=== PATIENT | female | born 1945 | race Caucasian/White ===

== ENCOUNTER → 2024-01-20 09:57 | Outpatient (REF) | payer MEDICARE, BC, SELFPAY | LOC: HWRCS 09:57 | PROVIDERS: ATTENDING PHYSICIAN Physician Assistant | DX: R06.09 Other forms of dyspnea (principal); I50.32 Chronic diastolic (congestive) heart failure | CPT/HCPCS: 71046; 93306 ==

== ENCOUNTER 2024-01-22 10:26 | Emergency (ER) | payer MEDICARE, BC, SELFPAY ==
[2024-01-22 10:30] VITALS: BP 166/80
--- NOTE | 2024-01-22 11:25 | ED.GENMED ---
History of Present Illness
General
Chief Complaint: Abnormal Lab Value
Source: patient
Exam Limitations: none
Time Seen by Provider: 01/22/24 11:04
Nursing documentation reviewed up to this point in time: agreed with
History of Present Illness
History of Present Illness:
Patient with history of ITP, presents to ED after an outpatient blood work yesterday revealed recurrent thrombocytopenia, with reported spontaneous bruising noted over the past 1 week. Patient has similar episode 2 years ago during which time
patient was admitted and treated with prednisone with improvement in symptoms. Patient reports chronic intermittent headache as well as shortness of breath, which appears to be worsening. Denies fever or chills. Denies chest pain. Denies nausea,
vomiting, or diarrhea. Denies recent travel or surgery. Denies recent change in medications or diet. Denies dizziness or weakness. Patient reports having received an outpatient chest x-ray yesterday.
Past History
Past History
ED Past Medical History: Cancer (Remote history of breast cancer), HTN and Other (Osteoarthritis, thrombocytopenia)
ED Past Surgical History: Cholecystectomy and Orthopedic
Social History
Tobacco: Former smoker
Alcohol: None
Drug: None
Personal:
Living: alone
Family History
Family History: Unable to obtain
Review of Systems
Review of Systems
Allergies reviewed?: Yes
All Other Systems: ROS reviewed and negative except as documented in HPI and ROS
Constitutional: Reports no symptoms
EENT: Reports no symptoms
Respiratory: Reports cough and trouble breathing
Cardiac: Reports no symptoms; Denies chest pain
ABD/GI: Reports no symptoms
: Reports no symptoms
Musculoskeletal: Reports no symptoms
Skin: Reports other (Bruising)
Neurological: Reports headache
Phy Exam
Physical Exam
Physical Exam:
Physical Exam
General: no apparent distress, not acutely ill. afebrile
Head: nc/at. eomi
Neck: supple. no meningeal signs.
Heart: s1/s2 regular rate and rhythm, no murmur. equal radial pulses.
Lungs: no acute respiratory distress. clear bilaterally
Abdomen: normal bowel sounds. not tender.
Neuro: alert and oriented. no focal neurological deficits
Skin: ecchymosis noted over abdomen/LLE/back
Psychiatric: well kept. interactive and cooperative
Extremities: no edema. no calf tenderness.
Course
Orders/Labs/Results
Orders:
Orders
01/22/24 11:02
Cardiac Monitoring- Treatment ONCE
IV Insert/Care/Rem.- Treatment PRN
01/22/24 11:19
Type+Screen Urgent
Complete Blood Count/With Diff Urgent
Comprehensive Metabolic Panel Urgent
D-Dimer Urgent
Comment: ADD ON
NT-proBNP Urgent
Comment: PROBNP ADDED ON BY FLOOR 2:45PM 01-22-24
PTT Urgent
Prothrombin Time Urgent
01/22/24 11:20
Add On- LAB Urgent
Tests Added?: d-dimer
CT Head W/o Iv Contrast Urgent
Comment:
Reason For Exam: headache with thrombocytopenia
01/22/24 12:09
CT Chest Pe Study Urgent
Comment:
Reason For Exam: sob with elevated d-dimer
01/22/24 14:44
Add On- LAB Urgent
Tests Added?: ProBNP
Abnormal Lab Results
01/22/24
11:19
RBC 3.86 L 10^6/uL
(4.20-5.40)
Hct 35.6 L %
(37.0-47.0)
MCH 32.6 H pg
(27.0-31.0)
Plt Count 13 L* 10^3/uL
(130-400)
Absolute Monos (auto) 0.8 H 10^3/uL
(0.1-0.6)
Monocytes % 14.1 H %
(1.7-9.3)
PT 15.6 H Sec
(11.4-14.6)
D-Dimer 1.05 H ug/mlFEU
(0.00-0.50)
Potassium 3.4 L mmol/L
(3.5-5.1)
Carbon Dioxide 32 H mmol/L
(22-30)
AST 70 H U/L
(14-36)
ALT 42 H U/L
(0-35)
01/22/24 11:19
01/22/24 11:19
Vital Signs
Initial and Last Documented VS:
Initial Vital Signs
Temp Pulse Resp BP Pulse Ox
98.9 F 92 18 166/80 94
01/22/24 10:30 01/22/24 10:30 01/22/24 10:30 01/22/24 10:30 01/22/24 10:30
Last Documented Vital Signs
Temp Pulse Resp BP Pulse Ox
98.9 F 93 15 166/81 95
01/22/24 10:30 01/22/24 15:30 01/22/24 15:30 01/22/24 14:01 01/22/24 15:15
MDM/Problems Addressed
MDM/Problems Addressed:
History and exam, along with blood work consistent with recurrent thrombocytopenia. In light of intermittent headache, decision made to obtain CT head, which did not reveal any acute bleeding. In addition, as patient has had worsening shortness of
breath recently, with unremarkable chest x-ray yesterday, decision made to obtain CT chest, as this had already been discussed with her primary care physician.
CT chest: No PE, but suggestion of sepsis versus mild interstitial edema. Patient advised to take extra tablet of Bumex as an outpatient over the next few days, along with follow-up with her primary pastoral worker, Dr. Gill.
Discussed with on-call hematology, Dr. Levin. Does not recommend platelet transfusion at this time, but recommends treating patient as an outpatient with dexamethasone 40 mg daily x 4 days, along with weekly CBC, as well as outpatient follow-up
with her primary credit associate, Dr. Arvizu
Patient expresses understanding at time of discharge, to the care of her daughter. Patient advised to return to ED with worsening symptoms, i.e. worsening shortness of breath.
*Critical Care Note
Total Time (30-74mins, 75-104mins- exclusive of procedures): Not Applicable
ED Attending Note
-
Portions of this chart may have been created with voice recognition software.� Occasional wrong word or��sound alike� substitutions may have occurred due to the inherent limitations of voice recognition software.
Discharge Plan
Departure
Patient Disposition: Home (Routine Discharge)
Date of Disposition: 01/22/24
Time of Disposition: 15:33
Patient with high blood pressure during this ER visit?: Yes
Condition: Fair
Discharge Problem:
Thrombocytopenia
Instructions: Immune thrombocytopenia (ITP)
Prescriptions:
No Action
esomeprazole magnesium [Nexium] 40 MG capsule,delayed release(DR/EC)
40 mg PO DAILY
gabapentin [Neurontin] 600 MG tablet
600 mg PO DAILY@1200
bupropion HCl 150 MG tablet extended release 24 hr
150 mg PO DAILY
fluticasone propionate 1 SPRAY spray,suspension
1 spray intranasal DAILY
escitalopram oxalate 10 MG tablet
10 mg PO DAILY
chlorthalidone 25 MG tablet
25 mg PO DAILY Qty: 30 0RF
bumetanide 1 mg Tablet
1 mg PO DAILY
PreserVision AREDS 4,296 mcg-226 mg-90 mg Capsule
2 cap PO DAILY
gabapentin 600 mg Tablet
1,200 mg PO HS
polyethylene glycol 3350 [Miralax] 17 gram Powder In Packet
17 g PO DAILYPRN PRN (Reason: CONSTIPATION)
ibuprofen [Motrin] 400 mg Tablet
400 mg PO BIDPRN PRN (Reason: MILD PAIN)
ondansetron [Zofran ODT] 4 mg Tablet,Disintegrating
4 mg PO Q6HPRN PRN (Reason: nauseA)
celecoxib [Celebrex] 50 mg Capsule
50 mg PO DAILYPRN PRN (Reason: MILD PAIN)
ZzzQuil 50 mg/30 mL Liquid
50 mg PO HS
potassium chloride 20 mEq Tablet Extended Release
20 meq PO DAILY
Referrals:
UNKNOWN - PT DOES,NOT KNOW [Family Provider] -
Activity Restrictions/Additional Instructions:
As discussed, please follow-up with your credit associate for reevaluation, as well as repeat blood work weekly x 3 weeks. In addition, prescription for medication dexamethasone, has been called into your pharmacy at [facility].
Interventions
Interventions:
*Risk Screen - Suicide Last Done: 01/22/24 11:24
*General Assessment Last Done: 01/22/24 11:24
*Neglect/Abuse Screening Last Done: 01/22/24 11:24
ED- Fall Risk Assessment Last Done: 01/22/24 11:24
*ED COVID-19 Vaccine History Last Done: 01/22/24 11:24
*Nursing Disposition Last Done: 01/22/24 16:05
Discharge Date and Time
Discharge Date/Time: 01/22/24 16:06
Print Language: RWANDAN
[2024-01-22 11:42] LABS: INR 1.23; PT 15.6 Sec (11.4-14.6)
[2024-01-22 11:43] LABS: APTT 32.4 Sec (23.4-35.0)
[2024-01-22 11:45] LABS: D-Dimer 1.05 ug/mlFEU (0.00-0.50)
[2024-01-22 11:46] LABS: ALT (SGPT) 42 U/L (0-35); AST (SGOT) 70 U/L (14-36); Albumin 3.8 g/dl (3.5-5.0); Alkaline Phosphatase 102 U/L (38-126); Blood Urea Nitrogen 10 mg/dl (7-17); Calcium 8.9 mg/dl (8.4-10.2); Carbon Dioxide 32 mmol/L (22-30); Chloride 101 mmol/L (98-107); Glucose 85 mg/dl (70-99); Potassium 3.4 mmol/L (3.5-5.1); Sodium 139 mmol/L (135-145); Total Bilirubin 0.6 mg/dl (0.2-1.3); Total Protein 7.9 g/dl (6.3-8.2); eGFR > 60.00
[2024-01-22 12:02] LABS: % Basophils 1.5 % (0-2); % Eosinophils 2.9 % (0-6); % Immature Granulocytes 0.4 % (0-0.5); % Lymphocytes 21.6 % (20.5-51.1); % Monocytes 14.1 % (1.7-9.3); % Neutrophils 59.5 % (42.2-75.2); Absolute Basophils 0.1 10^3/uL (0-0.2); Absolute Eosinophils 0.2 10^3/uL (0-0.7); Absolute Lymphocytes 1.2 10^3/uL (1.2-3.4); Absolute Monocytes 0.8 10^3/uL (0.1-0.6); Absolute Neutrophils 3.3 10^3/uL (1.4-6.5); Hematocrit 35.6 % (37.0-47.0); Hemoglobin 12.6 g/dL (12.0-16.0); Mean Corp Hgb Conc. 35.4 g/dL (33.0-37.0); Mean Corpuscular Hgb 32.6 pg (27.0-31.0); Mean Corpuscular Volume 92.2 fL (81.0-99.0); Nucleated Red Blood Cells % 0 %; Red Blood Cell Count 3.86 10^6/uL (4.20-5.40); Red Cell Dist. Width 13.2 % (11.5-14.5); White Blood Cell Count 5.5 10^3/uL (4.8-10.8)
[2024-01-22 12:29] VITALS: BP 117/97
[2024-01-22 12:51] LABS: Platelet Count 13 10^3/uL (130-400)
[2024-01-22 13:00] VITALS: BP 119/95
[2024-01-22 13:52] VITALS: BP 166/80; BMI 35.8
[2024-01-22 14:01] VITALS: BP 166/81
[2024-01-22 15:47] LABS: NT-proBNP 650 pg/ml
== END 2024-01-22 16:06 | disposition home or self-care (01) ==
LOC: EMR 10:26
PROVIDERS: EMERGENCY PHYSICIAN Emergency Medicine
DX: D69.6 Thrombocytopenia, unspecified (principal); I10 Essential (primary) hypertension; M19.90 Unspecified osteoarthritis, unspecified site; Z85.3 Personal history of malignant neoplasm of breast; Z87.891 Personal history of nicotine dependence; Z90.49 Acquired absence of other specified parts of digestive tract
CPT/HCPCS: 99284; 70450; 71275; 80053; 83880; 85025; 85379; 85610; 85730; 86850; 86900; 86901; Q9967

== ENCOUNTER → 2024-01-30 10:33 | Outpatient (REF) | payer MEDICARE, BC, SELFPAY ==
[2024-01-30 12:27] LABS: % Basophils 0.1 % (0-2); % Eosinophils 3.1 % (0-6); % Immature Granulocytes 1.7 % (0-0.5); % Lymphocytes 15.1 % (20.5-51.1); Absolute Eosinophils 0.2 10^3/uL (0-0.7); Absolute Immature Granulocytes 0.1 10^3/uL (0-0.05); Absolute Lymphocytes 1.2 10^3/uL (1.2-3.4); Absolute Neutrophils 5.2 10^3/uL (1.4-6.5); Hematocrit 38.4 % (37.0-47.0); Hemoglobin 13.5 g/dL (12.0-16.0); Mean Corp Hgb Conc. 35.2 g/dL (33.0-37.0); Mean Corpuscular Hgb 32.6 pg (27.0-31.0); Mean Corpuscular Volume 92.8 fL (81.0-99.0); Mean Platelet Volume 11.1 fL (7.4-10.4); Nucleated Red Blood Cells % 0 %; Platelet Count 104 10^3/uL (130-400); Red Blood Cell Count 4.14 10^6/uL (4.20-5.40); White Blood Cell Count 7.8 10^3/uL (4.8-10.8)
== END ==
LOC: HWLAB 10:33
PROVIDERS: ATTENDING PHYSICIAN Emergency Medicine; FAMILY PHYSICIAN Nurse Practitioner Family; REFERRING PHYSICIAN Internal Medicine Hematology & Oncology
DX: R68.89 Other general symptoms and signs (principal); D69.6 Thrombocytopenia, unspecified
CPT/HCPCS: 36415; 85025

== ENCOUNTER → 2024-02-05 07:51 | Outpatient (REF) | payer MEDICARE, BC, SELFPAY ==
[2024-02-05 10:24] LABS: % Basophils 1.1 % (0-2); % Eosinophils 3.2 % (0-6); % Immature Granulocytes 0.4 % (0-0.5); % Monocytes 13.5 % (1.7-9.3); % Neutrophils 57.8 % (42.2-75.2); Absolute Basophils 0.1 10^3/uL (0-0.2); Absolute Eosinophils 0.2 10^3/uL (0-0.7); Absolute Lymphocytes 1.7 10^3/uL (1.2-3.4); Absolute Neutrophils 4.2 10^3/uL (1.4-6.5); Hematocrit 36.4 % (37.0-47.0); Hemoglobin 12.7 g/dL (12.0-16.0); Mean Corp Hgb Conc. 34.9 g/dL (33.0-37.0); Mean Corpuscular Hgb 31.7 pg (27.0-31.0); Mean Corpuscular Volume 90.8 fL (81.0-99.0); Nucleated Red Blood Cells % 0 %; Red Blood Cell Count 4.01 10^6/uL (4.20-5.40); Red Cell Dist. Width 12.9 % (11.5-14.5); White Blood Cell Count 7.2 10^3/uL (4.8-10.8)
[2024-02-05 11:16] LABS: Mean Platelet Volume 12.4 fL (7.4-10.4); Platelet Count 58 10^3/uL (130-400)
== END ==
LOC: HWLAB 07:51
PROVIDERS: ATTENDING PHYSICIAN Emergency Medicine; FAMILY PHYSICIAN Nurse Practitioner Family; REFERRING PHYSICIAN Internal Medicine Hematology & Oncology
DX: D69.6 Thrombocytopenia, unspecified (principal)
CPT/HCPCS: 36415; 85025

== ENCOUNTER 2024-02-19 14:53 | Emergency (ER) | payer MEDICARE, BC, SELFPAY ==
[2024-02-19] VITALS (8 sets, daily range): BP systolic 111–177; BP diastolic 75–107; BMI 34.2
[2024-02-19 15:36] LABS: ALT (SGPT) 23 U/L (0-35); AST (SGOT) 39 U/L (14-36); Albumin 4.1 g/dl (3.5-5.0); Alkaline Phosphatase 94 U/L (38-126); Blood Urea Nitrogen 12 mg/dl (7-17); Calcium 9.2 mg/dl (8.4-10.2); Carbon Dioxide 28 mmol/L (22-30); Chloride 94 mmol/L (98-107); Glucose 95 mg/dl (70-99); Potassium 3.4 mmol/L (3.5-5.1); Sodium 133 mmol/L (135-145); Total Bilirubin 0.7 mg/dl (0.2-1.3); Total Protein 7.5 g/dl (6.3-8.2); eGFR > 60.00
[2024-02-19 15:52] LABS: % Eosinophils 2.9 % (0-6); % Immature Granulocytes 0.6 % (0-0.5); % Lymphocytes 22.5 % (20.5-51.1); % Monocytes 16.1 % (1.7-9.3); % Neutrophils 56.9 % (42.2-75.2); Absolute Basophils 0.1 10^3/uL (0-0.2); Absolute Eosinophils 0.2 10^3/uL (0-0.7); Absolute Immature Granulocytes 0.1 10^3/uL (0-0.05); Absolute Lymphocytes 1.8 10^3/uL (1.2-3.4); Absolute Monocytes 1.3 10^3/uL (0.1-0.6); Absolute Neutrophils 4.6 10^3/uL (1.4-6.5); Hematocrit 35.8 % (37.0-47.0); Hemoglobin 12.9 g/dL (12.0-16.0); Mean Corpuscular Hgb 31.9 pg (27.0-31.0); Mean Corpuscular Volume 88.4 fL (81.0-99.0); Nucleated Red Blood Cells % 0 %; Platelet Count 5 10^3/uL (130-400); Red Blood Cell Count 4.05 10^6/uL (4.20-5.40); Red Cell Dist. Width 13.2 % (11.5-14.5)
--- NOTE | 2024-02-19 16:49 | ED.GENMED ---
History of Present Illness
General
Chief Complaint: Abnormal Lab Value
Source: patient
Exam Limitations: none
Time Seen by Provider: 02/19/24 16:28
Nursing documentation reviewed up to this point in time: agreed with
History of Present Illness
History of Present Illness:
78-year-old female with a history of ITP presents from outpatient cancer center for platelet count of 1000 taken today on blood work. Patient says she woke up this morning and did have some bleeding in her mouth that resolved. She has spontaneous
bruising which is chronic. She was here 1 month ago and a platelet count at 13,000 and she was treated with 4 days of dexamethasone 40 mg. She is continue to have low platelets. She was sent in from the nurse practitioner with concerns that she
would need a platelet transfusion. Patient has not had a headache or head trauma. She does have chronic right groin pain with walking and is suspected to have arthritis or bursitis or a hip injury that is chronic and has an outpatient MRI
scheduled tomorrow and would prefer to be discharged if possible.
no bleeding from urine, stool, nose, no headache
Past History
Past History
ED Past Medical History: Cancer (Remote history of breast cancer), HTN and Other (Osteoarthritis, thrombocytopenia)
ED Past Surgical History: Cholecystectomy and Orthopedic
Social History
Tobacco: Former smoker
Alcohol: None
Drug: None
Personal:
Living: alone
Family History
Family History: Unable to obtain
Review of Systems
Review of Systems
Allergies reviewed?: Yes
All Other Systems: Not applicable
Phy Exam
Physical Exam
Physical Exam:
GENERAL: Alert , in no apparent distress
EYE: pupils equal and reactive
head: ncat
NECK: Supple
ENT: o/p clr, mmm.
no bleeding
small purple sarah in buccal mucosa lower lip
CARDIAC: Regular rate and rhythm .
LUNGS: Clear breath sounds bilaterally, no acute respiratory distress, no wheezes/rales/rhonchi
ABDOMEN: Soft, without focal tenderness, no r/g, no cvat, normal bowel sounds
NEUROLOGICAL: Alert and oriented, no focal neuro deficits
SKIN: Warm and dry, skin intact. some purplish bruising on arms and legs
no petechia
MUSCULOSKELETAL: No edema, well perfused. neg chris's sign
right inguinal region nontender
some pain with int and ext rotation of right hip
PSYCH: Normal and appropriate interaction.
Course
Orders/Labs/Results
Orders:
Orders
02/19/24 15:15
Type+Screen Urgent
CMP [Comprehensive Metabolic Panel] Urgent
Complete Blood Count/With Diff Urgent
02/19/24 17:40
Dexamethasone [Decadron] 40 mg PO NOW STA
Abnormal Lab Results
02/19/24
15:15
RBC 4.05 L 10^6/uL
(4.20-5.40)
Hct 35.8 L %
(37.0-47.0)
MCH 31.9 H pg
(27.0-31.0)
Plt Count 5 L* D 10^3/uL
(130-400)
Abs Immat Gran (auto) 0.1 H 10^3/uL
(0-0.05)
Absolute Monos (auto) 1.3 H 10^3/uL
(0.1-0.6)
Immature Gran % 0.6 H %
(0-0.5)
Monocytes % 16.1 H %
(1.7-9.3)
Sodium 133 L mmol/L
(135-145)
Potassium 3.4 L mmol/L
(3.5-5.1)
Chloride 94 L mmol/L
(98-107)
AST 39 H U/L
(14-36)
02/19/24 15:15
02/19/24 15:15
Vital Signs
Initial and Last Documented VS:
Initial Vital Signs
Temp Pulse Resp BP Pulse Ox
98.2 F 99 16 122/90 93
02/19/24 14:55 02/19/24 14:55 02/19/24 14:55 02/19/24 14:55 02/19/24 14:55
Last Documented Vital Signs
Temp Pulse Resp BP Pulse Ox
98.5 F 103 18 149/75 90
02/19/24 16:50 02/19/24 19:45 02/19/24 19:45 02/19/24 19:00 02/19/24 19:45
MDM/Problems Addressed
Differential Diagnosis Includes:
thrombocytopienia, ITP
MDM/Problems Addressed:
78 y/o F
ITP
low platelets last montha nd had positive response on steroids but on screening today she had plt of 1000
she was sent by [facility] from [facility] for eval
pt has no pain, bleeding
she had no headache/head trauma
her repeat plt here is 5000
hg is stable
the right inguinal rgion pain seems MSK and is being w/u by ortho
d/w dr. winter who said he actually probably woun't have referred her to Er if he had heard about her from the [facility] from oncology office but that we could do anotehr 4 days of dex 40 mg and they would reach ou to her tomorrow and stat her promecta
pt is comfortable with this plan
transfusion of plt not indicated because of h/o ITP
*Critical Care Note
Total Time (30-74mins, 75-104mins- exclusive of procedures): Not Applicable
ED Attending Note
-
Portions of this chart may have been created with voice recognition software.� Occasional wrong word or��sound alike� substitutions may have occurred due to the inherent limitations of voice recognition software.
Discharge Plan
Departure
Patient Disposition: Home (Routine Discharge)
Date of Disposition: 02/19/24
Time of Disposition: 17:47
Patient with high blood pressure during this ER visit?: No
Condition: Fair
Covid-19: Not Applicable
Discharge Problem:
Idiopathic thrombocytopenia
Instructions: Immune thrombocytopenia (ITP)
Prescriptions:
New
dexamethasone 20 mg tablet
40 mg PO DAILY 3 Days Qty: 6 0RF
No Action
esomeprazole magnesium [Nexium] 40 MG capsule,delayed release(DR/EC)
40 mg PO DAILY
gabapentin [Neurontin] 600 MG tablet
600 mg PO DAILY@1200
bupropion HCl 150 MG tablet extended release 24 hr
150 mg PO DAILY
fluticasone propionate 1 SPRAY spray,suspension
1 spray intranasal DAILY
escitalopram oxalate 10 MG tablet
10 mg PO DAILY
chlorthalidone 25 MG tablet
25 mg PO DAILY Qty: 30 0RF
bumetanide 1 mg Tablet
1 mg PO DAILY
PreserVision AREDS 4,296 mcg-226 mg-90 mg Capsule
2 cap PO DAILY
gabapentin 600 mg Tablet
1,200 mg PO HS
polyethylene glycol 3350 [Miralax] 17 gram Powder In Packet
17 g PO DAILYPRN PRN (Reason: CONSTIPATION)
ibuprofen [Motrin] 400 mg Tablet
400 mg PO BIDPRN PRN (Reason: MILD PAIN)
ondansetron [Zofran ODT] 4 mg Tablet,Disintegrating
4 mg PO Q6HPRN PRN (Reason: nauseA)
celecoxib [Celebrex] 50 mg Capsule
50 mg PO DAILYPRN PRN (Reason: MILD PAIN)
ZzzQuil 50 mg/30 mL Liquid
50 mg PO HS
potassium chloride 20 mEq Tablet Extended Release
20 meq PO DAILY
Activity Restrictions/Additional Instructions:
Your platelet count is 5000 today and you no signs of bleeding currently. You are able to go home with dexamethasone 40 mg once a day for 4 days. We gave you your first dose today. Dr. Young is can have his office call you about starting a
different medication that will hopefully help treat this to prevent you from having such low platelet count. Please return in the meantime for any spontaneous bleeding, head injuries, severe headache. You need to be very careful over the next
couple of days to make sure that you do not fall or hit your head.
You may have your MRI tomorrow. Return to the ER for any concerns
Interventions
Interventions:
*Risk Screen - Suicide Last Done: 02/19/24 16:50
*General Assessment Last Done: 02/19/24 16:50
*Neglect/Abuse Screening Last Done: 02/19/24 16:50
ED- Fall Risk Assessment Last Done: 02/19/24 16:50
*ED COVID-19 Vaccine History Last Done: 02/19/24 16:50
*Nursing Disposition Last Done: 02/19/24 20:07
Discharge Date and Time
Discharge Date/Time: 02/19/24 20:07
Print Language: GREENLANDIC
[2024-02-19] MEDS: DECADRON 40 MG PO (17:55)
== END 2024-02-19 20:07 | disposition home or self-care (01) ==
LOC: EMR 14:53
PROVIDERS: EMERGENCY PHYSICIAN Student in an Organized Health Care Education/Training Program; FAMILY PHYSICIAN Family Medicine
DX: D69.3 Immune thrombocytopenic purpura (principal); R10.31 Right lower quadrant pain; R23.3 Spontaneous ecchymoses; I10 Essential (primary) hypertension; M19.90 Unspecified osteoarthritis, unspecified site; G47.30 Sleep apnea, unspecified; K21.9 Gastro-esophageal reflux disease without esophagitis; K44.9 Diaphragmatic hernia without obstruction or gangrene; F41.9 Anxiety disorder, unspecified; F32.A Depression, unspecified; Z85.819 Personal history of malignant neoplasm of unspecified site of lip, oral cavity, and pharynx; Z85.3 Personal history of malignant neoplasm of breast; Z87.891 Personal history of nicotine dependence; Z90.49 Acquired absence of other specified parts of digestive tract; Z88.6 Allergy status to analgesic agent; Z88.5 Allergy status to narcotic agent; Z88.2 Allergy status to sulfonamides; Z91.018 Allergy to other foods
CPT/HCPCS: 99283; 36415; 80053; 85025; 86850; 86900; 86901

== ENCOUNTER 2024-02-21 11:06 | Outpatient (RCR) | payer MEDICARE, BC, SELFPAY ==
[2024-02-21 12:23] LABS: % Basophils 0.2 % (0-2); % Monocytes 9.8 % (1.7-9.3); Absolute Immature Granulocytes 0.2 10^3/uL (0-0.05); Absolute Lymphocytes 0.9 10^3/uL (1.2-3.4); Absolute Monocytes 1.7 10^3/uL (0.1-0.6); Absolute Neutrophils 14.7 10^3/uL (1.4-6.5); Hematocrit 35.8 % (37.0-47.0); Hemoglobin 13.1 g/dL (12.0-16.0); Mean Corp Hgb Conc. 36.6 g/dL (33.0-37.0); Mean Corpuscular Hgb 32.2 pg (27.0-31.0); Nucleated Red Blood Cells % 0 %; Platelet Count 14 10^3/uL (130-400); Red Blood Cell Count 4.07 10^6/uL (4.20-5.40); Red Cell Dist. Width 13.3 % (11.5-14.5); White Blood Cell Count 17.5 10^3/uL (4.8-10.8)
== END 2024-02-24 23:59 | disposition home or self-care (01) ==
LOC: OID 11:06
PROVIDERS: ATTENDING PHYSICIAN Internal Medicine Hematology & Oncology
DX: C50.419 Malignant neoplasm of upper-outer quadrant of unspecified female breast (principal); D69.3 Immune thrombocytopenic purpura; D51.9 Vitamin B12 deficiency anemia, unspecified
CPT/HCPCS: 85025

== ENCOUNTER → 2024-03-10 14:27 | Outpatient (REF) | payer MEDICARE, BC, SELFPAY ==
[2024-03-10 14:46] LABS: % Basophils 0.2 % (0-2); % Eosinophils 0.1 % (0-6); % Immature Granulocytes 0.9 % (0-0.5); % Monocytes 1.1 % (1.7-9.3); % Neutrophils 92.7 % (42.2-75.2); Absolute Immature Granulocytes 0.1 10^3/uL (0-0.05); Absolute Lymphocytes 0.6 10^3/uL (1.2-3.4); Absolute Monocytes 0.1 10^3/uL (0.1-0.6); Absolute Neutrophils 11.6 10^3/uL (1.4-6.5); Hematocrit 38.2 % (37.0-47.0); Hemoglobin 13.4 g/dL (12.0-16.0); Mean Corp Hgb Conc. 35.1 g/dL (33.0-37.0); Mean Corpuscular Hgb 32.5 pg (27.0-31.0); Mean Corpuscular Volume 92.7 fL (81.0-99.0); Mean Platelet Volume 9.4 fL (7.4-10.4); Platelet Count 335 10^3/uL (130-400); Red Blood Cell Count 4.12 10^6/uL (4.20-5.40); White Blood Cell Count 12.5 10^3/uL (4.8-10.8)
== END ==
LOC: OIDL 14:27
PROVIDERS: ATTENDING PHYSICIAN Internal Medicine Hematology & Oncology
DX: C50.419 Malignant neoplasm of upper-outer quadrant of unspecified female breast (principal); D69.3 Immune thrombocytopenic purpura; D51.9 Vitamin B12 deficiency anemia, unspecified
CPT/HCPCS: 36415; 85025

== ENCOUNTER → 2024-03-17 14:23 | Outpatient (REF) | payer MEDICARE, BC, SELFPAY ==
[2024-03-17 14:51] LABS: % Basophils 0.2 % (0-2); % Immature Granulocytes 0.8 % (0-0.5); % Lymphocytes 7.3 % (20.5-51.1); % Monocytes 2.7 % (1.7-9.3); Absolute Immature Granulocytes 0.1 10^3/uL (0-0.05); Absolute Lymphocytes 0.8 10^3/uL (1.2-3.4); Absolute Monocytes 0.3 10^3/uL (0.1-0.6); Absolute Neutrophils 9.6 10^3/uL (1.4-6.5); Hematocrit 36.8 % (37.0-47.0); Hemoglobin 12.7 g/dL (12.0-16.0); Mean Corp Hgb Conc. 34.5 g/dL (33.0-37.0); Mean Corpuscular Hgb 32.4 pg (27.0-31.0); Mean Corpuscular Volume 93.9 fL (81.0-99.0); Mean Platelet Volume 8.9 fL (7.4-10.4); Platelet Count 323 10^3/uL (130-400); Red Blood Cell Count 3.92 10^6/uL (4.20-5.40); Red Cell Dist. Width 13.2 % (11.5-14.5); White Blood Cell Count 10.7 10^3/uL (4.8-10.8)
== END ==
LOC: OIDL 14:23
PROVIDERS: ATTENDING PHYSICIAN Internal Medicine Hematology & Oncology; FAMILY PHYSICIAN Nurse Practitioner Family
DX: C50.419 Malignant neoplasm of upper-outer quadrant of unspecified female breast (principal)
CPT/HCPCS: 36415; 85025

== ENCOUNTER → 2024-04-13 13:05 | Outpatient (REF) | payer MEDICARE, BC, SELFPAY ==
[2024-04-13 11:20] LABS: % Basophils 0.7 % (0-2); % Eosinophils 1.3 % (0-6); % Immature Granulocytes 0.4 % (0-0.5); % Monocytes 9.1 % (1.7-9.3); % Neutrophils 61.5 % (42.2-75.2); Absolute Basophils 0.1 10^3/uL (0-0.2); Absolute Eosinophils 0.1 10^3/uL (0-0.7); Absolute Lymphocytes 2.4 10^3/uL (1.2-3.4); Absolute Monocytes 0.8 10^3/uL (0.1-0.6); Absolute Neutrophils 5.5 10^3/uL (1.4-6.5); Hematocrit 42.8 % (37.0-47.0); Hemoglobin 14.2 g/dL (12.0-16.0); Mean Corp Hgb Conc. 33.2 g/dL (33.0-37.0); Mean Corpuscular Hgb 32.5 pg (27.0-31.0); Mean Corpuscular Volume 97.9 fL (81.0-99.0); Mean Platelet Volume 12.5 fL (7.4-10.4); Nucleated Red Blood Cells % 0 %; Platelet Count 62 10^3/uL (130-400); Red Blood Cell Count 4.37 10^6/uL (4.20-5.40); Red Cell Dist. Width 13.9 % (11.5-14.5)
== END ==
LOC: OIDL 13:05
PROVIDERS: ATTENDING PHYSICIAN Nurse Practitioner Acute Care
DX: C50.419 Malignant neoplasm of upper-outer quadrant of unspecified female breast (principal); D69.3 Immune thrombocytopenic purpura; D51.9 Vitamin B12 deficiency anemia, unspecified
CPT/HCPCS: 85025

== ENCOUNTER → 2024-04-21 10:10 | Outpatient (REF) | payer MEDICARE, BC, SELFPAY ==
[2024-04-21 10:53] LABS: % Basophils 0.6 % (0-2); % Immature Granulocytes 0.4 % (0-0.5); % Lymphocytes 15.5 % (20.5-51.1); % Neutrophils 73.5 % (42.2-75.2); Absolute Basophils 0.1 10^3/uL (0-0.2); Absolute Eosinophils 0.1 10^3/uL (0-0.7); Absolute Lymphocytes 1.7 10^3/uL (1.2-3.4); Absolute Neutrophils 7.9 10^3/uL (1.4-6.5); Hematocrit 37.4 % (37.0-47.0); Hemoglobin 12.7 g/dL (12.0-16.0); Mean Corpuscular Hgb 32.5 pg (27.0-31.0); Mean Corpuscular Volume 95.7 fL (81.0-99.0); Mean Platelet Volume 10.9 fL (7.4-10.4); Platelet Count 99 10^3/uL (130-400); Red Blood Cell Count 3.91 10^6/uL (4.20-5.40); Red Cell Dist. Width 13.7 % (11.5-14.5); White Blood Cell Count 10.7 10^3/uL (4.8-10.8)
== END ==
LOC: OIDL 10:10
PROVIDERS: ATTENDING PHYSICIAN Internal Medicine Hematology & Oncology; FAMILY PHYSICIAN Nurse Practitioner Family
DX: D50.0 Iron deficiency anemia secondary to blood loss (chronic) (principal); C50.419 Malignant neoplasm of upper-outer quadrant of unspecified female breast
CPT/HCPCS: 36415; 85025

== ENCOUNTER → 2024-04-28 10:28 | Outpatient (REF) | payer MEDICARE, BC, SELFPAY ==
[2024-04-28 10:50] LABS: % Basophils 0.5 % (0-2); % Eosinophils 1.7 % (0-6); % Immature Granulocytes 0.3 % (0-0.5); % Lymphocytes 24.5 % (20.5-51.1); % Monocytes 11.2 % (1.7-9.3); % Neutrophils 61.8 % (42.2-75.2); Absolute Basophils 0.1 10^3/uL (0-0.2); Absolute Eosinophils 0.2 10^3/uL (0-0.7); Absolute Lymphocytes 2.4 10^3/uL (1.2-3.4); Absolute Monocytes 1.1 10^3/uL (0.1-0.6); Hematocrit 38.5 % (37.0-47.0); Mean Corp Hgb Conc. 33.8 g/dL (33.0-37.0); Mean Corpuscular Hgb 32.5 pg (27.0-31.0); Mean Corpuscular Volume 96.3 fL (81.0-99.0); Mean Platelet Volume 10.7 fL (7.4-10.4); Platelet Count 174 10^3/uL (130-400); Red Cell Dist. Width 13.7 % (11.5-14.5); White Blood Cell Count 9.7 10^3/uL (4.8-10.8)
== END ==
LOC: OIDL 10:28
PROVIDERS: ATTENDING PHYSICIAN Internal Medicine Hematology & Oncology; FAMILY PHYSICIAN Family Medicine
DX: D69.3 Immune thrombocytopenic purpura (principal)
CPT/HCPCS: 36415; 85025

== ENCOUNTER → 2024-05-05 13:46 | Outpatient (REF) | payer MEDICARE, BC, SELFPAY ==
[2024-05-05 14:26] LABS: % Basophils 0.4 % (0-2); % Eosinophils 0.2 % (0-6); % Immature Granulocytes 0.3 % (0-0.5); % Lymphocytes 5.7 % (20.5-51.1); % Monocytes 2.7 % (1.7-9.3); % Neutrophils 90.7 % (42.2-75.2); Absolute Basophils 0.1 10^3/uL (0-0.2); Absolute Lymphocytes 0.7 10^3/uL (1.2-3.4); Absolute Monocytes 0.3 10^3/uL (0.1-0.6); Absolute Neutrophils 10.6 10^3/uL (1.4-6.5); Hematocrit 34.9 % (37.0-47.0); Hemoglobin 11.9 g/dL (12.0-16.0); Mean Corp Hgb Conc. 34.1 g/dL (33.0-37.0); Mean Corpuscular Hgb 32.8 pg (27.0-31.0); Mean Corpuscular Volume 96.1 fL (81.0-99.0); Platelet Count 241 10^3/uL (130-400); Red Blood Cell Count 3.63 10^6/uL (4.20-5.40); Red Cell Dist. Width 13.5 % (11.5-14.5); White Blood Cell Count 11.7 10^3/uL (4.8-10.8)
== END ==
LOC: OIDL 13:46
PROVIDERS: ATTENDING PHYSICIAN Nurse Practitioner Acute Care
DX: C50.419 Malignant neoplasm of upper-outer quadrant of unspecified female breast (principal)
CPT/HCPCS: 36415; 85025

== ENCOUNTER → 2024-05-12 12:57 | Outpatient (REF) | payer MEDICARE, BC, SELFPAY ==
[2024-05-12 13:21] LABS: % Basophils 0.5 % (0-2); % Eosinophils 0.9 % (0-6); % Immature Granulocytes 0.3 % (0-0.5); % Lymphocytes 8.8 % (20.5-51.1); % Neutrophils 82.5 % (42.2-75.2); Absolute Basophils 0.1 10^3/uL (0-0.2); Absolute Eosinophils 0.1 10^3/uL (0-0.7); Absolute Lymphocytes 1.2 10^3/uL (1.2-3.4); Absolute Neutrophils 11.5 10^3/uL (1.4-6.5); Hematocrit 39.2 % (37.0-47.0); Hemoglobin 13.3 g/dL (12.0-16.0); Mean Corp Hgb Conc. 33.9 g/dL (33.0-37.0); Mean Corpuscular Hgb 32.4 pg (27.0-31.0); Mean Corpuscular Volume 95.6 fL (81.0-99.0); Mean Platelet Volume 10.3 fL (7.4-10.4); Platelet Count 270 10^3/uL (130-400); White Blood Cell Count 13.9 10^3/uL (4.8-10.8)
== END ==
LOC: OIDL 12:57
PROVIDERS: ATTENDING PHYSICIAN Internal Medicine Hematology & Oncology
DX: C50.419 Malignant neoplasm of upper-outer quadrant of unspecified female breast (principal)
CPT/HCPCS: 36415; 85025

== ENCOUNTER → 2024-05-19 09:44 | Outpatient (REF) | payer MEDICARE, BC, SELFPAY ==
[2024-05-19 10:21] LABS: % Basophils 0.7 % (0-2); % Eosinophils 2.9 % (0-6); % Immature Granulocytes 0.3 % (0-0.5); % Lymphocytes 24.5 % (20.5-51.1); % Monocytes 12.5 % (1.7-9.3); % Neutrophils 59.1 % (42.2-75.2); Absolute Basophils 0.1 10^3/uL (0-0.2); Absolute Eosinophils 0.3 10^3/uL (0-0.7); Absolute Lymphocytes 2.1 10^3/uL (1.2-3.4); Absolute Monocytes 1.1 10^3/uL (0.1-0.6); Absolute Neutrophils 5.2 10^3/uL (1.4-6.5); Hematocrit 38.3 % (37.0-47.0); Hemoglobin 13.2 g/dL (12.0-16.0); Mean Corp Hgb Conc. 34.5 g/dL (33.0-37.0); Mean Corpuscular Hgb 32.7 pg (27.0-31.0); Mean Corpuscular Volume 94.8 fL (81.0-99.0); Mean Platelet Volume 10.5 fL (7.4-10.4); Platelet Count 211 10^3/uL (130-400); Red Blood Cell Count 4.04 10^6/uL (4.20-5.40); Red Cell Dist. Width 12.9 % (11.5-14.5); White Blood Cell Count 8.7 10^3/uL (4.8-10.8)
== END ==
LOC: OIDL 09:44
PROVIDERS: ATTENDING PHYSICIAN Internal Medicine Hematology & Oncology
DX: C50.419 Malignant neoplasm of upper-outer quadrant of unspecified female breast (principal)
CPT/HCPCS: 36415; 85025

== ENCOUNTER → 2024-05-26 10:03 | Outpatient (REF) | payer MEDICARE, BC, SELFPAY ==
[2024-05-26 10:31] LABS: % Basophils 0.9 % (0-2); % Eosinophils 3.5 % (0-6); % Immature Granulocytes 0.1 % (0-0.5); % Lymphocytes 14.1 % (20.5-51.1); % Monocytes 10.7 % (1.7-9.3); % Neutrophils 70.7 % (42.2-75.2); Absolute Basophils 0.1 10^3/uL (0-0.2); Absolute Eosinophils 0.3 10^3/uL (0-0.7); Absolute Lymphocytes 1.1 10^3/uL (1.2-3.4); Absolute Monocytes 0.9 10^3/uL (0.1-0.6); Absolute Neutrophils 5.6 10^3/uL (1.4-6.5); Hematocrit 35.9 % (37.0-47.0); Hemoglobin 12.3 g/dL (12.0-16.0); Mean Corp Hgb Conc. 34.3 g/dL (33.0-37.0); Mean Corpuscular Hgb 32.1 pg (27.0-31.0); Mean Corpuscular Volume 93.7 fL (81.0-99.0); Mean Platelet Volume 10.8 fL (7.4-10.4); Platelet Count 120 10^3/uL (130-400); Red Blood Cell Count 3.83 10^6/uL (4.20-5.40); Red Cell Dist. Width 12.7 % (11.5-14.5); White Blood Cell Count 7.9 10^3/uL (4.8-10.8)
== END ==
LOC: OIDL 10:03
PROVIDERS: ATTENDING PHYSICIAN Internal Medicine Hematology & Oncology; FAMILY PHYSICIAN Nurse Practitioner Family
DX: N18.30 Chronic kidney disease, stage 3 unspecified (principal); D63.1 Anemia in chronic kidney disease; Z98.84 Bariatric surgery status; E83.110 Hereditary hemochromatosis; C50.419 Malignant neoplasm of upper-outer quadrant of unspecified female breast
CPT/HCPCS: 36415; 85025

== ENCOUNTER → 2024-06-02 09:32 | Outpatient (REF) | payer MEDICARE, BC, SELFPAY ==
[2024-06-02 09:49] LABS: % Basophils 1.1 % (0-2); % Eosinophils 2.7 % (0-6); % Immature Granulocytes 0.1 % (0-0.5); % Lymphocytes 15.3 % (20.5-51.1); % Monocytes 11.1 % (1.7-9.3); % Neutrophils 69.7 % (42.2-75.2); Absolute Basophils 0.1 10^3/uL (0-0.2); Absolute Eosinophils 0.2 10^3/uL (0-0.7); Absolute Lymphocytes 1.1 10^3/uL (1.2-3.4); Absolute Monocytes 0.8 10^3/uL (0.1-0.6); Absolute Neutrophils 5.2 10^3/uL (1.4-6.5); Hematocrit 37.1 % (37.0-47.0); Hemoglobin 12.6 g/dL (12.0-16.0); Mean Corpuscular Hgb 31.8 pg (27.0-31.0); Mean Corpuscular Volume 93.7 fL (81.0-99.0); Mean Platelet Volume 10.2 fL (7.4-10.4); Platelet Count 228 10^3/uL (130-400); Red Blood Cell Count 3.96 10^6/uL (4.20-5.40); Red Cell Dist. Width 12.8 % (11.5-14.5); White Blood Cell Count 7.4 10^3/uL (4.8-10.8)
== END ==
LOC: OIDL 09:32
PROVIDERS: ATTENDING PHYSICIAN Internal Medicine Hematology & Oncology; FAMILY PHYSICIAN Nurse Practitioner Family
DX: N18.30 Chronic kidney disease, stage 3 unspecified (principal); D63.1 Anemia in chronic kidney disease; Z98.84 Bariatric surgery status; E83.110 Hereditary hemochromatosis; C50.419 Malignant neoplasm of upper-outer quadrant of unspecified female breast
CPT/HCPCS: 36415; 85025

== ENCOUNTER → 2024-06-11 10:09 | Outpatient (REF) | payer MEDICARE, BC, SELFPAY ==
[2024-06-11 10:28] LABS: % Basophils 0.3 % (0-2); % Eosinophils 2.1 % (0-6); % Immature Granulocytes 0.4 % (0-0.5); % Lymphocytes 13.8 % (20.5-51.1); % Monocytes 13.8 % (1.7-9.3); % Neutrophils 69.6 % (42.2-75.2); Absolute Eosinophils 0.2 10^3/uL (0-0.7); Absolute Lymphocytes 1.4 10^3/uL (1.2-3.4); Absolute Monocytes 1.4 10^3/uL (0.1-0.6); Hematocrit 37.8 % (37.0-47.0); Hemoglobin 12.5 g/dL (12.0-16.0); Mean Corp Hgb Conc. 33.1 g/dL (33.0-37.0); Mean Corpuscular Hgb 31.3 pg (27.0-31.0); Mean Corpuscular Volume 94.7 fL (81.0-99.0); Mean Platelet Volume 9.7 fL (7.4-10.4); Platelet Count 427 10^3/uL (130-400); Red Blood Cell Count 3.99 10^6/uL (4.20-5.40); Red Cell Dist. Width 12.8 % (11.5-14.5); White Blood Cell Count 10.1 10^3/uL (4.8-10.8)
== END ==
LOC: OIDL 10:09
PROVIDERS: ATTENDING PHYSICIAN Internal Medicine Hematology & Oncology
DX: C50.419 Malignant neoplasm of upper-outer quadrant of unspecified female breast (principal)
CPT/HCPCS: 36415; 85025

== ENCOUNTER → 2024-06-16 10:04 | Outpatient (REF) | payer MEDICARE, BC, SELFPAY ==
[2024-06-16 10:24] LABS: % Basophils 0.8 % (0-2); % Eosinophils 2.4 % (0-6); % Immature Granulocytes 0.1 % (0-0.5); % Lymphocytes 18.5 % (20.5-51.1); % Neutrophils 67.2 % (42.2-75.2); Absolute Basophils 0.1 10^3/uL (0-0.2); Absolute Eosinophils 0.2 10^3/uL (0-0.7); Absolute Lymphocytes 1.4 10^3/uL (1.2-3.4); Absolute Monocytes 0.8 10^3/uL (0.1-0.6); Absolute Neutrophils 5.1 10^3/uL (1.4-6.5); Hematocrit 38.2 % (37.0-47.0); Hemoglobin 12.8 g/dL (12.0-16.0); Mean Corp Hgb Conc. 33.5 g/dL (33.0-37.0); Mean Corpuscular Hgb 31.5 pg (27.0-31.0); Mean Corpuscular Volume 94.1 fL (81.0-99.0); Mean Platelet Volume 9.8 fL (7.4-10.4); Platelet Count 301 10^3/uL (130-400); Red Blood Cell Count 4.06 10^6/uL (4.20-5.40); Red Cell Dist. Width 12.5 % (11.5-14.5); White Blood Cell Count 7.6 10^3/uL (4.8-10.8)
== END ==
LOC: OIDL 10:04
PROVIDERS: ATTENDING PHYSICIAN Internal Medicine Hematology & Oncology
DX: C50.419 Malignant neoplasm of upper-outer quadrant of unspecified female breast (principal)
CPT/HCPCS: 36415; 85025

== ENCOUNTER → 2024-06-19 13:02 | Outpatient (REF) | payer MEDICARE, BC, SELFPAY ==
[2024-06-19 13:22] LABS: % Basophils 0.5 % (0-2); % Eosinophils 1.9 % (0-6); % Immature Granulocytes 0.1 % (0-0.5); % Lymphocytes 20.2 % (20.5-51.1); % Monocytes 11.2 % (1.7-9.3); % Neutrophils 66.1 % (42.2-75.2); Absolute Eosinophils 0.2 10^3/uL (0-0.7); Absolute Lymphocytes 1.7 10^3/uL (1.2-3.4); Absolute Neutrophils 5.6 10^3/uL (1.4-6.5); Hematocrit 35.3 % (37.0-47.0); Hemoglobin 11.9 g/dL (12.0-16.0); Mean Corp Hgb Conc. 33.7 g/dL (33.0-37.0); Mean Corpuscular Hgb 31.5 pg (27.0-31.0); Mean Corpuscular Volume 93.4 fL (81.0-99.0); Mean Platelet Volume 10.3 fL (7.4-10.4); Platelet Count 199 10^3/uL (130-400); Red Blood Cell Count 3.78 10^6/uL (4.20-5.40); Red Cell Dist. Width 12.8 % (11.5-14.5); White Blood Cell Count 8.5 10^3/uL (4.8-10.8)
== END ==
LOC: OIDL 13:02
PROVIDERS: ATTENDING PHYSICIAN Internal Medicine Hematology & Oncology
DX: C50.419 Malignant neoplasm of upper-outer quadrant of unspecified female breast (principal)
CPT/HCPCS: 36415; 85025

== ENCOUNTER 2024-06-22 10:43 | Inpatient (IN) | payer MEDICARE, BC, SELFPAY ==
[2024-03-20 10:48] VITALS: BMI 36.4
[2024-03-20 11:09] LABS: Hematocrit 37.4 % (37.0-47.0); Hemoglobin 12.8 g/dL (12.0-16.0); Mean Corp Hgb Conc. 34.2 g/dL (33.0-37.0); Mean Corpuscular Hgb 31.6 pg (27.0-31.0); Mean Corpuscular Volume 92.3 fL (81.0-99.0); Mean Platelet Volume 9.6 fL (7.4-10.4); Platelet Count 282 10^3/uL (130-400); Red Blood Cell Count 4.05 10^6/uL (4.20-5.40); Red Cell Dist. Width 13.6 % (11.5-14.5); White Blood Cell Count 11.8 10^3/uL (4.8-10.8)
[2024-03-20 11:54] LABS: ALT (SGPT) 23 U/L (0-35); AST (SGOT) 29 U/L (14-36); Albumin 4.1 g/dl (3.5-5.0); Alkaline Phosphatase 79 U/L (38-126); Blood Urea Nitrogen 17 mg/dl (7-17); Calcium 9.7 mg/dl (8.4-10.2); Carbon Dioxide 38 mmol/L (22-30); Chloride 91 mmol/L (98-107); Estimated Creatinine Clearance 54 ml/min; Glucose 87 mg/dl (70-99); Potassium 3.6 mmol/L (3.5-5.1); Sodium 136 mmol/L (135-145); Total Bilirubin 0.6 mg/dl (0.2-1.3); Total Protein 6.8 g/dl (6.3-8.2); eGFR > 60.00
[2024-06-08 11:28] LABS: Hematocrit 36.4 % (37.0-47.0); Hemoglobin 12.2 g/dL (12.0-16.0); Mean Corp Hgb Conc. 33.5 g/dL (33.0-37.0); Mean Corpuscular Hgb 31.8 pg (27.0-31.0); Mean Corpuscular Volume 94.8 fL (81.0-99.0); Mean Platelet Volume 11.4 fL (7.4-10.4); Platelet Count 333 10^3/uL (130-400); Red Blood Cell Count 3.84 10^6/uL (4.20-5.40); Red Cell Dist. Width 12.9 % (11.5-14.5)
[2024-06-08 12:03] LABS: Glycohemoglobin (HgbA1c) 5.7 % (4.0-5.6)
[2024-06-08 12:09] LABS: ALT (SGPT) 20 U/L (0-35); AST (SGOT) 44 U/L (14-36); Albumin 3.9 g/dl (3.5-5.0); Alkaline Phosphatase 102 U/L (38-126); Blood Urea Nitrogen 12 mg/dl (7-17); Calcium 9.1 mg/dl (8.4-10.2); Carbon Dioxide 31 mmol/L (22-30); Chloride 97 mmol/L (98-107); Estimated Creatinine Clearance 62 ml/min; Glucose 124 mg/dl (70-99); Potassium 3.4 mmol/L (3.5-5.1); Sodium 139 mmol/L (135-145); Total Bilirubin 0.7 mg/dl (0.2-1.3); Total Protein 7.3 g/dl (6.3-8.2); eGFR > 60.00
[2024-06-08 13:46] VITALS: BMI 34.8
[2024-06-16 12:47] VITALS: BMI 34.8
[2024-06-22] VITALS (17 sets, daily range): BP systolic 105–168; BP diastolic 47–96; BMI 34.8; BMI 33.8; BMI 34.1
[2024-06-22] MEDS: TYLENOL 650 MG PO ×2 (12:42→20:25)
[2024-06-22] MEDS: NORMOSOL-R/PLASMALYTE-A 1000 IV ×2 (12:48→18:39)
--- NOTE | 2024-06-22 14:46 | W.PN.UPDATE ---
Update Note
Progress Note Update
R MIKE 06/22/24
DVT ppx-ASA 325mg
ITP-platelets stable mbc-pq-zqlmtsa steroid post-op to enhance platelet production
B12 deficiency per heme note with pre-existing anemia-check B12 level and include B12 IM if indicated
AIMEE-cpap
COPD
Interstial lung ds.
pulmonary nodules
-monitor sats
PZT-pwy-sjdcxabmpcb
HFpEF
HTN
HLD
-tele
-decrease IVF rate and monitor volume status
CVA-on brain MRI 2012-small lacunar
Hx breast CA
hx oral CA
Spinal stenosis
Depression/anxiety
Fatty liver
--- NOTE | 2024-06-22 15:08 | W.DS.TRANS ---
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
-
Discharge Instructions:
Discharge Diagnosis/Procedures R MIKE 06/22/24
Diet As tolerated
Activity With Walker
Additional Activity hip precautions
Driving Restrictions No driving
Bathing Restrictions OK to Shower
Other Services PT
Instructions:
Stand-Alone Forms: Total Hip/Knee Replacement D/C
Changes to Home Medications: No
Discharge Medications:
DC Medications w/original date entered in [employer]
esomeprazole magnesium 40 mg capsule,delayed release (Nexium) 40 mg PO DAILY Gastrointestinal issue 03/29/14
gabapentin 600 mg tablet (Neurontin) 600 - 1,200 mg PO BID PRN NERVE PAIN 08/30/15
bupropion HCl 150 mg 24 hr tablet, extended release 150 mg PO DAILY Depression 10/31/19
escitalopram oxalate 10 mg tablet 20 mg PO DAILY 03/02/20
fluticasone propionate 50 mcg/actuation nasal spray,suspension 1 spray intranasal DAILY 03/02/20
bumetanide 1 mg tablet 1 mg PO DAILY PRN 'FLUID BUILD UP' 04/15/23
vitamins A,C,I-pfvo-ksmnjz 4,296 mcg-226 mg-90 mg capsule (PreserVision AREDS) 1 cap PO Q48H 04/15/23
diphenhydramine HCl 50 mg/30 mL oral liquid (ZzzQuil) 50 mg PO HS 01/22/24
ondansetron 4 mg disintegrating tablet 4 mg PO Q6HPRN PRN nausea 01/22/24
polyethylene glycol 3350 17 gram oral powder packet (Miralax) 17 g PO DAILYPRN PRN CONSTIPATION 01/22/24
potassium chloride 20 mEq tablet,extended release 20 meq PO DAILY 01/22/24
chlorthalidone 25 mg tablet 25 mg PO DAILY PRN 'FLUID BUILD UP' 06/16/24
mupirocin 2 % topical ointment 1 applic topical BID 06/16/24
acetaminophen 650 mg tablet,extended release 1,300 mg (2 x 650 mg) PO QID #0 tabs 06/22/24
aspirin 325 mg tablet 325 mg PO DAILY blood clot prevention #1 tab 06/22/24
dexamethasone 4 mg tablet 4 mg PO BID inflammation #6 tabs 06/22/24
docusate sodium 100 mg capsule (Colace) 100 mg PO BID stool softner #1 cap 06/22/24
ondansetron 4 mg disintegrating tablet 4 mg PO Q6H PRN n/v #20 tabs 06/22/24
oxycodone 5 mg tablet 5 mg PO Q6H PRN 1 tab moderate pain, 2 tabs severe pain #30 tabs 06/22/24
sennosides 8.6 mg tablet (Senokot) 17.2 mg (2 x 8.6 mg) PO BID laxative #2 tabs 06/22/24
Home Medication Changes
ondansetron 4 mg disintegrating tablet 4 mg PO Q6HPRN PRN nausea 01/22/24
polyethylene glycol 3350 17 gram oral powder packet (Miralax) 17 g PO DAILYPRN PRN CONSTIPATION 01/22/24
potassium chloride 20 mEq tablet,extended release 20 meq PO DAILY 01/22/24
chlorthalidone 25 mg tablet 25 mg PO DAILY PRN 'FLUID BUILD UP' 06/16/24
mupirocin 2 % topical ointment 1 applic topical BID 06/16/24
acetaminophen 650 mg tablet,extended release 1,300 mg (2 x 650 mg) PO QID #0 tabs 06/22/24
aspirin 325 mg tablet 325 mg PO DAILY blood clot prevention #1 tab 06/22/24
dexamethasone 4 mg tablet 4 mg PO BID inflammation #6 tabs 06/22/24
docusate sodium 100 mg capsule (Colace) 100 mg PO BID stool softner #1 cap 06/22/24
ondansetron 4 mg disintegrating tablet 4 mg PO Q6H PRN n/v #20 tabs 06/22/24
oxycodone 5 mg tablet 5 mg PO Q6H PRN 1 tab moderate pain, 2 tabs severe pain #30 tabs 06/22/24
sennosides 8.6 mg tablet (Senokot) 17.2 mg (2 x 8.6 mg) PO BID laxative #2 tabs 06/22/24
Pending Results: No
[2024-06-22] MEDS: TYLENOL PO (16:00)
[2024-06-22] MEDS: BENADRYL 12.5 MG IV ×2 (17:20→22:45)
[2024-06-22] MEDS: ROXICODONE 5 MG PO (18:41)
[2024-06-22] MEDS: ASPIRIN 325 MG PO (18:44)
[2024-06-22] MEDS: WELLBUTRIN XL (24 hour extended release) PO (20:22)
[2024-06-22] MEDS: DECADRON 6 MG IV (20:24)
[2024-06-22] MEDS: ULTRAM 50 MG PO (20:25)
[2024-06-22] MEDS: ANCEF 5 IV (20:25)
[2024-06-22] MEDS: SENOKOT 17.2 MG PO (20:25)
[2024-06-22] MEDS: LYRICA 100 MG PO (20:29)
[2024-06-22] MEDS: COLACE 100 MG PO (20:29)
[2024-06-22 21:52] LABS: Vitamin B12 492 pg/ml (239-931)
[2024-06-22] MEDS: PROTONIX 40 MG PO (22:45)
[2024-06-23] MEDS: TYLENOL 650 MG PO ×4 (00:06→11:56)
[2024-06-23] MEDS: DILAUDID 0.5 MG IV (00:46)
--- NOTE | 2024-06-23 02:20 | PTCARENOTE ---
19:40 pt rec;vd from PACU , right hip primaseal intact with scant drainage, pt aaox3, denies pain, pt was able to ambulate with walker and assist of 1 to restroom ruinated without difficulty. Pt oriented to unit, daughter at the bed side approx
21:00.
[2024-06-23 03:36] VITALS: BP 164/87
--- NOTE | 2024-06-23 04:29 | PTCARENOTE ---
20:00 pt refused her mupirocin ointment, pt expressed it makes her itch ''even when I used it at home.''
[2024-06-23] MEDS: ANCEF 5 IV (04:56)
[2024-06-23 06:00] VITALS: BMI 34.1
[2024-06-23 07:55] VITALS: BP 158/103
[2024-06-23] MEDS: LYRICA 100 MG PO (08:51)
[2024-06-23] MEDS: Hygroton 25 MG PO (08:52)
[2024-06-23] MEDS: COLACE 100 MG PO (08:52)
[2024-06-23] MEDS: ASPIRIN 325 MG PO (08:52)
[2024-06-23] MEDS: LEXAPRO 20 MG PO (08:52)
[2024-06-23] MEDS: WELLBUTRIN XL (24 hour extended release) 150 MG PO (08:52)
[2024-06-23] MEDS: SENOKOT 17.2 MG PO (08:52)
[2024-06-23] MEDS: ULTRAM 50 MG PO (08:52)
[2024-06-23] MEDS: DECADRON 6 MG IV (08:53)
[2024-06-23] MEDS: ROXICODONE 10 MG PO (09:08)
[2024-06-23 09:25] VITALS: BP 127/61; PULSE 94; O2SAT 90
--- NOTE | 2024-06-23 09:59 | W.PN.ORTHO ---
Today's Communication / Plan
-
d/c
Assessment
.
Distal Motor Intact: Yes
Dressing:
Clean, dry and intact.
Assessment:
ITP-platelets stable nxx-zj-tlfkito steroid post-op to enhance platelet production-check platelet count prior to d/c
B12 deficiency per heme note with pre-existing anemia-B12 stores adequate
AIMEE-cpap
COPD
Interstial lung ds.
pulmonary nodules
-O2 sats stable
WFA-ano-ocbuflepmns
HFpEF
HTN
HLD
-stable on tele
-IVF rate decreased
CVA-on brain MRI 2012-small lacunar-patient has underlying cognitive deficits exacerbated by anxiety
Hx breast CA
hx oral CA
Spinal stenosis
Depression/anxiety
Fatty liver
Plan
.
Surgery / Date: R MIKE 06/22/24
DVT Prophylaxis: Aspirin
Activity:
Out of bed.
PT/OT
Discharge Plan: Home w/ VN
Subjective
.
.:
Patient resting comfortably.
Vital Signs and Labs
.
Vital Signs and Labs:
Lab Results
06/08/24 10:46
06/08/24 10:45
Temp Pulse Resp BP Pulse Ox
98.1 F 96 20 158/103 96
06/23/24 07:55 06/23/24 08:52 06/23/24 07:55 06/23/24 08:52 06/23/24 07:55
Non-invasive Hgb result: 15.7
Physical Exam
-
HEENT: No pallor, cyanosis, or jaundice. Throat clear.
NECK: Supple. No JVD.
RESPIRATORY: Lungs clear to auscultation.
CVS: S1, S2 normal. RRR.� No murmur, rub or gallop.
ABDOMEN: Soft, non-tender. No distension. BS+/normal.
EXTREMITIES: strength equal, no calf pain with palpation
SUPERVISOR FABRICATION DEPARTMENT: AOx3. No focal deficits. weight shifter grossly intact
--anxious and has difficulty focusing
--- NOTE | 2024-06-23 10:30 | CM ---
Addendum entered by Reva Barron 06/23/24 10:43:
IMM explained & signed. In chart
Original Note:
Patient seen at bedside.
IA completed
CM consult completed VN -spoke with Jennifer Morales
Options given - prefer [facility] - liaison notified
Lives alone 1st floor set up, supportive daughter
PLOF: Independent
DME: Walker, commode, raised toilet set
Denies insecurities
PCP: Makenna Diaz
Pharmacy: [facility], [facility] on [address]
PLAN: home with [facility]
daughter to transport
--- NOTE | 2024-06-23 10:35 | VNURNOTE ---
Home Health Liaison met with patient at bedside to discuss [facility] nurse/therapy, visits, schedule and homebound status. Patient is agreeable and understands that visits at home will be 2-3 x per week to assess and teach medical management. [facility]
brochure provided with contact information. Patient is aware that [facility] will contact them for start of care in 1-2 days after discharge from .
[facility] referral completed in [facility].
[2024-06-23 10:51] LABS: Platelet Count 223 10^3/uL (130-400)
[2024-06-23 11:50] VITALS: BP 102/66
== END 2024-06-23 13:16 | disposition home health service (06) | DRG 470 ==
LOC: 2 SOUTH 10:43
PROVIDERS: Physician Assistant Medical; ADMITTING PHYSICIAN Specialist; FAMILY PHYSICIAN Nurse Practitioner Family; REFERRING PHYSICIAN Internal Medicine Cardiovascular Disease
PROC: 0SR903A Replacement of Right Hip Joint with Ceramic Synthetic Substitute, Uncemented, Open Approach (ICD-10-PCS; 2024-06-22)
DX: M16.11 Unilateral primary osteoarthritis, right hip (principal); D69.3 Immune thrombocytopenic purpura; J84.9 Interstitial pulmonary disease, unspecified; I50.30 Unspecified diastolic (congestive) heart failure; M17.11 Unilateral primary osteoarthritis, right knee; E53.8 Deficiency of other specified B group vitamins; G47.33 Obstructive sleep apnea (adult) (pediatric); J44.9 Chronic obstructive pulmonary disease, unspecified; I25.10 Atherosclerotic heart disease of native coronary artery without angina pectoris; I11.0 Hypertensive heart disease with heart failure; E78.5 Hyperlipidemia, unspecified; Z86.73 Personal history of transient ischemic attack (TIA), and cerebral infarction without residual deficits; F32.A Depression, unspecified; F41.9 Anxiety disorder, unspecified; Z86.2 Personal history of diseases of the blood and blood-forming organs and certain disorders involving the immune mechanism; Z68.32 Body mass index [BMI] 32.0-32.9, adult; E66.9 Obesity, unspecified; Z85.3 Personal history of malignant neoplasm of breast; Z85.828 Personal history of other malignant neoplasm of skin; I27.20 Pulmonary hypertension, unspecified; I07.1 Rheumatic tricuspid insufficiency; J30.9 Allergic rhinitis, unspecified; K21.9 Gastro-esophageal reflux disease without esophagitis; K76.0 Fatty (change of) liver, not elsewhere classified; M48.00 Spinal stenosis, site unspecified
CPT/HCPCS: 88304; 88311; 36415; 73502; 80053; 82607; 83036; 85025; 85027; 85049; 87070; 97110; 97162; 97166; 97535

== ENCOUNTER → 2024-07-20 09:50 | Outpatient (REF) | payer MEDICARE, BC, SELFPAY ==
[2024-07-20 11:08] LABS: Erythrocyte Sed Rate 68 mm/hour (0-20)
[2024-07-20 11:11] LABS: % Basophils 1.1 % (0-2); % Eosinophils 3.8 % (0-6); % Immature Granulocytes 1.2 % (0-0.5); % Lymphocytes 15.3 % (20.5-51.1); % Monocytes 12.7 % (1.7-9.3); % Neutrophils 65.9 % (42.2-75.2); Absolute Basophils 0.1 10^3/uL (0-0.2); Absolute Eosinophils 0.3 10^3/uL (0-0.7); Absolute Immature Granulocytes 0.1 10^3/uL (0-0.05); Absolute Lymphocytes 1.3 10^3/uL (1.2-3.4); Absolute Monocytes 1.1 10^3/uL (0.1-0.6); Absolute Neutrophils 5.4 10^3/uL (1.4-6.5); Hematocrit 34.2 % (37.0-47.0); Mean Corp Hgb Conc. 32.2 g/dL (33.0-37.0); Mean Corpuscular Hgb 30.6 pg (27.0-31.0); Mean Platelet Volume 10.4 fL (7.4-10.4); Nucleated Red Blood Cells % 0 %; Platelet Count 366 10^3/uL (130-400); Red Cell Dist. Width 13.3 % (11.5-14.5); White Blood Cell Count 8.3 10^3/uL (4.8-10.8)
== END ==
LOC: REG 09:50
PROVIDERS: ATTENDING PHYSICIAN Physician Assistant Surgical; FAMILY PHYSICIAN Nurse Practitioner Family
DX: Z96.641 Presence of right artificial hip joint (principal); Z51.89 Encounter for other specified aftercare
CPT/HCPCS: 36415; 85025; 85652; 86140

== ENCOUNTER 2024-07-27 11:42 | Inpatient (IN) | payer MEDICARE, BC, SELFPAY ==
[2024-07-24 12:35] VITALS: BMI 32.6
[2024-07-24 13:13] LABS: Hematocrit 32.5 % (37.0-47.0); Hemoglobin 10.7 g/dL (12.0-16.0); Mean Corp Hgb Conc. 32.9 g/dL (33.0-37.0); Mean Corpuscular Hgb 30.5 pg (27.0-31.0); Mean Corpuscular Volume 92.6 fL (81.0-99.0); Mean Platelet Volume 9.7 fL (7.4-10.4); Platelet Count 463 10^3/uL (130-400); Red Blood Cell Count 3.51 10^6/uL (4.20-5.40); Red Cell Dist. Width 13.5 % (11.5-14.5); White Blood Cell Count 8.6 10^3/uL (4.8-10.8)
[2024-07-24 13:25] LABS: ALT (SGPT) 15 U/L (0-35); AST (SGOT) 31 U/L (14-36); Albumin 3.6 g/dl (3.5-5.0); Alkaline Phosphatase 118 U/L (38-126); Blood Urea Nitrogen 6 mg/dl (7-17); Calcium 9.4 mg/dl (8.4-10.2); Carbon Dioxide 32 mmol/L (22-30); Chloride 98 mmol/L (98-107); Estimated Creatinine Clearance 61 ml/min; Glucose 66 mg/dl (70-99); Potassium 3.3 mmol/L (3.5-5.1); Sodium 137 mmol/L (135-145); Total Bilirubin 0.3 mg/dl (0.2-1.3); Total Protein 7.1 g/dl (6.3-8.2); eGFR > 60.00
--- NOTE | 2024-07-24 13:54 | PTCARENOTE ---
Abn K+ 3.3, Maria Teresa at Dr. Christianson office made aware.
--- NOTE | 2024-07-24 13:55 | PTCARENOTE ---
Abn K+ 3.3, Dr. Bey notified, no additional actions requested.
[2024-07-24 14:19] LABS: Glycohemoglobin (HgbA1c) 5.7 % (4.0-5.6)
[2024-07-27] VITALS (12 sets, daily range): BP systolic 142–179; BP diastolic 48–84; BMI 32.6
[2024-07-27] MEDS: NORMOSOL-R/PLASMALYTE-A 1000 IV ×2 (13:20→19:43)
[2024-07-27] MEDS: TYLENOL 650 MG PO ×2 (13:27→19:43)
[2024-07-27] MEDS: BACTROBAN NASAL 1 GRAM NASAL (13:27)
[2024-07-27 13:31] LABS: Hematocrit 33.1 % (37.0-47.0); Hemoglobin 10.7 g/dL (12.0-16.0); Mean Corp Hgb Conc. 32.3 g/dL (33.0-37.0); Mean Corpuscular Hgb 29.7 pg (27.0-31.0); Mean Corpuscular Volume 91.9 fL (81.0-99.0); Mean Platelet Volume 9.4 fL (7.4-10.4); Platelet Count 360 10^3/uL (130-400); Red Cell Dist. Width 13.2 % (11.5-14.5); White Blood Cell Count 8.9 10^3/uL (4.8-10.8)
--- NOTE | 2024-07-27 15:48 | W.PN.UPDATE ---
Update Note
Progress Note Update
R MIKE 06/22/2431-adgd-wqcsyiijoj infection-proposed I&D w/ polyethylene liner exchange
-check CRP/ESR OP to insure trending down-include antibiotic -ID consult
Hypokalemia pre-op--CMP in am
CVA-on brain MRI 2012-small lacunar-baseline cognitive deficits pertaining to recall and comprehension exacerbated with anxiety-include gabapentin
DVT ppx-per heme-ortho notes hematoma with platelet disorder possible contributory factor
ITP-platelets stable zza-kq-zvwbi platelets in am--only include brief steroid taper outpatient to enhance platelet production, if low
B12 deficiency per heme note with pre-existing anemia-B12 stores in range
AIMEE-cpap
COPD
Interstial lung ds.
pulmonary nodules
-monitor sats-incentive spirometry
PWY-ssi-wmqsjrjhgof
HFpEF
HTN
HLD
-decrease IVF rate and monitor volume status
Hx breast CA
hx oral CA
Spinal stenosis
Depression/anxiety
Fatty liver
[2024-07-27] MEDS: ZOFRAN 4 MG IV (18:00)
[2024-07-27] MEDS: COMPAZINE 5 MG IV (18:17)
[2024-07-27] MEDS: NEURONTIN 600 MG PO ×2 (19:43→22:38)
[2024-07-27] MEDS: LEXAPRO 20 MG PO (19:43)
[2024-07-27] MEDS: COLACE 100 MG PO (19:43)
[2024-07-27] MEDS: SENOKOT 17.2 MG PO (19:43)
[2024-07-27] MEDS: TORADOL 15 MG IV (19:44)
[2024-07-27] MEDS: DECADRON 4 MG IV (19:44)
[2024-07-27] MEDS: BENADRYL 50 MG PO (22:38)
[2024-07-27] MEDS: KCL 20 MEQ PO (22:38)
[2024-07-27] MEDS: PROTONIX 40 MG PO (22:38)
[2024-07-27] MEDS: WELLBUTRIN XL (24 hour extended release) 150 MG PO (22:38)
[2024-07-27] MEDS: BACTROBAN 2% OINTMENT 1 APPLIC NASAL (22:38)
--- NOTE | 2024-07-27 23:46 | PTCARENOTE ---
19:10 pt rec;vd from PACU, aaox3, [address], refusing to use CPAP. R hip drsg with scant mount of drainage, taylor area red,warm to touch and ecchymosis observed. pt and daughter oriented to unit.
[2024-07-28] VITALS (8 sets, daily range): BP systolic 112–150; BP diastolic 58–80; PULSE 98–110; O2SAT 92–94; BMI 32.7
[2024-07-28] MEDS: ANCEF 5 IV ×2 (00:19→08:00)
[2024-07-28] MEDS: TYLENOL 650 MG PO ×6 (00:19→20:37)
[2024-07-28] MEDS: WELLBUTRIN XL (24 hour extended release) 150 MG PO (08:00)
[2024-07-28] MEDS: LEXAPRO 20 MG PO (08:00)
[2024-07-28] MEDS: BACTROBAN 2% OINTMENT 1 APPLIC NASAL ×2 (08:00→20:43)
[2024-07-28] MEDS: NEURONTIN 600 MG PO ×3 (08:00→20:38)
[2024-07-28] MEDS: SENOKOT 17.2 MG PO ×2 (08:01→20:38)
[2024-07-28 08:02] LABS: Platelet Count 383 10^3/uL (130-400)
[2024-07-28] MEDS: COLACE 100 MG PO ×2 (08:02→20:38)
[2024-07-28] MEDS: DECADRON 4 MG IV ×2 (08:02→20:40)
[2024-07-28] MEDS: KCL 20 MEQ PO (08:02)
[2024-07-28] MEDS: TORADOL 15 MG IV ×2 (08:02→20:40)
--- NOTE | 2024-07-28 08:16 | VNURNOTE ---
Chart reviewed. Patient is current with [facility] nursing, PT, OT. Will continue to follow hospital course and DC plans.
[2024-07-28 08:53] LABS: ALT (SGPT) 14 U/L (0-35); AST (SGOT) 36 U/L (14-36); Albumin 3.3 g/dl (3.5-5.0); Alkaline Phosphatase 106 U/L (38-126); Blood Urea Nitrogen 11 mg/dl (7-17); Calcium 8.8 mg/dl (8.4-10.2); Carbon Dioxide 27 mmol/L (22-30); Chloride 96 mmol/L (98-107); Estimated Creatinine Clearance 61 ml/min; Glucose 144 mg/dl (70-99); Potassium 3.6 mmol/L (3.5-5.1); Sodium 134 mmol/L (135-145); Total Bilirubin 0.7 mg/dl (0.2-1.3); Total Protein 6.5 g/dl (6.3-8.2); eGFR > 60.00
--- NOTE | 2024-07-28 10:19 | CON.ID ---
Consultation
-
Date/Time Consultation Requested: 07/27/24 17:51
Date/Time Consultation Performed: 07/28/24 10:19
Requesting Provider: Elinor ERWIN
Performing Provider: Dr Adair
Reason for Consultation: Antiobiotic recommendations
Chief Complaint / Past History
Chief Complaint
suspected PJI
History of Present Illness
Ms Solomon is an 79 year old female with history of ITP who underwent right MIKE 06/22/24. Starting approximately 07/18 she was noted to have increased erythema around mid incision, a small opening and large amount of serous drainage. No fevers
or chills. She saw her orthopedist the next business day thursday 07/20 and 07/21 who also noted these findings. Mild hip pain noted and PT continued. She was started on cefadroxil, then with vaginal itching and had fluconazole from PCP for suspected
yeast infection. Outpatient ESR 68 and CRP 46. She was reassessed in his office 07/24 (saturday) and given that there wasnt significant improvement she was set up for I&D and poly exchange yesterday, thursday 07/27. I reviewed a photo from 07/24 in the
orthopedist note showing small area of dehiscence with surrounding erythema that appears to have expanded slightly somewhat from a previous marking.
Since arrival here patient has been afebrile, bp stable, wbc initially 8.9, hgb 10.7, plt 360, no differential done, cr 0.5, a1c 07/24/24 5.7, on 07/27 patient underwent right hip I&D and poly exchange per anthesia report - (post operative note not yet
available) and had perioperative cefazolin, 07/27 xray: right hip arthoplasty placed, culturs from the OR x4 are in progress- gram stains not yet available, patient not currently on antibiotic therapy, ID is consulted for assistance with management.
Past History
Additional Past Medical History:
H/o CVA 2012
ITP
AIMEE
COPD
ILD
Pulmonary nodules
CAD
HFpEF
HTN
HLD
Hx breast CA
hx oral CA
Spinal stenosis
Depression/anxiety
Fatty liver
Additional Past Surgical History:
relevant surgical history see HPI
Allergy History:
codeine Allergy (Verified 07/27/24 12:43)
stomach pains
NSAIDS (Non-Steroidal Anti-Inflamma Allergy (Verified 07/27/24 12:43)
GI BLEED
peach Allergy (Verified 07/27/24 12:43)
FACIAL SWELLING WITH ANY PITTED FRUIT
Sulfa (Sulfonamide Antibiotics) Allergy (Verified 07/27/24 12:43)
Itching
sulfite Allergy (Verified 07/27/24 12:43)
Itching
Medications Reviewed: Yes
Social History
Tobacco: Former Smoker
Living: Alone
Employment: Not Employed
Family History
Family History: Not Pertinent
Review of Systems
Review of Systems
General: Negative Fever or Chills
All systems: All other systems were reviewed and were negative
Vital Signs
Temp Pulse Resp BP Pulse Ox
98.0 F 103 18 131/80 93
07/28/24 07:10 07/28/24 07:10 07/28/24 07:10 07/28/24 07:10 07/28/24 07:10
Physical Exam
Physical Exam
Constitutional: No Acute Distress
Cardiovascular: Regular Rate and S1/S2; Negative Murmur or Rub
Pulmonary: Clear and Symmetric; Negative Wheezes, Rales or Rhonchi
Gastrointestinal: Soft, Non Tender, Non Distended and Normal Bowel Sounds
Skin: Warm and Dry; Negative Rash or Jaundice
Wound: Other (dressing clean, dry, intact)
Lab / Diagnostic Study Results
07/28/24 06:59
07/28/24 06:59
Microbiology Results
Micro:
07/27/24 17:15 Anaerobic Culture - Pending
Hip - Right
07/27/24 17:15 Wound Culture - Pending
Hip - Right Gram Stain - Pending
07/27/24 17:12 Anaerobic Culture - Pending
Hip - Right
07/27/24 17:12 Wound Culture - Pending
Hip - Right Gram Stain - Pending
07/24/24 12:45 MRSA Screen - Final
Nose No Methicillin Resistant Staphylococcus aureus isolated.
Assessment / Plan
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
Note h/o ITP and recent steroids
- s/p I&D and ? liner exchange evening of 07/27
- gram stains pending cultures x4 in progress (2 aerobic and 2 anaerobic)
- note recent cefadroxil and Diflucan outpatient, cefazolin inpatient
- ESR and CRP AM
- start vancomycin - pharmacy to dose
- start ceftriaxone
- can place PICC line - plan 6 weeks of IV antibiotics
- would follow cultures to 3/6 AM () to allow cultures to be over 48 hours old, at that point feel we will have sufficient data to set up home IV antibiotics. If surgical team feels it is necessary, a transfer to medicine service could be
considered.
--- NOTE | 2024-07-28 10:22 | CON.ONC ---
Impression
Impression
hx ITP steroid/Nplate responsive
Plan
Plan
Surveillance CBC -- maintain >50k-- change to Dex to 4 mg po --
Patient History
History of Present Illness
Chula is a 79-year-old woman known to the office from years ago for history of ITP. She had presented in 2013 with oral blood blisters. She has been treated for relapse of her ITP in 2019 and 2021 with a course of steroids. 01/22/2024 Plts 13 started
dexamethasone 40mg x 4 doses, plts responded but then dropped to 1K. Retreated with Dex 40 MG x4.---02/21/24 Prednisone 60 MG daily started. Nplate started 02/24 and maintaning since. She is seen postop for I&D right THR infection and replacement of
liner. She is well postop with platelets >>300k w/o bleeding
Past-Medical/Surgical History
invasive right breast cancer, stage I (T1c N0 (I+) M0), grade 1, currently JAYLENE treated with chemo, XRT, and lumpectomy with LN dissection
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
depression
GERD
HTN
uterine Fibroids
HFpEF
spinal stenosis
Patient Medication
�Medication �Instructions �Recorded �Confirmed �Last Taken �Type
esomeprazole magnesium 40 mg 40 mg PO DAILY Gastrointestinal 03/29/14 07/27/24 07/27/24 08:00 History
capsule,delayed release (Nexium) issue
bupropion HCl 150 mg 24 hr tablet, 150 mg PO DAILY Depression 10/31/19 07/27/24 07/25/24 History
extended release
escitalopram oxalate 10 mg tablet 20 mg PO DAILY Mental 03/02/20 07/27/24 07/25/24 History
Health/Anxiety
fluticasone propionate 50 1 spray intranasal DAILY Congestion 03/02/20 07/27/24 1 Week Ago History
mcg/actuation nasal ~07/20/24
spray,suspension
bumetanide 1 mg tablet 1 mg PO DAILY PRN 'FLUID BUILD UP' 04/15/23 07/27/24 06/15/24 History
diphenhydramine HCl 50 mg/30 mL 50 mg PO HS Sleep 01/22/24 07/27/24 07/26/24 21:30 History
oral liquid (ZzzQuil)
polyethylene glycol 3350 17 gram 17 g PO DAILYPRN PRN CONSTIPATION 01/22/24 07/27/24 07/24/24 History
oral powder packet (Miralax)
potassium chloride 20 mEq 20 meq PO DAILY Supplement 01/22/24 07/27/24 07/24/24 History
tablet,extended release
chlorthalidone 25 mg tablet 25 mg PO DAILY PRN 'FLUID BUILD UP' 06/16/24 07/27/24 07/25/24 History
50 mg
Saccharomyces boulardii 250 mg 250 mg PO BID #1 cap 07/27/24 Unknown Rx
capsule (Florastor)
acetaminophen 650 mg 1,300 mg (2 x 650 mg) PO TID #0 07/27/24 07/27/24 07/26/24 22:30 Rx
tablet,extended release tabs
cefadroxil 500 mg capsule 500 mg PO BID infection #20 caps 07/27/24 Unknown Rx
docusate sodium 100 mg capsule 100 mg PO BID stool softner #1 cap 07/27/24 Unknown Rx
(Colace)
gabapentin 600 mg tablet 600 mg PO HS #0 tabs 07/27/24 07/27/24 07/26/24 21:30 Rx
(Neurontin)
magnesium hydroxide 400 mg/5 mL 30 ml PO HS PRN Constipation #1 mL 07/27/24 Unknown Rx
oral suspension (Milk of Magnesia)
ondansetron 4 mg disintegrating 4 mg PO Q6H PRN n/v #20 tabs 07/27/24 Unknown Rx
tablet
oxycodone 5 mg tablet 5 mg PO Q6H PRN 1 tab moderate 07/27/24 Unknown Rx
pain, 2 tabs severe pain #30 tabs
sennosides 8.6 mg tablet (Senokot) 17.2 mg (2 x 8.6 mg) PO BID 07/27/24 Unknown Rx
laxative #2 tabs
Active Medications
Generic Name Dose Route Start Last Admin
Trade Name Freq PRN Reason Stop Dose Admin
Acetaminophen 650 mg 07/27/24 20:00 07/28/24 08:01
Acetaminophen 325 Mg Tablet PO 08/24/24 19:59 650 mg
Q4HWA BALJINDER Administration
Al Hydrox/Mg Hydrox/Simethicone 30 ml 07/27/24 15:57
Mag/Al/Simethicone Suspension 30 Ml Cup PO 08/24/24 15:56
Q4HPRN PRN
INDIGESTION
Bumetanide 1 mg 07/27/24 15:54
Bumetanide 1 Mg Tablet PO 08/24/24 15:53
DAILYPRN PRN
'FLUID BUILD UP'
Bupropion HCl 150 mg 07/27/24 18:00 07/28/24 08:00
Bupropion (24hr) Extended Release 150 Mg Tablet PO 08/24/24 17:59 150 mg
DAILY BALJINDER Administration
Dexamethasone Sodium Phosphate 4 mg 07/27/24 20:00 07/28/24 08:02
Dexamethasone 4 Mg/Ml 1 Ml Vial IV 07/28/24 20:01 4 mg
BID BALJINDER Administration
Diphenhydramine HCl 50 mg 07/27/24 22:00 07/27/24 22:38
Diphenhydramine 50 Mg Capsule PO 08/24/24 21:59 50 mg
HS BALJINDER Administration
Docusate Sodium 100 mg 07/27/24 20:00 07/28/24 08:02
Docusate Sodium 100 Mg Capsule PO 08/24/24 19:59 100 mg
BID BALJINDER Administration
Escitalopram Oxalate 20 mg 07/27/24 18:00 07/28/24 08:00
Escitalopram 20 Mg Tablet PO 08/24/24 17:59 20 mg
DAILY BALJINDER Administration
Gabapentin 600 mg 07/27/24 17:00 07/28/24 08:00
Gabapentin 300 Mg Capsule PO 08/24/24 16:59 600 mg
TID BALJINDER Administration
Hydromorphone HCl 0.5 mg 07/27/24 15:57
Hydromorphone 0.5 Mg/0.5 Ml Syringe IV 08/10/24 15:56
Q3HPRN PRN
breakthrough pain
Ketorolac Tromethamine 15 mg 07/27/24 20:00 07/28/24 08:02
Ketorolac 15 Mg/Ml Injection IV 07/28/24 20:01 15 mg
BID BALJINDER Administration
Magnesium Hydroxide 30 ml 07/27/24 15:57
Milk Of Magnesia 30 Ml Cup PO 08/24/24 15:56
DAILYPRN PRN
constipation
Mupirocin 0 applic 07/27/24 20:00 07/28/24 08:00
Mupirocin 2% (Ointment) 22 Gram Tube NASAL 07/28/24 20:01 1 applic
BID BALJINDER Administration
Ondansetron HCl 4 mg 07/27/24 15:57
Ondansetron 4 Mg/2 Ml Vial IV 08/24/24 15:56
Q6HPRN PRN
NAUSEA
Oxycodone HCl 10 mg 07/27/24 15:57
Oxycodone 10 Mg Regular Release Tablet PO 08/10/24 15:56
Q4HPRN PRN
severe pain
Oxycodone HCl 5 mg 07/27/24 15:57
Oxycodone 5 Mg Regular Release Tablet PO 08/10/24 15:56
Q4HPRN PRN
moderate pain
Oxycodone HCl 2.5 mg 07/27/24 15:57
Oxycodone 5 Mg Regular Release Tablet PO 08/10/24 15:56
Q4HPRN PRN
mild pain
Pantoprazole Sodium 40 mg 07/27/24 22:00 07/27/24 22:38
Pantoprazole 40 Mg Delayed Release Tablet PO 08/24/24 21:59 40 mg
HS BALJINDER Administration
Potassium Chloride 20 meq 07/27/24 18:00 07/28/24 08:02
Potassium Chloride 20 Meq Extended Release Tablet PO 08/24/24 17:59 20 meq
DAILY BALJINDER Administration
Prochlorperazine Maleate 5 mg 07/27/24 15:57
Prochlorperazine 5 Mg Tablet PO 08/24/24 15:56
Q6HPRN PRN
nausea/vomiting
Sennosides 17.2 mg 07/27/24 20:00 07/28/24 08:01
Sennosides (Senokot) 8.6 Mg Tablet PO 08/24/24 19:59 17.2 mg
BID BALJINDER Administration
Sodium Chloride 0 flush 07/27/24 17:00
Sodium Chloride 0.9% (Flush) Syringe IV 08/24/24 16:59
PER PROTOCOL BALJINDER
Tamsulosin HCl 0.4 mg 07/27/24 15:57
Tamsulosin 0.4 Mg Capsule PO 08/24/24 15:56
DAILYPRN PRN
bladder scan volume > 400 mL
Review of Systems
-
History Source: Patient
All Other Systems: Reviewed and Negative
Physical Exam
-
General: Well Developed
HEENT: Moist Mucous Membranes
Cardiology: Normal Sinus Rhythm
Pulmonary: Clear
GI: Soft and Normal Bowel Sounds
Musculoskeletal: No Clubbing, No Cyanosis and No Edema
Neurology: Non Focal
Hematologic / Lymphatic: No Petechiae
Labs
Lab Results
WBC 8.9 10^3/uL (4.8-10.8) 07/27/24 13:03
RBC 3.60 10^6/uL (4.20-5.40) L 07/27/24 13:03
Hgb 10.7 g/dL (12.0-16.0) L 07/27/24 13:03
Hct 33.1 % (37.0-47.0) L 07/27/24 13:03
MCV 91.9 fL (81.0-99.0) 07/27/24 13:03
MCH 29.7 pg (27.0-31.0) 07/27/24 13:03
MCHC 32.3 g/dL (33.0-37.0) L 07/27/24 13:03
RDW 13.2 % (11.5-14.5) 07/27/24 13:03
Plt Count 383 10^3/uL (130-400) 07/28/24 06:59
MPV 9.4 fL (7.4-10.4) 07/27/24 13:03
Creatinine 0.5 mg/dL (0.6-1.0) L 07/28/24 06:59
Vital Signs
Vital Signs
Temp Pulse Resp BP Pulse Ox
98.0 F 103 18 131/80 93
07/28/24 07:10 07/28/24 07:10 07/28/24 07:10 07/28/24 07:10 07/28/24 07:10
--- NOTE | 2024-07-28 10:52 | PHA.VAN.IN ---
Assessment
- Assessment
Renal Function: Appears similar to baseline
Concomitant Antimicrobials: ceftriaxone
AUC Dosing Plan
- Dosing Variables
Dosing Weight (kg): 71
Dosing CrCl (ml/min): 61
Vd coefficient (L/kg): 0.7
- Empiric Dosing
Initial / Loading Dose: 2000mg - administration pending
Maintenance Regimen: Vanc 1250mg Q24H starting 07/29 599
Estimated AUC (mcg*h/mL): 476
Estimated Peak (mcg*h/mL): 34.3
Estimated Trough (mcg/ml): 10
Estimated Half Life (H): 12.6
- Monitoring
No levels ordered at this time: consider levels in next few days
Pharmacokinetics Vancomycin I
- -
Patient Age: 79
Patient Sex: Female
Vancomycin Day #: 1
Indication: Bone And Joint
Requesting Provider: Dr. Adair
Pertinent Antimicrobial Allergies:
sulfonamide antibiotics - itching
Height / Weight:
Height 4 ft 10 in
Actual Weight 70.7 kg
Pertinent Past Medical History: BMI ~33, R. MIKE (May 2024)
- Vital Signs / Lab Results
Temp Pulse Resp BP Pulse Ox
98.0 F 103 18 131/80 93
07/28/24 07:10 07/28/24 07:10 07/28/24 07:10 07/28/24 07:10 07/28/24 07:10
Lab Results - Hematology
07/27/24
13:03
WBC 8.9
Lab Results - Chemistry
07/28/24
06:59
BUN 11
Creatinine 0.5 L
Estimated Creat Clear 61
Albumin 3.3 L
[2024-07-28] MEDS: ROXICODONE 5 MG PO (11:26)
[2024-07-28] MEDS: ROCEPHIN 2000 MG IV (11:26)
[2024-07-28] MEDS: STERILE WATER FOR INJECTION 20 ML IV (11:27)
[2024-07-28] MEDS: VANCOCIN 540 MG IV (11:27)
--- NOTE | 2024-07-28 11:57 | W.PN.ORTHO ---
Today's Communication / Plan
-
d/c when intra-operative cultures resulted and stable
Assessment
.
Distal Motor Intact: Yes
Dressing:
Clean, dry and intact.
Assessment:
R MIKE 06/22/2448-[id number] infection-s/p I&D, Revision MIKE
-follow serial CRP/ESR
-ID consult appreciated-IV Vanco, Ceftriaxone -re-eval following intraoperative cultures
DVT ppx---ortho notes hematoma with platelet disorder possible contributory factor-per heme-ASA 325mg+ scd
ITP-platelets stable pre-op and post-op -avoid steroid for now given infection-daily platelet count per heme
B12 deficiency per heme note with pre-existing anemia-B12 stores in range
HFpEF
-IVF rate was decreased-crackles lung bases on exam-resume diuretics with parameter and monitor volume status-asx
Hypokalemia pre-op--CMP stable-K+ improved-continue oral K+
AIMEE-cpap
COPD
Interstial lung ds.
pulmonary nodules
-monitor sats-incentive spirometry
[id number]
HTN
HLD
CVA-on brain MRI 2012-small lacunar-baseline cognitive deficits pertaining to recall and comprehension exacerbated with anxiety-include gabapentin
Hx breast CA
hx oral CA
Spinal stenosis
Depression/anxiety
Fatty liver
Plan
.
DVT Prophylaxis: Aspirin (scd)
Activity:
Out of bed.
PT/OT
Discharge Plan: Home w/ VN
Subjective
.
.:
Patient resting comfortably.
Vital Signs and Labs
.
Vital Signs and Labs:
Lab Results
07/28/24 06:59
07/28/24 06:59
Temp Pulse Resp BP Pulse Ox
98.0 F 103 18 131/80 93
07/28/24 07:10 07/28/24 07:10 07/28/24 07:10 07/28/24 07:10 07/28/24 07:10
Non-invasive Hgb result: 11.6
Physical Exam
-
HEENT: No pallor, cyanosis, or jaundice. Throat clear.
NECK: Supple. No JVD.
RESPIRATORY: Lungs clear to auscultation.
CVS: S1, S2 normal. RRR.� No murmur, rub or gallop.
ABDOMEN: Soft, non-tender. No distension. BS+/normal.
EXTREMITIES: strength equal, no calf pain with palpation
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 No focal deficits. 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
[2024-07-28] MEDS: BUMEX 1 MG PO (13:07)
[2024-07-28] MEDS: ASPIRIN ENTERIC COATED 325 MG PO (13:08)
[2024-07-28] MEDS: Hygroton 25 MG PO (13:08)
--- NOTE | 2024-07-28 15:14 | CM ---
CM met with pt bedside
Pt resides alone in a 2SG with 1st floor set up
Had R MIKE on 06/22/24 and current with VN
Sleeping in hospital bed on 1st floor
Pt has a WWx2, commode 2x and grabber
Has a shower chair but unable to negotiate tub shower at this time, sponge bathing since surgery
Pt has 4 daughters who are supportive, 2 are nurses
POD#1 hip I&D and revision
Discussion with ivone/Peter Morales- will need 6 weeks of IV abx
PICC placed today
Per [facility], unable to perform line care for home infusion
Provider choices discussed with pt, [facility] and [facility]
Referrals made
[facility] will run mock script to check for infusion benefits
Per ID note, final abx to be determine Thrs
Plan to follow up with [facility] with final abx and out of pocket costs on Thrs
Family will provide support for first few days and will reinforce teaching with pt
Discharge Disposition - home with [facility] and [facility]
[2024-07-28] MEDS: PROTONIX 40 MG PO (20:38)
[2024-07-28] MEDS: BENADRYL 50 MG PO (21:44)
[2024-07-29] MEDS: TYLENOL 650 MG PO ×5 (00:22→19:58)
[2024-07-29] MEDS: ROXICODONE 5 MG PO ×2 (01:29→11:59)
[2024-07-29] MEDS: ROXICODONE 10 MG PO (04:18)
[2024-07-29] MEDS: VANCOCIN 275 MG IV (05:47)
[2024-07-29 06:00] VITALS: BMI 33.5
[2024-07-29 06:14] LABS: Platelet Count 333 10^3/uL (130-400)
[2024-07-29 07:15] VITALS: BP 148/78
--- NOTE | 2024-07-29 07:24 | W.PN.UPDATE ---
Update Note
Progress Note Update
Ms. Solomon is POD2 right total hip arthroplasty I&D and revision MIKE under the direction of Dr. Christianson. She was seen and evaluated by myself and Dr. Christianson this morning. She is resting comfortably in bed, and denies any pain in the hip at
present. She does endorse mild aching in the hip when she is up and walking.
Directed exam of the right hip reveals surgical dressing saturated with blood. This was removed to reveal surgical incision well approximated with billy. Bloody drainage on the dressing. No active drainage or bleeding at present. Expected
post-operative edema and ecchymosis about the hip. Thigh soft and compressible. Calf soft and nontender. Patient able to wiggle toes, plantar and dorsiflex ankle. NVID. Incision cleaned with betadine and a new dressing placed.
Preliminary gram stain from sample taken from hip with no WBC, moderate gram positive cocci. Cultures pending.
CRP 15.7 today from 46 on 07/20
79 yo F POD2 right total hip arthroplasty I&D and revision MIKE under the direction of Dr. Christianson
--Continue to follow cultures. Currently on Vanco and Ceftriaxone per ID.
--Continue to trend CRP/ESR/WBC. Repeat CRP/ESR/WBC q2 weeks, please have results sent to Dr. Christianson.
--WBAT with assistance. THPs. We appreciate the assistance of PT/OT.
--ASA + scds for DVT ppx.
--Pain control prn.
--Maintain surgical dressing until 7-10 days post-op. Reinforce or change as needed. Staple removal at 2 weeks post-op.
[2024-07-29] MEDS: KCL 20 MEQ PO ×2 (07:38→15:20)
[2024-07-29] MEDS: COLACE 100 MG PO ×2 (07:38→19:58)
[2024-07-29] MEDS: SENOKOT 17.2 MG PO ×2 (07:38→19:58)
[2024-07-29] MEDS: WELLBUTRIN XL (24 hour extended release) 150 MG PO (07:38)
[2024-07-29] MEDS: NEURONTIN 600 MG PO ×3 (07:39→22:17)
[2024-07-29] MEDS: LEXAPRO 20 MG PO (07:41)
[2024-07-29] MEDS: ASPIRIN ENTERIC COATED 325 MG PO (07:41)
--- NOTE | 2024-07-29 07:53 | PN.CDI ---
CDI
- -
CDI:
Physician Documentation Request
Admit Date: 07/27/24 11:42
Dear Doctor Sammy,
Please review the following and provide your response in the progress notes.
Clinical Indicators:
- 07/27 Operative Report 'Extensive scar tissue was debrided from about the rim of the acetabular component'
Could you provide, in the progress notes further clarification regarding the debridement.
Please specify the type of debridement performed:
1. Excisional Debridement - defined as removal by excision of devitalized tissue, necrosis or slough
2. Non-excisional debridement - defined as removal of devitalized tissue, necrosis or slough by such methods as irrigation, brushing, scrubbing or washing.
If the debridement was excisional, please also include:
1. Type of instrument used (#11 blade, #15 blade etc.)
2. What was excised (necrotic tissue, gangrenous tissue, slough etc.)
For excisional or non-excisional, please also include:
1. Depth of debridement (skin, subcutaneous tissue, fascia, muscle, bone etc)
2. Size and appearance of the wound (L, W, D, color of wound, drainage)
Use of terms such as suspected, likely, concern for, or probable (associated with a specific diagnosis that is being evaluated, monitored, or treated as if it exists) are acceptable and can be coded in the inpatient setting, when documented at the
time of discharge.
Thank you,
Leila Plasencia RN
CDI Specialist
Please use your independent medical judgment in providing your response.
[2024-07-29 09:27] VITALS: BP 153/54; PULSE 108; O2SAT 91
--- NOTE | 2024-07-29 09:35 | W.PN.ORTHO ---
Today's Communication / Plan
-
Await further ID recs.
Continue to trend platelet count.
Continue to monitor volume status.
D/c when clinically stable.
Assessment
.
Distal Motor Intact: Yes
Dressing:
Clean, dry and intact after dressing change this AM.
Assessment:
R MIKE 06/22/24- taylor-prosthetic infection - s/p R MIKE I&D and revision w/ Dr Christianson 07/27/24
- Gram stain with gram + cocci; awaiting intra-op cultures
- Follow serial CRP/ESR while inpatient
- Will need CBC/ESR/CRP every 2 weeks upon d/c
- ID consult appreciated - IV Vanco/Ceftriaxone currently - re-eval following intraoperative cultures
- Work w/ PT and OT as able. Can WBAT w/ walker
DVT prophylaxis - ortho notes hematoma with platelet disorder possible contributory factor - Appreciate heme who has recommended ASA 325mg + SCDs
ITP - platelets stable pre-op and post-op - avoid steroid for now given infection - daily platelet count per heme
B12 deficiency per heme note with pre-existing anemia - B12 stores in range
HFpEF - s/p decreased IVF to prevent post-surgical hypotension
- Fine crackles b/l bases and weight up; however, asymptomatic and hemodynamically stable - will IV diurese today
- Low sodium diet, fluid restrict
- PO diuretics to hopefully be resumed tomorrow
- Monitor volume status
Hypokalemia pre-op - CMP stable-K+ improved- continue oral K+
AIMEE-cpap
COPD
Interstial lung ds.
pulmonary nodules
- Continue to monitor O2
[id number]
HTN
HLD
CVA-on brain MRI 2012-small lacunar-baseline cognitive deficits pertaining to recall and comprehension exacerbated with anxiety-include gabapentin
Hx breast CA
hx oral CA
Spinal stenosis
Depression/anxiety
Fatty liver
Plan
.
Surgery / Date: R MIKE I&D and revision w/ Dr Christianson 07/27/24
DVT Prophylaxis: Aspirin
Activity:
Out of bed.
PT/OT
Discharge Plan: Home w/ VN
Subjective
.
.:
Patient resting comfortably in bed.
R hip pain well tolerated w/ current pain meds.
Denies any new significant complaints.
Vital Signs and Labs
.
Vital Signs and Labs:
Lab Results
07/29/24 05:40
07/28/24 06:59
Temp Pulse Resp BP Pulse Ox
98.3 F 107 16 148/78 95
07/29/24 07:15 07/29/24 07:15 07/29/24 07:15 07/29/24 07:15 07/29/24 07:15
Non-invasive Hgb result: 13.3
Physical Exam
-
HEENT: No pallor, cyanosis, or jaundice. Throat clear.
NECK: Supple. No JVD.
RESPIRATORY: Fine crackles b/l lung bases.
CVS: S1, S2 normal. RRR.�
ABDOMEN: Soft, non-tender. No distension. Obese.
EXTREMITIES: Expected post-surgical edema of R hip. Strength equal, no calf pain with palpation/dorsiflexion. Calves soft.
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 No focal deficits. 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
--- NOTE | 2024-07-29 09:37 | PHA.VAN.FU ---
Vancomycin Assessment / Plan
- Assessment
Renal Function: Stable
In the past 24 hrs, patient has been: Afebrile
Concomitant Antimicrobials: ceftriaxone
- Dosing Plan
Continue: Vanc 1250mg Q24H
- Monitoring Plan
Peak Level: 07/30 0930
Trough Level: 07/31 05:30
Monitoring Comments: levels to be drawn after 3rd total dose
Patient may not fully be at steady state but goal to assess regimen prior to discharge
- Follow Up
Pharmacy will continue to follow.
Vancomycin Follow UP
- -
Patient Age: 79
Patient Sex: Female
Vancomycin Day #: 2
Indication: Bone And Joint
Requesting Provider: Dr. Adair
Pertinent Antimicrobial Allergies:
sulfonamide antibiotics - itching
Height / Weight:
Height 4 ft 10 in
Actual Weight 72.62 kg
Pertinent Past Medical History: BMI ~33, R. MIKE (May 2024)
- Vital Signs / Lab Results
Temp Pulse Resp BP Pulse Ox
98.3 F 107 16 148/78 95
07/29/24 07:15 07/29/24 07:15 07/29/24 07:15 07/29/24 07:15 07/29/24 07:15
Lab Results - Hematology
07/27/24
13:03
WBC 8.9
Lab Results - Chemistry
07/28/24
06:59
BUN 11
Creatinine 0.5 L
Estimated Creat Clear 61
Albumin 3.3 L
Microbiology Results
07/27/24 17:12 Gram Stain - Preliminary
Hip - Right
07/27/24 17:15 Gram Stain - Preliminary
Hip - Right
[2024-07-29] MEDS: BUMEX 1 MG IV (10:19)
[2024-07-29] MEDS: ROCEPHIN 2000 MG IV (11:59)
[2024-07-29] MEDS: STERILE WATER FOR INJECTION 20 ML IV (12:00)
[2024-07-29] MEDS: CYKLOKAPRON 1300 MG PO (12:22)
--- NOTE | 2024-07-29 12:40 | PTCARENOTE ---
R hip surgical dressing saturated and changed by ortho this morning. At this time dressing saturated again. Ortho made aware. Dressing changed and TXA given.
--- NOTE | 2024-07-29 13:52 | CM ---
Chart reviewed
Awaiting final cx to determine IV antibiotics for home
PICC line info sent to [facility] and [facility]
Updates given to Elodia at [facility] and Huma at [facility]
Plan - anticipate home with [facility] when medication determination made and med approved with insurance
[2024-07-29 14:48] LABS: ALT (SGPT) 13 U/L (0-35); AST (SGOT) 33 U/L (14-36); Albumin 3.1 g/dl (3.5-5.0); Alkaline Phosphatase 91 U/L (38-126); Blood Urea Nitrogen 24 mg/dl (7-17); Calcium 8.8 mg/dl (8.4-10.2); Carbon Dioxide 31 mmol/L (22-30); Chloride 97 mmol/L (98-107); Estimated Creatinine Clearance 53 ml/min; Glucose 130 mg/dl (70-99); Potassium 3.3 mmol/L (3.5-5.1); Sodium 134 mmol/L (135-145); Total Bilirubin 0.2 mg/dl (0.2-1.3); Total Protein 6.3 g/dl (6.3-8.2); eGFR > 60.00
--- NOTE | 2024-07-29 15:15 | W.PN.ID1 ---
Date of Service
Date of Service: July 29, 2024
Today's Communication
- plan a 6 week course of vancomycin followed by suppression
- earliest accurate vancomycin level can be obtained to finalize dosing is saturday, anticipate patient will be stable for dc late saturday
Assessment / Plan
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
Note h/o ITP and recent steroids
- s/p I&D and hip revision 07/27
- OR culture x2 with enterococcus species
- ESR pending and CRP 16
- c/w vancomycin
- stopped ceftriaxone
- can place PICC line - plan 6 weeks of IV vancomycin
- earliest accurate vancomycin level can be obtained to finalize dosing is saturday AM, anticipate patient will be stable for dc late saturday
Chief Complaint
-: Other (early PJI)
Subjective / Review of Systems
afebrile
bp stable
tolerating current therapies
Vital Signs / Physical Exam
Vital Signs
Vital Signs
Temp Pulse Resp BP Pulse Ox
98.3 F 107 16 148/78 95
07/29/24 07:15 07/29/24 07:15 07/29/24 07:15 07/29/24 07:15 07/29/24 07:15
Physical Exam
Constitutional: No Acute Distress
Cardiovascular: Regular Rate and S1/S2; Negative Murmur or Rub
Pulmonary: Clear and Symmetric; Negative Wheezes or Rales
Gastrointestinal: Soft, Non Tender, Non Distended and Normal Bowel Sounds
Skin: Warm and Dry; Negative Rash or Jaundice
Objective Data
Lab Data
Lab Results
07/29/24 05:40
07/29/24 14:27
Estimated Creat Clear 53 ml/min 07/29/24 14:27
Total Bilirubin 0.2 mg/dl (0.2-1.3) 07/29/24 14:27
AST 33 U/L (14-36) 07/29/24 14:27
ALT 13 U/L (0-35) 07/29/24 14:27
Alkaline Phosphatase 91 U/L (38-126) 07/29/24 14:27
C-Reactive Protein 15.70 mg/L (0.0-10.00) H 07/29/24 05:40
Most recent labs reviewed.
Micro Results:
07/27/24 17:15 Wound Culture - Preliminary
Hip - Right Enterococcus species
Gram Stain - Preliminary
07/27/24 17:15 Anaerobic Culture - Preliminary
Hip - Right Culture pending. Anaerobic cultures are examined after 3
days incubation. Additional information to follow.
07/27/24 17:12 Wound Culture - Preliminary
Hip - Right Enterococcus species
Gram Stain - Preliminary
07/27/24 17:12 Anaerobic Culture - Preliminary
Hip - Right Culture pending. Anaerobic cultures are examined after 3
days incubation. Additional information to follow.
07/24/24 12:45 MRSA Screen - Final
Nose No Methicillin Resistant Staphylococcus aureus isolated.
Care Review
Plan reviewed with: Other Provider (clinical pharmacist )
[2024-07-29] MEDS: TYLENOL PO (15:22)
[2024-07-29 15:39] VITALS: BP 158/61
[2024-07-29] MEDS: PROTONIX 40 MG PO (22:16)
[2024-07-29] MEDS: MELATONIN 5 MG PO (22:16)
[2024-07-29] MEDS: BENADRYL 50 MG PO (22:17)
[2024-07-29 23:15] VITALS: BP 162/84
[2024-07-30] MEDS: TYLENOL PO ×2 (00:25→12:40)
[2024-07-30] MEDS: TYLENOL 650 MG PO ×4 (04:04→20:45)
[2024-07-30] MEDS: MAALOX 30 ML PO (04:36)
[2024-07-30 05:32] LABS: Hematocrit 25.9 % (37.0-47.0); Hemoglobin 8.3 g/dL (12.0-16.0); Mean Corpuscular Hgb 29.7 pg (27.0-31.0); Mean Corpuscular Volume 92.8 fL (81.0-99.0); Mean Platelet Volume 9.6 fL (7.4-10.4); Platelet Count 338 10^3/uL (130-400); Red Blood Cell Count 2.79 10^6/uL (4.20-5.40); Red Cell Dist. Width 13.5 % (11.5-14.5); White Blood Cell Count 12.1 10^3/uL (4.8-10.8)
[2024-07-30 05:46] LABS: ALT (SGPT) 14 U/L (0-35); AST (SGOT) 35 U/L (14-36); Albumin 3.4 g/dl (3.5-5.0); Alkaline Phosphatase 91 U/L (38-126); Blood Urea Nitrogen 18 mg/dl (7-17); Calcium 9.1 mg/dl (8.4-10.2); Carbon Dioxide 32 mmol/L (22-30); Chloride 97 mmol/L (98-107); Estimated Creatinine Clearance 62 ml/min; Glucose 101 mg/dl (70-99); Potassium 3.2 mmol/L (3.5-5.1); Sodium 136 mmol/L (135-145); Total Bilirubin 0.5 mg/dl (0.2-1.3); Total Protein 6.4 g/dl (6.3-8.2); eGFR > 60.00
[2024-07-30] MEDS: VANCOCIN 275 MG IV (05:47)
[2024-07-30 06:00] VITALS: BMI 33.2
[2024-07-30] MEDS: KCL 20 MEQ PO ×2 (06:03→08:35)
[2024-07-30 06:05] VITALS: BP 134/68
[2024-07-30 07:20] VITALS: BP 200/70
[2024-07-30 08:15] LABS: Erythrocyte Sed Rate 69 mm/hour (0-20)
[2024-07-30] MEDS: WELLBUTRIN XL (24 hour extended release) 150 MG PO (08:32)
[2024-07-30] MEDS: ASPIRIN ENTERIC COATED 325 MG PO (08:32)
[2024-07-30] MEDS: NEURONTIN 600 MG PO ×3 (08:33→22:46)
[2024-07-30] MEDS: SENOKOT 17.2 MG PO (08:33)
[2024-07-30] MEDS: LEXAPRO 20 MG PO (08:33)
[2024-07-30] MEDS: COLACE 100 MG PO (08:36)
[2024-07-30] MEDS: ZOFRAN 4 MG IV (08:38)
--- NOTE | 2024-07-30 10:01 | W.PN.ID1 ---
Date of Service
Date of Service: July 30, 2024
Today's Communication
- c/w vancomycin - appreciate pharmacy assistance with dosing
- has PICC line - plan 6 weeks of IV vancomycin, 07/28-09/07
- earliest accurate vancomycin level can be obtained to finalize dosing is saturday AM, anticipate patient will be stable for dc late Saturday
Assessment / Plan
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
Note h/o ITP and recent steroids
- s/p I&D and hip revision 07/27
- OR culture x2 with enterococcus species
- ESR 69 and CRP 16
- c/w vancomycin - appreciate pharmacy assistance with dosing
- has PICC line - plan 6 weeks of IV vancomycin, 07/28-09/07
- earliest accurate vancomycin level can be obtained to finalize dosing is saturday AM, anticipate patient will be stable for dc late Saturday
Chief Complaint
-: Other (early PJI)
Subjective / Review of Systems
afebrile
bp stable
tolerating current therapies
marked bloody drainage from the surgical site overnight
Vital Signs / Physical Exam
Vital Signs
Vital Signs
Temp Pulse Resp BP Pulse Ox
98.3 F 101 18 200/70 96
07/30/24 07:20 07/30/24 07:20 07/30/24 07:20 07/30/24 07:20 07/30/24 07:20
Physical Exam
Constitutional: No Acute Distress
Cardiovascular: Regular Rate and S1/S2; Negative Murmur or Rub
Pulmonary: Clear and Symmetric; Negative Wheezes or Rales
Gastrointestinal: Soft, Non Tender, Non Distended and Normal Bowel Sounds
Skin: Warm and Dry; Negative Rash or Jaundice
Objective Data
Lab Data
Lab Results
07/30/24 04:58
07/30/24 04:58
ESR 69 mm/hour (0-20) H 07/30/24 04:58
Estimated Creat Clear 62 ml/min 07/30/24 04:58
Total Bilirubin 0.5 mg/dl (0.2-1.3) 07/30/24 04:58
AST 35 U/L (14-36) 07/30/24 04:58
ALT 14 U/L (0-35) 07/30/24 04:58
Alkaline Phosphatase 91 U/L (38-126) 07/30/24 04:58
C-Reactive Protein 15.70 mg/L (0.0-10.00) H 07/29/24 05:40
Most recent labs reviewed.
Micro Results:
07/27/24 17:15 Wound Culture - Preliminary
Hip - Right Enterococcus species
Gram Stain - Preliminary
07/27/24 17:15 Anaerobic Culture - Preliminary
Hip - Right Culture pending. Anaerobic cultures are examined after 3
days incubation. Additional information to follow.
07/27/24 17:12 Wound Culture - Preliminary
Hip - Right Enterococcus species
Gram Stain - Preliminary
07/27/24 17:12 Anaerobic Culture - Preliminary
Hip - Right Culture pending. Anaerobic cultures are examined after 3
days incubation. Additional information to follow.
07/24/24 12:45 MRSA Screen - Final
Nose No Methicillin Resistant Staphylococcus aureus isolated.
Care Review
Plan reviewed with: Nurse
[2024-07-30] MEDS: TUMS CHEWABLE TABLET 200 MG PO ×2 (10:49→22:45)
[2024-07-30] MEDS: PROTONIX IV 40 MG IV (10:49)
[2024-07-30] MEDS: FLORASTOR 250 MG PO ×2 (10:49→20:46)
[2024-07-30] MEDS: BUMEX 1 MG IV (10:49)
[2024-07-30] MEDS: NSS (PRESERVATIVE FREE) 10 ML IV (10:50)
[2024-07-30 11:09] LABS: Troponin I < 0.012 ng/ml
--- NOTE | 2024-07-30 11:27 | PHA.VAN.FU ---
Vancomycin Assessment / Plan
- Assessment
Renal Function: Stable
WBC's are: Trending Up
In the past 24 hrs, patient has been: Afebrile
- Assessment - Therapeutic Drug Monitoring
Peak level was drawn: Appropriately (Peak=24. Drawn ~2.5 hrs after dose completed.)
- Dosing Plan
Continue: 1250mg Daily
- Monitoring Plan
Trough Level: 07/31 @05:30
- Follow Up
Pharmacy will continue to follow.
Vancomycin Follow UP
- -
Patient Age: 79
Patient Sex: Female
Vancomycin Day #: 3
Indication: Bone And Joint
Requesting Provider: Dr. Adair
Pertinent Antimicrobial Allergies:
sulfonamide antibiotics - itching
Height / Weight:
Height 4 ft 10 in
Actual Weight 71.985 kg
Pertinent Past Medical History: BMI ~33, R. MIKE (May 2024)
- Vital Signs / Lab Results
Temp Pulse Resp BP Pulse Ox
98.3 F 101 18 200/70 96
07/30/24 07:20 07/30/24 07:20 07/30/24 07:20 07/30/24 07:20 07/30/24 07:20
Lab Results - Hematology
07/27/24 07/30/24
13:03 04:58
WBC 8.9 12.1 H
Lab Results - Chemistry
07/28/24 07/29/24 07/30/24
06:59 14:27 04:58
BUN 11 24 H 18 H
Creatinine 0.5 L 0.7 0.6
Estimated Creat Clear 61 53 62
Albumin 3.3 L 3.1 L 3.4 L
Microbiology Results
07/27/24 17:15 Wound Culture - Preliminary
Hip - Right Enterococcus species
Gram Stain - Preliminary
07/27/24 17:15 Anaerobic Culture - Preliminary
Hip - Right Culture pending. Anaerobic cultures are examined after 3
days incubation. Additional information to follow.
07/27/24 17:12 Wound Culture - Preliminary
Hip - Right Enterococcus species
Gram Stain - Preliminary
07/27/24 17:12 Anaerobic Culture - Preliminary
Hip - Right Culture pending. Anaerobic cultures are examined after 3
days incubation. Additional information to follow.
Therapeutic Drug Monitoring
Vancomycin Peak 24.0 ug/ml (18-26) 07/30/24 10:04
--- NOTE | 2024-07-30 11:46 | W.PN.ONC2 ---
Today's Communication / Plan
-
.
Impression
Impression
hx ITP steroid/Nplate responsive -platelets remain normal 338,000
R MIKE 06/22/24- taylor-prosthetic infection - s/p R MIKE I&D and revision w/ Dr Christianson 07/27/24
right hip culture with enterococcus on abx per ID
acute anemia possible ABLA with right hip hematoma s/p tranexamic acid 07/29
Plan
Plan
consider steroids +/- Nplate if platelet count <50,00
daily CBC
transfuse Hgb <7 or as needed for sxs anemia
Family member at bedside during visit
Subjective/Objective
Subjective
no new complaints
afebrile, no hypoxia, hypertensive
Hgb drop from 07/27->today 10.7->8.3
right hip dressing changed several times last night due to bleeding
epigastric discomfort
Vital Signs:
Vital Signs
Temp Pulse Resp BP Pulse Ox
98.3 F 101 18 200/70 96
07/30/24 07:20 07/30/24 07:20 07/30/24 07:20 07/30/24 07:20 07/30/24 07:20
Lab Results:
Laboratory Data
WBC 12.1 10^3/uL (4.8-10.8) H 07/30/24 04:58
Hgb 8.3 g/dL (12.0-16.0) L D 07/30/24 04:58
Plt Count 338 10^3/uL (130-400) 07/30/24 04:58
eGFR > 60.00 07/30/24 04:58
Physical Exam
HEENT: Moist Mucous Membranes; No Jaundice
Cardiology: Normal Sinus Rhythm
Pulmonary: Clear
GI: Soft
Extremities: Other (LUE PICC. )
Neuro: Non Focal
[2024-07-30] MEDS: CYKLOKAPRON 1300 MG PO ×2 (12:40→20:46)
--- NOTE | 2024-07-30 12:59 | W.PN.ORTHO ---
Today's Communication / Plan
-
Await culture results.
Monitor epigastric pain.
Monitor H&H and incisional bleeding.
D/c when clinically stable.
Assessment
.
Distal Motor Intact: Yes
Dressing:
Moderate incisional bleeding - continue TXA, dressing reassessments.
Assessment:
R MIKE 06/22/24- taylor-prosthetic infection - s/p R MIKE I&D and revision w/ Dr Christianson 07/27/24
- Gram stain with gram + cocci; prelim cultures w/ Enterococcus
- Follow serial CRP/ESR while inpatient
- Will need CBC/ESR/CRP every 2 weeks upon d/c
- ID consult appreciated - IV Vanco/Ceftriaxone currently - re-eval following intraoperative cultures
- Work w/ PT and OT as able. Can WBAT w/ walker
DVT prophylaxis - ortho notes hematoma with platelet disorder possible contributory factor - Appreciate heme who has recommended ASA + SCDs
- Will decrease ASA to 81 mg PO BID in light of ongoing incisional bleeding from ITP
- Pt, daughter to invest in plasma flow devices
Epigastric discomfort - starting evening of 07/29 - constant, tender to palpation of epigastric area - r/o cardiac/pulm/GI causes
- Cardio: EKG NSR. Troponin neg. Trend troponin
- Pulm: Chest PE Study w/ no active chest disease, no PE. Large hiatal hernia
- GI: Minimal relief w/ Maalox overnight. Improved relief w/ IV Protonix/TUMS. Will continue
Incisional bleeding 2* ITP - continue TXA, dressing changes as needed
ITP - platelets stable pre-op and post-op - avoid steroid for now given infection - daily platelet count per heme
B12 deficiency per heme note with pre-existing anemia - B12 stores in range
- Hgb 8.3 07/30 -> not unexpected given revision surgery, incisional bleeding -> trend H&H
HFpEF - s/p decreased IVF to prevent post-surgical hypotension
- Fine crackles b/l bases but weight improving -> continue IV diuresis
- Low sodium diet, fluid restrict
- PO diuretics to be resumed when stable
- Monitor volume status
Chronic mild hypokalemia - increase K+ supplement
- Advised K+ rich foods
- Repeat in AM
AIMEE-cpap
COPD
Interstial lung ds.
pulmonary nodules
- Continue to monitor O2
[id number]
HTN
HLD
CVA-on brain MRI 2012-small lacunar-baseline cognitive deficits pertaining to recall and comprehension exacerbated with anxiety-include gabapentin
Hx breast CA
hx oral CA
Spinal stenosis
Depression/anxiety
Fatty liver
Plan
.
Surgery / Date: R MIKE I&D and revision w/ Dr Christianson 07/27/24
DVT Prophylaxis: Aspirin (81 mg PO BID )
Activity:
Out of bed.
PT/OT
Discharge Plan: Home w/ VN
Subjective
.
.:
Patient examined resting in her chair.
Reporting epigastric discomfort this AM w/ pre-existing large hiatal hernia.
Incisional bleeding continues in the setting of ITP.
Vital Signs and Labs
.
Vital Signs and Labs:
Lab Results
07/30/24 04:58
07/30/24 04:58
Temp Pulse Resp BP Pulse Ox
98.3 F 101 18 200/70 96
07/30/24 07:20 07/30/24 07:20 07/30/24 07:20 07/30/24 07:20 07/30/24 07:20
Non-invasive Hgb result: 13.5
Physical Exam
-
HEENT: No pallor, cyanosis, or jaundice. Throat clear.
NECK: Supple. No JVD.
RESPIRATORY: Lungs clear to auscultation.
CVS: S1, S2 normal. RRR.�
ABDOMEN: Soft, non-tender. No distension. Obese.
EXTREMITIES: Expected R hip post-surgical edema. Strength equal, no calf pain with palpation/dorsiflexion. Calves soft.
ECONOMICS LECTURER: AOx3. No focal deficits. outpatient admitting clerk grossly intact
--- NOTE | 2024-07-30 13:09 | PN.CDI ---
CDI
- -
CDI:
Physician Documentation Request
Admit Date: 07/27/24 11:42
Dear Ortho,
Please review the following and provide your response in the progress notes.
Clinical Indicators:
- Patient with pmh HFpEF
- 07/29 Ortho note 'Fine crackles b/l bases and weight up...IV diurese'
- 07/30 Ortho note 'PO diuretics to be resumed when stable'
- 07/29-07/30 1mg IV Bumex given
Selected Entries
07/24/24
12:35 07/29/24
06:00 07/30/24
06:00
Actual Weight 155 lb 13.869
oz 160 lb 1.6 oz 158 lb 11.2 oz
Please provide further specificity regarding the most likely acuity of CHF you are evaluating, treating or monitoring.
Acute on chronic HFpEF
Chronic HFpEF
Other (please specify)
Use of terms such as suspected, likely, concern for, or probable (associated with a specific diagnosis that is being evaluated, monitored, or treated as if it exists) are acceptable and can be coded in the inpatient setting, when documented at the
time of discharge.
Thank you,
Leila Plasencia RN
CDI Specialist
Please use your independent medical judgment in providing your response.
--- NOTE | 2024-07-30 15:05 | CM ---
Addendum entered by Nancy Maher 07/30/24 16:13:
Spoke with Huma from [facility] - can provide RN for teaching on Thursday 08/03
Elodia from [facility] to meet with daughter/pt to do teaching on 07/31
Infusion sheet pending - will proved to [facility] and [facility] when obtained
Original Note:
Chart reviewed and met with pt
Plan is for 6 weeks IV antibiotics - medication - vancomycin; infusion sheet pending
Updated Elodia at [facility] of medication for pt cost
Per Elodia - Out of pocket cost for patient - $36.68/week for medication; 80% coverage for supplies until $5000 deductible met
Updated pt at bedside
Kristina will follow for RN/PT/OT
Plan - anticipate home with [facility] and [facility] when medically
[2024-07-30] MEDS: SENOKOT PO (21:06)
[2024-07-30] MEDS: COLACE PO (21:06)
[2024-07-30] MEDS: COMPAZINE 5 MG PO (21:06)
[2024-07-30 22:44] LABS: Troponin I < 0.012 ng/ml
[2024-07-30] MEDS: ROXICODONE 5 MG PO (22:44)
[2024-07-30] MEDS: MELATONIN 5 MG PO (22:46)
[2024-07-30] MEDS: BENADRYL 50 MG PO (22:46)
[2024-07-30 23:39] VITALS: BP 130/59
[2024-07-31] MEDS: TYLENOL PO ×2 (01:18→03:57)
[2024-07-31 05:36] LABS: Hematocrit 26.8 % (37.0-47.0); Hemoglobin 8.5 g/dL (12.0-16.0); Mean Corp Hgb Conc. 31.7 g/dL (33.0-37.0); Mean Corpuscular Hgb 29.4 pg (27.0-31.0); Mean Corpuscular Volume 92.7 fL (81.0-99.0); Mean Platelet Volume 9.4 fL (7.4-10.4); Platelet Count 321 10^3/uL (130-400); Red Blood Cell Count 2.89 10^6/uL (4.20-5.40); Red Cell Dist. Width 13.6 % (11.5-14.5); White Blood Cell Count 9.8 10^3/uL (4.8-10.8)
[2024-07-31] MEDS: VANCOCIN 275 MG IV (05:42)
[2024-07-31 06:00] VITALS: BMI 32.0
[2024-07-31 06:13] LABS: Vancomycin Trough 10.8 ug/ml (5-20)
[2024-07-31 06:26] LABS: Blood Urea Nitrogen 11 mg/dl (7-17); Calcium 9.5 mg/dl (8.4-10.2); Carbon Dioxide 32 mmol/L (22-30); Chloride 99 mmol/L (98-107); Estimated Creatinine Clearance 61 ml/min; Glucose 117 mg/dl (70-99); Potassium 3.7 mmol/L (3.5-5.1); Sodium 137 mmol/L (135-145); eGFR > 60.00
[2024-07-31] MEDS: TUMS CHEWABLE TABLET 200 MG PO ×2 (06:26→16:14)
--- NOTE | 2024-07-31 07:54 | PHA.VAN.FU ---
Vancomycin Assessment / Plan
- Assessment
Renal Function: Stable
WBC's are: WNL
In the past 24 hrs, patient has been: Afebrile
- Assessment - Therapeutic Drug Monitoring
Extrapolated Cmax (mcg/mL): 26.9
Peak level was drawn: Appropriately (drawn ~2.8H after end of prior infusion)
Extrapolated Cmin (mcg/mL): 10.7
Trough Drawn: Appropriately
Levels were drawn: At steady state (levels drawn after 3rd total dose, including loading dose)
Calculated AUC (mcg*h/mL): 423
Calculated ke: 0.0412
Calculated half life (H): 16.8
Calculated Vd (L): 71.8 (~1.03 L/kg)
Calculated Vanc CL (ml/min): 49
Levels likely close to steady state, if not fully at steady state yet
If patient does have additional accumulation, expect to remain in therapeutic range
- Dosing Plan
Continue: Vanc 1250mg Q24H
- Monitoring Plan
Level(s) appropriate: Recheck trough at minimum of weekly intervals, Repeat sooner for changes in renal function or clinical status
Next Level Due (Date): ~08/07
may consider sooner to ensure any further accumulation is appropriate
- Follow Up
Pharmacy will continue to follow.
Vancomycin Follow UP
- -
Patient Age: 79
Patient Sex: Female
Vancomycin Day #: 4
Indication: Bone And Joint
Requesting Provider: Dr. Adair
Pertinent Antimicrobial Allergies:
sulfonamide antibiotics - itching
Height / Weight:
Height 4 ft 10 in
Actual Weight 69.4 kg
Pertinent Past Medical History: BMI ~33, R. MIKE (May 2024)
- Vital Signs / Lab Results
Temp Pulse Resp BP Pulse Ox
98 F 101 18 130/59 93
07/30/24 23:39 07/30/24 23:39 07/30/24 23:39 07/30/24 23:39 07/30/24 23:39
Lab Results - Hematology
07/30/24 07/31/24
04:58 05:28
WBC 12.1 H 9.8
Lab Results - Chemistry
07/28/24 07/29/24 07/30/24
06:59 14:27 04:58
BUN 11 24 H 18 H
Creatinine 0.5 L 0.7 0.6
Estimated Creat Clear 61 53 62
Albumin 3.3 L 3.1 L 3.4 L
07/31/24
05:28
BUN 11
Creatinine 0.6
Estimated Creat Clear 61
Albumin
Microbiology Results
07/27/24 17:15 Wound Culture - Preliminary
Hip - Right Enterococcus faecalis
Gram Stain - Preliminary
07/27/24 17:12 Wound Culture - Preliminary
Hip - Right Enterococcus faecalis
Gram Stain - Preliminary
07/27/24 17:15 Anaerobic Culture - Preliminary
Hip - Right Culture pending. Anaerobic cultures are examined after 3
days incubation. Additional information to follow.
07/27/24 17:12 Anaerobic Culture - Preliminary
Hip - Right Culture pending. Anaerobic cultures are examined after 3
days incubation. Additional information to follow.
Therapeutic Drug Monitoring
Vancomycin Peak 24.0 ug/ml (18-26) 07/30/24 10:04
Vancomycin Trough 10.8 ug/ml (5-20) 07/31/24 05:28
[2024-07-31 08:41] VITALS: BP 133/82
[2024-07-31] MEDS: KCL 20 MEQ PO (09:00)
[2024-07-31] MEDS: FLORASTOR 250 MG PO ×2 (09:00→21:02)
[2024-07-31] MEDS: TYLENOL 650 MG PO ×4 (09:00→21:02)
[2024-07-31] MEDS: WELLBUTRIN XL (24 hour extended release) 150 MG PO (09:01)
[2024-07-31] MEDS: LEXAPRO 20 MG PO (09:01)
[2024-07-31] MEDS: NEURONTIN 600 MG PO ×3 (09:01→22:36)
[2024-07-31] MEDS: CYKLOKAPRON 1300 MG PO ×3 (09:01→22:35)
[2024-07-31] MEDS: NSS (PRESERVATIVE FREE) 10 ML IV (09:01)
[2024-07-31] MEDS: PROTONIX IV 40 MG IV (09:01)
[2024-07-31] MEDS: ASPIR LOW (ENTERIC COATED) 81 MG PO ×2 (09:01→21:02)
--- NOTE | 2024-07-31 13:57 | W.PN.ID1 ---
Date of Service
Date of Service: July 31, 2024
Today's Communication
- c/w vancomycin 1.25 gm iv q24 hours - script written and given to renal case manager 3
- has PICC line - plan 6 weeks of IV vancomycin, 07/28-09/07
- stable for dc from ID perspective, some ongoing bleeding from the surgery site - management per orthopedics
Assessment / Plan
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
Note h/o ITP and recent steroids
- s/p I&D and hip revision 07/27
- OR culture x2 with enterococcus species
- ESR 69 and CRP 16
- c/w vancomycin 1.25 gm iv q24 hours - script written and given to renal case manager 7
- has PICC line - plan 6 weeks of IV vancomycin, 07/28-09/07
- stable for dc from ID perspective, some ongoing bleeding from the surgery site - management per orthopedics
Chief Complaint
-: Other (early PJI)
Subjective / Review of Systems
night shift supervisor RN felt that vancomycin may have cause abdominal pain - that would be very unusual - reviewed with patient
afebrile
bp stable
Vital Signs / Physical Exam
Vital Signs
Vital Signs
Temp Pulse Resp BP Pulse Ox
98 F 96 16 133/82 94
07/30/24 23:39 07/31/24 08:41 07/31/24 08:41 07/31/24 08:41 07/31/24 08:41
Physical Exam
Constitutional: No Acute Distress
Cardiovascular: Regular Rate and S1/S2; Negative Murmur or Rub
Pulmonary: Clear and Symmetric; Negative Wheezes or Rales
Gastrointestinal: Soft, Non Tender, Non Distended and Normal Bowel Sounds
Skin: Warm and Dry; Negative Rash or Jaundice
Lines: PICC
Objective Data
Lab Data
Lab Results
07/31/24 05:28
07/31/24 05:28
ESR 69 mm/hour (0-20) H 07/30/24 04:58
Estimated Creat Clear 61 ml/min 07/31/24 05:28
Total Bilirubin 0.5 mg/dl (0.2-1.3) 07/30/24 04:58
AST 35 U/L (14-36) 07/30/24 04:58
ALT 14 U/L (0-35) 07/30/24 04:58
Alkaline Phosphatase 91 U/L (38-126) 07/30/24 04:58
C-Reactive Protein 15.70 mg/L (0.0-10.00) H 07/29/24 05:40
Most recent labs reviewed.
07/30/24 07/31/24
10:04 05:28
Vancomycin Peak 24.0
Vancomycin Trough 10.8
Micro Results:
07/27/24 17:15 Wound Culture - Preliminary
Hip - Right Enterococcus faecalis
Gram Stain - Preliminary
07/27/24 17:12 Wound Culture - Preliminary
Hip - Right Enterococcus faecalis
Gram Stain - Preliminary
07/27/24 17:15 Anaerobic Culture - Preliminary
Hip - Right Culture pending. Anaerobic cultures are examined after 3
days incubation. Additional information to follow.
07/27/24 17:12 Anaerobic Culture - Preliminary
Hip - Right Culture pending. Anaerobic cultures are examined after 3
days incubation. Additional information to follow.
07/24/24 12:45 MRSA Screen - Final
Nose No Methicillin Resistant Staphylococcus aureus isolated.
--- NOTE | 2024-07-31 14:48 | W.PN.ORTHO ---
Today's Communication / Plan
-
Continue to monitor incisional bleeding in the setting of ITP. Will increase TXA.
D/c hopeful for tomorrow if bleeding improved.
Assessment
.
Distal Motor Intact: Yes
Dressing:
Moderate serosanguineous discharge on dressing - will be changed.
Assessment:
R MIKE 06/22/24- taylor-prosthetic infection - s/p R MIKE I&D and revision w/ Dr Christianson 07/27/24
- Gram stain with gram + cocci; prelim cultures w/ Enterococcus
- Follow serial CRP/ESR while inpatient
- Will need CBC w/ diff/CMP/ESR/CRP
- ID consult appreciated - will continue IV Vanco for atleast 6 weeks given prelim culture results
- Work w/ PT and OT as able. Can WBAT w/ walker
DVT prophylaxis - ortho notes hematoma with platelet disorder possible contributory factor - Appreciate heme who has recommended ASA + SCDs
- Will decrease ASA to 81 mg PO BID in light of ongoing incisional bleeding from ITP. Will need to continue for at least 2 weeks post-op
- Pt, daughter to invest in plasma flow devices
Loose stools 07/30 in setting of Colace and Senna - d/c meds - no further loose stools since d/c of meds
Epigastric discomfort - starting evening of 07/29 - constant, tender to palpation of epigastric area - r/o cardiac/pulm/GI causes
- Cardio: EKG NSR. Troponin trends neg.
- Pulm: Chest PE Study w/ no active chest disease, no PE. Large hiatal hernia
- GI: Minimal relief w/ Maalox overnight. Improved relief w/ IV Protonix/TUMS. Will continue
Incisional bleeding 2* ITP - continue TXA at increased dose, dressing changes as needed
ITP - platelets stable pre-op and post-op - avoid steroid for now given infection - daily platelet count per heme
B12 deficiency per heme note with pre-existing anemia - B12 stores in range
- Hgb stable at 8.5 POD 4
Acute on chronic HF, pEF - weight, lung sounds improved w/ IV Bumex daily x2
- Continue PO diuretics w/ BP parameters to avoid post-surgical hypotension
- Low sodium diet, fluid restrict
- Monitor volume status
Chronic mild hypokalemia - improved w/ dietary intake, increase in K+ supplement
AIMEE-cpap
COPD
Interstial lung ds.
pulmonary nodules
- Continue to monitor O2
[id number]
HTN
HLD
CVA-on brain MRI 2012-small lacunar-baseline cognitive deficits pertaining to recall and comprehension exacerbated with anxiety-include gabapentin
Hx breast CA
hx oral CA
Spinal stenosis
Depression/anxiety
Fatty liver
Plan
.
Surgery / Date: R MIKE I&D and revision w/ Dr Christianson 07/27/24
DVT Prophylaxis: Aspirin (81 mg PO BID )
Activity:
Out of bed.
PT/OT
Discharge Plan: Home w/ VN
Subjective
.
.:
Patient resting comfortably this AM.
Incisional bleeding continues - TXA dosing adjusted.
Reports GI discomfort with abx; however, says she 'can tolerate'.
Vital Signs and Labs
.
Vital Signs and Labs:
Lab Results
07/31/24 05:28
07/31/24 05:28
Temp Pulse Resp BP Pulse Ox
98 F 96 16 133/82 94
07/30/24 23:39 07/31/24 08:41 07/31/24 08:41 07/31/24 08:41 07/31/24 08:41
Non-invasive Hgb result: 13.5
Physical Exam
-
HEENT: No pallor, cyanosis, or jaundice. Throat clear.
NECK: Supple. No JVD.
RESPIRATORY: Lungs clear to auscultation.
CVS: S1, S2 normal. RRR.�
ABDOMEN: Soft, non-tender. No distension. Obese. Bowel sounds throughout.
EXTREMITIES: Expected post-surgical R hip edema. Strength equal, no calf pain with palpation/dorsiflexion. Calves soft.
OPTOMETRIST: AOx3. No focal deficits. deflash and wash operator grossly intact
--- NOTE | 2024-07-31 15:17 | CM ---
Chart reviewed. Met with pt
Received infusion sheet from ID - updated Elodia from [facility]
Elodia completed med teaching with pt and daughter at bedside. If pt d/c'ed on 08/01, update [facility] [phone]. [facility] to deliver med in evening. Daughter to administer med Saturday. If d/c delayed, [facility] unable to deliver med Saturday -
would deliver on Saturday per Elodia
Kristina RN - to follow with pt on Thursday 08/03. Huma updated by Elodia
Infusion sheet and labs given to Elodia. Faxed to Kristina
Updated Bharti Addison by TT - aware of plan
Plan - home with [facility] and [facility] when medically stable
Kristina Fax - [phone]
[2024-07-31 17:02] VITALS: BP 187/80
--- NOTE | 2024-07-31 17:30 | PTCARENOTE ---
Patients blood pressure was 187/80 left calf lying down. Bharti Addison PAC made aware. Bumex 1 mg po ordered x 1 now. Ordering pending.
[2024-07-31] MEDS: BUMEX 1 MG PO (17:47)
--- NOTE | 2024-07-31 18:23 | CON.HOSP ---
Consultation
-
Date/Time Consultation Requested: July 31, 2024 at 6:20PM
Date/Time Consultation Performed: July 31, 2024 at 6:30PM
Requesting Provider: Bharti Addison PA-C
Performing Provider: Rocio Dhaliwal PA-C / Dr. Shine Bobo
Reason for Consultation: Abdominal Pain
Family Physician
-
Family Physician: ALMA Wright
Chief Complaint
-
Abdominal Pain
History of Present Illness
Patient is an 79 y/o female past medical history of CAD, CHF, ITP, and COPD/ILD who was initially admitted on July 27 for incision/drainage and revision of recent right total hip arthroplasty. Patient reports worsening generalized abdominal
discomfort. She reports abdominal distention with poor appetite. She reports loose stools yesterday at which time her stool softeners were stopped. She reports small stool today. She denies nausea or vomiting.
Medical History
Past Medical History
Past Medical History: Reports Other
Additional Past Medical History:
Non-Obstructive Coronary Artery Disease
Chronic HFpEF
Essential Hypertension
Hyperlipidemia
CVA
ITP
Interstitial Lung Disease
Spinal Stenosis
Anxiety / Depression
GERD
Breast Cancer s/p Right Lumpectomy, Chemo and Radiation
Oral Cancer
Additional Past Surgical History:
Right Total Hip Replacement
Left Knee Medical Meniscectomy
Right L4 Hemilaminectomy / Right L4-L5 Discectomy
Cholecystectomy
Right Lumpectomy
Social History
Tobacco: Non-smoker
Alcohol: Occasional
Family History
Family History: Reviewed & Not Pertinent
Allergies / Home Medications
Allergies reflects when Allergies were last updated in [facility].
Home Medications with original date entered in [facility]
Allergy/Medication List:
Allergies
Allergy/AdvReac Type Severity Reaction Status Date / Time
codeine Allergy stomach Verified 07/27/24 12:43
pains
NSAIDS (Non-Steroidal Allergy GI BLEED Verified 07/27/24 12:43
Anti-Inflamma
peach Allergy FACIAL Verified 07/27/24 12:43
SWELLING
WITH ANY
PITTED
FRUIT
Sulfa (Sulfonamide Allergy Itching Verified 07/27/24 12:43
Antibiotics)
sulfite Allergy Itching Verified 07/27/24 12:43
Home Medications
esomeprazole magnesium 40 mg capsule,delayed release (Nexium) 40 mg PO DAILY Gastrointestinal issue 03/29/14
bupropion HCl 150 mg 24 hr tablet, extended release 150 mg PO DAILY Depression 10/31/19
escitalopram oxalate 10 mg tablet 20 mg PO DAILY Mental Health/Anxiety 03/02/20
fluticasone propionate 50 mcg/actuation nasal spray,suspension 1 spray intranasal DAILY Congestion 03/02/20
diphenhydramine HCl 50 mg/30 mL oral liquid (ZzzQuil) 50 mg PO HS Sleep 01/22/24
polyethylene glycol 3350 17 gram oral powder packet (Miralax) 17 g PO DAILYPRN PRN CONSTIPATION 01/22/24
docusate sodium 100 mg capsule (Colace) 100 mg PO BID stool softner #1 cap 07/27/24
gabapentin 600 mg tablet (Neurontin) 600 mg PO HS #0 tabs 07/27/24
Saccharomyces boulardii 250 mg capsule 250 mg PO BID #30 caps 07/31/24
Vancomycin [Vancocin] 1,250 mg 183.33 mls/hr IV DAILY@0600 07/31/24
acetaminophen 650 mg tablet,extended release 1,300 mg (2 x 650 mg) PO Q8H #60 tabs 07/31/24
aspirin 81 mg tablet,delayed release 81 mg PO BID #30 tabs 07/31/24
bumetanide 1 mg tablet 1 mg PO DAILY PRN 'FLUID BUILD UP' #0 tabs 07/31/24
calcium carbonate (Calcium Antacid) 200 mg PO Q6HPRN PRN indigestion #30 tabs 07/31/24
chlorthalidone 25 mg tablet 25 mg PO DAILY PRN 'FLUID BUILD UP' #0 tabs 07/31/24
oxycodone 5 mg tablet 5 - 10 mg (1 - 2 x 5 mg) PO Q6H PRN moderate-severe pain #30 tabs 07/31/24
potassium chloride 20 mEq tablet,extended release(part/cryst) 20 meq PO DAILY #30 tabs 07/31/24
prochlorperazine maleate 5 mg tablet 5 mg PO Q8H PRN nausea and vomiting #30 tabs 07/31/24
Review of Systems
-
A 12 point Review of Systems was completed except as noted: Yes
Constitutional: Denies Fever
Abdomen/GI: Reports See HPI
Physical Exam
Vital Signs
Vital Signs
Temp Pulse Resp BP Pulse Ox
98.6 F 93 17 187/80 94
07/31/24 15:54 07/31/24 17:02 07/31/24 15:54 07/31/24 17:02 07/31/24 15:54
Physical Exam
General: Well Developed, Well Nourished and Other (Conversant; Rubbing upper abdomen frequently during my evaluation)
HEENT: Anicteric and Moist Mucous Membranes
Respiratory: Rales (Faint bilateral bases) and Non Labored Respirations
Cardiac: S1/S2 and Regular Rhythm
GI: Soft and Other (Hyperactive, slightly high picture bowel sounds; Mild tenderness upper abdomen without rebound or guarding)
Rectal: Deferred by Provider
Musculoskeletal: No Clubbing and No Cyanosis
Skin: Warm and Dry
Neuro: Awake, Alert, Oriented and No Motor Deficits
Psych: Calm
Laboratory Results
-
Laboratory Results
07/31/24 05:28
07/31/24 05:28
Total Bilirubin 0.5 mg/dl (0.2-1.3) 07/30/24 04:58
AST 35 U/L (14-36) 07/30/24 04:58
ALT 14 U/L (0-35) 07/30/24 04:58
Alkaline Phosphatase 91 U/L (38-126) 07/30/24 04:58
Troponin I < 0.012 ng/ml 07/30/24 22:16
Data Reviewed
-
Lab Data: Labs Reviewed
Old Records: Reviewed
Impression / Plan
-
Abdominal Pain, possibly GERD/Dyspepsia vs Constipation
-Monitor bowel movements
-Continue Protonix
-Check Obstruction Series
-Consider Abd/Pelvis CT scan
Infected Right Total Hip Arthroplasty s/p I&D and Revision on July 27
-OR cultures with Enterococcus
-Continue Vancomycin as per ID
ITP
-Continue Tranexamic Acid as per Oncology
Chronic HFpEF
-Patient given additional Bumex dose 07/31
-Continue Bumex 1mg Daily
-Monitor Daily Weights
Anxiety/Depression
-Continue Lexapro and Wellbutrin
DVT proph: ASA and SCDs
--- NOTE | 2024-07-31 20:15 | W.PN.UPDATE ---
Update Note
Progress Note Update
This is an addendum to the H&P written by Rocio Mccallum on 07/31/2024.� Patient seen and examined independently with PA.
79-year-old female past medical history of right total hip arthroplasty on 06/22 with periprosthetic infection status post I&D, and revision MIKE on 07/27, CAD, HFpEF, hiatal hernia, hypertension, hyperlipidemia, obstructive sleep apnea, COPD,
interstitial lung disease, pulmonary nodules, ITP, B12 deficiency, CVA, breast cancer, spinal stenosis, anxiety/depression, fatty liver, osteoarthritis, mild carcinoma, basal cell carcinoma being consulted for epigastric abdominal pain.
She recently underwent right total hip arthroplasty on 06/22 periprosthetic infection status post I&D and revision MIKE on 07/27 with OR culture growing Enterococcus currently on vancomycin being managed by ID.
Hospitalist consult for abdominal pain starting yesterday in the epigastric region associated with bloating and distention and poor appetite.� Yesterday she was having loose stools so Colace and senna were stopped.� CT chest was performed yesterday
which showed no acute disease of the chest.
Abdominal pain seems to be secondary to dyspepsia versus constipation versus IBS.� Check obstruction series. Consider CT abdomen.�
--- NOTE | 2024-07-31 22:34 | VATNOTE ---
called to 'reposition' left picc per radiologist report after pt. having done an obstruction series/CXR this alea. Retracted 2cm and having another CXR done now.
[2024-07-31] MEDS: BENADRYL 50 MG PO (22:36)
[2024-07-31] MEDS: MELATONIN 5 MG PO (22:36)
[2024-07-31] MEDS: ROXICODONE 5 MG PO (22:48)
--- NOTE | 2024-07-31 23:16 | VATNOTE ---
called PCN, that PICC was now able to be used again. Results from CXR, PICC tip placement noted by VAT per radiologist.
[2024-07-31 23:44] VITALS: BP 193/76
[2024-08-01] MEDS: TYLENOL PO ×2 (00:08→05:04)
[2024-08-01 06:00] VITALS: BMI 33.2
[2024-08-01 07:05] LABS: Hematocrit 25.9 % (37.0-47.0); Hemoglobin 8.6 g/dL (12.0-16.0); Mean Corp Hgb Conc. 33.2 g/dL (33.0-37.0); Mean Corpuscular Hgb 30.3 pg (27.0-31.0); Mean Corpuscular Volume 91.2 fL (81.0-99.0); Mean Platelet Volume 9.7 fL (7.4-10.4); Platelet Count 301 10^3/uL (130-400); Red Blood Cell Count 2.84 10^6/uL (4.20-5.40); Red Cell Dist. Width 13.5 % (11.5-14.5); White Blood Cell Count 8.7 10^3/uL (4.8-10.8)
[2024-08-01] MEDS: TUMS CHEWABLE TABLET 200 MG PO ×3 (07:12→18:24)
[2024-08-01 08:08] VITALS: BMI 31.7
[2024-08-01 08:10] VITALS: BP 171/72
[2024-08-01] MEDS: CYKLOKAPRON 1300 MG PO ×3 (08:45→21:41)
[2024-08-01] MEDS: LEXAPRO 20 MG PO (08:45)
[2024-08-01] MEDS: NEURONTIN 600 MG PO ×3 (08:45→21:41)
[2024-08-01] MEDS: FLORASTOR 250 MG PO ×2 (08:45→20:16)
[2024-08-01] MEDS: KCL 20 MEQ PO (08:46)
[2024-08-01] MEDS: ASPIR LOW (ENTERIC COATED) 81 MG PO ×2 (08:46→20:15)
[2024-08-01] MEDS: TYLENOL 650 MG PO ×4 (08:46→20:15)
[2024-08-01] MEDS: WELLBUTRIN XL (24 hour extended release) 150 MG PO (08:46)
[2024-08-01] MEDS: PROTONIX IV 40 MG IV (08:47)
[2024-08-01] MEDS: NSS (PRESERVATIVE FREE) 10 ML IV (08:47)
--- NOTE | 2024-08-01 08:48 | W.PN.ORTHO ---
Today's Communication / Plan
-
s/p right hip ID with revision MIKE on 07/27/[address] Christianson
--WBAT RLE. Ambulate with walker
--Posterior hip precautions
--PT/OT
--Dressing changed by me this morning. Continue to monitor drainage. Change as needed
--Continue with TXA
--Continue with pain management as needed
--Case management for discharge planning
--Not stable for discharge today due to drainage from incision.
--Will reassess tomorrow
Assessment
.
Distal Motor Intact: Yes
Dressing:
Clean, dry and intact.
Plan
.
Surgery / Date: R MIKE I&D and revision w/ Dr Christianson 07/27/24
DVT Prophylaxis: Aspirin
Activity:
Out of bed.
PT/OT
Subjective
.
.:
Patient resting comfortably in bed this morning. She reports that her pain is well controlled. She states that she did have two dressing changes overnight
Vital Signs and Labs
.
Vital Signs and Labs:
Lab Results
08/01/24 06:42
07/31/24 05:28
Temp Pulse Resp BP Pulse Ox
98.3 F 94 20 171/72 93
08/01/24 08:10 08/01/24 08:10 08/01/24 08:10 08/01/24 08:10 08/01/24 08:10
Non-invasive Hgb result: 13.5
Physical Exam
-
Directed exam of right hip reveals Primaseal dressing in place. This is saturated with drainage. Expected edema about the hip. Thigh is soft and compressible. Able to plantarflex/dorisflex the ankle. NVI distally
[2024-08-01] MEDS: Hygroton 25 MG PO (08:50)
[2024-08-01] MEDS: BUMEX 1 MG PO (08:50)
[2024-08-01] MEDS: FLUSH (NSS) 2 FLUSH IV ×2 (08:51→10:06)
[2024-08-01] MEDS: COMPAZINE 5 MG PO ×2 (09:05→18:24)
[2024-08-01] MEDS: ROXICODONE 5 MG PO ×2 (09:06→21:42)
--- NOTE | 2024-08-01 09:28 | PHA.VAN.FU ---
Vancomycin Assessment / Plan
- Assessment
Renal Function: Stable (0.6)
WBC's are: WNL (8.7)
In the past 24 hrs, patient has been: Afebrile
- Dosing Plan
Continue: Vanco 1250mg Q24H
Dosing Comments: ID Consult changed infusion time from 0600 to 1000
- Monitoring Plan
Level(s) appropriate: Recheck trough at minimum of weekly intervals, Repeat sooner for changes in renal function or clinical status
Next Level Due (Date): ~08/07
Monitoring Comments: May consider sooner to ensure any further accumulation is appropriate
- Follow Up
Pharmacy will continue to follow.
Vancomycin Follow UP
- -
Patient Age: 79
Patient Sex: Female
Vancomycin Day #: 5
Indication: Bone And Joint
Requesting Provider: Dr. Adair
Height / Weight:
Height 4 ft 10 in
Actual Weight 68.855 kg
Pertinent Past Medical History: BMI ~33, R. MIKE (May 2024)
- Vital Signs / Lab Results
Temp Pulse Resp BP Pulse Ox
98.3 F 94 20 171/72 93
08/01/24 08:10 08/01/24 08:10 08/01/24 08:10 08/01/24 08:50 08/01/24 08:10
Lab Results - Hematology
07/30/24 07/31/24 08/01/24
04:58 05:28 06:42
WBC 12.1 H 9.8 8.7
Lab Results - Chemistry
07/29/24 07/30/24 07/31/24
14:27 04:58 05:28
BUN 24 H 18 H 11
Creatinine 0.7 0.6 0.6
Estimated Creat Clear 53 62 61
Albumin 3.1 L 3.4 L
Microbiology Results
07/27/24 17:15 Anaerobic Culture - Preliminary
Hip - Right Culture pending. Anaerobic cultures are examined after 3
days incubation. Additional information to follow.
07/27/24 17:12 Anaerobic Culture - Preliminary
Hip - Right Culture pending. Anaerobic cultures are examined after 3
days incubation. Additional information to follow.
07/27/24 17:15 Wound Culture - Preliminary
Hip - Right Enterococcus faecalis
Gram Stain - Preliminary
07/27/24 17:12 Wound Culture - Preliminary
Hip - Right Enterococcus faecalis
Gram Stain - Preliminary
Therapeutic Drug Monitoring
Vancomycin Peak 24.0 ug/ml (18-26) 07/30/24 10:04
Vancomycin Trough 10.8 ug/ml (5-20) 07/31/24 05:28
[2024-08-01] MEDS: VANCOCIN 275 MG IV (10:05)
[2024-08-01] MEDS: VANCOCIN IV (14:32)
[2024-08-01 15:37] VITALS: BP 153/53
--- NOTE | 2024-08-01 16:04 | W.PN.UPDATE ---
Update Note
Progress Note Update
79-year-old woman with a past medical history of:
right total hip arthroplasty on 06/22 with periprosthetic infection status post I&D
revision MIKE on 07/27,
CAD,
HFpEF,
hiatal hernia,
hypertension,
hyperlipidemia,
obstructive sleep apnea,
COPD,
interstitial lung disease,
pulmonary nodules,
ITP,
B12 deficiency,
CVA,
breast cancer,
spinal stenosis,
anxiety/depression,
fatty liver,
osteoarthritis,
mild carcinoma,
basal cell carcinoma
being consulted for epigastric abdominal pain.
1. Abd pain. - resolved.
Hospitalist consult for abdominal pain starting 2 days ago in the epigastric region associated with bloating and distention and poor appetite.�
2 days ago she was having loose stools so Colace and senna were stopped.�
CT chest was performed which showed no acute disease of the chest.
Abdominal pain seems to be secondary to dyspepsia versus constipation versus IBS.�
Checked obstruction series. - no obstruction
Pain resolved today after she took tums.
Continue tums at time of discharge.
Will continue to follow daily until she is discharged.
2. Anemia, post surgical, H/H 8.6/25.9, baseline
Appears to have stabilized.
Plan per surgery
Exam: Abd soft, nt, nd
�
[2024-08-01] MEDS: BENADRYL 50 MG PO (21:41)
[2024-08-01] MEDS: MELATONIN 5 MG PO (21:42)
[2024-08-01 23:13] VITALS: BP 183/62
[2024-08-02] MEDS: TYLENOL PO ×2 (00:14→05:01)
[2024-08-02] MEDS: TUMS CHEWABLE TABLET 200 MG PO (00:27)
[2024-08-02 06:00] VITALS: BMI 31.6
[2024-08-02] MEDS: MAALOX 30 ML PO ×2 (07:45→17:28)
[2024-08-02 08:26] LABS: Hematocrit 25.7 % (37.0-47.0); Hemoglobin 8.5 g/dL (12.0-16.0); Mean Corp Hgb Conc. 33.1 g/dL (33.0-37.0); Mean Corpuscular Hgb 30.1 pg (27.0-31.0); Mean Corpuscular Volume 91.1 fL (81.0-99.0); Mean Platelet Volume 9.9 fL (7.4-10.4); Platelet Count 293 10^3/uL (130-400); Red Blood Cell Count 2.82 10^6/uL (4.20-5.40); Red Cell Dist. Width 13.6 % (11.5-14.5); White Blood Cell Count 10.8 10^3/uL (4.8-10.8)
[2024-08-02 08:30] VITALS: BP 158/73
--- NOTE | 2024-08-02 08:41 | W.PN.ORTHO ---
Today's Communication / Plan
-
s/p right hip ID with revision MIKE on 07/27/[address] Christianson
--WBAT RLE. Ambulate with walker
--Posterior hip precautions
--PT/OT
--Dressing with serosanguinous drainage this morning, improved from yesterday. Dressing changed by me this morning. Continue to monitor. Change dressing as needed
--Continue with TXA
--Continue with pain management as needed
--Case management for discharge planning. Per case management note, patient's home antibiotics cannot be delivered today, can be delivered Saturday. Patient will need to stay today for antibiotics. Plan for likely discharge tomorrow.
Assessment
.
Dressing:
Clean, dry and intact.
Plan
.
Surgery / Date: R MIKE I&D and revision w/ Dr Christianson 07/27/24
DVT Prophylaxis: Aspirin
Activity:
Out of bed.
PT/OT
Subjective
.
.:
Patient resting comfortably in bed this morning. Her pain is well controlled. She reports one dressing change after I changed the dressing yesterday morning, however per nursing notes, looks like 2 dressing changes.
Vital Signs and Labs
.
Vital Signs and Labs:
Lab Results
08/02/24 08:15
07/31/24 05:28
Temp Pulse Resp BP Pulse Ox
98.3 F 92 16 158/73 95
08/02/24 08:30 08/02/24 08:30 08/02/24 08:30 08/02/24 08:30 08/02/24 08:30
Non-invasive Hgb result: 13.5
Physical Exam
-
Directed exam of right hip reveals Primaseal dressing in place. There is serosanguinous drainage reaching one border of the dressing. This was removed to reveal a well approximated incision with billy in place. I am able to express a tiny amount
of serous drainage from the central portion of the incision. Expected edema about the hip. Thigh is soft and compressible. Able to plantarflex/dorsiflex the ankle. NVI distally
[2024-08-02] MEDS: BUMEX 1 MG PO (08:49)
[2024-08-02] MEDS: ASPIR LOW (ENTERIC COATED) 81 MG PO ×2 (08:49→19:46)
[2024-08-02] MEDS: FLORASTOR 250 MG PO ×2 (08:49→19:46)
[2024-08-02] MEDS: NEURONTIN 600 MG PO ×3 (08:49→22:01)
[2024-08-02] MEDS: CYKLOKAPRON 1300 MG PO ×3 (08:49→22:03)
[2024-08-02] MEDS: NSS (PRESERVATIVE FREE) 10 ML IV (08:50)
[2024-08-02] MEDS: LEXAPRO 20 MG PO (08:50)
[2024-08-02] MEDS: KCL 20 MEQ PO (08:50)
[2024-08-02] MEDS: Hygroton 25 MG PO (08:50)
[2024-08-02] MEDS: PROTONIX IV 40 MG IV (08:51)
[2024-08-02] MEDS: WELLBUTRIN XL (24 hour extended release) 150 MG PO (09:06)
[2024-08-02] MEDS: TYLENOL 650 MG PO ×4 (09:06→19:46)
--- NOTE | 2024-08-02 09:18 | PHA.VAN.FU ---
Vancomycin Assessment / Plan
- Assessment
Renal Function: Stable (SCr 0.6)
WBC's are: WNL (10.8)
In the past 24 hrs, patient has been: Afebrile
- Dosing Plan
Continue: Vanco 1250mg Q24H
- Monitoring Plan
Level(s) appropriate: Recheck trough at minimum of weekly intervals, Repeat sooner for changes in renal function or clinical status
Next Level Due (Date): ~08/07
Monitoring Comments: May consider sooner to ensure any further accumulation is appropriate
- Follow Up
Pharmacy will continue to follow.
Vancomycin Follow UP
- -
Patient Age: 79
Patient Sex: Female
Vancomycin Day #: 6
Indication: Bone And Joint
Requesting Provider: Dr. Adair
Height / Weight:
Height 4 ft 10 in
Actual Weight 68.492 kg
Pertinent Past Medical History: BMI ~33, R. MIKE (May 2024)
- Vital Signs / Lab Results
Temp Pulse Resp BP Pulse Ox
98.3 F 92 16 158/73 95
08/02/24 08:30 08/02/24 08:50 08/02/24 08:30 08/02/24 08:50 08/02/24 08:30
Lab Results - Hematology
07/31/24 08/01/24 08/02/24
05:28 06:42 08:15
WBC 9.8 8.7 10.8
Lab Results - Chemistry
07/31/24
05:28
BUN 11
Creatinine 0.6
Estimated Creat Clear 61
Microbiology Results
07/27/24 17:12 Anaerobic Culture - Preliminary
Hip - Right Culture pending. Anaerobic cultures are examined after 3
days incubation. Additional information to follow.
07/27/24 17:15 Anaerobic Culture - Preliminary
Hip - Right Culture pending. Anaerobic cultures are examined after 3
days incubation. Additional information to follow.
Therapeutic Drug Monitoring
Vancomycin Peak 24.0 ug/ml (18-26) 07/30/24 10:04
Vancomycin Trough 10.8 ug/ml (5-20) 07/31/24 05:28
[2024-08-02] MEDS: ROXICODONE 5 MG PO (10:16)
[2024-08-02] MEDS: VANCOCIN 275 MG IV (10:19)
[2024-08-02 16:03] VITALS: BP 105/66
[2024-08-02] MEDS: MELATONIN 5 MG PO (22:01)
[2024-08-02] MEDS: BENADRYL 50 MG PO (22:01)
[2024-08-02 23:22] VITALS: BP 179/99
[2024-08-02 23:30] VITALS: BP 136/91
[2024-08-03] MEDS: TYLENOL PO (00:07)
[2024-08-03] MEDS: TYLENOL 650 MG PO ×4 (03:48→15:34)
[2024-08-03 06:00] VITALS: BMI 31.4
[2024-08-03 06:26] LABS: Hematocrit 27.4 % (37.0-47.0); Hemoglobin 8.9 g/dL (12.0-16.0); Mean Corp Hgb Conc. 32.5 g/dL (33.0-37.0); Mean Corpuscular Hgb 29.6 pg (27.0-31.0); Mean Platelet Volume 9.9 fL (7.4-10.4); Platelet Count 298 10^3/uL (130-400); Red Blood Cell Count 3.01 10^6/uL (4.20-5.40); Red Cell Dist. Width 13.7 % (11.5-14.5); White Blood Cell Count 13.4 10^3/uL (4.8-10.8)
[2024-08-03 07:40] VITALS: BP 168/90
[2024-08-03] MEDS: WELLBUTRIN XL (24 hour extended release) 150 MG PO (07:58)
[2024-08-03] MEDS: ASPIR LOW (ENTERIC COATED) 81 MG PO (07:58)
[2024-08-03] MEDS: LEXAPRO 20 MG PO (07:58)
[2024-08-03] MEDS: CYKLOKAPRON 1300 MG PO ×2 (07:58→15:34)
[2024-08-03] MEDS: BUMEX 1 MG PO (07:58)
[2024-08-03] MEDS: NEURONTIN 600 MG PO ×2 (07:58→15:34)
[2024-08-03] MEDS: KCL 20 MEQ PO (07:59)
[2024-08-03] MEDS: Hygroton 25 MG PO (07:59)
[2024-08-03] MEDS: NSS (PRESERVATIVE FREE) 10 ML IV (07:59)
[2024-08-03] MEDS: PROTONIX IV 40 MG IV (07:59)
[2024-08-03] MEDS: FLORASTOR PO (08:12)
[2024-08-03] MEDS: MAALOX 30 ML PO (08:24)
--- NOTE | 2024-08-03 08:24 | W.PN.ORTHO ---
Today's Communication / Plan
-
D/c probable for later today if remaining clinically stable.
Assessment
.
Distal Motor Intact: Yes
Dressing:
Moderate area of serosanguineous drainage, overall improved from last assessment.
Dressing to be changed prior to d/c.
Assessment:
R MIKE 06/22/24- taylor-prosthetic infection - s/p R MIKE I&D and revision w/ Dr Christianson 07/27/24
- Gram stain with gram + cocci; final cultures w/ Enterococcus faecalis
- Will need CBC w/ diff/CMP/ESR/CRP weekly upon d/c
- ID consult appreciated - will continue IV Vanco daily for at least 6 weeks given culture results. Will confirm abx delivery today before d/c
- Work w/ PT and OT as able. Can WBAT w/ walker
DVT prophylaxis - ortho notes hematoma with platelet disorder possible contributory factor - appreciate heme who has recommended ASA + SCDs
- Continue ASA to 81 mg PO BID in light of ongoing incisional bleeding from ITP. Will need to continue for at least 2 weeks post-op
- Pt, daughter to invest in plasma flow devices
Loose stools 07/30 in setting of Colace and Senna - d/c meds - no further loose stools since d/c of meds
Abdominal discomfort - starting evening of 07/29 - initially epigastric then more generalized - r/o cardiac/pulm/GI causes
- Cardio: EKG NSR. Troponin trends neg.
- Pulm: Chest PE Study w/ no active chest disease, no PE. Large hiatal hernia
- GI: chest/abd x-ray w/o obstruction. Improved relief w/ IV Protonix/TUMS/Maalox
- Will continue PPI therapy, probiotic, TUMS, Maalox as needed upon d/c
- Did encourage taking meds w/ food, spacing meds out to minimize GI upset
- Appreciate hospitalist service w/ medical mgmt
Incisional bleeding 2* ITP - continue TXA at increased dose, dressing changes as needed
- Notably improved w/ continued assessments
ITP - platelets stable pre-op and post-op - avoid steroid for now given infection - daily platelet count remaining stable
B12 deficiency per heme note with pre-existing anemia - B12 stores in range
- Hgb stable at 8.9 POD 7
Acute on chronic HF, pEF - weight, lung sounds improved w/ IV Bumex
- Continue PO diuretics w/ BP parameters to avoid post-surgical hypotension
- Low sodium diet, fluid restrict
- Volume status stable today
Chronic mild hypokalemia - improved w/ dietary intake, increase in K+ supplement
AIMEE-cpap
COPD
Interstial lung ds.
pulmonary nodules
- O2 stable on RA
SNS-pbr-xdphakhypyn
HTN
HLD
CVA-on brain MRI 2012-small lacunar-baseline cognitive deficits pertaining to recall and comprehension exacerbated with anxiety - include gabapentin
Hx breast CA
hx oral CA
Spinal stenosis
Depression/anxiety
Fatty liver
Plan
.
Surgery / Date: R MIKE I&D and revision w/ Dr Christianson 07/27/24
DVT Prophylaxis: Aspirin (81 mg PO BID )
Activity:
Out of bed.
PT/OT
Discharge Plan: Home w/ VN
Subjective
.
.:
Patient resting comfortably in bed.
Incisional bleeding improving w/ increased TXA dose.
Abdominal discomfort improving w/ current medications.
Eager for potential d/c today.
Vital Signs and Labs
.
Vital Signs and Labs:
Lab Results
08/03/24 06:02
07/31/24 05:28
Temp Pulse Resp BP Pulse Ox
98.4 F 88 18 136/91 94
08/02/24 23:22 08/02/24 23:30 08/02/24 23:22 08/02/24 23:30 08/02/24 23:22
Non-invasive Hgb result: 11.9
Physical Exam
-
HEENT: No pallor, cyanosis, or jaundice. Throat clear.
NECK: Supple. No JVD.
RESPIRATORY: Lungs clear to auscultation.
CVS: S1, S2 normal. RRR.�
ABDOMEN: Soft, non-tender. No distension. Obese.
EXTREMITIES: Expected post-surgical R hip edema. Strength equal, no calf pain with palpation/dorsiflexion. Calves soft.
[employer]DS[employer]: AOx3. No focal deficits. body cleaner grossly intact
--- NOTE | 2024-08-03 09:17 | W.DS.TRANS ---
DC Summary - [facility]
-
Discharge Instructions:
Discharge Diagnosis/Procedures Cecille-prosthetic infection secondary to
Enterococcus faecalis s/p I&D and R MIKE Revision
w/ Dr Christianson 07/27/24
Diet 2 Gram Sodium
Activity With Walker,As tolerated
Driving Restrictions Not until seen by your Dr
Bathing Restrictions OK to Shower
Blood Work WBC with diff, CMP, ESR, and CRP weekly on
Mondays with results to Dr. Christianson and
Wankewicz
Other Services VN,PT,OT
Specialty Instructions Weigh Daily
Instructions:
Stand-Alone Forms: Total Hip/Knee Replacement D/C
Changes to Home Medications: Yes
Discharge Medications:
DC Medications w/original date entered in [facility] - ASO
esomeprazole magnesium 40 mg capsule,delayed release (Nexium) 40 mg PO DAILY Gastrointestinal issue 03/29/14
bupropion HCl 150 mg 24 hr tablet, extended release 150 mg PO DAILY Depression 10/31/19
escitalopram oxalate 10 mg tablet 20 mg PO DAILY Mental Health/Anxiety 03/02/20
fluticasone propionate 50 mcg/actuation nasal spray,suspension 1 spray intranasal DAILY Congestion 03/02/20
diphenhydramine HCl 50 mg/30 mL oral liquid (ZzzQuil) 50 mg PO HS Sleep 01/22/24
polyethylene glycol 3350 17 gram oral powder packet (Miralax) 17 g PO DAILYPRN PRN CONSTIPATION 01/22/24
docusate sodium 100 mg capsule (Colace) 100 mg PO BID stool softner #1 cap 07/27/24
gabapentin 600 mg tablet (Neurontin) 600 mg PO HS #0 tabs 07/27/24
Saccharomyces boulardii 250 mg capsule 250 mg PO BID #30 caps 07/31/24
acetaminophen 650 mg tablet,extended release 1,300 mg (2 x 650 mg) PO Q8H #60 tabs 07/31/24
aspirin 81 mg tablet,delayed release 81 mg PO BID #30 tabs 07/31/24
bumetanide 1 mg tablet 1 mg PO DAILY PRN 'FLUID BUILD UP' #0 tabs 07/31/24
calcium carbonate (Calcium Antacid) 200 mg PO Q6HPRN PRN indigestion #30 tabs 07/31/24
chlorthalidone 25 mg tablet 25 mg PO DAILY PRN 'FLUID BUILD UP' #0 tabs 07/31/24
oxycodone 5 mg tablet 5 - 10 mg (1 - 2 x 5 mg) PO Q6H PRN moderate-severe pain #30 tabs 07/31/24
potassium chloride 20 mEq tablet,extended release(part/cryst) 20 meq PO DAILY #30 tabs 07/31/24
prochlorperazine maleate 5 mg tablet 5 mg PO Q8H PRN nausea and vomiting #30 tabs 07/31/24
Vancomycin [Vancocin] 1,250 mg 183.33 mls/hr IV DAILY@1000 08/03/24
aluminum-mag hydroxide-simethicone 200 mg-200 mg-20 mg/5 mL oral susp (Mag-Al Plus) 30 ml PO Q6HPRN PRN INDIGESTION #3,000 mL 08/03/24
Home Medication Changes
docusate sodium 100 mg capsule (Colace) 100 mg PO BID stool softner #1 cap 07/27/24
Saccharomyces boulardii 250 mg capsule 250 mg PO BID #30 caps 07/31/24
acetaminophen 650 mg tablet,extended release 1,300 mg (2 x 650 mg) PO Q8H #60 tabs 07/31/24
aspirin 81 mg tablet,delayed release 81 mg PO BID #30 tabs 07/31/24
calcium carbonate (Calcium Antacid) 200 mg PO Q6HPRN PRN indigestion #30 tabs 07/31/24
oxycodone 5 mg tablet 5 - 10 mg (1 - 2 x 5 mg) PO Q6H PRN moderate-severe pain #30 tabs 07/31/24
prochlorperazine maleate 5 mg tablet 5 mg PO Q8H PRN nausea and vomiting #30 tabs 07/31/24
Vancomycin [Vancocin] 1,250 mg 183.33 mls/hr IV DAILY@1000 08/03/24
aluminum-mag hydroxide-simethicone 200 mg-200 mg-20 mg/5 mL oral susp (Mag-Al Plus) 30 ml PO Q6HPRN PRN INDIGESTION #3,000 mL 08/03/24
Pending Results: No
--- NOTE | 2024-08-03 09:55 | W.PN.ONC2 ---
Addendum entered and electronically signed by Cristina Green MD 08/03/24 13:58:
Okay to continue aspirin.
Would not continue tranexamic with normal platelet count. ITP not a cause of oozing/bleeding with platelet count normal.
Suggest holding aspirin if concerns about bleeding, rather than giving tranexamic acid.
Continue current outpt N-plate.
Original Note:
Documented by User: ALMA Crook 08/03/24 09:56
Today's Communication / Plan
-
.
Impression
Impression
hx ITP steroid/Nplate responsive -platelets remain normal 338,000
R MIKE 06/22/24- taylor-prosthetic infection - s/p R MIKE I&D and revision w/ Dr Christianson 07/27/24
right hip culture with enterococcus on abx per ID
acute anemia possible ABLA with right hip hematoma s/p tranexamic acid 07/29
Plan
Plan
consider steroids +/- Nplate if platelet count <50,00
daily CBC
transfuse Hgb <7 or as needed for sxs anemia
Subjective/Objective
Subjective
no new complaints
Vital Signs:
Vital Signs
Temp Pulse Resp BP Pulse Ox
98.3 F 100 18 168/90 95
08/03/24 07:40 08/03/24 07:40 08/03/24 07:40 08/03/24 07:40 08/03/24 07:40
Lab Results:
Laboratory Data
WBC 13.4 10^3/uL (4.8-10.8) H 08/03/24 06:02
Hgb 8.9 g/dL (12.0-16.0) L 08/03/24 06:02
Plt Count 298 10^3/uL (130-400) 08/03/24 06:02
eGFR > 60.00 07/31/24 05:28
Orders
Orders
Orders From Last 24 Hours
08/03/24 06:02
CBC/No Diff [Complete Blood Count/No Diff] IN AM
08/04/24 06:00
CBC/No Diff [Complete Blood Count/No Diff] IN AM

Documented by User: Cristina Green MD 08/03/24 13:56
Today's Communication / Plan
-
Oozing not attributable to ITP with platelet count currently well within normal limits.
Tranexamic acid and aspirin are likely working against each other.
Suggest to HOLD ASA due to oozing.
D/C tranexamic acid with normal platelet count. Could use sparingly if still oozing but does increase risk of thromboembolic disease.
Outpt management:
Continue N-plate weekly
CBC weekly for now, more frequently if continued bleeding.
[2024-08-03] MEDS: VANCOCIN 275 MG IV (10:17)
[2024-08-03] MEDS: ROXICODONE 10 MG PO (10:23)
--- NOTE | 2024-08-03 10:32 | CM ---
Addendum entered by Nancy Maher 08/03/24 10:38:
Confirmed d/c with Elodia from [facility]. Elodia from [facility] aware - med to be delivered this PM - per Elodia confirmed with pts daughter
Original Note:
Pt for d/c today
[facility] for RN/PT/OT and [facility] for infusion meds
Daughter to transport home
Given IMM
Plan - home with [facility] and [facility] Fax - [phone]
[2024-08-03] MEDS: COMPAZINE 5 MG IV (10:42)
--- NOTE | 2024-08-03 11:22 | W.PN.ID1 ---
Date of Service
Date of Service: August 03, 2024
Today's Communication
- c/w vancomycin 1.25 gm iv q24 hours - script written and given to case resource manager 3/7
- has PICC line - plan 6 weeks of IV vancomycin, 07/28-09/07
- follow up in ID clinic in about 6 weeks
- stable for dc from ID perspective
Assessment / Plan
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
Note h/o ITP and recent steroids
- s/p I&D and hip revision 07/27
- OR culture x2 with enterococcus species
- ESR 69 and CRP 16
- c/w vancomycin 1.25 gm iv q24 hours - script written and given to case resource manager 3/7
- has PICC line - plan 6 weeks of IV vancomycin, 07/28-09/07
- follow up in ID clinic in about 6 weeks
- stable for dc from ID perspective
Chief Complaint
-: Other (early PJI)
Subjective / Review of Systems
afebrile
bp stable
abdominal pain has resolved
less bleeding from the surgical site
Vital Signs / Physical Exam
Vital Signs
Vital Signs
Temp Pulse Resp BP Pulse Ox
98.3 F 100 18 168/90 95
08/03/24 07:40 08/03/24 07:40 08/03/24 07:40 08/03/24 07:40 08/03/24 07:40
Physical Exam
Constitutional: No Acute Distress and Chronically Ill
Cardiovascular: Regular Rate and S1/S2; Negative Murmur or Rub
Pulmonary: Clear and Symmetric; Negative Wheezes or Rales
Gastrointestinal: Soft, Non Tender, Non Distended and Normal Bowel Sounds
Skin: Warm and Dry; Negative Rash or Jaundice
Lines: PICC
Objective Data
Lab Data
Lab Results
08/03/24 06:02
07/31/24 05:28
ESR 69 mm/hour (0-20) H 07/30/24 04:58
Estimated Creat Clear 61 ml/min 07/31/24 05:28
Total Bilirubin 0.5 mg/dl (0.2-1.3) 07/30/24 04:58
AST 35 U/L (14-36) 07/30/24 04:58
ALT 14 U/L (0-35) 07/30/24 04:58
Alkaline Phosphatase 91 U/L (38-126) 07/30/24 04:58
C-Reactive Protein 15.70 mg/L (0.0-10.00) H 07/29/24 05:40
Most recent labs reviewed.
Micro Results:
07/27/24 17:12 Wound Culture - Final
Hip - Right Enterococcus faecalis
Gram Stain - Final
07/27/24 17:15 Wound Culture - Final
Hip - Right Enterococcus faecalis
Gram Stain - Final
07/27/24 17:15 Anaerobic Culture - Final
Hip - Right NO ANAEROBES ISOLATED
07/27/24 17:12 Anaerobic Culture - Final
Hip - Right NO ANAEROBES ISOLATED
07/24/24 12:45 MRSA Screen - Final
Nose No Methicillin Resistant Staphylococcus aureus isolated.
--- NOTE | 2024-08-03 14:46 | PHA.VAN.FU ---
Vancomycin Assessment / Plan
- Assessment
Renal Function: Stable
WBC's are: WNL
In the past 24 hrs, patient has been: Afebrile
- Dosing Plan
Continue: Vanc 1250mg Q24H
- Monitoring Plan
Level(s) appropriate: Recheck trough at minimum of weekly intervals, Repeat sooner for changes in renal function or clinical status
Next Level Due (Date): ~08/07
Discharge plans noted, if remains admitted, may consider obtaining trough before 1000 dose tomorrow to assess accumulation
- Follow Up
Pharmacy will continue to follow.
Vancomycin Follow UP
- -
Patient Age: 79
Patient Sex: Female
Vancomycin Day #: 7
Indication: [facility]
Requesting Provider: Dr. Adair
Pertinent Antimicrobial Allergies:
sulfonamide antibiotics - itching
Height / Weight:
Height 4 ft 10 in
Actual Weight 68.22 kg
Pertinent Past Medical History: BMI ~33, R. MIKE (May 2024)
- Vital Signs / Lab Results
Temp Pulse Resp BP Pulse Ox
98.3 F 100 18 168/90 95
08/03/24 07:40 08/03/24 07:40 08/03/24 07:40 08/03/24 07:40 08/03/24 07:40
Lab Results - Hematology
08/01/24 08/02/24 08/03/24
06:42 08:15 06:02
WBC 8.7 10.8 13.4 H
Microbiology Results
07/27/24 17:12 Wound Culture - Final
Hip - Right Enterococcus faecalis
Gram Stain - Final
07/27/24 17:15 Wound Culture - Final
Hip - Right Enterococcus faecalis
Gram Stain - Final
07/27/24 17:15 Anaerobic Culture - Final
Hip - Right NO ANAEROBES ISOLATED
07/27/24 17:12 Anaerobic Culture - Final
Hip - Right NO ANAEROBES ISOLATED
Therapeutic Drug Monitoring
Vancomycin Peak 24.0 ug/ml (18-26) 07/30/24 10:04
Vancomycin Trough 10.8 ug/ml (5-20) 07/31/24 05:28
[2024-08-03 15:14] VITALS: BP 133/56
== END 2024-08-03 16:15 | disposition home health service (06) | DRG 466 ==
LOC: 2 SOUTH 11:42
PROVIDERS: Nurse Practitioner Acute Care; Physician Assistant; Physician Assistant Medical; Radiology Vascular & Interventional Radiology; ADMITTING PHYSICIAN Specialist; CONSULT PHYSICIAN Internal Medicine Hematology & Oncology; FAMILY PHYSICIAN Nurse Practitioner Family; OTHER PHYSICIAN Hospitalist; OTHER PHYSICIAN Student in an Organized Health Care Education/Training Program
PROC: 0S990ZZ Drainage of Right Hip Joint, Open Approach (ICD-10-PCS; 2024-07-27)
PROC: 3E1U38Z Irrigation of Joints using Irrigating Substance, Percutaneous Approach (ICD-10-PCS; 2024-07-27)
PROC: 0SR902Z Replacement of Right Hip Joint with Metal on Polyethylene Synthetic Substitute, Open Approach (ICD-10-PCS; 2024-07-27)
PROC: 0SP90JZ Removal of Synthetic Substitute from Right Hip Joint, Open Approach (ICD-10-PCS; 2024-07-27)
PROC: 02HV33Z Insertion of Infusion Device into Superior Vena Cava, Percutaneous Approach (ICD-10-PCS; 2024-07-28)
DX: T84.51XA Infection and inflammatory reaction due to internal right hip prosthesis, initial encounter (principal); I50.33 Acute on chronic diastolic (congestive) heart failure; D62 Acute posthemorrhagic anemia; D69.3 Immune thrombocytopenic purpura; J84.9 Interstitial pulmonary disease, unspecified; B95.2 Enterococcus as the cause of diseases classified elsewhere; Y83.1 Surgical operation with implant of artificial internal device as the cause of abnormal reaction of the patient, or of later complication, without mention of misadventure at the time of the procedure; Y92.9 Unspecified place or not applicable; Y79.2 Prosthetic and other implants, materials and accessory orthopedic devices associated with adverse incidents; E87.6 Hypokalemia; G47.33 Obstructive sleep apnea (adult) (pediatric); I11.0 Hypertensive heart disease with heart failure; I25.10 Atherosclerotic heart disease of native coronary artery without angina pectoris; J44.9 Chronic obstructive pulmonary disease, unspecified; F32.A Depression, unspecified; F41.9 Anxiety disorder, unspecified; K21.9 Gastro-esophageal reflux disease without esophagitis; E66.9 Obesity, unspecified; D69.6 Thrombocytopenia, unspecified; E53.8 Deficiency of other specified B group vitamins; D25.9 Leiomyoma of uterus, unspecified; B37.31 Acute candidiasis of vulva and vagina; K44.9 Diaphragmatic hernia without obstruction or gangrene; I27.20 Pulmonary hypertension, unspecified; E78.5 Hyperlipidemia, unspecified; K76.0 Fatty (change of) liver, not elsewhere classified; I07.1 Rheumatic tricuspid insufficiency; R19.7 Diarrhea, unspecified; R14.0 Abdominal distension (gaseous); Z60.2 Problems related to living alone; Z85.3 Personal history of malignant neoplasm of breast; Z68.32 Body mass index [BMI] 32.0-32.9, adult; Z85.819 Personal history of malignant neoplasm of unspecified site of lip, oral cavity, and pharynx; Z85.828 Personal history of other malignant neoplasm of skin; Z92.21 Personal history of antineoplastic chemotherapy; Z92.3 Personal history of irradiation; Z86.73 Personal history of transient ischemic attack (TIA), and cerebral infarction without residual deficits; Z87.891 Personal history of nicotine dependence; Z88.6 Allergy status to analgesic agent; Z88.5 Allergy status to narcotic agent; Z88.2 Allergy status to sulfonamides; Z91.018 Allergy to other foods; Z79.82 Long term (current) use of aspirin; Z79.51 Long term (current) use of inhaled steroids
CPT/HCPCS: 36415; 71045; 71275; 73502; 74022; 80048; 80053; 80202; 83036; 84484; 85027; 85049; 85652; 86140; 86850; 86900; 86901; 87070; 87075; 87077; 87186; 87205; 93005; 97110; 97116; 97163; 97166; 97530; 97535; C1776; Q9967

== ENCOUNTER 2024-08-29 14:20 | Inpatient (IN) | payer MEDICARE, BC, SELFPAY ==
[2024-08-29] VITALS (11 sets, daily range): BP systolic 110–155; BP diastolic 42–99
--- NOTE | 2024-08-29 10:33 | ED.GENMED ---
History of Present Illness
<Rula Fleming PA-C - Last Filed: 08/29/24 13:19>
General
Chief Complaint: Abnormal Lab Value
Source: patient
Exam Limitations: none
Time Seen by Provider: 08/29/24 10:34
History of Present Illness
History of Present Illness:
Patient is an 79-year-old female with past medical history of ITP for which she sees hematology weekly, iron deficiency anemia, remote history of breast cancer currently in remission, recent right MIKE complicated by infection for which she is
currently receiving antibiotics through a PICC line in her left upper extremity, who presents to the emergency department at the recommendation of her cardiac surgeon for a low hemoglobin. Patient reports that she was told that her hemoglobin was 7.0
and that she needed a blood transfusion therefore she was referred to the emergency department. Patient reports that she has been feeling more fatigued lately. She also notes that sometimes she feels short of breath with exertion. Otherwise,
patient denies symptoms such as dizziness, lightheadedness, syncope, chest pain, palpitations, abdominal pain. Patient reports that she has been dealing with nausea but this is a longstanding issue. Patient denies any easy bruising, denies any
recent bleeding from anywhere, denies any gum bleeding, epistaxis, dark or tarry stools. Patient is unsure whether she has ever required a blood transfusion in the past.
Past History
<Rula Fleming PA-C - Last Filed: 08/29/24 13:19>
Past History
ED Past Medical History: Cancer (Remote history of breast cancer), HTN and Other (Osteoarthritis, thrombocytopenia)
ED Past Surgical History: Cholecystectomy and Orthopedic
Social History
Tobacco: Former smoker
Alcohol: None
Drug: None
Personal:
Living: alone
Family History
Family History: Unable to obtain
Review of Systems
<Rula Fleming PA-C - Last Filed: 08/29/24 13:19>
Review of Systems
All Other Systems: Not applicable
Constitutional: Reports fatigue; Denies fever or chills
EENT: Reports no symptoms
Respiratory: Reports trouble breathing (occasional dyspnea on exertion); Denies hemoptysis
Cardiac: Reports no symptoms
ABD/GI: Reports no symptoms; Denies black stools
: Reports no symptoms
Musculoskeletal: Reports no symptoms
Skin: Reports no symptoms
Neurological: Reports no symptoms
Endocrine: Reports no symptoms
Hematologic/Lymphatic: Reports no symptoms
Psychiatric: Reports no symptoms
Phy Exam
<Rula Fleming PA-C - Last Filed: 08/29/24 13:19>
General Physical Exam
General Presentation: well appearing and no apparent distress
General Skin: warm and dry
General Habitus: normal
General Mental: alert
General Hydration: appears well hydrated
ENT Exam
ENT Exam: EOMI, pharynx normal, neck supple and normocephalic
Eye Exam
Eye Exam: PERRL, cornea clear and conjunctiva normal
Cardiovascular Exam
Cardiovascular Exam: regular rate/rhythm, no edema, no murmur and normal peripheral pulses
Pulmonary Exam
Pulmonary Exam: lungs clear, no respiratory distress, no rales, no crackles, no rhonchi, no stridor, no wheezing and no cough
Gastrointestinal Exam
Gastrointestinal Exam: normal bowel sounds, non tender, soft, no organomegaly, no pulsatile mass and non distended
Neurological Exam
Neurological Exam: alert, oriented x3, no motor deficits and speech normal
Musculoskeletal Exam
Musculoskeletal Exam: full ROM and no edema
Skin Exam
Skin Exam: normal color, warm/dry, no rash, no petechia and other (PICC line in place to LUE)
Psychiatric Exam
Psychiatric Exam: normal mood/affect
Course
<Rula Fleming PA-C - Last Filed: 08/29/24 13:19>
Orders/Labs/Results
Orders:
Orders
08/29/24 10:27
Chest Single View Frontal CR [CR Chest Single View] Urgent
Comment:
Reason For Exam: PICC placement
08/29/24 11:19
Type And Crossmatch [Type+Screen] Urgent
Complete Blood Count/With Diff Urgent
Comprehensive Metabolic Panel Urgent
Manual Differential Urgent
08/29/24 12:04
Potassium Chloride [KCl] 40 meq PO NOW STA
08/29/24 12:27
* Blood Bank Products Urgent
Blood Bank Products: *Packed RBC Leuko(PRBC's)
Quantity: 1
Transfuse Today: Yes
Reason: Anemia
08/29/24 13:40
Admit/Transfer Patient As Directed
Co-Sign Provider:
Level of Care: Inpatient admission
Assign to:: Medical/Surgical
Physician / Group: abdiel
Diagnosis: symptomatic anemia
Reason for Hospitalization: symptomatic anemia
Expected length of stay greater than two midnights?: Yes
ELOS- Estimated Length of Stay in days: 3
I certify the patient meets the requirements for IP care: Yes
08/29/24 13:41
Code Status As Directed
Resuscitation Status: Do not resuscitate
Reached after discussion with pt or family/Healthcare POA: Yes
DNR Bracelet Application ONCE
PRN Pain Medication Management As Directed
May give lesser potent ordered pain med per pt: Yes
preference::
Protocol:: Medication orders for pain may be administered in a
manner that supports deferring to patient preference
when the pt is:
- Requesting an ordered lesser potent pain medication.
Least to most potent pain medications are defined
as: acetaminophen < NSAID < tramadol < opioids
(morphine, oxycodone, hydromorphone).
- Requesting a lesser dose of the same medication IF
ORDERED.
- Requesting a less intrusive route of administration
if both routes are prescribed by the provider (PO <
IV).
08/29/24 13:43
gabapentin [Neurontin] 600 mg PO Q6HPRN PRN
08/29/24 13:48
Add On- LAB Urgent
Tests Added?: magnesium
08/29/24 13:52
Add On- LAB Stat
Tests Added?: iron, b12, ferritin, folate, TIBC
08/29/24 20:00
potassium chloride 10 meq PO BID
08/29/24 22:00
diphenhydramine HCl [ZzzQuil] 50 mg PO HS
08/30/24 08:00
Bupropion(24Hr)Extended Releas [WELLBUTRIN XL (24 hour extended release)] 150 mg PO DAILY
Chlorthalidone [Hygroton] 25 mg PO DAILY
Escitalopram Oxalate [Lexapro] 20 mg PO DAILY
fluticasone propionate 1 spray NASAL DAILY
vancomycin 1 grams IV DAILY
Abnormal Lab Results
08/29/24
11:19
RBC 2.89 L 10^6/uL
(4.20-5.40)
Hgb 7.8 L g/dL
(12.0-16.0)
Hct 24.6 L %
(37.0-47.0)
MCHC 31.7 L g/dL
(33.0-37.0)
Lymphocytes (Manual) 17 L %
(20-51)
Potassium 3.1 L mmol/L
(3.5-5.1)
Chloride 96 L mmol/L
(98-107)
Carbon Dioxide 31 H mmol/L
(22-30)
BUN 19 H mg/dl
(7-17)
Crossmatch IS Only See Detail
08/29/24 11:19
08/29/24 11:19
Vital Signs
Initial and Last Documented VS:
Initial Vital Signs
Temp Pulse Resp BP Pulse Ox
36.7 C 89 16 112/78 97
08/29/24 09:32 08/29/24 09:32 08/29/24 09:32 08/29/24 09:32 08/29/24 09:32
Last Documented Vital Signs
Temp Pulse Resp BP Pulse Ox
36.8 C 90 18 138/42 93
08/29/24 13:24 08/29/24 13:30 08/29/24 13:30 08/29/24 13:24 08/29/24 13:30
<Trung Rowan MD - Last Filed: 08/29/24 14:00>
Orders/Labs/Results
Orders:
Orders
08/29/24 10:27
Chest Single View Frontal CR [CR Chest Single View] Urgent
Comment:
Reason For Exam: PICC placement
08/29/24 11:19
Type And Crossmatch [Type+Screen] Urgent
Complete Blood Count/With Diff Urgent
Comprehensive Metabolic Panel Urgent
Manual Differential Urgent
08/29/24 12:04
Potassium Chloride [KCl] 40 meq PO NOW STA
08/29/24 12:27
* Blood Bank Products Urgent
Blood Bank Products: *Packed RBC Leuko(PRBC's)
Quantity: 1
Transfuse Today: Yes
Reason: Anemia
08/29/24 13:40
Admit/Transfer Patient As Directed
Co-Sign Provider:
Level of Care: Inpatient admission
Assign to:: Medical/Surgical
Physician / Group: abdiel
Diagnosis: symptomatic anemia
Reason for Hospitalization: symptomatic anemia
Expected length of stay greater than two midnights?: Yes
ELOS- Estimated Length of Stay in days: 3
I certify the patient meets the requirements for IP care: Yes
08/29/24 13:41
Code Status As Directed
Resuscitation Status: Do not resuscitate
Reached after discussion with pt or family/Healthcare POA: Yes
DNR Bracelet Application ONCE
PRN Pain Medication Management As Directed
May give lesser potent ordered pain med per pt: Yes
preference::
Protocol:: Medication orders for pain may be administered in a
manner that supports deferring to patient preference
when the pt is:
- Requesting an ordered lesser potent pain medication.
Least to most potent pain medications are defined
as: acetaminophen < NSAID < tramadol < opioids
(morphine, oxycodone, hydromorphone).
- Requesting a lesser dose of the same medication IF
ORDERED.
- Requesting a less intrusive route of administration
if both routes are prescribed by the provider (PO <
IV).
08/29/24 13:43
gabapentin [Neurontin] 600 mg PO Q6HPRN PRN
08/29/24 13:48
Add On- LAB Urgent
Tests Added?: magnesium
08/29/24 13:52
Add On- LAB Stat
Tests Added?: iron, b12, ferritin, folate, TIBC
08/29/24 20:00
potassium chloride 10 meq PO BID
08/29/24 22:00
diphenhydramine HCl [ZzzQuil] 50 mg PO HS
08/30/24 08:00
Bupropion(24Hr)Extended Releas [WELLBUTRIN XL (24 hour extended release)] 150 mg PO DAILY
Chlorthalidone [Hygroton] 25 mg PO DAILY
Escitalopram Oxalate [Lexapro] 20 mg PO DAILY
fluticasone propionate 1 spray NASAL DAILY
vancomycin 1 grams IV DAILY
Abnormal Lab Results
08/29/24
11:19
RBC 2.89 L 10^6/uL
(4.20-5.40)
Hgb 7.8 L g/dL
(12.0-16.0)
Hct 24.6 L %
(37.0-47.0)
MCHC 31.7 L g/dL
(33.0-37.0)
Lymphocytes (Manual) 17 L %
(20-51)
Potassium 3.1 L mmol/L
(3.5-5.1)
Chloride 96 L mmol/L
(98-107)
Carbon Dioxide 31 H mmol/L
(22-30)
BUN 19 H mg/dl
(7-17)
Crossmatch IS Only See Detail
08/29/24 11:19
08/29/24 11:19
Vital Signs
Initial and Last Documented VS:
Initial Vital Signs
Temp Pulse Resp BP Pulse Ox
36.7 C 89 16 112/78 97
08/29/24 09:32 08/29/24 09:32 08/29/24 09:32 08/29/24 09:32 08/29/24 09:32
Last Documented Vital Signs
Temp Pulse Resp BP Pulse Ox
36.8 C 90 18 138/42 93
08/29/24 13:24 08/29/24 13:30 08/29/24 13:30 08/29/24 13:24 08/29/24 13:30
<Rula Fleming PA-C - Last Filed: 08/29/24 13:19>
*Critical Care Note
Total Time (30-74mins, 75-104mins- exclusive of procedures): Not Applicable
<Rula Fleming PA-C - Last Filed: 08/29/24 13:19>
Update Note
Update Note:
79-year-old female with past medical history of ITP sent to the emergency department by her cardiac surgeon for a hemoglobin of 7.0 on outpatient labs. [employer] told her that she needed a blood transfusion. Patient states that she has been
feeling well but does report some increased fatigue lately. She notes some occasional shortness of breath with exertion. On arrival, patient's vital signs are stable, she is afebrile. On exam, patient is very well-appearing, she is in no acute
distress. Labs were obtained and are notable for a hemoglobin of 7.8, patient's baseline appears to be 10-12. Patient permitted ED attending to perform a rectal exam which is heme negative. At this point, it is unclear why the patient's
hemoglobin continues to drop. Pt is symptomatic and she is amenable to a transfusion. Will transfuse 1u of pRBCs and admit for further trending of her H&H and further work-up of her anemia. Plan was discussed with the patient who signed blood
consent, and who understands the plan and agrees. Patient signed out to hospitalist without complication.
ED Attending Note
<Rula Fleming PA-C - Last Filed: 08/29/24 13:19>
-
Portions of this chart may have been created with voice recognition software.� Occasional wrong word or��sound alike� substitutions may have occurred due to the inherent limitations of voice recognition software.
<Trung Rowan MD - Last Filed: 08/29/24 14:00>
ED Attending Note
Patient seen and examined by attending physician: Yes
ED Attending Note:
I have seen and evaluated the patient with a [id number] encounter. I have spoken to the advance practicer provider and involved in the medical history, the physical exam, medical decision making.
Evaluation and management service: agree unless noted differently below.
Results interpretation: agree unless noted differently below.
Focused HPI: 79-year-old female with history as documented presents to the ER sent in for worsening anemia. She has been following with Dr. Arvizu for ITP�platelet count has normalized since. She had recent hip replacement complicated by
subsequent infection requiring IV antibiotics with PICC. She has been getting regular hemoglobin checks for anemia and was found to have worsening anemia and was referred to the ER. Apparently outpatient hemoglobin was 7. She has noted dark
stools but no bloody stools and she attributes dark stools to her diet. She denies any other bleeding. She does feel very weak and tired and thinks this could be from anemia.
Physical exam: Awake alert not in distress. Vital signs normal. Abdomen soft and nontender. Well-healed incision left hip. PICC in place left upper extremity. Rectal exam performed by ct dark brown stool heme-negative.
Medical Decision Making:. 79-year-old female presents with worsening anemia. She is symptomatic. Outpatient hemoglobin was apparently 7� follow-up test today shows hemoglobin of 7.8. This is a 1 point drop from prior value which itself is a
steady trend downward from her normal hemoglobin in late May. At least in part likely related to her multiple recent procedures. She is quite symptomatic. Will transfuse a unit PRBCs. Admit for trending of hemoglobin.
Discharge Plan
Departure
Patient Disposition: Admit
Date of Disposition: 08/29/24
Time of Disposition: 12:31
Presentation/result/management discussed w/ accepting MD/DO: Hospitalist
Patient with high blood pressure during this ER visit?: No
Condition: Good
Covid-19: Not Applicable
Discharge Problem:
Anemia, Hypokalemia
Prescriptions:
No Action
esomeprazole magnesium [Nexium] 40 MG capsule,delayed release(DR/EC)
40 mg PO DAILY
bupropion HCl 150 MG tablet extended release 24 hr
150 mg PO DAILY
fluticasone propionate 1 SPRAY spray,suspension
1 spray intranasal DAILY
escitalopram oxalate 10 MG tablet
20 mg PO DAILY
ZzzQuil 50 mg/30 mL Liquid
50 mg PO HS
vancomycin 1.25 gram Recon Soln
1 g IV DAILY
Rx Instructions:
at noon
potassium chloride 10 mEq Packet
10 meq PO BID
gabapentin [Neurontin] 600 MG tablet
600 mg PO Q6HPRN PRN (Reason: pain)
chlorthalidone 25 MG tablet
25 mg PO DAILY
acetaminophen 650 mg tablet extended release
1,300 mg PO Q8HPRN PRN (Reason: mild pain)
docusate sodium [Colace] 100 mg capsule
100 mg PO DAILYPRN PRN (Reason: constipation)
ondansetron 4 mg Tablet,Disintegrating
4 mg PO Q6H PRN (Reason: nausea)
celecoxib 50 mg Capsule
50 mg PO DAILY
Referrals:
Follow up, with your cardiac surgeon [Other] - Follow up in 2-3 days (Call for follow-up appointment)
Makenna Diaz CRNP [Family Provider] -
Interventions
Interventions:
*Risk Screen - Suicide Last Done: 08/29/24 09:34
*General Assessment Last Done: 08/29/24 10:49
*Neglect/Abuse Screening Last Done: 08/29/24 09:34
*ED- Fall Risk Assessment Last Done: 08/29/24 10:49
*ED COVID-19 Vaccine History Last Done: 08/29/24 10:49
Discharge Date and Time
Print Language: AFGHAN
[2024-08-29 11:43] LABS: Hematocrit 24.6 % (37.0-47.0); Hemoglobin 7.8 g/dL (12.0-16.0); Mean Corp Hgb Conc. 31.7 g/dL (33.0-37.0); Mean Corpuscular Volume 85.1 fL (81.0-99.0); Mean Platelet Volume 9.6 fL (7.4-10.4); Platelet Count 249 10^3/uL (130-400); Red Blood Cell Count 2.89 10^6/uL (4.20-5.40); Red Cell Dist. Width 14.1 % (11.5-14.5); White Blood Cell Count 5.1 10^3/uL (4.8-10.8)
[2024-08-29 11:56] LABS: ALT (SGPT) 15 U/L (0-35); AST (SGOT) 30 U/L (14-36); Carbon Dioxide 31 mmol/L (22-30); Chloride 96 mmol/L (98-107); Glucose 86 mg/dl (70-99); Potassium 3.1 mmol/L (3.5-5.1); Sodium 136 mmol/L (135-145); Total Bilirubin 0.4 mg/dl (0.2-1.3); Total Protein 6.6 g/dl (6.3-8.2); eGFR > 60.00
[2024-08-29 12:05] LABS: Albumin 3.9 g/dl (3.5-5.0); Alkaline Phosphatase 101 U/L (38-126); Blood Urea Nitrogen 19 mg/dl (7-17)
[2024-08-29] MEDS: KCL 40 MEQ PO (12:43)
[2024-08-29 12:46] LABS: Absolute Neutrophils -Man Diff 3.5 10^3/uL (1.4-6.5); Band Neutrophils 0 % (0-3); Eosinophils 3 % (0-6); Lymphocytes 17 % (20-51); Monocytes 9 % (2-9); Normal RBC Morphology No; Platelets Checked Yes; Segmented Neutrophils 69 % (42-75)
[2024-08-29 12:47] LABS: Hypochromasia 1+; Total Cells Counted 100
--- NOTE | 2024-08-29 13:12 | HPS.HSE ---
Addendum entered and electronically signed by Jeannette Guevara DO 08/29/24 14:27:
The patient is seen and examined. I discussed the patient with Lor, and agree with her history and physical and assessment and plan of care as per below. The patient is a pleasant 79-year-old woman with past medical history significant for ITP
for which she sees hematology weekly, iron deficiency anemia, recent right total hip arthroplasty with prosthetic infection for which he has a left arm PICC line receiving IV vancomycin. Lives alone and is independent with her ADLs, who presents
due to worsening shortness of breath and weakness over the past week. She notes that she has had dark stools for quite some time. She also notes poor appetite, 20 pound weight loss over the past 2 months. Her hemoglobin is 7.8 in the emergency
department and due to symptoms she received 1 unit of packed red blood cells. She is being admitted secondary to anemia that is symptomatic with concern for upper GI bleed as etiology.
Vital signs are stable and the patient is afebrile
Cardiovascular regular rate and rhythm no murmurs or gallops
Lungs are clear to auscultation bilaterally no wheezes rales rhonchi
Abdomen soft nontender normoactive bowel sounds
Extremities no clubbing cyanosis no edema
Left PICC line is in place and she is actively getting 1 unit of packed red blood cells
Assessment and plan
#Symptomatic anemia likely iron deficiency anemia with concern for upper GI bleed as etiology,
- GI consultation is appreciated
-IV PPI therapy
-Serial H&H, repeat H&H status post blood transfusion
- Check iron studies
# Black stool/nausea, weight loss
#hxt of ITP, platelets are normal today, monitor
#hypokalemia likely from poor oral intake
k 3.1, repleted in the emergency department, monitor BMP in the morning, check magnesium
#prosthetic Joint infection
-on vancomycin until 09/07
- Continue vancomycin per PICC line per outpatient regimen, no need for ID consultation at this time, if patient develops fever or becomes symptomatic we will consult ID.
#Anxiety/depression
-Continue bupropion,escitalopram
Hypertension
-Continue chlorthalidone
DNR
DVT prophylaxis-SCDs
Regular diet
Original Note:
Family Physician
-
Family Physician: ALMA Wright
Chief Complaint
-
fatigue
sob
History of Present Illness
79-year-old female with past medical history of ITP for which she sees hematology weekly, iron deficiency anemia, remote history of breast cancer currently in remission, recent right MIKE complicated by infection for which she is currently receiving
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 Patient reports that she was told that her hemoglobin was 7.0 and that she needed
a blood transfusion therefore she was referred to the emergency department. Patient reports that she has been feeling more fatigued lately. She also notes that sometimes she feels short of breath with exertion. denies symptoms such as dizziness,
lightheadedness, syncope, chest pain, palpitations, abdominal pain. patient stated black stool for past few months. Patient reports that she has been dealing with nausea, poor appetite. she gets nauseous right after eating food. so she is eating
only small meals. she lost about 20 lbs in two months. denied dysuria or hematuria.
her hgb is 7.8. one unit ordered in ER. admitting for further managment.
Medical History
Past Medical History
Past Medical History: Reports Other
Additional Past Medical History:
Diastolic heart failure
Hypertension
GERD okay
Obstructive sleep apnea
asthma
SVT, neoplasm of cheek mucosae
Breast cancer
Arthritis
ITP
Aortic diastolic murmur
Depression
Anxiety
Thrombocytopenia
Past Surgical History: Reports Other
Additional Past Surgical History:
Revision of total hip replacement of right hip
Neck surgery
Lymph node resection
Screening graft
Rotator cuff surgery
Right wrist surgery
Cholecystectomy
Tonsillectomy
Social History
Tobacco: Non-smoker
Alcohol: Occasional
Drug: None
Family History
Family History: Not pertinent
Allergies / Home Medications
Allergies reflects when Allergies were last updated in [facility].
Home Medications with original date entered in [facility]
Allergy/Medication List:
Allergies
Allergy/AdvReac Type Severity Reaction Status Date / Time
codeine Allergy stomach Verified 07/27/24 12:43
pains
NSAIDS (Non-Steroidal Allergy GI BLEED Verified 07/27/24 12:43
Anti-Inflamma
peach Allergy FACIAL Verified 07/27/24 12:43
SWELLING
WITH ANY
PITTED
FRUIT
Sulfa (Sulfonamide Allergy Itching Verified 07/27/24 12:43
Antibiotics)
sulfite Allergy Itching Verified 07/27/24 12:43
Home Medications
esomeprazole magnesium 40 mg capsule,delayed release (Nexium) 40 mg PO DAILY Gastrointestinal issue 03/29/14
bupropion HCl 150 mg 24 hr tablet, extended release 150 mg PO DAILY Depression 10/31/19
escitalopram oxalate 10 mg tablet 20 mg PO DAILY Mental Health/Anxiety 03/02/20
fluticasone propionate 50 mcg/actuation nasal spray,suspension 1 spray intranasal DAILY Congestion 03/02/20
diphenhydramine HCl 50 mg/30 mL oral liquid (ZzzQuil) 50 mg PO HS Sleep 01/22/24
polyethylene glycol 3350 17 gram oral powder packet (Miralax) 17 g PO DAILYPRN PRN CONSTIPATION 01/22/24
docusate sodium 100 mg capsule (Colace) 100 mg PO BID stool softner #1 cap 07/27/24
gabapentin 600 mg tablet (Neurontin) 600 mg PO HS #0 tabs 07/27/24
Saccharomyces boulardii 250 mg capsule 250 mg PO BID #30 caps 07/31/24
acetaminophen 650 mg tablet,extended release 1,300 mg (2 x 650 mg) PO Q8H #60 tabs 07/31/24
aspirin 81 mg tablet,delayed release 81 mg PO BID #30 tabs 07/31/24
bumetanide 1 mg tablet 1 mg PO DAILY PRN 'FLUID BUILD UP' #0 tabs 07/31/24
calcium carbonate (Calcium Antacid) 200 mg PO Q6HPRN PRN indigestion #30 tabs 07/31/24
chlorthalidone 25 mg tablet 25 mg PO DAILY PRN 'FLUID BUILD UP' #0 tabs 07/31/24
oxycodone 5 mg tablet 5 - 10 mg (1 - 2 x 5 mg) PO Q6H PRN moderate-severe pain #30 tabs 07/31/24
potassium chloride 20 mEq tablet,extended release(part/cryst) 20 meq PO DAILY #30 tabs 07/31/24
prochlorperazine maleate 5 mg tablet 5 mg PO Q8H PRN nausea and vomiting #30 tabs 07/31/24
Vancomycin [Vancocin] 1,250 mg 183.33 mls/hr IV DAILY@1000 08/03/24
aluminum-mag hydroxide-simethicone 200 mg-200 mg-20 mg/5 mL oral susp (Mag-Al Plus) 30 ml PO Q6HPRN PRN INDIGESTION #3,000 mL 08/03/24
Review of Systems
-
Constitutional: Reports Fatigue
EENT: Reports No Symptoms
Respiratory: Reports Trouble Breathing
Cardiac: Reports No Symptoms
Abdomen/GI: Reports No Symptoms, Nausea and Black Stools
: Reports No Symptoms
Musculoskeletal: Reports No Symptoms
Skin: Reports No Symptoms
Neurological: Reports No Symptoms
Endocrine: Reports No Symptoms
Hematologic/Lymphatic: Reports No Symptoms
Psych: Reports No Symptoms
Physical Exam
Vital Signs
Vital Signs
Temp Pulse Resp BP Pulse Ox
98.0 F 89 16 137/71 93
08/29/24 13:04 08/29/24 13:04 08/29/24 13:04 08/29/24 13:04 08/29/24 13:04
Physical Exam
General: Well Developed, Well Nourished and No Apparent Distress
HEENT: NormoCephalic, Moist mucous membranes and Atraumatic
Respiratory: Clear
Cardiac: S1/S2 and Regular Rhythm; No Murmur or Rub
GI: Soft, Non Tender, Non Distended and Normal Bowel Sounds; No Organomegaly
Rectal: Deferred by Provider
Musculoskeletal: No Clubbing, No Cyanosis and No Edema
Skin: No Rash
Neuro: AO x 3 and Nonfocal/grossly intact
Psych: Calm
Laboratory Results
-
08/29/24 11:19
08/29/24 11:19
Laboratory Results
Total Bilirubin 0.4 mg/dl (0.2-1.3) 08/29/24 11:19
AST 30 U/L (14-36) 08/29/24 11:19
ALT 15 U/L (0-35) 08/29/24 11:19
Alkaline Phosphatase 101 U/L (38-126) 08/29/24 11:19
Data Reviewed
-
Lab Data: Labs Reviewed by me
Impression/Plan
-
#symptomatic anemia
# Black stool/nausea, weight loss
#hxt of ITP
-hgb 7.8
-stool heme negative
-transfusing with one unit of blood
- IV PPI
- GI consulted
#hypokalemia likely from poor oral intake
k 3.1
-potassium in ER
-BMP in am
-potassium from home continued
#prosthetic Joint infection
-on vancomycin until 09/07
#Anxiety/depression
-Continue bupropion,escitalopram
Hypertension
-Continue chlorthalidone
DNR
DVT prophylaxis-SCDs
Regular diet
[2024-08-29 14:50] LABS: Iron 40 ug/dl (37-170); Magnesium 1.8 mg/dl (1.6-2.3)
[2024-08-29 14:58] LABS: Percent Saturation 9 % (20-50); Total Iron Binding Capacity 430 ug/dl (265-497)
--- NOTE | 2024-08-29 15:14 | PTCARENOTE ---
received pt blood transfusing by gravity. room assigned
--- NOTE | 2024-08-29 15:14 | CON.GI ---
Consultation
-
Date/Time Consultation Requested: 08/29/24
Date/Time Consultation Performed: 08/29/24
Requesting Provider: Lor Stoll
Performing Provider: Delores Tse
Reason for Consultation: Melena, Anemia
Medical History
Chief Complaint / HPI
Chief Complaint: symptomatic anemia, melena
History of Present Illness:
Chula Solomon is an 79 y.o. female with pmhx ITP, hx of IRAM, autoimmune hepatitis, diastolic heart failure, AIMEE, GERD, B12 deficiencyrecent R. hip arthroplasty c/b prosthetic infection s/p I&D and revision on 07/27/24 daily IV Vancomycin via PICC
line admitted with symptomatic anemia found to have melena on exam. She reports black tarry stools for the last few months but never told anyone. She only started iron supplementation a few days ago. She denies history of GI bleeding. She denies
blood thinners or regular use of NSAIDs. She does admit to a 20 lb weight loss in the last 2 months as well as some constipation, which is more recent, made worse with her iron supplementation.
Of note, she is recently worked up as an outpatient with Dr. Jimenez for elevated LFTs found to have autoimmune hepatitis. She had a letter for biopsy which showed interface hepatitis along with a significantly elevated anti-smooth muscle antibody
and antimitochondrial antibody. Given the predominance of necroinflammatory pattern on biopsy, overlap syndrome was felt to be less likely. After discussing the risk and benefits of beginning steroids at her age, there was no significant fibrosis
found and steroids and azathioprine were deferred.
Hemoglobin in the 12s prior to her orthopedic surgery in May, then around 10-11 up until 07/30, at which point hemoglobin was 8.3 Repeat today was 7.8, she is currently getting transfused with 1 unit of PRBC.
Plt 249
BUN 11 --> 19
%iron sat 9, iron 40, TIBC 430, ferritin pending
Past Medical History
Past Medical History: Other (ITP, IRAM, Hx prosthetic infections, HTN, anxiety/depression, Breast Ca, diastolic heart failure, AIMEE)
Past Surgical History: Cholecystectomy and Orthopedic
Social History
Tobacco: Non-Smoker
Alcohol: Occasional
Drug: None
Family History
Family History: Reviewed & Not Pertinent
Allergies / Home Medications
Allergy/AdvReac Type Severity Reaction Status Date / Time
codeine Allergy stomach Verified 07/27/24 12:43
pains
NSAIDS (Non-Steroidal Allergy GI BLEED Verified 07/27/24 12:43
Anti-Inflamma
peach Allergy FACIAL Verified 07/27/24 12:43
SWELLING
WITH ANY
PITTED
FRUIT
Sulfa (Sulfonamide Allergy Itching Verified 07/27/24 12:43
Antibiotics)
sulfite Allergy Itching Verified 07/27/24 12:43
�Medication �Instructions �Recorded
esomeprazole magnesium 40 mg 40 mg PO DAILY Gastrointestinal 03/29/14
capsule,delayed release (Nexium) issue
bupropion HCl 150 mg 24 hr tablet, 150 mg PO DAILY Depression 10/31/19
extended release
escitalopram oxalate 10 mg tablet 20 mg PO DAILY Mental 03/02/20
Health/Anxiety
fluticasone propionate 50 1 spray intranasal DAILY Congestion 03/02/20
mcg/actuation nasal
spray,suspension
diphenhydramine HCl 50 mg/30 mL 50 mg PO HS Sleep 01/22/24
oral liquid (ZzzQuil)
acetaminophen 650 mg 1,300 mg PO Q8HPRN PRN mild pain 08/29/24
tablet,extended release
celecoxib 50 mg capsule 50 mg PO DAILY 08/29/24
chlorthalidone 25 mg tablet 25 mg PO DAILY 08/29/24
docusate sodium 100 mg capsule 100 mg PO DAILYPRN PRN constipation 08/29/24
(Colace)
gabapentin 600 mg tablet 600 mg PO Q6HPRN PRN pain 08/29/24
(Neurontin)
ondansetron 4 mg disintegrating 4 mg PO Q6H PRN nausea 08/29/24
tablet
potassium chloride 10 mEq oral 10 meq PO BID 08/29/24
packet
vancomycin 1.25 gram intravenous 1 g IV DAILY 08/29/24
solution
Review of Systems
-
History Source: Patient
All other systems: A 12 pt ROS was Negative except as stated above in HPI
Vital Signs
Temp Pulse Resp BP Pulse Ox
98.2 F 92 17 155/75 93
08/29/24 13:24 08/29/24 14:15 08/29/24 14:00 08/29/24 14:00 08/29/24 14:15
Physical Exam
Exam
General: Well Developed, Well Nourished and No Apparent Distress
GI: Soft, Non Tender, Non Distended and Normal Bowel Sounds
Rectal: Black
Results
WBC 5.1 10^3/uL (4.8-10.8) 08/29/24 11:19
Hgb 7.8 g/dL (12.0-16.0) L 08/29/24 11:19
Hct 24.6 % (37.0-47.0) L 08/29/24 11:19
MCV 85.1 fL (81.0-99.0) 08/29/24 11:19
Plt Count 249 10^3/uL (130-400) 08/29/24 11:19
Sodium 136 mmol/L (135-145) 08/29/24 11:19
Potassium 3.1 mmol/L (3.5-5.1) L 08/29/24 11:19
Chloride 96 mmol/L (98-107) L 08/29/24 11:19
Carbon Dioxide 31 mmol/L (22-30) H 08/29/24 11:19
BUN 19 mg/dl (7-17) H 08/29/24 11:19
Creatinine 0.9 mg/dL (0.6-1.0) 08/29/24 11:19
Calcium 9.0 mg/dl (8.4-10.2) 08/29/24 11:19
Total Bilirubin 0.4 mg/dl (0.2-1.3) 08/29/24 11:19
AST 30 U/L (14-36) 08/29/24 11:19
ALT 15 U/L (0-35) 08/29/24 11:19
Alkaline Phosphatase 101 U/L (38-126) 08/29/24 11:19
Diagnostic Image Results:
Prior GI Procedures:
EGD:
--EGD 09/07/2013: Large hiatal hernia. Irregular Z-line, bx showed mild chronic esophagitis. A few small papules were found the gastric body, bx showed fundic gland polyp. Moderate inflammation in the stomach bx showed mild chronic gastritis with
foci of IM (chronic atrophic gastritis). Normal duodenum; bx showed normal small bowel mucosa
--EGD 02/18/2013: LA grade C esophagitis, biopsies showed mild chronic esophagitis. Hiatal hernia. Normal stomach, biopsies showed mild chronic gastritis. Normal duodenum.
Colonoscopy:
--Colonoscopy 02/18/2013: Internal and external hemorrhoids. Sigmoid diverticulosis. Random bx neg for microscopic colitis Recall 10 years.
Assessment / Plan
-
79 y.o. female with history of ITP, diastolic heart failure, AIMEE, GERD, AIH (not on medication) and recent R. total hip arthroplasty c/b prosthetic infection on daily Vancomycin admitted with melena found to be anemic.
Hgb in the 12's prior to her orthopedic surgery in May, down to 8 in July and 7.8 today on arrival. Getting 1 unit of PRBC. No obvious risk factors as she denies any high-dose ASA following surgery, regular use of NSAIDs (though, celecoxib
listed on her home meds, so suspect this is culprit), steroids or anticoagulation. Her last colonoscopy was in 2012, which was normal, further screening deferred due to age. Discussed that given melena, UGI source is more likely, but it could be
distal small bowel or right colon as well. We could either start with EGD and if negative, then proceed with colonoscopy, or proceed with both EGD/Colonsocopy. She would like to proceed with both EGD and Colonoscopy on Saturday.
#Symptomatic Anemia, Melena, c/f GI bleeding
-2 large bore peripheral gauge IVs
-IV PPI BID
-transfuse for Hgb <8 given cardiac disease
-okay for clears
-EGD and Colonoscopy on Saturday
-will start with gentle laxatives today given reports of constipation, bowel prep tomorrow
#Intestinal metaplasia
-foci if intestinal metaplasia on gastric bx in 2013 and reportedly has b12 deficiency, possibly pernicious anemia?
-defer mapping biopsies at time of EGD in setting of active GI bleed, however, if concerning lesion found will take biopsies
#Autoimmune hepatitis
-recently diagnosis with serologies and liver biopsy
-+ASMA and AMA, felt less likely to be overlap due to findings on biopsy
-LFTs WNL
-no treatment started, outpatient follow-up with Dr. Jimenez
Data Reviewed
-
Old Records: Reviewed
-
-
Thank you for consultation and allowing me to participate in the patient's care. Please call the commercial drone pilot GI physician during the after hours with any questions or concerns.
[2024-08-29 15:41] LABS: Ferritin 24.8 ng/ml (11.1-264.0)
--- NOTE | 2024-08-29 15:55 | PTCARENOTE ---
report sent to
[2024-08-29 16:13] LABS: Folate 7.7 ng/ml (2.76-20); Vitamin B12 252 pg/ml (239-931)
[2024-08-29] MEDS: MIRALAX 17 GRAMS PO (17:14)
[2024-08-29 19:51] LABS: Hematocrit 28.2 % (37.0-47.0); Hemoglobin 9.3 g/dL (12.0-16.0)
[2024-08-29] MEDS: NEURONTIN 300 MG PO (22:47)
[2024-08-29] MEDS: BENADRYL ELIXIR 50 MG PO (22:47)
[2024-08-29] MEDS: NSS (PRESERVATIVE FREE) 10 ML IV (22:48)
[2024-08-29] MEDS: PROTONIX IV 40 MG IV (22:48)
[2024-08-29] MEDS: SENOKOT 17.2 MG PO (22:51)
[2024-08-29] MEDS: TUMS CHEWABLE TABLET 400 MG PO (22:51)
[2024-08-30] MEDS: MELATONIN 10 MG PO ×2 (01:22→21:02)
[2024-08-30 04:04] LABS: Hematocrit 27.9 % (37.0-47.0); Hemoglobin 9.3 g/dL (12.0-16.0); Mean Corp Hgb Conc. 33.3 g/dL (33.0-37.0); Mean Corpuscular Hgb 28.1 pg (27.0-31.0); Mean Corpuscular Volume 84.3 fL (81.0-99.0); Mean Platelet Volume 9.9 fL (7.4-10.4); Platelet Count 267 10^3/uL (130-400); Red Blood Cell Count 3.31 10^6/uL (4.20-5.40); Red Cell Dist. Width 14.1 % (11.5-14.5)
[2024-08-30 04:19] LABS: Blood Urea Nitrogen 13 mg/dl (7-17); Calcium 9.4 mg/dl (8.4-10.2); Carbon Dioxide 34 mmol/L (22-30); Chloride 98 mmol/L (98-107); Estimated Creatinine Clearance 51 ml/min; Glucose 81 mg/dl (70-99); Potassium 3.3 mmol/L (3.5-5.1); Sodium 137 mmol/L (135-145); eGFR > 60.00
[2024-08-30 07:00] VITALS: BP 140/70
[2024-08-30 07:56] LABS: LDH 280 U/L (120-246)
[2024-08-30 08:33] LABS: Reticulocyte Count 2.5 % (0.4-2.8)
[2024-08-30] MEDS: KCL 270 MEQ IV (08:48)
[2024-08-30] MEDS: PROTONIX IV 40 MG IV ×2 (08:49→21:02)
[2024-08-30] MEDS: KLOR-CON 20 MEQ PO (08:49)
[2024-08-30] MEDS: NSS (PRESERVATIVE FREE) 10 ML IV ×2 (08:49→21:01)
[2024-08-30] MEDS: WELLBUTRIN XL (24 hour extended release) 150 MG PO (08:50)
[2024-08-30] MEDS: LEXAPRO 20 MG PO (08:50)
--- NOTE | 2024-08-30 09:33 | W.PN.HOSP.TC ---
Today's Communication/Plan
-
See PN
Assessment / Plan
Assessment / Plan
79yo F with PMHX of ITP, AIHA, GERD, HTN, OA, R MIKE with prosthetic joint infection on Vanco till 09/07/24 found Hgb 7 on outpatient weekly labs. Has black stools for months now. Developed weakness over past week. Admitted with GIB
A/P:
#Acute blood loss anemia 2/2 GIB on IRAM, possible preniscious anemia
#Hx of ITP and AIHA
PPI
Serial H&H
GI for colonoscopy and EGD on 08/31/24
LDH 280 - ,mildly elevated, no concern for massive hemolysis, pending haptoglobin
Avoid NSAIDs, antiplatelets and anticoag
recently started on Iron - replete IV
Cyanocobalamin IM since B12 borderline low
#R hip PJI
ciont Vanco till 09/07/24
#Hypokalemia
#Essential HTN
2/2 chlorthalidone - hold now, consider alternative meds, however Hx of LE edema
#Cardiomegally
#ASCVD
Cardiology as outpatient
#Large paraesophageal hernia
currently asymptomatic
monitor
DVT ppx SCDs
DNR/DNI
I have spent at least 58min reviewing chart, test results, communication with consultantants and providing direct patient care
Anticipated Discharge: 24 - 48 hours
Subjective/Interval History
-
Date of Service: August 30, 2024
Objective Data
-
Labs:
Laboratory Results
08/30/24 08/30/24 08/30/24
03:15 03:32 09:30
WBC 6.0
Hgb Cancelled 9.3 L Pending
Hct Cancelled 27.9 L Pending
Plt Count 267
Sodium 137
Potassium 3.3 L
Chloride 98
Carbon Dioxide 34 H
BUN 13
Creatinine 0.7
Glucose 81
Calcium 9.4
08/30/24 08/30/24
11:15 17:30
WBC
Hgb Pending Pending
Hct Pending Pending
Plt Count
Sodium
Potassium
Chloride
Carbon Dioxide
BUN
Creatinine
Glucose
Calcium
Vital Signs:
Vital Signs
Temp Pulse Resp BP Pulse Ox
98.0 F 88 20 140/70 92
08/30/24 07:00 08/30/24 07:00 08/30/24 07:00 08/30/24 07:00 08/30/24 07:00
I&O
08/29/24 08/30/24 08/31/24
06:59 06:59 06:59
Intake Total 1450 / 1450
Balance 1450 / 1450
Review of Systems
-
History Source: Patient
All other systems: Reviewed and negative
Physical Exam
-
General: No Apparent Distress
HEENT: Normocephalic
Respiratory: Clear to Auscultation
GI: Soft, Nontender and Nondistended
Genito-urinary: No Costovertebral Tender
Musculoskeletal: No Clubbing, No Cyanosis and No Edema
Neuro: Awake, Alert, Oriented and AO x 3
Psych: Calm
--- NOTE | 2024-08-30 09:49 | W.PN.UPDATE ---
Update Note
Progress Note Update
Status post right total hip arthroplasty June 22, [address] Christianson. She subsequently underwent right hip I&D with polyethylene/femoral head exchange July 27, 2024. Cultures revealed Enterococcus faecalis. Infectious disease has placed PICC
line and has her on vancomycin. Patient was recently seen in office and acute phase reactants are trending down. Plan was hopefully that she would transition to oral antibiotics in the near future. Unfortunately she was readmitted for GI bleed
and is slated to undergo upper and lower endoscopy on Saturday. She is afebrile and right hip incision is healing nicely. No warmth or erythema noted. Range of motion revealed flexion 90 degrees, internal rotation 10 degrees, external rotation 30
degrees and abduction 40 degrees all without pain. Calf is soft and nontender. Distal neurovascular was intact. Appreciate medical team's efforts with patient. Hopefully continue her antibiotic treatment and start physical therapy once medically
stable.
--- NOTE | 2024-08-30 09:51 | W.PN.GI.CBS2 ---
Today's Communication / Plan
-
EGD/Colonoscopy tomorrow
Assessment / Plan
-
79 y.o. female with history of ITP, diastolic heart failure, AIMEE, GERD, AIH (not on medication) and recent R. total hip arthroplasty c/b prosthetic infection on daily Vancomycin admitted with melena found to be anemic.
Hgb in the 12's prior to her orthopedic surgery in May, down to 8 in July and 7.8 on admission. She received 1 unit of PRBC with improvement to 9.3 No obvious risk factors as she denies any high-dose ASA following surgery, regular use of
NSAIDs (though, celecoxib listed on her home meds, so suspect this is culprit but unclear if she was actually taking this), steroids or anticoagulation. Her last colonoscopy was in 2012, which was normal, further screening deferred due to age.
Discussed that given melena, UGI source is more likely, but it could be distal small bowel or right colon as well. We could either start with EGD and if negative, then proceed with colonoscopy, or proceed with both EGD/Colonsocopy. She would like to
proceed with both EGD and Colonoscopy tomorrow.
#Symptomatic Anemia, Melena, c/f GI bleeding
-2 large bore peripheral gauge IVs
-IV PPI BID
-transfuse for Hgb <8 given cardiac disease
-clear liquid diet
-EGD and Colonoscopy tomorrow, clear liquid diet and bowel prep today
-NPO PMN
#Intestinal metaplasia
-foci if intestinal metaplasia on gastric bx in 2013 and reportedly has b12 deficiency, possibly pernicious anemia?
-defer mapping biopsies at time of EGD in setting of active GI bleed, however, if concerning lesion found will take biopsies
#Autoimmune hepatitis
-recently diagnosis with serologies and liver biopsy
-+ASMA and AMA, felt less likely to be overlap due to findings on biopsy
-LFTs WNL
-no treatment started, outpatient follow-up with Dr. Jimenez
Subjective
Subjective
Date of Service: August 30, 2024
Patient seen in follow-up, no overnight events. Hgb 9.3 early this AM. Plan for EGD/Colonoscopy tomorrow.
Objective
Data Reviewed
Laboratory Data:
Laboratory Results
08/30/24 03:32
Laboratory Results
Magnesium 1.8 mg/dl (1.6-2.3) 08/29/24 11:19
Total Bilirubin 0.4 mg/dl (0.2-1.3) 08/29/24 11:19
AST 30 U/L (14-36) 08/29/24 11:19
ALT 15 U/L (0-35) 08/29/24 11:19
Alkaline Phosphatase 101 U/L (38-126) 08/29/24 11:19
Vital Signs and I&O:
Vital Signs
Temp Pulse Resp BP Pulse Ox
98.0 F 88 20 140/70 92
08/30/24 07:00 08/30/24 07:00 08/30/24 07:00 08/30/24 07:00 08/30/24 07:00
I&O
08/29/24 08/30/24 08/31/24
06:59 06:59 06:59
Intake Total 1450 / 1450
Balance 1450 / 1450
Physical Exam
Physical Exam
General: Well Developed, Well Nourished and No Apparent Distress
GI: Soft, Non Tender, Non Distended and Normal Bowel Sounds
[2024-08-30 10:16] LABS: Hematocrit 29.5 % (37.0-47.0); Hemoglobin 9.7 g/dL (12.0-16.0)
[2024-08-30] MEDS: CITROMA 300 ML PO (10:26)
[2024-08-30] MEDS: CYANOCOBALAMIN 1000 MCG IM (10:26)
--- NOTE | 2024-08-30 11:28 | CM ---
CM following re: d/c planning.
CM met with pt at bedside to complete IA.
Pt resides alone in 2 story home.
She is staying on the first level in a hospital bed.
Pt states she is independent with mobility and using a walker.
She is able to manage her ADLs.
Her neighbor provides transport.
Pt is current with [facility] for IV abx.
PCP is Dr. Diaz and pharmacy [facility] in [place].
Goal: return home with [facility].
[2024-08-30] MEDS: VANCOCIN 200 IV (11:58)
[2024-08-30] MEDS: FERRLECIT 110 MG IV (14:31)
[2024-08-30 15:00] VITALS: BP 154/79
[2024-08-30] MEDS: CARAFATE SUSPENSION 1 GM PO (15:08)
[2024-08-30] MEDS: MIRALAX 51 GRAMS PO ×3 (16:24→21:02)
[2024-08-30] MEDS: BENADRYL ELIXIR 50 MG PO (21:01)
[2024-08-30] MEDS: NEURONTIN 300 MG PO (21:14)
[2024-08-30 23:19] LABS: Hemoglobin 10.3 g/dL (12.0-16.0)
[2024-08-30 23:25] VITALS: BP 132/57
[2024-08-31] VITALS (7 sets, daily range): BP systolic 132–174; BP diastolic 54–94; BMI 30.3
[2024-08-31 04:44] LABS: % Basophils 1.9 % (0-2); % Eosinophils 6.1 % (0-6); % Immature Granulocytes 0.2 % (0-0.5); % Lymphocytes 14.5 % (20.5-51.1); % Monocytes 18.7 % (1.7-9.3); % Neutrophils 58.6 % (42.2-75.2); Absolute Basophils 0.1 10^3/uL (0-0.2); Absolute Eosinophils 0.4 10^3/uL (0-0.7); Absolute Lymphocytes 0.9 10^3/uL (1.2-3.4); Absolute Monocytes 1.2 10^3/uL (0.1-0.6); Absolute Neutrophils 3.6 10^3/uL (1.4-6.5); Hematocrit 30.6 % (37.0-47.0); Hemoglobin 9.9 g/dL (12.0-16.0); Mean Corp Hgb Conc. 32.4 g/dL (33.0-37.0); Mean Corpuscular Hgb 27.5 pg (27.0-31.0); Mean Platelet Volume 9.9 fL (7.4-10.4); Nucleated Red Blood Cells % 0 %; Platelet Count 282 10^3/uL (130-400); White Blood Cell Count 6.2 10^3/uL (4.8-10.8)
[2024-08-31 04:54] LABS: Blood Urea Nitrogen 6 mg/dl (7-17); Calcium 9.8 mg/dl (8.4-10.2); Carbon Dioxide 30 mmol/L (22-30); Chloride 99 mmol/L (98-107); Estimated Creatinine Clearance 51 ml/min; Glucose 102 mg/dl (70-99); Potassium 3.2 mmol/L (3.5-5.1); Sodium 137 mmol/L (135-145); eGFR > 60.00
[2024-08-31] MEDS: KLOR-CON PO (08:04)
[2024-08-31] MEDS: NSS (PRESERVATIVE FREE) 10 ML IV ×2 (08:05→19:57)
[2024-08-31] MEDS: PROTONIX IV 40 MG IV ×2 (08:06→19:57)
[2024-08-31] MEDS: CYANOCOBALAMIN 1000 MCG IM (08:06)
[2024-08-31] MEDS: WELLBUTRIN XL (24 hour extended release) 150 MG PO (08:07)
[2024-08-31] MEDS: LEXAPRO 20 MG PO (08:07)
[2024-08-31] MEDS: KCL 270 MEQ IV (09:09)
[2024-08-31] MEDS: ZOFRAN 4 MG IV (12:50)
--- NOTE | 2024-08-31 13:37 | W.PN.HOSP.TC ---
Today's Communication/Plan
-
Overweight bidirectional scope
Assessment / Plan
Assessment / Plan
NAD
Scleral Anicteric
MMM
No JVD
CTABL
RRR, S1/S2
Soft, NT, ND, BS+
Warm, Dry
AAOx3
Calm
GI bleed, acute blood loss anemia
S/p 1 unit PRBC
Continue twice daily IV PPI
For EGD and C-scope with gastroenterology today
Continue IV fluids
Monitor hemodynamics
If unstable obtain CT GI bleed study
IRAM
Continue iron supplementation
Right hip PJI
Continue vancomycin till 09/07
Hypokalemia
Replete
Anticipated Discharge: Within 24 hours
Subjective/Interval History
-
Date of Service: August 31, 2024
Seen and examined. No new complaints. No acute overnight events.
Objective Data
-
Labs:
Laboratory Results
08/31/24
04:09
WBC 6.2
Hgb 9.9 L
Hct 30.6 L
Plt Count 282
Sodium 137
Potassium 3.2 L
Chloride 99
Carbon Dioxide 30
BUN 6 L
Creatinine 0.7
Glucose 102 H
Calcium 9.8
Vital Signs:
Vital Signs
Temp Pulse Resp BP Pulse Ox
98.6 F 83 20 165/77 99
08/31/24 12:18 08/31/24 13:00 08/31/24 13:00 08/31/24 13:00 08/31/24 13:00
I&O
08/30/24 08/31/24 09/01/24
06:59 06:59 06:59
Intake Total 1450 / 1450 360 / 360
Balance 1450 / 1450 360 / 360
[2024-08-31] MEDS: VANCOCIN 200 IV (14:06)
[2024-08-31 14:37] LABS: Vancomycin Trough 7.9 ug/ml (5-20)
[2024-08-31] MEDS: BENADRYL 25 MG PO (15:13)
[2024-08-31] MEDS: FERRLECIT 110 MG IV (15:13)
--- NOTE | 2024-08-31 16:02 | CM ---
Pt continues with testing .
As per MD she will be discharged with resumption of IV antibiotics till 09/07/24.
Spoke with Kristina Finn referral placed in care port.
LM with [facility] Finn.
PLAN Home with Reed coyle and Kristina BAZAN for home iv antibiotic infusion
--- NOTE | 2024-08-31 16:37 | PHA.KIN.UPD ---
Pharmacokinetics Update Note
- -
Laboratory Tests
08/31/24
14:04
Vancomycin Trough 7.9
Coordinated with ID and hospitalist
Patient due for weekly level for outpatient regimen today
Level drawn about 2.5H after target draw time as patient was off the floor - discussed with nursing to draw and administer dose when patient returns then continue normal schedule
Level subtherapeutic and still extrapolates to subtherapeutic level of ~8.5 to 9 if drawn at correct time
Discussed with ID and appears outpatient regimen was incorrectly reported and continued from med rec as Vanc 1000mg Q24H
Outpatient regimen was Vanc 1250mg Q24H - prior level was appropriate and no noted adjustments on the outpatient side
Will resume Vanc 1250mg Q24H dosing
Planned to complete 09/07
--- NOTE | 2024-08-31 17:14 | W.PN.UPDATE ---
Update Note
Progress Note Update
Patient seen post-procedurally. Abdominal pain improved. CT scan without evidence of perforation, suspect gas/air trapping in diverticulum. She is eager to go home to take care of her dog, would like to leave tomorrow morning.
Unfortunately, did not complete her colonoscopy but no marisa blood seen anywhere. At this point, we discussed just monitoring her hemoglobin following-up outpatient with Dr. Jimenez to discuss further workup, if needed/desired.
GI will sign off, okay to d/c from a GI perspective when deemed medically stable. Our office will reach out to patient to schedule follow-up.
[2024-08-31 18:23] LABS: Haptoglobin 129 mg/dL (30-200)
[2024-08-31] MEDS: NEURONTIN 300 MG PO (19:56)
[2024-08-31] MEDS: MELATONIN 10 MG PO (20:58)
[2024-08-31] MEDS: BENADRYL ELIXIR 50 MG PO (20:58)
[2024-09-01 04:57] LABS: Blood Urea Nitrogen 10 mg/dl (7-17); Calcium 9.8 mg/dl (8.4-10.2); Carbon Dioxide 28 mmol/L (22-30); Chloride 100 mmol/L (98-107); Estimated Creatinine Clearance 51 ml/min; Glucose 109 mg/dl (70-99); Potassium 3.3 mmol/L (3.5-5.1); Sodium 138 mmol/L (135-145); eGFR > 60.00
[2024-09-01 07:39] VITALS: BP 152/73
[2024-09-01] MEDS: WELLBUTRIN XL (24 hour extended release) 150 MG PO (08:32)
[2024-09-01] MEDS: KCL ELIXIR 40 MEQ PO (08:33)
[2024-09-01] MEDS: PROTONIX IV 40 MG IV (08:33)
[2024-09-01] MEDS: LEXAPRO 20 MG PO (08:33)
[2024-09-01] MEDS: NSS (PRESERVATIVE FREE) 10 ML IV (08:33)
[2024-09-01] MEDS: CYANOCOBALAMIN 1000 MCG IM (08:35)
[2024-09-01] MEDS: KLOR-CON 20 MEQ PO (08:35)
--- NOTE | 2024-09-01 10:38 | CM ---
entered order for discharge.
Spoke with pt she said her neighbor Nydia will drive her home today .
IMM reviewed she agrees with dc today.
Referral in care port to resume [facility] is aware of dc.
As per MD she will be discharged with resumption of IV antibiotics till 09/07/24.
Spoke with [facility] referral placed in care port.
Spoke with Elodia with [facility].Clinical faxed to [facility] for resumption of care.
PLAN Home with [facility] and [facility] fax [phone] for home IV antibiotic infusion
[2024-09-01 10:54] VITALS: BP 152/81
--- NOTE | 2024-09-01 12:49 | W.PN.HOSP.TC ---
Today's Communication/Plan
-
DC home
More than 30 minutes spent in discharge including
Final examination of the patient
Summarizing hospital stay
Instructions for continuing care to all relevant caregivers
Preparation of discharge records, prescriptions, and referral forms
Total time spent (in minutes): 33min
Assessment / Plan
Assessment / Plan
NAD
Scleral Anicteric
MMM
No JVD
CTABL
RRR, S1/S2
Soft, NT, ND, BS+
Warm, Dry
AAOx3
Calm
GI bleed, acute blood loss anemia
S/p 1 unit PRBC
EGD demonstrated a paraesophageal angioectasia that was bleeding that was monitored by GI
C-scope with diverticulosis
Hemoglobin remained stable postprocedure discharged home.
IRAM
Continue iron supplementation
Right hip PJI
Continue vancomycin till 09/07/24 via PICC line. Will continue to receive IV antibiotics via home infusion
Hypokalemia
Replete
Anticipated Discharge: Today
Subjective/Interval History
-
Date of Service: September 01, 2024
Seen and examined. Already and set to be discharged. No acute complaints. No further evidence of dark stools
Objective Data
-
Labs:
Laboratory Results
09/01/24
04:20
Sodium 138
Potassium 3.3 L
Chloride 100
Carbon Dioxide 28
BUN 10
Creatinine 0.7
Glucose 109 H
Calcium 9.8
Vital Signs:
Vital Signs
Temp Pulse Resp BP Pulse Ox
98.1 F 100 16 152/81 95
09/01/24 10:54 09/01/24 10:54 09/01/24 10:54 09/01/24 10:54 09/01/24 10:54
I&O
08/31/24 09/01/24 09/02/24
06:59 06:59 06:59
Intake Total 360 / 360 1590 / 1590
Balance 360 / 360 1590 / 1590
== END 2024-09-01 11:10 | disposition home health service (06) | DRG 378 ==
LOC: 3 WEST ACU 14:20
PROVIDERS: Internal Medicine; Physician Assistant Medical; Registered Nurse; ADMITTING PHYSICIAN Internal Medicine; ATTENDING PHYSICIAN Hospitalist; CONSULT PHYSICIAN Internal Medicine; EMERGENCY PHYSICIAN Emergency Medicine; FAMILY PHYSICIAN Nurse Practitioner Family
PROC: 30243N1 Transfusion of Nonautologous Red Blood Cells into Central Vein, Percutaneous Approach (ICD-10-PCS; 2024-08-29)
PROC: 0W3P8ZZ Control Bleeding in Gastrointestinal Tract, Via Natural or Artificial Opening Endoscopic (ICD-10-PCS; 2024-08-31)
DX: K31.811 Angiodysplasia of stomach and duodenum with bleeding (principal); D62 Acute posthemorrhagic anemia; I50.32 Chronic diastolic (congestive) heart failure; I47.10 Supraventricular tachycardia, unspecified; Q39.9 Congenital malformation of esophagus, unspecified; T84.51XA Infection and inflammatory reaction due to internal right hip prosthesis, initial encounter; K57.30 Diverticulosis of large intestine without perforation or abscess without bleeding; D50.9 Iron deficiency anemia, unspecified; Z96.641 Presence of right artificial hip joint; E87.6 Hypokalemia; Y83.1 Surgical operation with implant of artificial internal device as the cause of abnormal reaction of the patient, or of later complication, without mention of misadventure at the time of the procedure; F32.A Depression, unspecified; F41.9 Anxiety disorder, unspecified; I11.0 Hypertensive heart disease with heart failure; Z66 Do not resuscitate; Z85.3 Personal history of malignant neoplasm of breast; Z86.2 Personal history of diseases of the blood and blood-forming organs and certain disorders involving the immune mechanism; K21.00 Gastro-esophageal reflux disease with esophagitis, without bleeding; G47.33 Obstructive sleep apnea (adult) (pediatric); J45.909 Unspecified asthma, uncomplicated; M19.90 Unspecified osteoarthritis, unspecified site; Z87.891 Personal history of nicotine dependence; Z88.5 Allergy status to narcotic agent; Z88.2 Allergy status to sulfonamides; Z79.82 Long term (current) use of aspirin; K59.00 Constipation, unspecified; Z79.891 Long term (current) use of opiate analgesic; K44.9 Diaphragmatic hernia without obstruction or gangrene; K75.4 Autoimmune hepatitis
CPT/HCPCS: 36430; 71045; 74177; 80048; 80053; 80202; 82607; 82728; 82746; 83010; 83540; 83550; 83615; 83735; 85014; 85018; 85025; 85027; 85045; 86850; 86900; 86901; 86920; 99285; J2916; P9016; Q9967

== ENCOUNTER → 2024-10-22 14:01 | Outpatient (REF) | payer MEDICARE, BC, SELFPAY | LOC: HWRAD 14:01 | PROVIDERS: ATTENDING PHYSICIAN Internal Medicine Gastroenterology; FAMILY PHYSICIAN Nurse Practitioner Family | DX: R19.5 Other fecal abnormalities (principal) | CPT/HCPCS: 74019 ==

== ENCOUNTER 2024-10-29 14:11 | Inpatient (IN) | payer MEDICARE, BC, SELFPAY ==
--- NOTE | 2024-10-29 13:32 | HPS.HSE ---
Family Physician
-
Family Physician: NOT KNOW UNKNOWN - PT DOES
Chief Complaint
-
Anorexia, regurgitation, epigastric abdominal pain
History of Present Illness
The patient is an 79-year-old female who was referred yesterday for outpatient surgical evaluation from her engraver picture secondary to a large type III paraesophageal hernia.
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 She has had progressive and worsening dysphagia over the course of the last 2
months. She was recently hospitalized August 29, 2024 through September 01, 2024 when she presented to the emergency department for worsening shortness of breath, weakness and dark stools. She has a 20 pound weight loss over the course of the preceding 2
months and was found to have a hemoglobin of 7.8. She was transfused 1 unit of packed red blood cells and workup revealed a large type III paraesophageal hernia containing approximately 80% of the stomach within the hiatal hernia space and in the
organoaxial position. She underwent subsequent upper endoscopy confirming a large paraesophageal hernia, and angioectasia with mild oozing which was monopolar coagulated successfully. She was stabilized and discharged with outpatient GI follow-up.
Over the past 2 months she has had continued worsening dysphagia to the point yesterday during the office visit with myself she stated that she has essentially been unable to tolerate any solid soft foods for weeks and is having significant
difficulty with even liquids. She has early satiety, significant epigastric and substernal pain with eating as well as regurgitation and heartburn indigestion. She has been unable to tolerate adequate oral intake. Secondary to her obstructive
symptoms with inability to tolerate adequate oral intake she is admitted today for anticipated correction of her worsening paraesophageal hernia.
Medical History
Past Medical History
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
osteoarthritis, tricuspid regurgitation, pulmonary hypertension, sleep apnea, GERD)
Past Surgical History: Reports Other (Tonsils, rotator cuff, carpal tunnel, discectomy/laminectomy, open cholecystectomy, removal of oral cancer tumor, lumpectomy for breast cancer, cardiac catheterization, left total knee, right total hip)
Social History
Tobacco: Former Smoker
Family History
Family History: Not pertinent
Allergies / Home Medications
Allergies reflects when Allergies were last updated in [facility].
Home Medications with original date entered in [facility]
Allergy/Medication List:
Allergies
Allergy/AdvReac Type Severity Reaction Status Date / Time
codeine Allergy stomach Verified 07/27/24 12:43
pains
NSAIDS (Non-Steroidal Allergy GI BLEED Verified 07/27/24 12:43
Anti-Inflamma
peach Allergy FACIAL Verified 07/27/24 12:43
SWELLING
WITH ANY
PITTED
FRUIT
Sulfa (Sulfonamide Allergy Itching Verified 07/27/24 12:43
Antibiotics)
sulfite Allergy Itching Verified 07/27/24 12:43
�Medication �Instructions �Recorded �Confirmed �Type
esomeprazole magnesium 40 mg 40 mg PO DAILY Gastrointestinal 03/29/14 08/29/24 History
capsule,delayed release (Nexium) issue
bupropion HCl 150 mg 24 hr tablet, 150 mg PO DAILY Depression 10/31/19 08/29/24 History
extended release
escitalopram oxalate 10 mg tablet 20 mg PO DAILY Mental 03/02/20 08/29/24 History
Health/Anxiety
fluticasone propionate 50 1 spray intranasal DAILY Congestion 03/02/20 08/29/24 History
mcg/actuation nasal
spray,suspension
diphenhydramine HCl 50 mg/30 mL 50 mg PO HS Sleep 01/22/24 08/29/24 History
oral liquid (ZzzQuil)
acetaminophen 650 mg 1,300 mg PO Q8HPRN PRN mild pain 08/29/24 08/29/24 History
tablet,extended release
celecoxib 50 mg capsule 50 mg PO DAILY Pain 08/29/24 08/29/24 History
chlorthalidone 25 mg tablet 25 mg PO DAILY Blood Pressure 08/29/24 08/29/24 History
docusate sodium 100 mg capsule 100 mg PO DAILYPRN PRN constipation 08/29/24 08/29/24 History
(Colace)
gabapentin 600 mg tablet 600 mg PO Q6HPRN PRN pain 08/29/24 08/29/24 History
(Neurontin)
ondansetron 4 mg disintegrating 4 mg PO Q6H PRN nausea 08/29/24 08/29/24 History
tablet
melatonin 10 mg tablet 20 mg PO DAILY Sleep 08/30/24 08/30/24 History
Review of Systems
-
History Source: Patient
A 12 point ROS was completed and negative except as noted: Yes
Physical Exam
Physical Exam
General: Well Developed, Well Nourished and No Apparent Distress
HEENT: NormoCephalic, Anicteric, Moist mucous membranes and Atraumatic
Respiratory: Non Labored Respirations
Cardiac: Regular Rhythm
GI: Soft, Non Distended, Tender (Mild epigastric tenderness to palpation. No rebound rigidity or guarding.), No Hernias and Other (Right subcostal surgical scar. )
Skin: Warm
Neuro: AO x 3
Psych: Calm and Intact Judgment/Insight
Data Reviewed
-
Diagnostic Radiology: Other (Upper GI endoscopy 08/31/2024: Middle and lower third of esophagus tortuous. Large paraesophageal hernia. Angioectasia with bleeding within the paraesophageal hernia -mild oozing on contact. Monopolar coagulation
successful. Pedunculated polyps within the stomach located within the paraesophageal her)
CT Scan: Image Personally Visualized and interpreted and Other (CT abdomen/pelvis 08/31/2024: Large type III paraesophageal hernia containing approximately 80% of the stomach within the hiatal hernia space. Hernia sac predominantly within the left
chest. Typical organoaxial positioning of the stomach but without clear radiographic signs of high-grade obstruction.)
Old Records: Reviewed
Impression/Plan
-
IMPRESSION: 79-year-old female presenting secondary to progressive gastric outlet obstructive symptoms due to a large type III paraesophageal hernia containing 80% of the stomach and in a organoaxial position but without ischemia or perforation.
Detailed discussions with patient in office visit yesterday and admission today regarding indications for more prudent/urgent correction of her progressively symptomatic paraesophageal hernia. With continued deferment on surgery her nutritional
intake and medical status/fragility is anticipated to further decline.
The patient is in agreement the patient is in agreement and would like to proceed with surgery.
Robotic assisted laparoscopic repair of paraesophageal hernia, possible fundoplication, possible mesh, intraoperative EGD was reviewed in detail with the patient. We discussed the anticipated operative approach, potential operative findings and
their management, alternative treatment options, potential benefits of surgical management and risks. Overview of the risks discussed includes but is not limited to bleeding requiring transfusion, infectious or wound related complications,
conversion to an open operative approach, iatrogenic injury to surrounding viscera such as the esophagus, stomach, liver, spleen, vagus nerves or other surrounding viscera.
We discussed the typical postoperative hospitalization, recovery time and care. We reviewed associated dietary and lifestyle modifications which are recommended postoperatively. Any of the patient's concerns or questions were confirmed to be fully
addressed and informed consent was obtained.
PLAN: Admit to medical surgical floor
Okay for full liquid diet for comfort today but n.p.o. after midnight in anticipation of surgery tomorrow
Check CBC, CMP, PT/INR and type and screen on admission
IV fluid hydration as with limited oral intake there is likely component of dehydration
Supportive care with analgesics/antiemetics as needed.
Cardiology consultation for assistance with perioperative management.
Patient is added on to the OR schedule for 10/30/2024 with anticipated procedure in the late morning/early afternoon hours.
[2024-10-29 14:45] VITALS: BP 145/69
[2024-10-29 14:49] LABS: Hematocrit 33.9 % (37.0-47.0); Hemoglobin 11.4 g/dL (12.0-16.0); Mean Corp Hgb Conc. 33.6 g/dL (33.0-37.0); Mean Corpuscular Hgb 29.5 pg (27.0-31.0); Mean Corpuscular Volume 87.8 fL (81.0-99.0); Mean Platelet Volume 10.5 fL (7.4-10.4); Platelet Count 272 10^3/uL (130-400); Red Blood Cell Count 3.86 10^6/uL (4.20-5.40)
[2024-10-29 14:58] LABS: PT 14.8 Sec (11.4-14.6)
[2024-10-29 15:07] LABS: ALT (SGPT) 51 U/L (0-35); AST (SGOT) 107 U/L (14-36); Albumin 4.1 g/dl (3.5-5.0); Alkaline Phosphatase 170 U/L (38-126); Blood Urea Nitrogen 19 mg/dl (7-17); Calcium 9.2 mg/dl (8.4-10.2); Carbon Dioxide 29 mmol/L (22-30); Chloride 105 mmol/L (98-107); Estimated Creatinine Clearance 41 ml/min; Glucose 114 mg/dl (70-99); Potassium 4.1 mmol/L (3.5-5.1); Sodium 141 mmol/L (135-145); Total Bilirubin 0.7 mg/dl (0.2-1.3); eGFR > 60.00
--- NOTE | 2024-10-29 15:23 | CON.CAR ---
Addendum entered and electronically signed by Margarito Jovel MD 10/29/24 18:10:
I saw and examined the patient.
The Corrective And Manual Arts Therapist's note was reviewed and I agree with the note.
Comment:
GEN: No distress, awake, Ox3
HEENT: supple, anicteric, mmm
LUNGS: CTA, no wheezes/rales
CV: Reg, S1/S2, 1/6 syst LSB, no gallop
ABD: soft, BS+, NT/ND
EXT: No edema
NEURO: Gross non-focal
SKIN: No rash
Plan:
79-year-old female with past medical history of COPD, chronic diastolic heart failure with preserved ejection fraction, ITP, hypertension obstructive sleep apnea presents for an elective paraesophageal hernia repair. We asked to see her as a preop
evaluation.
She does have some dyspnea on exertion but denies any chest pains. EKG with normal sinus rhythm with nonspecific T wave abnormalities.
Echocardiogram today with preserved ejection fraction with mild to moderate valvular disease. PA pressure on echo 43 mmHg.
Previous cardiac catheterization from 1999 had nonobstructive coronary artery disease.
We will check chest x-ray and proBNP.
She has no clear unstable cardiac symptoms and can proceed to get her paraesophageal hernia repair in AM. She will be moderate risk. She was should be placed on telemetry postoperatively and we will follow.
Original Note:
Consultation
Consultation Request
Date/Time Consultation Performed: 10/29/24
Requesting Provider: Dr. Rodas
Performing Provider: Marry Alvarez PA-C for Dr. Jovel
Reason for Consultation: preop
Medical History
-
Chief Complaint: preop eval
History of Present Illness:
Patient is an 79-year-old female with past medical history of COPD, chronic diastolic congestive heart failure, ITP, hypertension, hyperlipidemia, obstructive sleep apnea, right hip replacement resulting in subsequent prosthetic infection status
post I&D and revision 07/2024. She then had admission to [facility] 08/2024 due to anemia with bleeding angioectasia in large paraesophageal hernia treated with monopolar probe. Since that admission, she is complaining of worsening
dysphagia, nausea, abdominal pain as well as dyspnea. She reports she has been using a lot of Zofran. She was referred to Dr. Rodas who saw her in the office yesterday and due to symptoms was admitted today with plan for urgent paraesophageal
hernia repair tomorrow. Cardiology consulted for preop evaluation. Denies CP.
PMH:
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
History of GIB 2012
COPD
chronic diastolic congestive heart failure
History of ITP
hypertension
hyperlipidemia
obstructive sleep apnea
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
Past Medical History
Past Medical History: Other (in HPI)
Social History
Tobacco: Former Smoker
Personal:
Employment: Retired
Family History
Family History: CAD
Allergies / Home Medications
Allergy/AdvReac Type Severity Reaction Status Date / Time
codeine Allergy stomach Verified 07/27/24 12:43
pains
NSAIDS (Non-Steroidal Allergy GI BLEED Verified 07/27/24 12:43
Anti-Inflamma
peach Allergy FACIAL Verified 07/27/24 12:43
SWELLING
WITH ANY
PITTED
FRUIT
Sulfa (Sulfonamide Allergy Itching Verified 07/27/24 12:43
Antibiotics)
sulfite Allergy Itching Verified 07/27/24 12:43
�Medication �Instructions �Recorded �Confirmed �Type
esomeprazole magnesium 40 mg 40 mg PO DAILY Gastrointestinal 03/29/14 08/29/24 History
capsule,delayed release (Nexium) issue
bupropion HCl 150 mg 24 hr tablet, 150 mg PO DAILY Depression 10/31/19 08/29/24 History
extended release
escitalopram oxalate 10 mg tablet 20 mg PO DAILY Mental 03/02/20 08/29/24 History
Health/Anxiety
fluticasone propionate 50 1 spray intranasal DAILY Congestion 03/02/20 08/29/24 History
mcg/actuation nasal
spray,suspension
diphenhydramine HCl 50 mg/30 mL 50 mg PO HS Sleep 01/22/24 08/29/24 History
oral liquid (ZzzQuil)
acetaminophen 650 mg 1,300 mg PO Q8HPRN PRN mild pain 08/29/24 08/29/24 History
tablet,extended release
celecoxib 50 mg capsule 50 mg PO DAILY Pain 08/29/24 08/29/24 History
chlorthalidone 25 mg tablet 25 mg PO DAILY Blood Pressure 08/29/24 08/29/24 History
docusate sodium 100 mg capsule 100 mg PO DAILYPRN PRN constipation 08/29/24 08/29/24 History
(Colace)
gabapentin 600 mg tablet 600 mg PO Q6HPRN PRN pain 08/29/24 08/29/24 History
(Neurontin)
ondansetron 4 mg disintegrating 4 mg PO Q6H PRN nausea 08/29/24 08/29/24 History
tablet
potassium chloride 10 mEq oral 10 meq PO BID Electrolyte Repletion 08/29/24 08/29/24 History
packet
vancomycin 1.25 gram intravenous 1 g IV DAILY prosthetic joint 08/29/24 08/29/24 History
solution infectio
melatonin 10 mg tablet 20 mg PO DAILY Sleep 08/30/24 08/30/24 History
Review of Systems
-
History Source: Patient
All other systems: Negative unless noted
Physical Exam
Vital Signs
Temp Pulse Resp BP Pulse Ox
98.4 F 105 17 145/69 94
10/29/24 14:45 10/29/24 14:45 10/29/24 14:45 10/29/24 14:45 10/29/24 14:45
Lab Results
10/29/24 14:40
10/29/24 14:40
Physical Exam
General: No Apparent Distress and Comfortable
HEENT: Normocephalic, Anicteric and Moist Mucous Membranes
Respiratory: Clear and Non Labored Respirations
Cardiac: S1/S2 and Regular Rhythm
GI: Soft, Non Tender, Non Distended and Normal Bowel Sounds
Musculoskeletal: No Clubbing, No Cyanosis and No Edema
Skin: Warm and Dry
Neuro: AO x 3
Impression / Plan
-
Primary Health Safety Engineer: Dr. Gill
Assessment:
Large paraesophageal hernia
Dysphagia, abd pain, nausea, SOB secondary to above
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
History of GIB 2012
COPD
chronic diastolic congestive heart failure
History of ITP
hypertension
hyperlipidemia
obstructive sleep apnea
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
Prolonged QT
Transaminitis, mild
Cardiac catheterization 02/2020: Nonobstructive coronary disease
ECHO 01/20/2024: EF 55 to 60%, no regional wall motion abnormalities noted, thickened mitral valve leaflets with mild MR, mild AR, mild to moderate TR, PAP 36 mmHg
Plan:
- Patient admitted with plan for urgent paraesophageal hernia repair surgery in a.m. due to progressive symptoms of dysphagia, abdominal pain, nausea, shortness of breath. Cardiology consulted for perioperative management
- She does report some shortness of breath as well as some orthopnea, which could all be secondary to paraesophageal hernia, but also has history of diastolic congestive heart failure. Last echo with results as above, will repeat. As outpatient on
chlorthalidone 25 mg daily. Check proBNP and chest x-ray pre op
- EKG sinus tachycardia with prolonged QT, likely due to significant Zofran use. repeat EKG in AM.
- BPs stable.
- no CP
- will follow
Data Reviewed
-
EKG: Tracing Personally Visualized and interpreted
Medical Tests (Nuc Med, Echo etc): Report Reviewed by me
Labs: Labs Reviewed by me
Old Records: Reviewed
[2024-10-29] MEDS: NEURONTIN 600 MG PO (15:58)
[2024-10-29] MEDS: NSS (PRESERVATIVE FREE) 10 ML IV (15:59)
[2024-10-29] MEDS: PROTONIX IV 40 MG IV (15:59)
[2024-10-29 17:00] LABS: NT-proBNP 1730 pg/ml
--- NOTE | 2024-10-29 18:02 | PTCARENOTE ---
Received patient as a direct admit around 1430. Patient stable. Dr. Rodas aware of patients arrival.
[2024-10-29] MEDS: LOVENOX 40 MG SC (18:37)
[2024-10-29] MEDS: VIBRAMYCIN 100 MG PO (21:14)
[2024-10-29] MEDS: DILAUDID 0.5 MG IV (22:08)
[2024-10-29 23:15] VITALS: BP 165/86
[2024-10-30] VITALS (11 sets, daily range): BP systolic 0–171; BP diastolic 43–97; BMI 29.2
[2024-10-30] MEDS: NEURONTIN 300 MG PO ×3 (02:49→22:32)
[2024-10-30] MEDS: NSS 1000 IV (06:03)
[2024-10-30 06:28] LABS: Hematocrit 31.8 % (37.0-47.0); Hemoglobin 10.7 g/dL (12.0-16.0); Mean Corp Hgb Conc. 33.6 g/dL (33.0-37.0); Mean Corpuscular Volume 86.2 fL (81.0-99.0); Mean Platelet Volume 11.8 fL (7.4-10.4); Platelet Count 214 10^3/uL (130-400); Red Blood Cell Count 3.69 10^6/uL (4.20-5.40); Red Cell Dist. Width 18.8 % (11.5-14.5); White Blood Cell Count 5.2 10^3/uL (4.8-10.8)
[2024-10-30 06:50] LABS: Blood Urea Nitrogen 12 mg/dl (7-17); Calcium 9.3 mg/dl (8.4-10.2); Carbon Dioxide 27 mmol/L (22-30); Chloride 106 mmol/L (98-107); Estimated Creatinine Clearance 52 ml/min; Glucose 110 mg/dl (70-99); Potassium 3.8 mmol/L (3.5-5.1); Sodium 139 mmol/L (135-145); eGFR > 60.00
[2024-10-30] MEDS: VIBRAMYCIN 100 MG PO (08:17)
[2024-10-30] MEDS: Hygroton 25 MG PO (08:17)
[2024-10-30] MEDS: LEXAPRO 20 MG PO (08:17)
[2024-10-30] MEDS: WELLBUTRIN XL (24 hour extended release) 150 MG PO (08:17)
[2024-10-30] MEDS: NSS (PRESERVATIVE FREE) 10 ML IV (08:17)
[2024-10-30] MEDS: PROTONIX IV 40 MG IV (08:18)
--- NOTE | 2024-10-30 09:20 | W.SUR.PREOP ---
Pre-Operative Surgical Note
-
I have examined this patient prior to the performance of the scheduled procedure.
The patient's condition is unchanged from the time of the current History and
Physical and the patient is able to undergo the scheduled procedure.
--- NOTE | 2024-10-30 11:57 | CM ---
CM following re: discharge planning.
Reviewed pt's chart, met with pt.
Pt is an 79 year old female, admitted with primary dx of Anorexia, regurgitation, epigastric abdominal pain. OR today for hernia repair.
Pt resides alone in a 2SH with 1st floor set up, sleeping in hospital bed on 1st floor, has a WWx2, commode 2x and grabber, has a shower chair but unable to negotiate tub shower at this time, sponge bathing since surgery. Pt is known to [facility]
and [facility].
Pt has 4 daughters who are supportive, 2 are nurses.
PT and OT will evaluate the pt to determine a level of care at discharge.
PCP: Dr. Diaz
Pharmacy [facility] in [facility]
D/C plan: uncertain at this time and will depend on pt's progress.
CM will follow with discharge plan updates as hospitalization progresses
--- NOTE | 2024-10-30 17:05 | W.IMMPOSTOP ---
Addendum entered and electronically signed by Gilson Rodas MD 11/05/24 11:55:
#[id number]
Original Note:
Surgical Immed Post Op Note
-
Primary Surgeon: Gilson Rodas MD
Assisting Surgeon: Jeannette Albarran PA-c
Jaime HEIN
Pre-op Diagnosis: Large type III paraesophageal hernia with gastric volvulus and partial gastric outlet obstruction
Post-op Diagnosis: Large type III paraesophageal hernia with gastric volvulus and partial gastric outlet obstruction
Procedure Performed: Robotic assisted laparoscopic repair of paraesophageal hernia with mesh; anterior gastropexy; EGD
Anesthesia Type: GETA +0.25% Marcaine
Specimen / Cultures: None
Estimated Blood Loss: 24 mL
Complications: None immediate
Operative Findings: Large type III paraesophageal hernia containing approximately 70 to 80% of the stomach within the hiatal hernia location. 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 Hernia sac and contents
completely reduced. Anterior hernia sac excised. Esophageal mobilization to allow for intra-abdominal esophageal length of 3 cm. Bilateral vagi nerves identified and preserved. PhasixST 1.5 cm x 5 cm mesh pledget on right and left rachel for
posterior crural repair/closure due to thin rachel and large crural defect. Additional right anterior lateral and left anterior lateral crural closure with interrupted 0 silk sutures. 56 Kazakh bougie. Anterior gastropexy in L-shaped configuration
to left subcostal diaphragm and left costal margin. Entry into right pleural space due to chronic scarring.
Drains: 19 Benjamin drain for postoperative drainage of mediastinal space.
The assistance of Jeannette Albarran PA-C was required due to the complexity of the procedure. During the procedure Jeannette Albarran PA-C assisted with port placement, robotic instrumentation and suture material exchanges. I was present for the entirety of
the operative procedure.
[2024-10-30] MEDS: SUBLIMAZE 50 MCG IV (17:21)
[2024-10-30] MEDS: MORPHINE SULFATE 4 MG IV (19:28)
[2024-10-30] MEDS: NSS IV (21:39)
[2024-10-30] MEDS: OFIRMEV 100 IV (22:32)
[2024-10-31] MEDS: MORPHINE SULFATE 4 MG IV ×2 (00:08→08:42)
[2024-10-31 03:39] VITALS: BP 162/89
[2024-10-31] MEDS: MORPHINE SULFATE 2 MG IV (04:43)
[2024-10-31 06:00] VITALS: BMI 30.1
[2024-10-31] MEDS: NSS 1000 IV (06:08)
[2024-10-31 06:12] LABS: Hematocrit 30.9 % (37.0-47.0); Hemoglobin 10.4 g/dL (12.0-16.0); Mean Corp Hgb Conc. 33.7 g/dL (33.0-37.0); Mean Corpuscular Hgb 29.5 pg (27.0-31.0); Mean Corpuscular Volume 87.5 fL (81.0-99.0); Mean Platelet Volume 10.7 fL (7.4-10.4); Platelet Count 245 10^3/uL (130-400); Red Blood Cell Count 3.53 10^6/uL (4.20-5.40); Red Cell Dist. Width 18.6 % (11.5-14.5); White Blood Cell Count 8.6 10^3/uL (4.8-10.8)
[2024-10-31 06:47] LABS: Blood Urea Nitrogen 13 mg/dl (7-17); Calcium 8.3 mg/dl (8.4-10.2); Carbon Dioxide 27 mmol/L (22-30); Chloride 105 mmol/L (98-107); Estimated Creatinine Clearance 46 ml/min; Glucose 103 mg/dl (70-99); Potassium 3.8 mmol/L (3.5-5.1); Sodium 137 mmol/L (135-145); eGFR > 60.00
[2024-10-31 07:20] VITALS: BP 150/81
[2024-10-31] MEDS: NSS (PRESERVATIVE FREE) 10 ML IV (08:42)
[2024-10-31] MEDS: PROTONIX IV 40 MG IV (08:43)
[2024-10-31] MEDS: Hygroton 25 MG PO (08:43)
[2024-10-31] MEDS: LEXAPRO 20 MG PO (08:43)
[2024-10-31] MEDS: WELLBUTRIN XL (24 hour extended release) 150 MG PO (08:43)
--- NOTE | 2024-10-31 10:51 | W.PN.GS2 ---
Addendum entered and electronically signed by Kiran Mckeon MD 10/31/24 13:08:
I saw and examined the patient.
The Stone Driller Helper's note was reviewed and I agree with the note.
Comment: Poorly controlled pain mostly in left chest/shoulder. Reports morphine works but wears off too quickly. Pt in mild distress 2/2 pain. Belly soft, approp ttp, incisions cdi, drain minimal output, serous. Plan to add oxy liquid to pain
regimen, cont CLD. Incentive spirometry.
Original Note:
Today's Communication / Plan
-
Pain management
Clear liquids
Assessment / Plan
-
79 yo female presenting for management of Large Type III PEH
POD #1 Robotic assisted laparoscopic repair of paraesophageal hernia with mesh; anterior gastropexy; EGD
Afebrile, stable vital signs
No n/v
Pain management has been an issue overnight
--Trial of clear liquids
--IVF until tolerating PO intake
--Will add more PO analgesics including liquid oxycodone and tylenol, prn morphine for breakthrough
--OOB/Ambulate
--Voiding trial today
--c/w DEVAN, will likely remove prior to d/c
--SCDs/Lovenox for VTE ppx
Appreciate hospitalist team following for medical management
Subjective Data
-
Date of Service: October 31, 2024
Patient seen and examined at bedside with Dr. Mckeon. Reports significant amount of discomfort into the left shoulder, chest and abdomen. Denies n/v. Asking for analgesics that will last a little longer than the morphine.
Objective Data
-
Intake and Output
10/30/24 10/31/24 11/01/24
06:59 06:59 06:59
Intake Total 1300 / 1300
Output Total 990 / 990
Balance 310 / 310
Intake:
Oral fluids 240 / 240
IV fluids (Total) 960 / 960
IV piggybacks 100 / 100
Output:
Drain Output (Total)
Left Middle Abdomen Marcus-
Mortensen A
Urine, Edward 980 / 980
Other:
Number of approximated MODERATE 2
amounts of urine
Vital Signs
Temp Pulse Resp BP Pulse Ox
97.9 F 88 18 150/81 95
10/31/24 07:20 10/31/24 07:20 10/31/24 07:20 10/31/24 07:20 10/31/24 08:39
Lab Results
10/31/24 05:33
10/31/24 05:33
Calcium 8.3 mg/dl (8.4-10.2) L 10/31/24 05:33
Total Bilirubin 0.7 mg/dl (0.2-1.3) 10/29/24 14:40
AST 107 U/L (14-36) H 10/29/24 14:40
ALT 51 U/L (0-35) H 10/29/24 14:40
Alkaline Phosphatase 170 U/L (38-126) H 10/29/24 14:40
Total Protein 9.0 g/dl (6.3-8.2) H 10/29/24 14:40
Albumin 4.1 g/dl (3.5-5.0) 10/29/24 14:40
Physical Exam
-
Uncomfortable appearing
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
Incisions clear, dry, well approximated. DEVAN with SSF
[2024-10-31 11:10] VITALS: BP 156/81
--- NOTE | 2024-10-31 11:31 | W.PN.CARDCBS ---
Today's Communication / Plan
-
Lungs with some crackles. Will give Lasix 20 mg IV daily to help with respiratory status.
Check EKG and follow on telemetry. Continue pain control and postoperative care.
Impression / Plan
-
Primary Burning Plant Operator: Dr. Gill
Assessment:
s/p paraesophageal hernia repaor 10/30
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
History of GIB 2012
COPD
chronic diastolic congestive heart failure
History of ITP
hypertension
hyperlipidemia
obstructive sleep apnea
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
Prolonged QT
Transaminitis, mild
Cardiac catheterization 02/2020: Nonobstructive coronary disease
ECHO 01/20/2024: EF 55 to 60%, no regional wall motion abnormalities noted, thickened mitral valve leaflets with mild MR, mild AR, mild to moderate TR, PAP 36 mmHg
ECHO 10/29/24: LVEF 62%, mildly regurgitation, mild to moderate TR PA pressure 43
Plan:
She has some shortness of breath postprocedure. She has some crackles in the lungs. Will give Lasix 20 mg IV now and daily.
Check EKG. Follow on telemetry.
Creatinine overall stable at 0.8.
Hemoglobin stable at 10.4.
Continue postoperative care.
Progress Note - Burning Plant Operator
Subjective
Date of Service: October 31, 2024
Having some shortness of breath postprocedure. Pain is moderately controlled with pain medication.
Objective
Labs:
10/31/24 05:33
10/31/24 05:33
Labs
Hgb 10.4 g/dL (12.0-16.0) L 10/31/24 05:33
Hct 30.9 % (37.0-47.0) L 10/31/24 05:33
Plt Count 245 10^3/uL (130-400) 10/31/24 05:33
PT 14.8 Sec (11.4-14.6) H 10/29/24 14:40
INR 1.10 10/29/24 14:40
Sodium 137 mmol/L (135-145) 10/31/24 05:33
Potassium 3.8 mmol/L (3.5-5.1) 10/31/24 05:33
BUN 13 mg/dl (7-17) 10/31/24 05:33
Creatinine 0.8 mg/dL (0.6-1.0) 10/31/24 05:33
Glucose 103 mg/dl (70-99) H 10/31/24 05:33
Vital Signs and I&O:
Vital Signs
Temp Pulse Resp BP Pulse Ox
97.9 F 88 18 150/81 95
10/31/24 07:20 10/31/24 07:20 10/31/24 07:20 10/31/24 07:20 10/31/24 08:39
Vital Signs
Temp Pulse Resp BP Pulse Ox
97.9 F 88 18 150/81 95
10/31/24 07:20 10/31/24 07:20 10/31/24 07:20 10/31/24 07:20 10/31/24 08:39
Intake & Output
10/29/24 10/30/24 10/31/24 11/01/24
06:59 06:59 06:59 06:59
Intake Total 1300 / 1300
Output Total 990 / 990
Balance 310 / 310
Physical Exam
Physical Exam
GEN: No distress, awake, Ox3
HEENT: supple, anicteric, mmm
LUNGS: + rales
CV: Reg, S1/S2, 1/6 syst LSB, no gallop
ABD: soft, BS+, NT/ND
EXT: No edema
NEURO: Gross non-focal
SKIN: No rash
[2024-10-31] MEDS: LASIX 20 MG IV (11:57)
[2024-10-31] MEDS: TYLENOL ORAL SOLUTION 650 MG PO ×4 (11:58→23:43)
[2024-10-31] MEDS: ROXICODONE ORAL SOLUTION 10 MG PO ×3 (11:58→20:46)
[2024-10-31 15:15] VITALS: BP 143/84
[2024-10-31] MEDS: NEURONTIN 300 MG PO ×2 (15:39→23:43)
[2024-10-31] MEDS: LOVENOX 40 MG SC (17:16)
[2024-10-31 19:33] VITALS: BP 127/67
[2024-10-31] MEDS: VIBRAMYCIN 100 MG PO (20:47)
[2024-10-31 23:59] VITALS: BP 150/72
[2024-11-01] MEDS: ROXICODONE ORAL SOLUTION 10 MG PO ×5 (01:10→20:35)
[2024-11-01] MEDS: BENADRYL 12.5 MG IV (01:38)
[2024-11-01 03:30] VITALS: BP 143/77
[2024-11-01] MEDS: TYLENOL ORAL SOLUTION PO (05:20)
[2024-11-01 06:51] LABS: Hematocrit 29.9 % (37.0-47.0); Hemoglobin 10.1 g/dL (12.0-16.0); Mean Corp Hgb Conc. 33.8 g/dL (33.0-37.0); Mean Corpuscular Hgb 29.6 pg (27.0-31.0); Mean Corpuscular Volume 87.7 fL (81.0-99.0); Mean Platelet Volume 11.5 fL (7.4-10.4); Platelet Count 247 10^3/uL (130-400); Red Blood Cell Count 3.41 10^6/uL (4.20-5.40); Red Cell Dist. Width 18.4 % (11.5-14.5)
[2024-11-01 07:00] VITALS: BP 179/97; BMI 29.8
[2024-11-01 07:09] LABS: Blood Urea Nitrogen 14 mg/dl (7-17); Calcium 8.7 mg/dl (8.4-10.2); Carbon Dioxide 29 mmol/L (22-30); Chloride 101 mmol/L (98-107); Estimated Creatinine Clearance 46 ml/min; Glucose 97 mg/dl (70-99); Potassium 3.4 mmol/L (3.5-5.1); Sodium 136 mmol/L (135-145); eGFR > 60.00
[2024-11-01] MEDS: TYLENOL ORAL SOLUTION 650 MG PO ×4 (08:03→19:39)
[2024-11-01] MEDS: KLOR-CON 20 MEQ PO (08:04)
[2024-11-01] MEDS: LEXAPRO 20 MG PO (08:04)
[2024-11-01] MEDS: Hygroton 25 MG PO (08:05)
[2024-11-01] MEDS: NSS (PRESERVATIVE FREE) 10 ML IV (08:05)
[2024-11-01] MEDS: LASIX 20 MG IV (08:05)
[2024-11-01] MEDS: VIBRAMYCIN 100 MG PO ×2 (08:05→19:39)
[2024-11-01] MEDS: PROTONIX IV 40 MG IV (08:05)
[2024-11-01] MEDS: WELLBUTRIN XL (24 hour extended release) 150 MG PO (08:07)
[2024-11-01] MEDS: FLUSH (NSS) 3 FLUSH IV (08:07)
--- NOTE | 2024-11-01 09:53 | W.PN.GS2 ---
Addendum entered and electronically signed by Kiran Mckeon MD 11/01/24 10:46:
I saw and examined the patient.
The Pipe Buffer's note was reviewed and I agree with the note.
Comment: More comfortable today but still c/o right chest/right shoulder pain. Pulls 750cc on IS. Abd exam approp, incisions cdi with expected ecchymosis, drain clear serous. Cont FLD for today. Cont pulm toileting.
Original Note:
Today's Communication / Plan
-
FLD
Pain management
Assessment / Plan
-
79 yo female presenting for management of Large Type III PEH
POD #2 Robotic assisted laparoscopic repair of paraesophageal hernia with mesh; anterior gastropexy; EGD
Afebrile, stable vital signs
No n/v
Pain better controlled today
Tolerating FLD
Mild hypokalemia s/p lasix
--Continue on FLD
--Off IVF, s/p Lasix yesterday. Appreciate cardiology following
--Continue prn oxycodone and scheduled tylenol, prn morphine for breakthrough
--OOB/Ambulate
--c/w DEVAN, will likely remove prior to d/c
--SCDs/Lovenox for VTE ppx
Subjective Data
-
Date of Service: November 01, 2024
Patient seen and examined at bedside with Dr. Mckeon. Pain much better today but still up into the left shoulder and side. Denies n/v. Tolerating FLD.
Objective Data
-
Intake and Output
10/31/24 11/01/24 11/02/24
06:59 06:59 06:59
Intake Total 1300 / 1300 940 / 940
Output Total 990 / 990 20 / 20
Balance 310 / 310 920 / 920
Intake:
Oral fluids 240 / 240 380 / 380
IV fluids (Total) 960 / 960 560 / 560
IV piggybacks 100 / 100
Output:
Drain Output (Total)
Left Middle Abdomen Marcus-
Mortensen A
Urine, Edward 980 / 980
Other:
Number of approximated MODERATE 2
amounts of urine
How many times incontinent 2
MODERATE amount urine
Vital Signs
Temp Pulse Resp BP Pulse Ox
97.8 F 99 17 179/97 94
11/01/24 07:00 11/01/24 07:00 11/01/24 07:00 11/01/24 07:00 11/01/24 07:00
Lab Results
11/01/24 05:53
11/01/24 05:53
Calcium 8.7 mg/dl (8.4-10.2) 11/01/24 05:53
Total Bilirubin 0.7 mg/dl (0.2-1.3) 10/29/24 14:40
AST 107 U/L (14-36) H 10/29/24 14:40
ALT 51 U/L (0-35) H 10/29/24 14:40
Alkaline Phosphatase 170 U/L (38-126) H 10/29/24 14:40
Total Protein 9.0 g/dl (6.3-8.2) H 10/29/24 14:40
Albumin 4.1 g/dl (3.5-5.0) 10/29/24 14:40
Physical Exam
-
NAD
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
Incisions clear, dry, well approximated, some ecchymosis. DEVAN with SSF
[2024-11-01] MEDS: NEURONTIN 300 MG PO ×2 (10:23→19:46)
[2024-11-01 11:00] VITALS: BP 141/68
--- NOTE | 2024-11-01 12:07 | W.PN.CARDCBS ---
Today's Communication / Plan
-
Improving. Continue IV Lasix. Potassium was repleted.
Blood pressure is improving.
Will hold chlorthalidone while getting IV Lasix. Creatinine is normal.
Continue postoperative care
Impression / Plan
-
Primary Fire Protection Specialist: Dr. Gill
Assessment:
s/p paraesophageal hernia repaor 10/30
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
History of GIB 2012
COPD
chronic diastolic congestive heart failure
History of ITP
hypertension
hyperlipidemia
obstructive sleep apnea
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
Prolonged QT
Transaminitis, mild
Cardiac catheterization 02/2020: Nonobstructive coronary disease
ECHO 01/20/2024: EF 55 to 60%, no regional wall motion abnormalities noted, thickened mitral valve leaflets with mild MR, mild AR, mild to moderate TR, PAP 36 mmHg
ECHO 10/29/24: LVEF 62%, mildly regurgitation, mild to moderate TR PA pressure 43
Plan:
Breathing is improving. Would continue to gently diurese with IV Lasix. Potassium was repleted.
Creatinine overall stable at 0.8. Continue with incentive spirometry.
Her EKG is stable. Her pains continue to improve.
Blood pressure improving. Would hold chlorthalidone while getting diuresed with IV Lasix
Hemoglobin stable at 10.1.
Continue postoperative care.
Progress Note - Fire Protection Specialist
Subjective
Date of Service: November 01, 2024
Breathing is improved. Incisional pains are stable.
Objective
Labs:
11/01/24 05:53
11/01/24 05:53
Labs
Hgb 10.1 g/dL (12.0-16.0) L 11/01/24 05:53
Hct 29.9 % (37.0-47.0) L 11/01/24 05:53
Plt Count 247 10^3/uL (130-400) 11/01/24 05:53
PT 14.8 Sec (11.4-14.6) H 10/29/24 14:40
INR 1.10 10/29/24 14:40
Sodium 136 mmol/L (135-145) 11/01/24 05:53
Potassium 3.4 mmol/L (3.5-5.1) L 11/01/24 05:53
BUN 14 mg/dl (7-17) 11/01/24 05:53
Creatinine 0.8 mg/dL (0.6-1.0) 11/01/24 05:53
Glucose 97 mg/dl (70-99) 11/01/24 05:53
Vital Signs and I&O:
Vital Signs
Temp Pulse Resp BP Pulse Ox
97.9 F 90 16 141/68 96
11/01/24 11:00 11/01/24 11:00 11/01/24 11:00 11/01/24 11:00 11/01/24 11:00
Vital Signs
Temp Pulse Resp BP Pulse Ox
97.9 F 90 16 141/68 96
11/01/24 11:00 11/01/24 11:00 11/01/24 11:00 11/01/24 11:00 11/01/24 11:00
Intake & Output
10/30/24 10/31/24 11/01/24 11/02/24
06:59 06:59 06:59 06:59
Intake Total 1300 / 1300 940 / 940
Output Total 990 / 990
Balance 310 / 310 920 / 920
Physical Exam
Physical Exam
GEN: No distress, awake, Ox3
HEENT: supple, anicteric, mmm
LUNGS: CTA, no wheezes/rales
CV: Reg, S1/S2, 1/6 syst LSB, no gallop
ABD: soft, BS+, NT/ND
EXT: No edema
NEURO: Gross non-focal
SKIN: No rash
[2024-11-01 15:02] VITALS: BP 121/58
[2024-11-01] MEDS: LOVENOX 40 MG SC (17:24)
[2024-11-01 19:10] VITALS: BP 128/60
[2024-11-01 23:15] VITALS: BP 140/69
[2024-11-02] MEDS: TYLENOL ORAL SOLUTION PO ×2 (00:19→04:36)
[2024-11-02 03:10] VITALS: BP 126/62
[2024-11-02] MEDS: NEURONTIN 300 MG PO ×3 (03:53→21:20)
[2024-11-02] MEDS: ROXICODONE ORAL SOLUTION 10 MG PO (03:53)
[2024-11-02 06:00] VITALS: BMI 29.3
[2024-11-02 07:30] VITALS: BP 155/75
[2024-11-02 07:35] LABS: Hematocrit 34.3 % (37.0-47.0); Hemoglobin 11.3 g/dL (12.0-16.0); Mean Corp Hgb Conc. 32.9 g/dL (33.0-37.0); Mean Corpuscular Hgb 29.3 pg (27.0-31.0); Mean Corpuscular Volume 88.9 fL (81.0-99.0); Mean Platelet Volume 10.7 fL (7.4-10.4); Platelet Count 296 10^3/uL (130-400); Red Blood Cell Count 3.86 10^6/uL (4.20-5.40); Red Cell Dist. Width 18.1 % (11.5-14.5)
[2024-11-02 08:26] LABS: Blood Urea Nitrogen 14 mg/dl (7-17); Calcium 9.2 mg/dl (8.4-10.2); Carbon Dioxide 28 mmol/L (22-30); Chloride 100 mmol/L (98-107); Estimated Creatinine Clearance 45 ml/min; Glucose 105 mg/dl (70-99); Magnesium 1.6 mg/dl (1.6-2.3); Potassium 3.4 mmol/L (3.5-5.1); Sodium 137 mmol/L (135-145); eGFR > 60.00
[2024-11-02] MEDS: TORADOL 10 MG IV ×3 (09:23→21:20)
[2024-11-02] MEDS: TYLENOL ORAL SOLUTION 650 MG PO ×5 (09:23→23:03)
[2024-11-02] MEDS: LEXAPRO 20 MG PO (09:24)
[2024-11-02] MEDS: WELLBUTRIN XL (24 hour extended release) 150 MG PO (09:24)
[2024-11-02] MEDS: LASIX 20 MG IV (09:24)
[2024-11-02] MEDS: PROTONIX IV 40 MG IV (09:24)
[2024-11-02] MEDS: NSS (PRESERVATIVE FREE) 10 ML IV (09:25)
[2024-11-02] MEDS: VIBRAMYCIN 100 MG PO ×2 (09:25→20:01)
--- NOTE | 2024-11-02 09:39 | W.PN.GS2 ---
Today's Communication / Plan
-
XR chest, shoulder
soft and bite sized diet
Assessment / Plan
-
79 yo female presenting for management of Large Type III PEH
POD #3 Robotic assisted laparoscopic repair of paraesophageal hernia with mesh; anterior gastropexy; EGD
Afebrile, stable vital signs
No n/v
Pain better controlled today
Tolerating FLD
Mild hypokalemia s/p lasix
--Advance to soft diet
--Appreciate cardiology following
--Replace KCl prn
--Continue prn oxycodone and scheduled tylenol. Add scheduled Toradol q6h, prn morphine for breakthrough
--OOB/Ambulate
--DEVAN d/c'd at bedside
--XR left shoulder and chest
--SCDs/Lovenox for VTE ppx
Subjective Data
-
Date of Service: November 02, 2024
Patient seen and examined at bedside with [place] and Ti. Denies n/v. Tolerating diet without dysphagia. Pain continues to be a problem especially in the left shoulder. 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
Abdominal pain improving, does feel like she has a stitch in her side. Some SOB.
Objective Data
-
Intake and Output
11/01/24 11/02/24 11/03/24
06:59 06:59 06:59
Intake Total 940 / 940 1320 / 1320
Output Total
Balance 920 / 920 1295 / 1295
Intake:
Oral fluids 380 / 380 1320 / 1320
IV fluids (Total) 560 / 560
Output:
Drain Output (Total)
Left Middle Abdomen Marcus-
Mortensen A
Other:
Number of approximated MODERATE 2 3
amounts of urine
How many times incontinent 2
MODERATE amount urine
Vital Signs
Temp Pulse Resp BP Pulse Ox
98.0 F 91 18 155/75 93
11/02/24 07:30 11/02/24 07:30 11/02/24 07:30 11/02/24 07:30 11/02/24 07:30
Lab Results
11/02/24 07:09
11/02/24 07:09
Calcium 9.2 mg/dl (8.4-10.2) 11/02/24 07:09
Magnesium 1.6 mg/dl (1.6-2.3) 11/02/24 07:09
Total Bilirubin 0.7 mg/dl (0.2-1.3) 10/29/24 14:40
AST 107 U/L (14-36) H 10/29/24 14:40
ALT 51 U/L (0-35) H 10/29/24 14:40
Alkaline Phosphatase 170 U/L (38-126) H 10/29/24 14:40
Total Protein 9.0 g/dl (6.3-8.2) H 10/29/24 14:40
Albumin 4.1 g/dl (3.5-5.0) 10/29/24 14:40
Physical Exam
-
NAD
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
SARAVIA, limited ROM in left shoulder. Strong pulses, no edema, sensation intact
Incisions clear, dry, well approximated, some ecchymosis. DEAVN with SSF
[2024-11-02 11:15] VITALS: BP 150/74
[2024-11-02] MEDS: KLOR-CON 20 MEQ PO (11:25)
[2024-11-02] MEDS: MAGNESIUM SULFATE 100 IV (11:26)
--- NOTE | 2024-11-02 12:13 | CM ---
CM met with patient in room. Patient requested hospital bed. CM requested script and medical necessity documentation from surgery CUPOLA MELTER HELPER. Patient stated that she has uses [facility] [facility].
Patient has been known to [facility]. CM sent referral via [facility].
--- NOTE | 2024-11-02 12:48 | W.PN.UPDATE ---
Update Note
Progress Note Update
Shoulder xr reviewed: severe DJD changes noted, no acute fracture/dislocation. Recommend orthopedic follow up as OP. 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
She requires repositioning in bed which is not feasible in an ordinary bed in order to alleviate pain. She requires frequent changes in body position and has need of immediate position changes.
Script for hospital bed provided, d/w CM.
[2024-11-02] MEDS: MYLICON 80 MG PO (13:36)
--- NOTE | 2024-11-02 13:42 | CM ---
CM faxed prescription and clinical notes to [facility] for hospital bed order.
--- NOTE | 2024-11-02 14:35 | W.PN.CARDCBS ---
Addendum entered and electronically signed by Darline Elise DO 11/02/24 18:34:
I saw and examined the patient.
The Nascar Pit Crew Person's note was reviewed and I agree with the note.
Comment: Patient seen and examined. Overall has no cardiac complaints with improved shortness of breath complaining of shoulder pain.
NAD on room air
Lung Clear to auscultation.
Regular. Positive S1-S2.07/02 SM
No edema
Plan:
-Patient had urgent PEH repair 10/30/24 complicated by post op acute on chronic heart failure with preserved ejection fraction after 2 L IVF
-Will transition back to chlorthalidone and stop IV Lasix
-EF preserved by echo.
-Patient is not chronically on BB for unclear reasons.
-Patient is not chronically on ANGELA/ARB/ARNI/aldosterone antagonist for unclear reasons.
-Follow BP with the restart of chlorthalidone, if not improvement then consider starting antihypertensive med, losartan 25 mg daily would be a good choice.
-Cardiology f/u being arranged. Patient is being d/c'd to home with [facility] and a hospital bed.
Original Note:
Today's Communication / Plan
-
Change Lasix IV to chlorthalidone
Follow BP and consider adding losartan if BP remains elevated
Impression / Plan
-
Primary Training And Development Coordinator: Dr. Gill
Assessment:
s/p paraesophageal hernia repair 10/30/24
h/o GI bleed from angioectasia and large paraesophageal hernia treated with monopolar probe 08/2024
h/o GIB 2012
COPD
Acute on chronic HFpEF
History of ITP
hypertension
hyperlipidemia
obstructive sleep apnea
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
Prolonged QT
Transaminitis, mild
Cardiac catheterization 02/2020: Nonobstructive coronary disease
ECHO 01/20/2024: EF 55 to 60%, no regional wall motion abnormalities noted, thickened mitral valve leaflets with mild MR, mild AR, mild to moderate TR, PAP 36 mmHg
ECHO 10/29/24: LVEF 62%, mildly regurgitation, mild to moderate TR PA pressure 43
Plan:
-Patient had urgent PEH repair 10/30/24 and preoperative cardiovascular risk stratification performed. Patient's echo as noted above. Patient diuresed for acute on chronic HFpEF post-op
-Weight is down 2 lbs overnight. Peak weight on 10/31/24 was 149 lbs and down to 145 lbs on 11/02/24. Cont Lasix 20 mg IV daily. Patient received a total of 2 L IVFs post-op. Patient was taking chlorthalidone 25 mg daily prior to admission, will change
Lasix IV back to chlorthalidone starting 11/03/24.
-EF preserved by echo.
-Patient is not chronically on BB for unclear reasons.
-Patient is not chronically on ANGELA/ARB/ARNI/aldosterone antagonist for unclear reasons.
-Follow BP with the restart of chlorthalidone, if not improvement then consider starting antihypertensive med, losartan 25 mg daily would be a good choice.
-Cardiology f/u being arranged. Patient is being d/c'd to home with [facility] and a hospital bed.
Progress Note - Training And Development Coordinator
Subjective
Date of Service: November 02, 2024
She has left shoulder pain, pain present prior to admission and associated with a fall
Objective
Labs:
11/02/24 07:09
11/02/24 07:09
Labs
Hgb 11.3 g/dL (12.0-16.0) L 11/02/24 07:09
Hct 34.3 % (37.0-47.0) L 11/02/24 07:09
Plt Count 296 10^3/uL (130-400) 11/02/24 07:09
PT 14.8 Sec (11.4-14.6) H 10/29/24 14:40
INR 1.10 10/29/24 14:40
Sodium 137 mmol/L (135-145) 11/02/24 07:09
Potassium 3.4 mmol/L (3.5-5.1) L 11/02/24 07:09
BUN 14 mg/dl (7-17) 11/02/24 07:09
Creatinine 0.8 mg/dL (0.6-1.0) 11/02/24 07:09
Glucose 105 mg/dl (70-99) H 11/02/24 07:09
Vital Signs and I&O:
Vital Signs
Temp Pulse Resp BP Pulse Ox
98.3 F 89 18 150/74 96
11/02/24 11:15 11/02/24 11:15 11/02/24 11:15 11/02/24 11:15 11/02/24 11:15
Vital Signs
Temp Pulse Resp BP Pulse Ox
98.3 F 89 18 150/74 96
11/02/24 11:15 11/02/24 11:15 11/02/24 11:15 11/02/24 11:15 11/02/24 11:15
Intake & Output
10/31/24 11/01/24 11/02/24 11/03/24
06:59 06:59 06:59 06:59
Intake Total 1300 / 1300 940 / 940 1320 / 1320 100 / 100
Output Total 990 / 990 20
Balance 310 / 310 920 / 920 1295 / 1295 100 / 100
Physical Exam
Physical Exam
GEN: NAD
LUNGS: RA
CV: Reg
[2024-11-02 15:30] VITALS: BP 149/78
[2024-11-02] MEDS: LOVENOX 40 MG SC (17:19)
[2024-11-02 19:10] VITALS: BP 137/78
[2024-11-02 23:10] VITALS: BP 143/68
[2024-11-03 03:10] VITALS: BP 153/91
[2024-11-03] MEDS: TYLENOL ORAL SOLUTION 650 MG PO ×2 (04:33→08:32)
[2024-11-03] MEDS: TORADOL 10 MG IV ×2 (04:33→11:37)
[2024-11-03 04:37] VITALS: BMI 29.1
[2024-11-03 06:30] LABS: Blood Urea Nitrogen 18 mg/dl (7-17); Calcium 9.1 mg/dl (8.4-10.2); Carbon Dioxide 29 mmol/L (22-30); Chloride 100 mmol/L (98-107); Estimated Creatinine Clearance 45 ml/min; Glucose 127 mg/dl (70-99); Potassium 3.1 mmol/L (3.5-5.1); Sodium 137 mmol/L (135-145); eGFR > 60.00
[2024-11-03 07:06] VITALS: BP 160/89
--- NOTE | 2024-11-03 07:29 | W.PN.GS2 ---
Today's Communication / Plan
-
`
Assessment / Plan
-
Assessment: 79 yo female presenting for management of Large Type III PEH
POD #4 Robotic assisted laparoscopic repair of paraesophageal hernia with mesh; anterior gastropexy; EGD
AFVSS
doing well post op
Plan: stable for d/c home today
--soft diet
--Appreciate cardiology assistance with care
--Replace KCl prn
--Continue prn oxycodone and scheduled tylenol. Add scheduled Toradol q6h, prn morphine for breakthrough
--OOB/Ambulate
--SCDs/Lovenox for VTE ppx
Subjective Data
-
Date of Service: November 03, 2024
pt seen and examined
feeling better, left shoulder/scapular pain much improved with toradol
states she is feeling ready for discharge today
morgan soft diet
Objective Data
-
Intake and Output
11/02/24 11/03/24 11/04/24
06:59 06:59 06:59
Intake Total 1320 / 1320 1160 / 1160
Output Total
Balance 1295 / 1295 1160 / 1160
Intake:
Oral fluids 1320 / 1320 1060 / 1060
IV piggybacks 100 / 100
Output:
Drain Output (Total)
Left Middle Abdomen Marcus-
Mortensen A
Other:
Number of approximated MODERATE 3 2
amounts of urine
How many times incontinent 2
MODERATE amount urine
Vital Signs
Temp Pulse Resp BP Pulse Ox
97.7 F 93 17 153/91 91
11/03/24 03:10 11/03/24 03:10 11/03/24 03:10 11/03/24 03:10 11/03/24 03:10
Lab Results
11/02/24 07:09
11/03/24 05:38
Calcium 9.1 mg/dl (8.4-10.2) 11/03/24 05:38
Magnesium 1.6 mg/dl (1.6-2.3) 11/02/24 07:09
Total Bilirubin 0.7 mg/dl (0.2-1.3) 10/29/24 14:40
AST 107 U/L (14-36) H 10/29/24 14:40
ALT 51 U/L (0-35) H 10/29/24 14:40
Alkaline Phosphatase 170 U/L (38-126) H 10/29/24 14:40
Total Protein 9.0 g/dl (6.3-8.2) H 10/29/24 14:40
Albumin 4.1 g/dl (3.5-5.0) 10/29/24 14:40
Physical Exam
-
NAD AAOx3
ABD: soft, ND, NTTP
incisions with glue dressings
[2024-11-03] MEDS: KCL ELIXIR 40 MEQ PO (08:31)
[2024-11-03] MEDS: WELLBUTRIN XL (24 hour extended release) 150 MG PO (08:31)
[2024-11-03] MEDS: VIBRAMYCIN 100 MG PO (08:31)
[2024-11-03] MEDS: LEXAPRO 20 MG PO (08:32)
[2024-11-03] MEDS: Hygroton 25 MG PO (08:32)
[2024-11-03] MEDS: NSS (PRESERVATIVE FREE) 10 ML IV (08:33)
[2024-11-03] MEDS: PROTONIX IV 40 MG IV (08:33)
[2024-11-03] MEDS: MIRALAX 17 GRAMS PO (08:38)
--- NOTE | 2024-11-03 09:05 | CM ---
Addendum entered by Reva Barron 11/03/24 12:18:
spoke with Norman Vasquez at [address] [place] [address]- hospital bed will be delivered today & they will call patient with time
updated the patient
Original Note:
Patient seen at bedside
Discharge today
IMM explained & signed. In chart
Spoke with Huma at [facility] & updated
referral in [facility] & accepted
Followed up with Norman Vasquez ([phone]) at [address] [place] [address] for hospital bed, states she has information & will work on this order.
If anything additional is needed she will call
PLAN: Home with [facility] - await confirmation on hospital bed delivery
[facility] fax #: [phone]
[2024-11-03 11:06] VITALS: BP 155/73
[2024-11-03] MEDS: TYLENOL ORAL SOLUTION PO (11:38)
--- NOTE | 2024-11-03 13:33 | W.DS.TRANS ---
DC Summary - Application Architect
-
Discharge Instructions:
Discharge Diagnosis/Procedures Robotic assisted laparoscopic repair of
paraesophageal hernia with mesh; anterior
gastropexy; EGD
Diet Other diet
Additional Diets see handout
Activity No strenuous activity
Additional Activity No lifting over 15 pounds for 6 weeks postop
Driving Restrictions No driving for 1 week
Bathing Restrictions OK to Shower
Wound Care Allow the glue to flake off your incisions on
its own over the next 2-3 weeks. Avoid scrubbing
or picking off. Avoid swimming or soaking in
pools or tubs while your incisions heal.
Instructions:
Stand-Alone Forms:
Changes to Home Medications: No
Discharge Medications:
DC Medications w/original date entered in [facility]
esomeprazole magnesium 40 mg capsule,delayed release (Nexium) 40 mg PO DAILY Gastrointestinal issue 03/29/14
bupropion HCl 150 mg 24 hr tablet, extended release 150 mg PO DAILY Depression 10/31/19
escitalopram oxalate 10 mg tablet 10 mg PO BID Mental Health/Anxiety 03/02/20
fluticasone propionate 50 mcg/actuation nasal spray,suspension 1 spray intranasal DAILY Congestion 03/02/20
diphenhydramine HCl 50 mg/30 mL oral liquid (ZzzQuil) 50 mg PO HS Sleep 01/22/24
acetaminophen 650 mg tablet,extended release 1,300 mg PO Q8HPRN PRN mild pain 08/29/24
chlorthalidone 25 mg tablet 25 mg PO DAILY Blood Pressure 08/29/24
docusate sodium 100 mg capsule (Colace) 100 mg PO DAILYPRN PRN constipation 08/29/24
gabapentin 600 mg tablet (Neurontin) 600 mg PO Q6HPRN PRN pain 08/29/24
ondansetron 4 mg disintegrating tablet 4 mg PO Q6H PRN nausea 08/29/24
potassium chloride 10 mEq oral packet 10 meq PO BID Electrolyte Repletion 08/29/24
ondansetron 4 mg disintegrating tablet 4 mg PO Q8HPRN PRN nausea/vomiting #10 tabs 11/03/24
oxycodone 5 mg tablet 5 mg PO Q4HPRN PRN breakthrough/severe pain #5 tabs 11/03/24
polyethylene glycol 3350 17 gram/dose oral powder (Miralax) 4 g PO DAILY PRN Constipation #119 grams 11/03/24
Home Medication Changes
Pending Results: No
--- NOTE | 2024-11-03 13:33 | W.DCSUMMARY ---
Discharge Summary
Discharge Data
Date of Admission: 10/29/24
Date of Discharge: 11/03/24
-
Pending Results: No
Hospital Course
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
with a chronic organoaxial volvulus. She was having difficulty maintaining adequate nutritional intake and having significant postprandial pain therefore she was admitted for semiurgent operative correction.
Preoperatively the patient's cardiology service was requested to evaluate her and she underwent an echo to confirm stability and clearance to proceed with anticipated surgery. On 10/30/2024 patient underwent a robotic assisted laparoscopic repair of
her paraesophageal hernia with pledgeted mesh crural repair (Phasix ST -bioresorbable) anterior gastropexy and EGD. No intraoperative complications. Her postoperative course was mainly notable for significant substernal and left scapular/shoulder
pain. 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 Cardiology assisted with perioperative fluid management and postoperative diuresis with Lasix while n.p.o. and
awaiting return of GI function. She had some mild hypokalemia which was replaced with both IV as well as oral potassium replacement. Her EKG was stable perioperatively.
On postoperative day 4 she was deemed stable for discharge with outpatient surgical follow-up. She was continued on her same preoperative medications at the same dosages and schedule. An additional prescription was provided for oxycodone for
assistance with pain management as well as Zofran if needed for nausea. Instructions were provided regarding a post fundoplication soft diet.
Discharge Plan
-
Patient Disposition: Home (Routine Discharge)
Discharge Diagnosis/Procedures: Robotic assisted laparoscopic repair of paraesophageal hernia with mesh; anterior gastropexy; EGD
Condition: Good
Diet: Other diet
Additional Diets: see handout
Activity: No strenuous activity
Additional Activity: No lifting over 15 pounds for 6 weeks postop
Driving Restrictions: No driving for 1 week
Bathing Restrictions: OK to Shower
Wound Care: Allow the glue to flake off your incisions on its own over the next 2-3 weeks. Avoid scrubbing or picking off. Avoid swimming or soaking in pools or tubs while your incisions heal.
Activity Restrictions/Additional Instructions:
�Gilson Jeffery MD� [facility] General Surgery
[facility]
[address] [place] [address], [address]
[place] [address]
[facility] - [phone]
Post-Operative Diet Instructions for Hiatal Hernia/Reflux Surgery
This diet and sample menu is for people who have had fundoplication surgery to correct GERD or to repair various types of hernias, such as hiatal hernia and intrathoracic stomach.
This diet may also be useful after other gastrointestinal (GI) surgeries.
After hiatal hernia or fundoplication surgery, your surgeon will slowly advance your diet through the following stages:
A clear liquid diet, generally for the first few meals.
A full liquid diet for a meal or two.
And, eventually a fundoplication soft diet.
Please note: Because each person�s tolerance to food is unique, your doctor will advance your diet depending on how well you progress after surgery.
The diet will help control issues that may occur after GI surgery, such as:
Diarrhea
Excess gas
Swallowing problems
Clear Liquid Diet After Fermin Fundoplication Surgery
The first diet after Fermin fundoplication surgery includes the following clear liquids:
Apple juice
Cranberry juice
Grape juice
Chicken and beef broth
Flavored gelatin (Jell-O�)
Decaf tea and coffee
Caffeinated beverages (based on tolerance)
Popsicles
Mauritian ice
Note: You�ll need to avoid carbonated drinks (sodas) for the first six to eight weeks after surgery. After this time, you can try them again in small amounts.
Full Liquid Diet After Fermin Fundoplication Surgery
The full liquid diet contains anything on the clear liquid diet, plus:
Milk, soy, rice, and almond (no chocolate)
Cream of wheat, cream of rice, grits
Strained creamed soups (no tomato or broccoli)
Blended, custard style, or whipped yogurt (plain or vanilla only)
Vanilla and strawberry-flavored ice cream
Sherbet
Vanilla and butterscotch pudding (no chocolate or coconut)
Nutritional drinks including Ensure�, Boost�, [place] Instant Breakfast� (no chocolate-flavored)
Note: Dairy products � such as milk, ice cream, and pudding � may cause diarrhea in some people just after GI surgery. You may need to avoid milk products. If so, substitute them with lactose-free beverages such as soy, rice, Lactaid�, or almond
milks.
Fermin Soft Diet Tips and Foods to Choose
Tips for keeping your stomach from stretching and avoiding gas after GI surgery
Eat small, frequent meals (six to eight per day). This will help you consume the majority of the nutrients you need without causing your stomach to feel full or distended.
Eat very slowly. Take small bites and chew your food well to larriman helper in swallowing and digestion.
Sit upright while eating and stay upright for 30 minutes after each meal. [place] can help food move through your digestive tract. Do not lie down after eating. Sit upright for 2 hours after your last meal or snack of the day.
Avoid sticky, gummy foods such as bananas. These types of foods can be hard to swallow.
Eat desserts and sweets at the end of your meal to avoid �dumping syndrome.� This describes the rapid emptying of foods from the stomach to the small intestine. Sweets move more rapidly and dump quickly into the intestines. This can cause symptoms
of nausea, weakness, cold sweats, cramps, diarrhea, and dizzy spells.
Drinking large amounts of fluids with meals can stretch your stomach. You may drink fluids between meals as often as you like, but limit fluids to 1/2 cup (4 fluid ounces) with meals and one cup (8 fluid ounces) with snacks.
Avoid drinking through a straw and chewing gum or tobacco. These actions cause you to swallow air, which produces excess gas in your stomach. Chew with your mouth closed.
Avoid any foods that cause stomach gas and distention. These include many raw vegetables, dried beans and peas, and any food from the cabbage family.
Fermin diet � drinks and foods to choose and avoid
Food Category Choose Avoid
Beverages Milk, such as whole, 2%, 1%, non-fat, or skim, soy, rice, almond.
Caffeinated and decaf tea and coffee.
Powdered drink mixes (in moderation).
Non-citrus juices (apple, grape, cranberry, or blends of these).
Fruit nectars.
Nutritional drinks including Boost�, Ensure�, [place] Instant Breakfast�.
Chocolate milk, cocoa, or other chocolate-flavored drinks.
Carbonated drinks.
Alcohol.
Shattuck juices like orange, grapefruit, lemon, and telida.
Breads Toasted bread.
Pancakes, Cymraes toast, and waffles.
Crackers (saltine, butter, soda, irwin, Goldfish� and Cheese Nips�).
Untoasted bread, bagels, Sharif and hard rolls, Frisian muffins.
Crusty breads.
Fresh, doughy breads such as sweet rolls, coffee cake, and doughnuts.
Crackers with nuts, seeds, fresh or dried fruit, coconut, or highly seasoned (garlic or onion-flavored).
Cereals Well-cooked cereals such as oatmeal (plain or flavored).
Cold cereal (Cornflakes�, Rice Krispies�, Cheerios�, Special K� plain, Rice Chex� and puffed rice).
Very coarse cereal such as bran or shredded wheat.
Any cereal with fresh or dried fruit, coconut, seeds, or nuts.
Potatoes and Starches Peeled, mashed, or boiled white or sweet potatoes.
Oven-baked potatoes without skin.
Well-cooked white rice, enriched noodles, barley, spaghetti, macaroni, and other pastas.
Fried potatoes, potato skins, and potato chips.
Hard and soft taco shells.
Fried, brown, or wild rice.
Eggs Poached, hard-boiled, or scrambled.
Fried and highly seasoned eggs (deviled eggs).
Vegetables Well-cooked soft vegetables without seeds or skins (asparagus tips, beets, carrots, green and wax beans, chopped spinach, tender canned baby peas, squash, pumpkin).
Raw vegetables.
Gas producing vegetables (broccoli, Brussel sprouts, cabbage, cauliflower, onions, corn, cucumber, green peppers, rutabagas, turnips, radishes, sauerkraut).
Tomatoes, tomato juice, tomato sauce, andV-8� juice.
Dried beans, peas, and lentils.
Fruits Fruit juice.
Any canned or cooked fruit except those to avoid.
All fresh fruits such as citrus, bananas, and pineapple.
Canned pineapple.
Dried fruits such as raisins and berries.
Fruits with seeds such as berries, kiwi, and figs.
Meat, Fish, Poultry, and Dairy Products: Eat ground, minced, or chopped meats to ease swallowing and digestion. Tender, well-cooked, moist cuts of beef, chicken, turkey, and pork.
Veal and cooper.
Flaky, cooked fish.
Canned tuna.
Cottage and ricotta cheeses.
Mild cheeses such as Surinamese, brick, mozzarella and baby Fijian.
Creamy peanut butter.
Plain custard or blended fruit yogurt.
Moist casseroles such as macaroni and cheese, tuna noodle.
Grilled or toasted cheese sandwich.
Tough meats with a lot of gristle.
Fried, highly seasoned, smoked and fatty meat, fish, or poultry (frankfurters, luncheon meats, sausage, villalobos, spare ribs, beef brisket, sardines, anchovies, duck, and goose).
[place] and other entrees made with pepper or chili pepper.
Shellfish.
Strongly flavored cheeses such as sharp and extra sharp cheddar and cheese containing peppers or other seasonings.
Crunchy peanut butter.
Yogurt with nuts, seeds, coconut, strawberries, or raspberries.
Soups Mildly flavored meat stocks.
Cream soups made from allowed foods.
Highly seasoned and tomato-based soups.
Cream soups made with gas producing vegetables such as broccoli, cauliflower, onion, etc.
Fats: Eat in moderation. Butter and margarine.
Mayonnaise and vegetable oils.
Mildly seasoned cream sauces and gravies.
Plain cream cheese.
Sour cream.
Highly seasoned salad dressings, cream sauces, and gravies.
Villalobos, villalobos fat.
Ham fat, lard, salt pork.
Fried foods.
Nuts.
Desserts: Eat in moderation. Do not eat desserts or sweets by themselves. Plain cakes, cookies, and cream-filled pies.
Vanilla and butterscotch pudding or custard.
Ice cream, ice milk, frozen yogurt, and sherbet.
Gelatin made from allowed foods.
Fruit ices and popsicles.
Desserts containing chocolate, coconut, nuts, seeds, fresh or dried fruit, peppermint, or spearmint.
Sweets and Snacks: Use in moderation. Do not eat large amounts of sweets by themselves. Syrup, honey, jelly, and seedless jam.
Molasses.
Plain hard candies and other candy made from allowed ingredients.
Marshmallows.
Thin pretzels.
Jam, marmalade, and preserves.
Chocolate in any form.
Any candy containing nuts, coconut, seeds, peppermint, spearmint, or dried or fresh fruit.
Popcorn, potato chips, tortilla chips.
Soft or hard thick pretzels such as sourdough.
Miscellaneous Salt and spices in moderation.
Mustard and vinegar in moderation.
Fried or highly seasoned foods.
Coconut and seeds.
Pickles and olives.
[place] sauces, ketchup, barbecue sauce, horseradish, black pepper, chili powder, and onion and garlic seasonings.
Any other food or strongly flavored seasoning, condiment, spice, or herb that you can�t tolerate.
Sample Menu for the Fermin Diet
Please note: You will need extra fluids throughout the day to meet your fluid needs.
Breakfast � cup canned fruit (non-citrus)
� to � cup cereal
1 small pancake
1 teaspoon margarine
1 teaspoon jelly
� cup 2% milk
1 teaspoon sugar
Mid-Morning Snack 2 irwin crackers
1 tablespoon creamy peanut butter
1 teaspoon jelly
1 cup tea
Lunch � cup tuna salad (no raw vegetables)
3 to 4 saltine crackers
� cup canned peaches
� cup fruit juice (non-citrus)
1 teaspoon mayonnaise
Mid-Afternoon Snack 4 saltine crackers
1 tablespoon cream cheese
1 cup 2% milk
Dinner 3 oz. roasted chicken (finely ground) with sauce
� cup cooked white rice
� cup cooked carrots
� cup canned pears
1 teaspoon margarine
� cup tea
1 teaspoon sugar
Evening Snack � cup cottage cheese
� cup applesauce
� cup 2% milk
Referrals:
Gilson Rodas MD [Active, Surgical] - in two to three weeks
Prescriptions:
New
polyethylene glycol 3350 [Miralax] 17 gram/dose powder
4 g PO DAILY PRN (Reason: Constipation) Qty: 119 0RF
Rx Instructions:
start a laxative such as MIRALAX on day 2 after surgery if no bowel movement yet as long as no nausea/vomiting and passing gas
ondansetron 4 mg tablet,disintegrating
4 mg PO Q8HPRN PRN (Reason: nausea/vomiting) Qty: 10 0RF
oxycodone 5 mg tablet
5 mg PO Q4HPRN PRN (Reason: breakthrough/severe pain) Qty: 5 0RF
Continued
esomeprazole magnesium [Nexium] 40 MG capsule,delayed release(DR/EC)
40 mg PO DAILY
bupropion HCl 150 MG tablet extended release 24 hr
150 mg PO DAILY
fluticasone propionate 1 SPRAY spray,suspension
1 spray intranasal DAILY
escitalopram oxalate 10 MG tablet
10 mg PO BID
ZzzQuil 50 mg/30 mL Liquid
50 mg PO HS
potassium chloride 10 mEq Packet
10 meq PO BID
gabapentin [Neurontin] 600 MG tablet
600 mg PO Q6HPRN PRN (Reason: pain)
chlorthalidone 25 MG tablet
25 mg PO DAILY
acetaminophen 650 mg tablet extended release
1,300 mg PO Q8HPRN PRN (Reason: mild pain)
docusate sodium [Colace] 100 mg capsule
100 mg PO DAILYPRN PRN (Reason: constipation)
ondansetron 4 mg Tablet,Disintegrating
4 mg PO Q6H PRN (Reason: nausea)
Discharge Orders:
Discharge Patient (As Directed); Ordered 11/03/24
Ordered By: Gilson Rodas
Discharge Date and Time
Discharge Date/Time: 11/03/24 13:02
Print Language: WELSH
== END 2024-11-03 13:02 | disposition home health service (06) | DRG 326 ==
LOC: 2 SOUTH 14:11
PROVIDERS: Registered Nurse; ADMITTING PHYSICIAN Surgery; CONSULT PHYSICIAN Internal Medicine Cardiovascular Disease
PROC: 0DS64ZZ Reposition Stomach, Percutaneous Endoscopic Approach (ICD-10-PCS; 2024-10-30)
PROC: 0BUT4JZ Supplement Diaphragm with Synthetic Substitute, Percutaneous Endoscopic Approach (ICD-10-PCS; 2024-10-30)
PROC: 8E0W4CZ Robotic Assisted Procedure of Trunk Region, Percutaneous Endoscopic Approach (ICD-10-PCS; 2024-10-30)
DX: K44.9 Diaphragmatic hernia without obstruction or gangrene (principal); I50.33 Acute on chronic diastolic (congestive) heart failure; K31.1 Adult hypertrophic pyloric stenosis; R13.10 Dysphagia, unspecified; R63.4 Abnormal weight loss; I11.0 Hypertensive heart disease with heart failure; I27.20 Pulmonary hypertension, unspecified; I07.1 Rheumatic tricuspid insufficiency; D50.9 Iron deficiency anemia, unspecified; G47.30 Sleep apnea, unspecified; K21.9 Gastro-esophageal reflux disease without esophagitis; M19.90 Unspecified osteoarthritis, unspecified site; F41.9 Anxiety disorder, unspecified; F32.A Depression, unspecified; J44.9 Chronic obstructive pulmonary disease, unspecified; E87.6 Hypokalemia; G47.33 Obstructive sleep apnea (adult) (pediatric); I25.10 Atherosclerotic heart disease of native coronary artery without angina pectoris; M19.012 Primary osteoarthritis, left shoulder; E78.5 Hyperlipidemia, unspecified; K29.70 Gastritis, unspecified, without bleeding; K25.9 Gastric ulcer, unspecified as acute or chronic, without hemorrhage or perforation; R74.01 Elevation of levels of liver transaminase levels; R94.31 Abnormal electrocardiogram [ECG] [EKG]; K31.89 Other diseases of stomach and duodenum; Z96.641 Presence of right artificial hip joint; Z96.652 Presence of left artificial knee joint; Z98.1 Arthrodesis status; Z88.6 Allergy status to analgesic agent; Z88.5 Allergy status to narcotic agent; Z88.2 Allergy status to sulfonamides; Z91.018 Allergy to other foods; Z87.891 Personal history of nicotine dependence; Z85.3 Personal history of malignant neoplasm of breast; Z87.19 Personal history of other diseases of the digestive system; Z86.2 Personal history of diseases of the blood and blood-forming organs and certain disorders involving the immune mechanism
CPT/HCPCS: 71046; 73030; 80048; 80053; 83735; 83880; 85027; 85610; 86850; 86900; 86901; 93005; 93306; C1781

== ENCOUNTER → 2024-12-24 07:40 | Outpatient (REF) | payer MEDICARE, BC, SELFPAY | LOC: RCS 07:40 | PROVIDERS: ATTENDING PHYSICIAN Physician Assistant; FAMILY PHYSICIAN Nurse Practitioner Family | DX: R06.02 Shortness of breath (principal); I50.32 Chronic diastolic (congestive) heart failure; I10 Essential (primary) hypertension; R07.9 Chest pain, unspecified | CPT/HCPCS: 78452; 93017; A9500; J2785 ==

== ENCOUNTER 2025-02-24 20:09 | Inpatient (IN) | payer MEDICARE, BC, SELFPAY ==
[2025-02-24] VITALS (16 sets, daily range): BP systolic 108–181; BP diastolic 62–88; BMI 31.2; BMI 24.4
--- NOTE | 2025-02-24 16:41 | ED.GENMED ---
History of Present Illness
General
Chief Complaint: Chest Pain
Source: patient
Exam Limitations: none
Time Seen by Provider: 02/24/25 16:36
Nursing documentation reviewed up to this point in time: agreed with
History of Present Illness
History of Present Illness:
79-year-old female presents with chest pain shortness of breath onset this morning describes a pressure to her left shoulder left arm, history of congestive heart failure, she has had no leg edema no history of CAD, took 3 baby aspirin prior to
arrival noted to be hypoxic when she arrived
Past History
Past History
ED Past Medical History: Cancer (Remote history of breast cancer), CHF and HTN; Negative CAD
ED Past Surgical History: Cholecystectomy and Orthopedic
Social History
Tobacco: Former smoker
Alcohol: None
Drug: None
Personal:
Living: alone
Employment: Retired
Family History
Family History: Unable to obtain
Review of Systems
Review of Systems
All Other Systems: Not applicable
Constitutional: Denies fever
Respiratory: Reports trouble breathing
Cardiac: Reports chest pain
Neurological: Reports dizzy
Phy Exam
Physical Exam
Physical Exam:
Physical Exam
General: Frail ill-appearing female hypoxic hypertensive
Neck: JVD
Heart: s1/s2 regular rate and rhythm, no murmur. equal radial pulses.
Lungs: Crackles bilaterally
Abdomen: Nontender
Neuro: alert and oriented. no focal neurological deficits
Skin: no rash
Psychiatric: cooperative
Extremities: No calf
Scores
Heart Score for Chest Pain Patients
STEMI patient?: No
History: Moderately Suspicious
ECG: Nonspecific Repolarization
Age: >/= 65 years
Risk Factors: >/= 3 Risk Factors or History of CAD
Troponin: </= Normal Limit
Heart Score for Chest Pain Patients: 6
Heart Score Risk: 20.3% MACE over next 6 weeks
Course
Orders/Labs/Results
Orders:
Orders
02/24/25 16:11
Electrocardiogram (*1) Urgent
Reason for Study: Chest Pain
EKG- Treatment ONCE
02/24/25 16:34
Complete Blood Count/With Diff Urgent
Comprehensive Metabolic Panel Urgent
NT-proBNP Urgent
Comment: ADD ON
Troponin I Urgent
02/24/25 16:40
CXR Port [CR Chest Portable - 1 View] Stat
Comment:
Reason For Exam: sob
Reason Study Needs to be Portable: Unable to Transport
02/24/25 16:41
Add On- LAB Urgent
Tests Added?: pBNP
02/24/25 16:42
Aspirin 325 mg PO NOW STA
Nitroglycerin Sublingual [Nitrostat (Sublingual)] 0.4 mg SL [id number] PRN
02/24/25 16:50
CT Cervical Spine W/o Iv Contr Urgent
Comment:
Reason For Exam: fall
CT Head W/o Iv Contrast Urgent
Comment:
Reason For Exam: fall
02/24/25 17:23
Furosemide [Lasix] 60 mg IV NOW STA
02/24/25 17:25
Morphine Sulfate 4 mg IV NOW STA
Abnormal Lab Results
02/24/25
16:34
RBC 3.37 L 10^6/uL
(4.20-5.40)
Hgb 10.7 L g/dL
(12.0-16.0)
Hct 32.1 L %
(37.0-47.0)
MCH 31.8 H pg
(27.0-31.0)
MPV 11.2 H fL
(7.4-10.4)
Absolute Neuts (auto) 7.1 H 10^3/uL
(1.4-6.5)
Absolute Lymphs (auto) 0.6 L 10^3/uL
(1.2-3.4)
Absolute Monos (auto) 1.4 H 10^3/uL
(0.1-0.6)
Neutrophils % 77.1 H %
(42.2-75.2)
Lymphocytes % 6.7 L %
(20.5-51.1)
Monocytes % 15.2 H %
(1.7-9.3)
Carbon Dioxide 31 H mmol/L
(22-30)
Glucose 146 H mg/dl
(70-99)
AST 94 H U/L
(14-36)
ALT 48 H U/L
(0-35)
Alkaline Phosphatase 132 H U/L
(38-126)
Total Protein 9.3 H g/dl
(6.3-8.2)
02/24/25 16:34
02/24/25 16:34
Vital Signs
Initial and Last Documented VS:
Initial Vital Signs
Temp Pulse Resp BP
98.5 F 103 18 177/81
02/24/25 16:14 02/24/25 16:14 02/24/25 16:14 02/24/25 16:14
Last Documented Vital Signs
Temp Pulse Resp BP Pulse Ox
98.5 F 91 24 156/74 94
02/24/25 16:14 02/24/25 17:44 02/24/25 17:38 02/24/25 17:44 02/24/25 17:38
*Pulse Oximetry
SaO2: 93
Nasal Cannula flow liters per minute: 2
Oxygen Mode of Delivery: Room air
Patient hypoxic: yes
*Critical Care Note
Total Time (30-74mins, 75-104mins- exclusive of procedures): 32
Update Note
Update Note:
5:30 PM chest x-ray noted looks like heart failure prior records reviewed was on Lasix and chlorthalidone, troponin noted, will start IV Lasix, continue nitrates
ED Attending Note
-
Portions of this chart may have been created with voice recognition software.� Occasional wrong word or��sound alike� substitutions may have occurred due to the inherent limitations of voice recognition software.
Discharge Plan
Departure
Patient Disposition: Admit
Date of Disposition: 02/24/25
Time of Disposition: 17:49
Admit to: IVU
Presentation/result/management discussed w/ accepting MD/DO: Hospitalist
Patient with high blood pressure during this ER visit?: Yes
Condition: Fair
Discharge Problem:
Hypertensive heart disease with heart failure
Prescriptions:
No Action
esomeprazole magnesium [Nexium] 40 MG capsule,delayed release(DR/EC)
40 mg PO DAILY
bupropion HCl 150 MG tablet extended release 24 hr
150 mg PO DAILY
fluticasone propionate 1 SPRAY spray,suspension
1 spray intranasal DAILY
escitalopram oxalate 10 MG tablet
10 mg PO BID
ZzzQuil 50 mg/30 mL Liquid
50 mg PO HS
potassium chloride 10 mEq Packet
10 meq PO BID
gabapentin [Neurontin] 600 MG tablet
600 mg PO Q6HPRN PRN (Reason: pain)
chlorthalidone 25 MG tablet
25 mg PO DAILY
acetaminophen 650 mg tablet extended release
1,300 mg PO Q8HPRN PRN (Reason: mild pain)
docusate sodium [Colace] 100 mg capsule
100 mg PO DAILYPRN PRN (Reason: constipation)
ondansetron 4 mg Tablet,Disintegrating
4 mg PO Q6H PRN (Reason: nausea)
polyethylene glycol 3350 [Miralax] 17 gram/dose powder
4 g PO DAILY PRN (Reason: Constipation) Qty: 119 0RF
Rx Instructions:
start a laxative such as MIRALAX on day 2 after surgery if no bowel movement yet as long as no nausea/vomiting and passing gas
ondansetron 4 mg tablet,disintegrating
4 mg PO Q8HPRN PRN (Reason: nausea/vomiting) Qty: 10 0RF
oxycodone 5 mg tablet
5 mg PO Q4HPRN PRN (Reason: breakthrough/severe pain) Qty: 5 0RF
Referrals:
Makenna Diaz CRNP [Family Provider, Family Practice]
Interventions
Interventions:
*Risk Screen - Suicide Last Done: 02/24/25 16:14
*General Assessment Last Done: 02/24/25 16:14
*Neglect/Abuse Screening Last Done: 02/24/25 16:14
*ED- Fall Risk Assessment Last Done: 02/24/25 16:14
*ED COVID-19 Vaccine History Last Done: 02/24/25 16:14
*ED Influenza Vaccine History Last Done: 02/24/25 16:14
ED- Cardiac Assessment Last Done: 02/24/25 16:43
Discharge Date and Time
Print Language: ROMANSH
[2025-02-24 16:43] LABS: Hematocrit 32.1 % (37.0-47.0); Hemoglobin 10.7 g/dL (12.0-16.0); Mean Corp Hgb Conc. 33.3 g/dL (33.0-37.0); Mean Corpuscular Volume 95.3 fL (81.0-99.0); Nucleated Red Blood Cells % 0 %; Platelet Count 167 10^3/uL (130-400); Red Cell Dist. Width 13.5 % (11.5-14.5)
[2025-02-24] MEDS: NITROSTAT (SUBLINGUAL) 0.4 MG SL ×3 (16:46→17:04)
[2025-02-24 17:07] LABS: Troponin I < 0.012 ng/ml
[2025-02-24 17:21] LABS: ALT (SGPT) 48 U/L (0-35); AST (SGOT) 94 U/L (14-36); Albumin 4.0 g/dl (3.5-5.0); Alkaline Phosphatase 132 U/L (38-126); Blood Urea Nitrogen 17 mg/dl (7-17); Calcium 8.5 mg/dl (8.4-10.2); Carbon Dioxide 31 mmol/L (22-30); Chloride 100 mmol/L (98-107); Estimated Creatinine Clearance 46 ml/min; Glucose 146 mg/dl (70-99); Potassium 3.7 mmol/L (3.5-5.1); Sodium 137 mmol/L (135-145); Total Protein 9.3 g/dl (6.3-8.2); eGFR > 60.00
[2025-02-24] MEDS: MORPHINE SULFATE 4 MG IV (17:39)
[2025-02-24] MEDS: LASIX 60 MG IV (17:44)
--- NOTE | 2025-02-24 18:34 | HPS.HSE ---
Family Physician
-
Family Physician: ALMA Wright
Chief Complaint
-
Shortness of Breath and Chest Pain
History of Present Illness
Patient is an 79 y/o female past medical history of CHF, Valvular Heart Disease, Hypertension, and Anxiety / Depression who presents with shortness of breath and chest pain. Patient reports increased dyspnea on exertion over the past week,
particularly over the past few days. Yesterday daughter noted her to be more short of breath, and this morning symptoms got significantly worse. She states it is very difficult to take a deep breath due to pressure / tightness in her chest. Upon
arrival to the emergency department she was noted to be hypoxic and placed on supplemental oxygen. She denies changes in weight, or lower extremity edema.
Medical History
Past Medical History
Past Medical History: Reports Other
Additional Past Medical History:
Chronic HFpEF
Valvular Heart Disease
Essential Hypertension
Hyperlipidemia
GI Bleed
Anxiety / Depression
Spinal Stenosis
Right Hip Prosthetic Joint Infection
Obstructive Sleep Apnea
Breast Cancer s/p Lumpectomy, Chemo/XRT
Oral Cancer s/p Graft
Iron Deficiency Anemia
Idiopathic Thrombocytopenia
Past Surgical History: Reports Other
Additional Past Surgical History:
Paraesophageal Hernia Repair with Mesh; Anterior Gastropexy
Cholecystectomy
Right Breast Lumpectomy
Bilateral Rotator Cuff
Bilateral Carpal Tunnel
Lumbar Spine Surgery
Right Hip Replacement
Oral Graft for Mouth Cancer
Social History
Tobacco: Non-smoker
Alcohol: Occasional
Family History
Family History: Not pertinent
Allergies / Home Medications
Allergies reflects when Allergies were last updated in [employer].
Home Medications with original date entered in [employer]
Allergy/Medication List:
Allergies
Allergy/AdvReac Type Severity Reaction Status Date / Time
codeine Allergy stomach Verified 07/27/24 12:43
pains
NSAIDS (Non-Steroidal Allergy GI BLEED Verified 07/27/24 12:43
Anti-Inflamma
peach Allergy FACIAL Verified 07/27/24 12:43
SWELLING
WITH ANY
PITTED
FRUIT
Sulfa (Sulfonamide Allergy Itching Verified 07/27/24 12:43
Antibiotics)
sulfite Allergy Itching Verified 07/27/24 12:43
Home Medications
esomeprazole magnesium 40 mg capsule,delayed release (Nexium) 40 mg PO DAILY Gastrointestinal issue 03/29/14
bupropion HCl 150 mg 24 hr tablet, extended release 150 mg PO DAILY Depression 10/31/19
fluticasone propionate 50 mcg/actuation nasal spray,suspension 1 spray intranasal DAILY Congestion 03/02/20
diphenhydramine HCl 50 mg/30 mL oral liquid (ZzzQuil) 50 mg PO HS Sleep 01/22/24
chlorthalidone 25 mg tablet 25 mg PO QPM Blood Pressure 08/29/24
gabapentin 600 mg tablet (Neurontin) 600 mg PO BID 08/29/24
ondansetron 4 mg disintegrating tablet 4 mg PO Q6HPRN PRN nausea 08/29/24
doxycycline hyclate 100 mg capsule 100 mg PO BID DIRECTOR OF PEDIATRIC REHABILITATION 02/24/25
escitalopram oxalate 20 mg tablet (Lexapro) 20 mg PO DAILY 02/24/25
furosemide 20 mg tablet (Lasix) 20 mg PO DAILY 02/24/25
gabapentin 100 mg capsule 200 mg PO HS 02/24/25
ibuprofen 125 mg-acetaminophen 250 mg tablet (Advil Dual Action) 1 tab PO HS 02/24/25
losartan 50 mg tablet 50 mg PO DAILY 02/24/25
vitamins A,C,B-ufza-krbwvv 2,148 mcg-113 mg-45 mg-17.4 mg tablet (PreserVision AREDS) 1 tab PO BID 02/24/25
Review of Systems
-
A 12 point ROS was completed and negative except as noted: Yes
Constitutional: Denies Fever, Weight Gain or Chills
Respiratory: Reports Cough (Chronic morning cough) and Trouble Breathing
Cardiac: Denies Palpitations
Physical Exam
Vital Signs
Vital Signs
Temp Pulse Resp BP Pulse Ox
98.5 F 94 20 156/74 95
02/24/25 16:14 02/24/25 18:00 02/24/25 18:00 02/24/25 17:44 02/24/25 17:45
Physical Exam
General: Comfortable and Conversant (Slightly dyspnea on exertion)
HEENT: Anicteric, Moist mucous membranes and Oxygen (Nasal Cannula)
Respiratory: Rales (Bilateral bases) and Non Labored Respirations
Cardiac: S1/S2, Regular Rhythm and Murmur
GI: Soft and Non Tender
Rectal: Deferred by Provider
Musculoskeletal: No Clubbing, No Cyanosis and No Edema
Skin: Warm and Dry
Neuro: Awake, Alert, Oriented and Nonfocal/grossly intact
Psych: Calm
Laboratory Results
-
02/24/25 16:34
02/24/25 16:34
Laboratory Results
Total Bilirubin 0.7 mg/dl (0.2-1.3) 02/24/25 16:34
AST 94 U/L (14-36) H 02/24/25 16:34
ALT 48 U/L (0-35) H 02/24/25 16:34
Alkaline Phosphatase 132 U/L (38-126) H 02/24/25 16:34
Troponin I < 0.012 ng/ml 02/24/25 16:34
Data Reviewed
-
Diagnostic Radiology: Image Personally Visualized and interpreted (CXR consistent with pulmonary edema)
Lab Data: Labs Reviewed by me
Impression/Plan
-
Acute Hypoxic Respiratory Insufficiency secondary to Acute on Chronic HFpEF
-Consult Cardiology
-Continue supplemental oxygen
-Continue Lasix 40mg IV Daily
Elevated LFTs, suspect hepatic congestion in setting of heart failure
-Continue to trend
Essential Hypertension
-Continue losartan
-Hold chlorthalidone
Anxiety / Depression
-Continue bupropion, escitalopram
Spinal Stenosis
-Continue gabapentin
Right Hip Prosthetic Joint Infection
-Continue doxycycline
Chronic Anemia
-Hgb at baseline
GERD / Hx GI Bleed secondary to angioectasia
-Continue Protonix
Obstructive Sleep Apnea
-Patient reports unable to use home CPAP machine due to malfunction (Patient reports company sent incorrect parts).
Hx Breast Cancer s/p Lumpectomy, Chemo/XRT
Hx Oral Cancer s/p Graft
DVT proph: Lovenox
Code Status: DNR
--- NOTE | 2025-02-24 19:36 | W.PN.UPDATE ---
Update Note
Progress Note Update
This note serves as an addendum to the H&P by general office worker YURY�
Yohana DIETERICK
HPI�
79F HX CHF, HTN, remote HX breast CA seeen at ER
- CP this morning describes a pressure to her left shoulder left arm
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
- noted to be hypoxic when she arrived
- denied no leg edema
- no history of CAD
Relevant VS
Temp Pulse Resp BP Pulse Ox
98.5 F 91 21 157/63 98
02/24/25 16:14 02/24/25 19:00 02/24/25 19:00 02/24/25 19:00 02/24/25 19:00
11/03/24
Actual Weight 65.346 kg 68.7 kg
02/24/25
16:14 02/24/25
16:17 02/24/25
16:25
Blood pressure 177/81 181/84
SaO2 87 94
Oxygen Mode of Delivery Room air 4
Nasal Cannula flow liters per minute
PE
Gen: Frail ill-appearing
Neck: POS JVD
Lungs: basilar crackles
Cor: S1 S2 . No mumur
Abdomen:� soft benign
TRANSPORTATION PLANNING ENGINEER: AAO3 NFND
MS: no edema
11/02/24 02/24/25
07:09 16:34
Hgb 11.3 L 10.7 L
Potassium 3.7
Creatinine 0.8
eGFR > 60.00
AST 94 H
ALT 48 H
Alkaline Phosphatase 132 H
Troponin I < 0.012
Fas-M-Incprxqmygo Pept 3100
EKG
NSR
Nl ECG
WHEN COMPARED WITH ECG OF 24-Feb-2025 16:12,NO SIGNIFICANT CHANGE WAS FOUND
HCT
No acute intracranial hemorrhage or extra-axial collection. No skull fracture. Chronic findings as described.
CT Cervical Spine W/o Iv Contr
- Small calcifications and ossifications within a slightly thickened nuchal ligament at the tip of the C7 spinous process with spinous process irregularity -suggesting age indeterminate cortical avulsion fractures.
- No other findings to suggest acute fracture. No compression deformity.
- Multilevel DJD
10/29/24 TTE
LVEF 62%
MR
mild to moderate TR
PA pressure 43
Last hospitalist admission to service :Date of Admission: 10/29/24 - Date of Discharge: 11/03/24
Procedure: Robotic assisted laparoscopic repair of paraesophageal hernia with mesh; anterior gastropexy; EGD
ASSESSMENT & PLAN
Presumed acute on chronic HFpEF - Wt gain
- my view on CXR suggest CHF - pending final report
- Associated acute hypoxic RI needs 3 L O2
- IV Lasix 40 daily
- Daily Wt, TOS and BMP
- DCA card consulted
Essential HTN - holding chlorthalidone to give room for IV Lasix and cc/w SERVICE DELIVERY SUPERVISOR Losartan
Hyperlipidemia -not on statin
AIMEE
- on CPAP but currently malfunctioning
S/p paraesophageal hernia repair 10/30/24
HX GI bleed from angioectasia and large paraesophageal hernia treated with monopolar probe 08/2024
HX GIB 2012
HX COPD
HX ITP
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
Prolonged QT
DVT Px:
DNR per patient witnessed by RN
IP TLM
[2025-02-24 20:05] LABS: Troponin I 0.020 ng/ml
--- NOTE | 2025-02-24 21:00 | PTCARENOTE ---
Received patient from ED at approx 2049. 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 AAA x 3. Oriented to room, call atkinson in reach.
[2025-02-24] MEDS: MORPHINE SULFATE 2 MG IV (21:53)
[2025-02-24] MEDS: VIBRAMYCIN PO (21:55)
[2025-02-24] MEDS: NEURONTIN 200 MG PO (21:55)
[2025-02-25] VITALS (46 sets, daily range): BP systolic 73–133; BP diastolic 37–109; BMI 24.4
[2025-02-25] MEDS: MORPHINE SULFATE 2 MG IV ×3 (00:52→19:30)
[2025-02-25 01:38] LABS: Troponin I 0.024 ng/ml
[2025-02-25] MEDS: NITROSTAT (SUBLINGUAL) 0.4 MG SL ×3 (05:34→05:56)
[2025-02-25 05:53] LABS: APTT 33.5 Sec (23.4-35.0)
[2025-02-25 05:55] LABS: Hematocrit 31.0 % (37.0-47.0); Hemoglobin 10.4 g/dL (12.0-16.0); Mean Corp Hgb Conc. 33.5 g/dL (33.0-37.0); Mean Corpuscular Volume 94.8 fL (81.0-99.0); Platelet Count 171 10^3/uL (130-400); Red Cell Dist. Width 13.7 % (11.5-14.5)
[2025-02-25] MEDS: NSS (PRESERVATIVE FREE) 10 ML IV (05:56)
[2025-02-25] MEDS: PROTONIX IV 40 MG IV (05:57)
[2025-02-25] MEDS: CARDIZEM 125 IV (05:58)
[2025-02-25] MEDS: HEPARIN 3900 UNITS IV (06:01)
[2025-02-25 06:04] LABS: ALT (SGPT) 42 U/L (0-35); AST (SGOT) 82 U/L (14-36); Albumin 3.8 g/dl (3.5-5.0); Alkaline Phosphatase 106 U/L (38-126); Blood Urea Nitrogen 18 mg/dl (7-17); Calcium 8.4 mg/dl (8.4-10.2); Carbon Dioxide 31 mmol/L (22-30); Chloride 98 mmol/L (98-107); Estimated Creatinine Clearance 43 ml/min; Glucose 114 mg/dl (70-99); HDL Cholesterol 51 mg/dl; LDL Cholesterol, Calculated 80 mg/dl; Magnesium 1.7 mg/dl (1.6-2.3); Potassium 3.7 mmol/L (3.5-5.1); Sodium 137 mmol/L (135-145); Total Protein 9.0 g/dl (6.3-8.2); Very Low Density Lipoprotein 13 mg/dl (0-30); eGFR > 60.00
[2025-02-25] MEDS: HEPARIN 25000 UNITS/250 ML IV (06:04)
[2025-02-25 06:16] LABS: Troponin I 0.054 ng/ml
[2025-02-25] MEDS: MORPHINE SULFATE 1 MG IV (06:16)
--- NOTE | 2025-02-25 06:30 | PTCARENOTE ---
02/24 at approx 2130, patient complaining of 10/10 chest pain, pain primarily when she takes a breath. BP 170/80, Temp 99.2 RR 18 Pulse ox 94% on 2L O2. EKG done. Notified DIESEL INSTRUCTOR via TT w/ EKG, patient symptoms and that ED report noted 'fall w/
midsternal chest pain.' Trops were 0.012 and 0.020. She had Morphine in ED at 5:40pm. DIESEL INSTRUCTOR ordered dose of Morphine and PRN Nitro if ineffective. Patient was asleep upon follow up of pain medication.
Patient awoke around 0040 complaining of the same 10/10 chest pain. 131/58 HR 84 RR 20, 94% on 2L O2. Patient requested another dose of pain medication. DIESEL INSTRUCTOR advised ok to give PRN Morphine rather than dose of Nitro. Patient was sleeping upon follow
up of pain medication.
Trop and EKG completed at approx 0100. Third Trop resulted at 0.024, DIESEL INSTRUCTOR made aware and added 1 additional Trop since it hadn't peaked yet. EKG sent via TT.
At approx 0500, tele monitor alarmed with afib and HR 130s-140s. Patient was asleep at this time. EKG completed and sent to DIESEL INSTRUCTOR. Temp 100.3 RR 22 BP 121/74 pulse ox 93% on 2 L. Patient complained of 10/10 chest pain. DIESEL INSTRUCTOR notified via TT and ordered
Cardizem and Heparin drip. Baseline PTT drawn along with AM labs.
DIESEL INSTRUCTOR came to assess patient. IV Morphine 2mg at 0523, which was ineffective in pain relief. Patient reported pain starting to go into her L arm. Nitro given x 3 with per DIESEL INSTRUCTOR, with no relief reported by patient. She said the pain was no longer in her L
arm, but getting worse in her chest. DIESEL INSTRUCTOR ordered additional dose of 1mg Morphine, given at 0616.
IV Cardizem and IV Heparin started
Report called to Makenna on IVU at 0615.
Patient transported to IVU with DIESEL INSTRUCTOR, IVU RN and 2 RNs from at approx 0620.
[2025-02-25] MEDS: OFIRMEV 100 IV ×2 (06:48→22:26)
--- NOTE | 2025-02-25 07:00 | W.PN.UPDATE ---
Update Note
Progress Note Update
Neha new admit from last night with intermittent CP heart failure. Now in IVU new afib at 130-150 Cardizem gtt, heparin gtt, morphine iv x2 min relief SL NTG x3 unrelieved. New afib as of 399. Trop 0.054 adding PCXR. IV Ofirmiv. Denies n/v.
Updated Dr. Gill from [facility] Cardiology. Protonix IV x1 given.
--- NOTE | 2025-02-25 07:45 | PTCARENOTE ---
Marry Alvarez at bedside. BP 73/59. Cardizem gtt stopped. Pt still reporting CP unable to quantify, but much improved compared to before receiving Morphine. A fib 110-120's on monitor. Plan to start Amio, awaiting orders. Pt AOx3, denies feeling
dizzy, resting in bed. 95% on 4L NC.
--- NOTE | 2025-02-25 07:53 | CON.CAR ---
Addendum entered and electronically signed by Margarito Jovel MD 02/25/25 18:15:
I saw and examined the patient.
The Precision Inspector's note was reviewed and I agree with the note.
Comment:
GEN: Anxious awake, Ox3
HEENT: supple, anicteric, mmm
LUNGS: CTA, no wheezes/rales
CV: Irreg, S1/S2, 1/6 syst LSB, no gallop
ABD: soft, BS+, NT/ND
EXT: No edema
NEURO: Gross non-focal
SKIN: No rash
PLan:
79-year-old female with past medical history of chronic diastolic heart failure, COPD, hypertension, sleep apnea and recent paraesophageal hernia repair presents with new onset atrial fibrillation, progressive shortness of breath, and moderate to
severe chest discomfort. The chest discomfort was in the center of her chest which radiated down her left arm. After arriving the emergency room this morning at 5 AM she went into rapid atrial fibrillation and felt worse. We were urgently called
to see her regarding her chest pains and atrial fibrillation. She was placed on a Cardizem drip but became hypotensive. Cardizem was stopped and we initiated IV amiodarone.
CT scan of the chest revealed no pulmonary embolism but pleural effusion and signs of possible congestive heart failure. Cardiac troponin is mildly abnormal at 0.054.
Echocardiogram today read by me reveals EF of 40 to 45% with mild global hypokinesis, normal RV size and function, severe tricuspid regurgitation with PA pressure of approximately 40.
The etiology of her chest pains remains unclear. By exam she does have acute heart failure with mildly reduced ejection fraction.
EKG with no clear ST elevation.
Recommend continue to trend troponins. Continue IV heparin for now. Her echo has a mildly reduced ejection fraction with no clear wall motion abnormalities. I would hold off on need for urgent cardiac cath at this time.
Continue IV amiodarone with attempts to rate control her. We will follow her EKG
She is volume overloaded and we will increase Lasix to 40 mg IV twice daily.
Her blood pressure is marginal on the low side. Agree with plan to initiate Levophed for blood pressure support. Hold losartan
She has no white blood cell count or fever or signs of active infection to suggest sepsis.
Original Note:
Consultation
Consultation Request
Date/Time Consultation Performed: 02/25/25
Requesting Provider: Dr. Aldana
Performing Provider: Marry Alvarez PA-C for Dr. Jovel
Reason for Consultation: CHF, CP
Medical History
-
Chief Complaint: SOB, CP
History of Present Illness:
Patient is an 79-year-old female with past medical history of chronic diastolic congestive heart failure, COPD, hypertension, hyperlipidemia, obstructive sleep apnea, and most recently admitted earlier this year for paraesophageal hernia repair
10/2024. We had seen her in setting of this admission due to acute heart failure. She reports since her surgery she has had issues with intermittent dizziness. She states she also struggles with chronic shortness of breath. She reports yesterday
she had an episode of dizziness where she started to fall backwards. She states she did not pass out however did fall and hit her head and scraped up her arms. She reports then last evening she developed chest discomfort which she describes as
severe central pain which radiated down her left arm and across both of her shoulders as well as worsened shortness of breath. On arrival to ER, initial troponin was negative. She had additional episode of discomfort overnight and received
sublingual nitro as well as dose of IV morphine. Around 5 AM she went into rapid A-fib which is a new diagnosis for patient.
PMH:
paraesophageal hernia repair 10/30/24
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
History of GIB 2012
COPD
chronic diastolic congestive heart failure
History of ITP
hypertension
hyperlipidemia
obstructive sleep apnea
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
Past Medical History
Past Medical History: Other (in HPI)
Social History
Tobacco: Former Smoker
Personal:
Living: Alone
Employment: Retired
Family History
Family History: CAD
Allergies / Home Medications
Allergy/AdvReac Type Severity Reaction Status Date / Time
codeine Allergy stomach Verified 07/27/24 12:43
pains
NSAIDS (Non-Steroidal Allergy GI BLEED Verified 07/27/24 12:43
Anti-Inflamma
peach Allergy FACIAL Verified 07/27/24 12:43
SWELLING
WITH ANY
PITTED
FRUIT
Sulfa (Sulfonamide Allergy Itching Verified 07/27/24 12:43
Antibiotics)
sulfite Allergy Itching Verified 07/27/24 12:43
�Medication �Instructions �Recorded �Confirmed �Type
esomeprazole magnesium 40 mg 40 mg PO DAILY Gastrointestinal 03/29/14 02/24/25 History
capsule,delayed release (Nexium) issue
bupropion HCl 150 mg 24 hr tablet, 150 mg PO DAILY Depression 10/31/19 02/24/25 History
extended release
fluticasone propionate 50 1 spray intranasal DAILY Congestion 03/02/20 02/24/25 History
mcg/actuation nasal
spray,suspension
diphenhydramine HCl 50 mg/30 mL 50 mg PO HS Sleep 01/22/24 02/24/25 History
oral liquid (ZzzQuil)
chlorthalidone 25 mg tablet 25 mg PO QPM Blood Pressure 08/29/24 02/24/25 History
gabapentin 600 mg tablet 600 mg PO BID 08/29/24 02/24/25 History
(Neurontin)
ondansetron 4 mg disintegrating 4 mg PO Q6HPRN PRN nausea 08/29/24 02/24/25 History
tablet
doxycycline hyclate 100 mg capsule 100 mg PO BID BUYER ASSISTANT 02/24/25 02/24/25 History
escitalopram oxalate 20 mg tablet 20 mg PO DAILY 02/24/25 02/24/25 History
(Lexapro)
furosemide 20 mg tablet (Lasix) 20 mg PO DAILY 02/24/25 02/24/25 History
gabapentin 100 mg capsule 200 mg PO HS 02/24/25 02/24/25 History
ibuprofen 125 mg-acetaminophen 250 1 tab PO HS 02/24/25 02/24/25 History
mg tablet (Advil Dual Action)
losartan 50 mg tablet 50 mg PO DAILY 02/24/25 02/24/25 History
vitamins A,C,F-irhw-ngrmbt 2,148 1 tab PO BID 02/24/25 02/24/25 History
mcg-113 mg-45 mg-17.4 mg tablet
(PreserVision AREDS)
Review of Systems
-
History Source: Patient
All other systems: Negative unless noted
Physical Exam
Vital Signs
Temp Pulse Resp BP Pulse Ox
98.8 F 87 20 81/54 94
02/25/25 06:42 02/25/25 03:35 02/25/25 06:42 02/25/25 06:01 02/25/25 06:42
Lab Results
02/25/25 05:28
02/25/25 05:28
Troponin I 0.054 ng/ml H* D 02/25/25 05:28
Upg-X-Cakqeyhmbch Pept 3100 pg/ml 02/24/25 16:34
Physical Exam
General: No Apparent Distress and Other (fatigued. on supp O2)
HEENT: Normocephalic, Anicteric and Moist Mucous Membranes
Respiratory: Crackles (few) and Non Labored Respirations
Cardiac: S1/S2 and Irregular Rhythm
GI: Soft, Non Tender, Non Distended and Normal Bowel Sounds
Musculoskeletal: No Clubbing, No Cyanosis and Edema (trace of B/L LE)
Skin: Warm and Dry
Neuro: AO x 3
Impression / Plan
-
Primary Beverage Server: Dr. Gill
Assessment:
Presentation with CP, SOB
Acute on chronic HFpEF
CP
Elevated troponin
Paroxysmal atrial fibrillation with RVR, new diagnosis
Hypotension
paraesophageal hernia repair 10/30/24
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
History of GIB 2012
COPD
History of ITP
hypertension
hyperlipidemia
obstructive sleep apnea
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
Anemia
Prolonged QTc
Mild LFT elevation
DNR code status
ECHO 10/29/24: EF 62%, stage I diastolic dysfunction, aortic sclerosis, mild AR, mild to moderate TR, PAP 43 mmHg
Lexiscan nuclear stress test 12/24/2024: Normal myocardial perfusion, EF 54%
Plan:
- Patient presents with chest discomfort and shortness of breath which started last evening
- Appears to be in degree of acute heart failure by my review of chest x-ray and proBNP of 3100
- The chest discomfort she describes as severe central pain with radiation down her left arm and across her shoulders bilaterally. This description is concerning for ACS, however her most recent troponin is minimally elevated at 0.059 and EKG is
without acute ischemic change, even when in rapid A-fib
- She does not note significant improvement in pain per se with morphine or sublingual nitro, however did become hypotensive on combination of these meds with IV Cardizem at 5 for treatment of A-fib
- IV Cardizem stopped. Ordered IV Amio 150 mg bolus followed by Amio gtt.
- Follow QTc by EKG
- Stat echo ordered. last echo and stress from earlier this year reviewed, as above
- D-dimer ordered. Will order chest CT to evaluate for PE as etiology of severe chest pain unclear
- Continue IV heparin. She was not on a blood thinner prior to admission, eventual transition to DOAC given [id number] score of 5 for age, female, HTN, CHF. of note she also has history of GI bleeding in past.
- Holding IV Lasix for now due to hypotension. IV fluid had been ordered, however would also hold off at this time given concerns for acute heart failure
- May require eventual cardiac catheterization pending results of above
- ? curious if her dizzy spells as OP correlate to paroxysms of afib
- CCT 34 minutes
- d/w nursing. d/w hospitalist
Data Reviewed
-
EKG: Tracing Personally Visualized and interpreted
Radiology: Image Personally Visualized and interpreted
Medical Tests (Nuc Med, Echo etc): Report Reviewed by me
Labs: Labs Reviewed by me
Old Records: Reviewed
[2025-02-25] MEDS: COZAAR PO (08:06)
[2025-02-25] MEDS: CORDARONE 103 MG IV (08:34)
[2025-02-25] MEDS: CORDARONE 518 MG IV (08:52)
--- NOTE | 2025-02-25 09:14 | W.PN.HOSP.TC ---
Today's Communication/Plan
-
Will give a dose of Toradol for pain as blood pressure is low for morphine medication
Obtain a CT chest once the pain is better
Echo pending
Continue with amiodarone and IV heparin
Assessment / Plan
Assessment / Plan
Acute Hypoxic Respiratory Insufficiency secondary to Acute on Chronic HFpEF
-Consult Cardiology
-Continue supplemental oxygen
-Continue Lasix 40mg IV Daily as blood pressure permits
- Check an echocardiogram
Chest pain-anterior with radiation to the back and the arm. Is also pleuritic in nature.
Rule out thoracic pathology including PE.
Troponins does not rule in for CT at this point.
If echo and chest CT is negative consider upper GI series to evaluate any complication of post paraesophageal hernia.
Continue symptomatic treatments.
New onset of atrial fibrillation with RVR
IV amiodarone loading started by cardiology.
Also on IV heparin.
Echo pending.
Hypotension-suspect medication related-patient currently off of IV Cardizem and IV nitro drip. Continue to follow.
Elevated LFTs unclear etiology patient has clinical concern for heart failure. Another consideration is congestion. Continue to trend with treatments of heart failure. CT chest also showed show if any right upper quadrant pathology.
-Continue to trend
Essential Hypertension
-Continue losartan as blood pressure permits
-Hold chlorthalidone
Anxiety / Depression
-Continue bupropion, escitalopram
Spinal Stenosis
-Continue gabapentin
Right Hip Prosthetic Joint Infection
-Continue doxycycline
Chronic Anemia
-Hgb at baseline
GERD / Hx GI Bleed secondary to angioectasia
-Continue Protonix
Obstructive Sleep Apnea
-Patient reports unable to use home CPAP machine due to malfunction (Patient reports company sent incorrect parts).
Hx Breast Cancer s/p Lumpectomy, Chemo/XRT
Hx Oral Cancer s/p Graft
DVT proph: Lovenox
Code Status: DNR
Discussed with cardiology
Discussed with RN
Total time spent on today's encounter was 52 minutes which included time spent in counseling the patient/family regarding diagnosis and treatment plan as listed above, goals of care, and symptom management. Case was discussed with nursing staff,
specialists, and care coordinators/case management. All labs and imaging personally reviewed by me. Remainder the time spent in detailed review of previous records, lab data, imaging, and other medical provider documentation.
Portions of this chart may have been created with voice recognition software. Occasional wrong word or 'sound alike' substitutions may have occurred due to the inherent limitations of voice recognition software.
Anticipated Discharge: > 48 hours
Subjective/Interval History
-
Date of Service: February 25, 2025
Patient still with anterior chest pain which radiates to the back and the left arm. It is pleuritic in nature. Better with the pain medication.
Breathing little bit labored. No palpitations. Feels dizzy when she is out of the bed but not at rest.
No fever or chills.
Since her paraesophageal surgery this summer she has been having nausea with a meal needing Zofran. She was also having abdominal pains. Her primary surgeon requested a small bowel follow-through which is pending at this time.
Denies any neck pain
Objective Data
-
Labs:
Laboratory Results
02/25/25 02/25/25 02/25/25
05:28 05:28 05:28
WBC 10.8 Cancelled
Hgb 10.4 L Cancelled
Hct 31.0 L
Plt Count
APTT
Sodium
Potassium
Chloride
Carbon Dioxide
BUN
Creatinine
Glucose
Calcium
Total Bilirubin
AST
ALT
Alkaline Phosphatase
02/25/25 02/25/25 02/25/25
05:28 05:28 12:00
WBC
Hgb
Hct Cancelled
Plt Count 171 Cancelled
APTT 33.5 Pending
Sodium 137
Potassium 3.7
Chloride 98
Carbon Dioxide 31 H
BUN 18 H
Creatinine 0.9
Glucose 114 H
Calcium 8.4
Total Bilirubin 0.9
AST 82 H
ALT 42 H
Alkaline Phosphatase 106
Vital Signs:
Vital Signs
Temp Pulse Resp BP Pulse Ox
98.8 F 118 20 73/59 94
02/25/25 06:42 02/25/25 08:00 02/25/25 06:42 02/25/25 08:06 02/25/25 06:42
I&O
02/24/25 02/25/25 02/26/25
06:59 06:59 06:59
Intake Total 460 / 460
Output Total 1750 / 1750
Balance -1290 / -1290
Physical Exam
-
General: Negative Comfortable
Respiratory: Crackles (Bilateral lower zone) and Non Labored Respirations; Negative Wheezes or Accessory Resp Muscle Use (Tachypneic)
Cardiac: S1/S2, Irregular Rhythm and Tachycardic
GI: Soft and Nontender
Neuro: AO x 3
Psych: Calm; Negative Confused
Data Reviewed
-
Diagnostic Radiology: Image personally visualized and interpreted (Chest x-ray-shows mild increased interstitial markings bilaterally in the left costophrenic angle not clear-fluid versus atelectasis versus pneumonia)
Labs: Labs Reviewed by me
[2025-02-25] MEDS: TORADOL 30 MG IV (09:46)
--- NOTE | 2025-02-25 10:04 | PTCARENOTE ---
BP remains low. Dr Aldana and SARAH Alvarez aware, no new orders for pressors at this time. CT ordered to r/o PE. ECHO done at bedside, results pending. Pt dozing intermittently when undisturbed. Awaiting VAT to place 20g for CT. Pt continues w/
intermittent 7/10 CP w/ SOB. 94-98% on 4L NC. 30mg IV Toradol given at this time. Will continue to monitor closely.
[2025-02-25 10:37] LABS: D-Dimer 1.74 ug/mlFEU (0.00-0.50)
--- NOTE | 2025-02-25 11:07 | W.PN.UPDATE ---
Addendum entered and electronically signed by Marry Alvarez PA-C 02/25/25 17:09:
called and updated patient's daughter Leora via telephone for 6:52. she is requesting daily updates.
Original Note:
Update Note
Progress Note Update
Back into check on patient as most recent blood pressure was 68/58. Patient without dizziness or lightheadedness and mentating appropriately. Repeat blood pressure was 81/51. Will plan to start levo and will transfer to IMU. Placed order for
PICC line given also on IV heparin and IV Amio. Overall heart rates are improving, however remains in atrial fibrillation. d/w nursing
[2025-02-25] MEDS: LEVOPHED 250 IV (11:34)
[2025-02-25] MEDS: NEURONTIN 600 MG PO ×2 (11:57→19:41)
[2025-02-25] MEDS: VIBRAMYCIN 100 MG PO (11:57)
[2025-02-25] MEDS: PROTONIX 40 MG PO (11:57)
[2025-02-25] MEDS: LEXAPRO 20 MG PO (11:58)
[2025-02-25] MEDS: LASIX 40 MG IV ×2 (11:58→20:12)
[2025-02-25] MEDS: WELLBUTRIN XL (24 hour extended release) 150 MG PO (11:58)
--- NOTE | 2025-02-25 12:35 | PTCARENOTE ---
Pt's BP remains low. Back from CT scan, no PE shown. Levophed ordered and started @ 1mcg/min, BP now 95/72 (81). Plans for transfer to IMU. Patient updated. Marry SMITH to update pt's daughter. A fib continues, HR 90-110's. Pt resting
comfortably at this time, thought still reports intermittent CP and SOB. EKG obtained as ordered. Will continue to monitor.
[2025-02-25 12:42] LABS: APTT 87.6 Sec (23.4-35.0)
--- NOTE | 2025-02-25 12:51 | CM ---
Chart reviewed. Patient is independent of ADLS, lives alone in a [address] [facility], [facility], ambulates with a RW and SPC has a hospital bed on 1st floor but full bathroom on 2nd floor, also has a commode in the house. Patient is not current with [facility]N but has
used [facility] in the past. Patient is interested in [facility]. Referral sent to [facility]. Plan is for the patient to return home with [facility].
--- NOTE | 2025-02-25 12:54 | CM ---
Pricing on [employer] through the patient's [employer], ID# [id number], is $117 for a 30 day supply retail and $15 for a 90 day supply. Patient is agreeable to cost. Free 30 day coupon placed in the patient's red discharge folder.
--- NOTE | 2025-02-25 14:25 | PTCARENOTE ---
Pt w/ no void. Pt bladder scanned for 427ml. Assisted to [facility] for 400ml fred urine. Plan to move to IMU. Report called.
[2025-02-25 18:43] LABS: Troponin I 0.180 ng/ml
[2025-02-25] MEDS: VIBRAMYCIN PO (19:43)
--- NOTE | 2025-02-25 20:05 | PTCARENOTE ---
Addendum entered by Johnie Mora RN 02/25/25 20:26:
order received for IV tylenol and duoned. Pt states slight relief of chest pain post admin of morphine. RR 20, HR 115, BP 123/72(82). sat 97%.
Original Note:
report received from dayshift RN. this RN assumed care of pt after change of shift report. Pt rining call light. pt c/o chest pain rating 7-8/10, with dyspnea and arm pain. Pt satting 98% on 4L. HR 110-120 bpm. BP 86/62. RR 30. pt on 2mg/min of levo
per orders in jul. amio running at 0.5mg/min per order in jul. heparin at 800 u/hr per order in jul. levo increased to 3mcg/min per order to keep sbp >90. ekg done, sent to [facility]. order for morphine in jul, medication administered. assessment
findings communicated to Carl White to bedside to assess.
[2025-02-25] MEDS: NEURONTIN 200 MG PO (22:26)
[2025-02-26] VITALS (32 sets, daily range): BP systolic 93–224; BP diastolic 46–187; BMI 25.0
[2025-02-26 00:24] LABS: Troponin I 0.181 ng/ml
[2025-02-26 01:52] LABS: APTT 40.0 Sec (23.4-35.0)
[2025-02-26 05:17] LABS: Hematocrit 29.5 % (37.0-47.0); Hemoglobin 9.4 g/dL (12.0-16.0); Mean Corp Hgb Conc. 31.9 g/dL (33.0-37.0); Mean Corpuscular Volume 94.9 fL (81.0-99.0); Platelet Count 166 10^3/uL (130-400); Red Cell Dist. Width 13.6 % (11.5-14.5)
[2025-02-26 05:47] LABS: Troponin I 0.157 ng/ml
[2025-02-26 06:11] LABS: Ferritin 66.7 ng/ml (11.1-264.0)
[2025-02-26 07:26] LABS: ALT (SGPT) 34 U/L (0-35); AST (SGOT) 68 U/L (14-36); Albumin 3.4 g/dl (3.5-5.0); Alkaline Phosphatase 91 U/L (38-126); Blood Urea Nitrogen 28 mg/dl (7-17); Calcium 8.3 mg/dl (8.4-10.2); Carbon Dioxide 31 mmol/L (22-30); Chloride 96 mmol/L (98-107); Estimated Creatinine Clearance 32 ml/min; Glucose 114 mg/dl (70-99); Iron 51 ug/dl (37-170); Potassium 3.9 mmol/L (3.5-5.1); Sodium 131 mmol/L (135-145); Total Protein 8.1 g/dl (6.3-8.2); eGFR 45.48
[2025-02-26 07:35] LABS: Total Iron Binding Capacity 328 ug/dl (265-497)
--- NOTE | 2025-02-26 08:39 | W.PN.HOSP.TC ---
Today's Communication/Plan
-
Continue with IV Lasix as blood pressure permits. Follow creatinine closely. Hold losartan to facilitate diuresis.
Amiodarone per cardiology
Check UA.
Assessment / Plan
Assessment / Plan
Acute Hypoxic Respiratory Insufficiency secondary to Acute on Chronic HFpEF
- Improved shortness of breath but still requiring oxygen. Continued crackles heard. Chest CT shows bilateral pleural effusion and evidence of pulmonary edema.
-Continue supplemental oxygen
-Continue Lasix 40mg IV twice daily as blood pressure permits
-Echocardiogram shows new depression of LV function currently 40 to 45% and severe TR
- On losartan which will be resumed once blood pressure is up. Will consider Coreg as well once hemodynamically stable.
Chest pain-anterior with radiation to the back and the arm. Is also pleuritic in nature.
CT shows no evidence of mediastinal pathology, aortic dissection, or PE
Troponin elevation noted-suspect nonischemic myocardial injury
Resolved chest pain with control of heart rate making it over worrisome for angina equivalent.
Continue IV heparin. With plans for OAC i would hold on aspirin for now
New onset of atrial fibrillation with RVR
Initiated on IV amiodarone-today in sinus rhythm
Also on IV heparin.
Echo as above
Hypotension-suspect medication related-patient currently off of IV Cardizem and IV nitro drip. Continue to follow. Needed brief Levophed. Currently hemodynamically stable off of pressors.
Acute kidney injury-elevation of creatinine from 0.8-1.2 noted since admission
Suspect probably multifactorial-hemodynamics, diuretics, heart failure
Continue to follow
Check UA
Elevated LFTs unclear etiology patient has clinical concern for heart failure and suspicion is hepatic congestion. Improving LFTs. CT of the chest shows lobular contour of liver raising concern for cirrhosis but no prior history of it. Continue
to treat heart failure and follow LFTs for now and if remains abnormal GI evaluation as outpatient.
Essential Hypertension
-Continue losartan as blood pressure permits
-Hold chlorthalidone
Anxiety / Depression
-Continue bupropion, escitalopram
Spinal Stenosis
-Continue gabapentin
Right Hip Prosthetic Joint Infection
-Continue doxycycline
Chronic Anemia
-Hgb at baseline
- Continue to follow H&H. Heme test pending. Iron studies does not suggest iron deficiency anemia
GERD / Hx GI Bleed secondary to angioectasia
-Continue Protonix
Obstructive Sleep Apnea
-Patient reports unable to use home CPAP machine due to malfunction (Patient reports company sent incorrect parts).
Hx Breast Cancer s/p Lumpectomy, Chemo/XRT
Hx Oral Cancer s/p Graft
DVT proph: Lovenox
Code Status: DNR
Discussed with cardiology
Discussed with RN
Discussed with daughter
Total time spent on today's encounter was 52 minutes which included time spent in counseling the patient/family regarding diagnosis and treatment plan as listed above, goals of care, and symptom management. Case was discussed with nursing staff,
specialists, and care coordinators/case management. All labs and imaging personally reviewed by me. Remainder the time spent in detailed review of previous records, lab data, imaging, and other medical provider documentation.
Portions of this chart may have been created with voice recognition software. Occasional wrong word or 'sound alike' substitutions may have occurred due to the inherent limitations of voice recognition software.
Anticipated Discharge: > 48 hours
Subjective/Interval History
-
Date of Service: February 26, 2025
Patient feeling better-she does not have the chest pain she came in with and the breathing is better.
No nausea vomiting.
Denies any dizziness at rest.
No fever or chills.
Objective Data
-
Labs:
Laboratory Results
02/25/25 02/26/25 02/26/25
23:44 01:30 04:41
WBC 8.0
Hgb 9.4 L
Hct 29.5 L
Plt Count 166
APTT Cancelled 40.0 H
Sodium Cancelled
Potassium Cancelled
Chloride Cancelled
Carbon Dioxide Cancelled
BUN Cancelled
Creatinine Cancelled
Glucose Cancelled
Calcium Cancelled
Total Bilirubin Cancelled
AST Cancelled
ALT Cancelled
Alkaline Phosphatase Cancelled
02/26/25 02/26/25
06:38 08:10
WBC
Hgb
Hct
Plt Count
APTT Pending
Sodium 131 L
Potassium 3.9
Chloride 96 L
Carbon Dioxide 31 H
BUN 28 H
Creatinine 1.2 H
Glucose 114 H
Calcium 8.3 L
Total Bilirubin 0.7
AST 68 H
ALT 34
Alkaline Phosphatase 91
Vital Signs:
Vital Signs
Temp Pulse Resp BP Pulse Ox
97.9 F 69 18 150/54 97
02/26/25 07:42 02/26/25 03:00 02/26/25 03:00 02/26/25 03:00 02/26/25 03:00
I&O
02/25/25 02/26/25 02/27/25
06:59 06:59 06:59
Intake Total 460 / 460 564.4 / 564.4
Output Total 1750 / 1750 600 / 600
Balance -1290 / -1290 -35.6 / -35.6
Physical Exam
-
General: No Apparent Distress
Respiratory: Crackles (Bilateral lower zones) and Non Labored Respirations; Negative Wheezes or Accessory Resp Muscle Use
Cardiac: Regular Rhythm and S1/S2; Negative Tachycardic
GI: Soft
Musculoskeletal: No Edema
Neuro: AO x 3
Psych: Calm
Data Reviewed
-
CT Scan: Report Reviewed by me (CT chest)
Medical Tests (Nuc Med, Echo etc): Report Reviewed by me (Echocardiogram)
Labs: Labs Reviewed by me
[2025-02-26] MEDS: COZAAR 50 MG PO (08:40)
[2025-02-26] MEDS: LEXAPRO 20 MG PO (08:42)
[2025-02-26] MEDS: NEURONTIN 600 MG PO ×2 (08:42→21:21)
[2025-02-26] MEDS: WELLBUTRIN XL (24 hour extended release) 150 MG PO (08:42)
[2025-02-26] MEDS: PROTONIX 40 MG PO (08:42)
[2025-02-26] MEDS: LASIX 40 MG IV ×2 (08:43→19:27)
[2025-02-26] MEDS: VIBRAMYCIN PO (08:43)
[2025-02-26 09:18] LABS: APTT 91.3 Sec (23.4-35.0)
[2025-02-26] MEDS: NITROSTAT (SUBLINGUAL) 0.4 MG SL (10:06)
[2025-02-26] MEDS: MORPHINE SULFATE 2 MG IV ×2 (10:57→23:37)
[2025-02-26 11:18] LABS: Troponin I 0.102 ng/ml
[2025-02-26] MEDS: HEPARIN 25000 UNITS/250 ML IV (12:08)
[2025-02-26] MEDS: CORDARONE 518 MG IV (12:33)
--- NOTE | 2025-02-26 13:39 | CM ---
Addendum entered by Rajesh Saldana 02/26/25 13:44:
Addition: Patient cannot recall where she received the respiratory equipment and said that all her DME is from her neighbors (?).
Original Note:
Initial Assessment Completed By THELMA Mena.
Patient lives alone in a 2 Story House with 2 steps to enter and a full flight inside. Patient uses a rolling walker, cane, has grab bars in the brathroom, and a hospital bed. Patient has [facility] in the past. Patient stated she has a CPAP
(got this ins May 2024) that she will see fi she can get another, but does not use it currently.
Patient is on O2 now, but said she does not have this at home so would need to watch if she needs this.
PCP: [facility] Faust
Pharmacy: [facility] in [place]
Patient will have a neighbor pick her up.
--- NOTE | 2025-02-26 13:48 | CM ---
Following up on Patient. Patient is on O2 now, but said she does not have this at home so would need to watch if she needs this.
Referral has already been made to [facility] and [facility] was priced.
PLAN: Home w/ VN
--- NOTE | 2025-02-26 13:58 | W.PN.CARDCBS ---
Today's Communication / Plan
-
Continue IV Lasix
Back in sinus rhythm would continue IV amiodarone and heparin drip
Eventual ischemic evaluation
Impression / Plan
-
Primary Physiologist: Dr. Gill
Assessment:
Presentation with CP, SOB
Acute on chronic HFpEF
CP
Elevated troponin
Paroxysmal atrial fibrillation with RVR, new diagnosis
Hypotension
paraesophageal hernia repair 10/30/24
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
History of GIB 2012
COPD
History of ITP
hypertension
hyperlipidemia
obstructive sleep apnea
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
Anemia
Prolonged QTc
Mild LFT elevation
DNR code status
ECHO 10/29/24: EF 62%, stage I diastolic dysfunction, aortic sclerosis, mild AR, mild to moderate TR, PAP 43 mmHg
Lexiscan nuclear stress test 12/24/2024: Normal myocardial perfusion, EF 54%
Plan:
- Patient presents with chest discomfort and shortness of breath found to be in acute heart failure and rapid atrial fibrillation
- Blood pressure is marginal and patient has been started on norepinephrine for pressor support
- Echo here with newly reduced left ventricular systolic function with EF 40-45%
-Converted to sinus rhythm. Would continue IV amiodarone for now to maintain sinus.
-Heparin drip for anticoagulation with eventual transition to Eliquis
-Remains volume overloaded
-Would continue IV diuresis
-Blood pressure will not tolerate GDMT at this time. Can add stepwise once pressors are weaned.
- Continues to report left shoulder and arm pain however I am not sure that this is cardiac in nature based on the description
- Low-level troponin elevation noted which continues to downtrend but no acute ischemic changes on ECG
- Continue aspirin and heparin drip
- Eventual ischemic evaluation. Cardiac catheterization prior to discharge would be reasonable pending clinical course.
- CCT 32 minutes
- d/w nursing
Progress Note - Physiologist
Subjective
Date of Service: February 26, 2025
Remains in IMU on IV heparin, amiodarone and norepinephrine. Still reporting left shoulder discomfort which seems positional and reproduced by direct palpation. Patient tells me this has been intermittent over the last month.
Objective
Labs:
02/26/25 04:41
02/26/25 06:38
Labs
Hgb 9.4 g/dL (12.0-16.0) L 02/26/25 04:41
Hct 29.5 % (37.0-47.0) L 02/26/25 04:41
Plt Count 166 10^3/uL (130-400) 02/26/25 04:41
APTT 91.3 Sec (23.4-35.0) H 02/26/25 08:56
Sodium 131 mmol/L (135-145) L 02/26/25 06:38
Potassium 3.9 mmol/L (3.5-5.1) 02/26/25 06:38
BUN 28 mg/dl (7-17) H 02/26/25 06:38
Creatinine 1.2 mg/dL (0.6-1.0) H 02/26/25 06:38
Glucose 114 mg/dl (70-99) H 02/26/25 06:38
Troponins
02/24/25 02/24/25 02/25/25
16:34 19:30 01:08
Troponin I < 0.012 0.020 D 0.024
02/25/25 02/25/25 02/25/25
05:28 18:07 23:44
Troponin I 0.054 H* D 0.180 H* 0.181 H*
02/26/25 02/26/25
04:41 10:17
Troponin I 0.157 H* 0.102 H* D
Vital Signs and I&O:
Vital Signs
Temp Pulse Resp BP Pulse Ox
97.6 F 71 16 129/77 97
02/26/25 11:28 02/26/25 11:00 02/26/25 11:00 02/26/25 11:00 02/26/25 11:00
Vital Signs
Temp Pulse Resp BP Pulse Ox
97.6 F 71 16 129/77 97
02/26/25 11:28 02/26/25 11:00 02/26/25 11:00 02/26/25 11:00 02/26/25 11:00
Intake & Output
02/24/25 02/25/25 02/26/25 02/27/25
06:59 06:59 06:59 06:59
Intake Total 460 / 460 564.4 / 564.4
Output Total 1750 / 1750 600 / 600
Balance -1290 / -1290 -35.6 / -35.6
Physical Exam
Physical Exam
Gen: NAD, AAOx3
HEENT: NC/AT, sclera anicteric
CV: RRR, NL s1/s2
Lungs: Scattered rhonchi, on 4 L O2 via nasal cannula
Abd: S/ND
Ext: Trace LE edema
Skin: Warm, dry
Neuro: Non-focal
--- NOTE | 2025-02-26 15:28 | PN.CDI ---
CDI
- -
CDI:
Physician Documentation Request
Admit Date: 02/24/25 20:09
Dear Doctor Jovan,
Patient admitted for heart failure and atrial fibrillation.
Current documentation includes a diagnosis of hypotension.
02/25 Update Note: 'Back into check on patient as most recent blood pressure was 68/58...Repeat blood pressure was 81/51. Will plan to start levo and will transfer to IMU.'
02/26 Hospitalist PN: 'Hypotension-suspect medication related-patient currently off of IV Cardizem and IV nitro drip. Continue to follow. Needed brief Levophed.'
02/26 Cardiology PN: 'Blood pressure is marginal and patient has been started on norepinephrine for pressor support'
Please clarify which of the following is the most likely etiology of the above symptoms and treatment rendered:
Medication induced shock
Cardiogenic shock
Shock, unknown type
Hypotension - indicate type/etiology, such as idiopathic, neurogenic or orthostatic, post-procedural, postoperative, due to hemodialysis, chronic, drug induced (indicate drug), etc.
Hypotension - unknown type/etiology
Other
Use of terms such as suspected, likely, concern for, or probable (associated with a specific diagnosis that is being evaluated, monitored, or treated as if it exists) are acceptable and can be coded in the inpatient setting, when documented at the
time of discharge.
Thank you,
Cheyenne Gabriel RN, BSN
CDI Specialist
Available via [place] text
Please use your independent medical judgment in providing your response.
--- NOTE | 2025-02-26 15:39 | PN.CDI ---
CDI
- -
CDI:
Physician Documentation Request
Admit Date: 02/24/25 20:09
Dear Doctor Jovan,
Patient admitted for heart failure.
02/25 PCN: 'Pt continues w/ intermittent 12/03 CP w/ SOB. 94-98% on 4L NC.'
02/25 PCN: 'Pt satting 98% on 4L. HR 110-120 bpm...RR 30.'
02/26 Hospitalist PN: 'Acute Hypoxic Respiratory Insufficiency secondary to Acute on Chronic HFpEF - Improved shortness of breath but still requiring oxygen.'
Clarify which of the following accurately represents the patient's respiratory status:
Acute hypoxic respiratory failure
Acute hypoxic respiratory insufficiency
Hypoxia
Other
Additional information for Respiratory Failure:
Recognized criteria for Respiratory Failure (Source: Lavelle Rios 2018April 15.
Documentation tips: Acute Respiratory Failure, The Hospitalist.)
ABGs: (1 or more) Symptoms Please indicate type if known
1. p)2 <60 or RA SPO2 <91% on RA 1. Tachypnea, SOB, dyspnea Hypoxic
2. pCO2 >45 and pH <7.35 2. Use of accessory muscles Hypercapnic
3. pO2 decrease of pCO2 increase by 3. Pallor or cyanosis Hypoxic and Hypercapnic
10 mmHg from baseline if known 4. Anxiety or restlessness Unable to determine
4. P/F Ratio (pO2/FiO2)nless than 300 5. Unable to speak in full sentences
Use of terms such as suspected, likely, concern for, or probable (associated with a specific diagnosis that is being evaluated, monitored, or treated as if it exists) are acceptable and can be coded in the inpatient setting, when documented at the
time of discharge.
Thank you,
Cheyenne Gabriel
CDI Specialist
Please use your independent medical judgment in providing your response.
--- NOTE | 2025-02-26 16:14 | PTCARENOTE ---
Patient AAOx3. C/o left chest/shoulder pain that radiates to back, EKG/trops done, nitroglycerin pill given with no relief and morphine given with minimal relief (see mar), Refrigeration Person at bedside. Amio gtt and heparin gtt infusing per protocol.
NSR, VSS. 95% on 4L NC, GREGORY. Bed alarm on for safety and history of recent falls. Will continue to closely monitor.
[2025-02-26 17:58] LABS: APTT 67.8 Sec (23.4-35.0)
[2025-02-26 18:12] LABS: Troponin I 0.084 ng/ml
[2025-02-26 19:26] LABS: Urine Character Clear (Clear)
[2025-02-26 19:46] LABS: Urine Red Blood Cell 0-2 /HPF (0-2)
[2025-02-26] MEDS: NEURONTIN 200 MG PO (21:21)
[2025-02-26] MEDS: ROBITUSSIN 200 MG PO (23:33)
[2025-02-26] MEDS: FLUSH (NSS) 2 FLUSH IV (23:38)
[2025-02-27] VITALS (20 sets, daily range): BP systolic 97–183; BP diastolic 55–132; BMI 25.4
[2025-02-27 01:11] LABS: APTT 53.5 Sec (23.4-35.0)
[2025-02-27 03:53] LABS: Hematocrit 25.3 % (37.0-47.0); Hemoglobin 8.6 g/dL (12.0-16.0); Mean Corp Hgb Conc. 34.0 g/dL (33.0-37.0); Mean Corpuscular Volume 94.4 fL (81.0-99.0); Platelet Count 113 10^3/uL (130-400); Red Cell Dist. Width 13.4 % (11.5-14.5)
[2025-02-27 04:12] LABS: ALT (SGPT) 31 U/L (0-35); AST (SGOT) 64 U/L (14-36); Albumin 3.3 g/dl (3.5-5.0); Alkaline Phosphatase 76 U/L (38-126); Blood Urea Nitrogen 29 mg/dl (7-17); Calcium 7.9 mg/dl (8.4-10.2); Carbon Dioxide 26 mmol/L (22-30); Chloride 93 mmol/L (98-107); Estimated Creatinine Clearance 35 ml/min; Glucose 264 mg/dl (70-99); Potassium 4.3 mmol/L (3.5-5.1); Sodium 124 mmol/L (135-145); Total Protein 8.1 g/dl (6.3-8.2); eGFR 50.48
--- NOTE | 2025-02-27 05:39 | W.PN.UPDATE ---
Update Note
Progress Note Update
NA this am down to 124
check serum and urine osmolarity
Add fluid restriction
--- NOTE | 2025-02-27 06:06 | PTCARENOTE ---
Pt back in Afib this am. Rate 80's-100's. Without complaint. Continues on Amiodarone gtt at 0.5mg/hr and Heparin gtt at 13mls/hr. Will continue to monitor.
[2025-02-27] MEDS: WELLBUTRIN XL (24 hour extended release) 150 MG PO (08:12)
[2025-02-27] MEDS: LEXAPRO 20 MG PO (08:12)
[2025-02-27] MEDS: NEURONTIN 600 MG PO ×2 (08:12→20:15)
[2025-02-27] MEDS: PROTONIX 40 MG PO (08:12)
[2025-02-27] MEDS: LASIX 40 MG IV ×2 (08:13→20:14)
--- NOTE | 2025-02-27 08:38 | W.PN.HOSP.TC ---
Today's Communication/Plan
-
Consult nephrology
Fluid restriction. Follow sodium.
Continue with IV diuresis.
Check left shoulder x-ray
Check H&H this evening. Continue with IV heparin for now.
Assessment / Plan
Assessment / Plan
Acute Hypoxic Respiratory Insufficiency secondary to Acute on Chronic HFpEF
- Improved shortness of breath but stable oxygenation on nasal cannula. Continued crackles. Weight has not changed much. Chest CT shows bilateral pleural effusion and evidence of pulmonary edema.
-Continue supplemental oxygen
-Continue Lasix 40mg IV twice daily as blood pressure permits
-Echocardiogram shows new depression of LV function currently 40 to 45% and severe TR
- On losartan which will be resumed once blood pressure is up/creatinine improves. Will consider Coreg as well once hemodynamically stable.
Chest pain-anterior with radiation to the back and the arm. Is also pleuritic in nature.
CT shows no evidence of mediastinal pathology, aortic dissection, or PE
Troponin elevation noted-suspect nonischemic myocardial injury
Resolved chest pain with control of heart rate making it over worrisome for angina equivalent.
Continue IV heparin. With plans for OAC.
New onset of atrial fibrillation with RVR
Initiated on IV amiodarone-unfortunately back in A-fib since last night.
Also on IV heparin.
Echo as above
Hypotension-suspect medication related-patient currently off of IV Cardizem and IV nitro drip. Continue to follow. Needed brief Levophed. Currently hemodynamically stable off of pressors.
Acute kidney injury-elevation of creatinine from 0.8-1.2 noted since admission. Creatinine today 1.1
Suspect probably multifactorial-hemodynamics, diuretics, heart failure, IV contrast for PE study
With hyponatremia and the need of cardiac catheterization but ischemia eval will consult nephrology to optimize renal function
Elevated LFTs unclear etiology patient has clinical concern for heart failure and suspicion is hepatic congestion. Improving LFTs. CT of the chest shows lobular contour of liver raising concern for cirrhosis but no prior history of it. Continue
to treat heart failure and follow LFTs for now and if remains abnormal GI evaluation as outpatient.
Essential Hypertension
- Losartan on hold due to PINO. Blood pressure mostly in the goal currently.
-Hold chlorthalidone
Left shoulder pain-clinically well raises concern for left rotator cuff pathology-obtain a plain x-ray to rule out any fracture dislocations.
Anxiety / Depression
-Continue bupropion, escitalopram
Spinal Stenosis
-Continue gabapentin
History of right Hip Prosthetic Joint Infection
- Apparently done with doxycycline
Acute on chronic Anemia
-Hgb slow drop noted. No obvious external bleeding. Had light brown bowel movement today. Await heme test stools.
- Iron studies does not suggest iron deficiency anemia
- Repeat H&H this evening. If continued drop will hold heparin and obtain CT of the abdomen pelvis without contrast for any bleeding.
GERD / Hx GI Bleed secondary to angioectasia
-Continue Protonix
Obstructive Sleep Apnea
-Patient reports unable to use home CPAP machine due to malfunction (Patient reports company sent incorrect parts).
Hx Breast Cancer s/p Lumpectomy, Chemo/XRT
Hx Oral Cancer s/p Graft
DVT proph: Lovenox
Code Status: DNR
Discussed with RN
Updated daughter
Total time spent on today's encounter was 52 minutes which included time spent in counseling the patient/family regarding diagnosis and treatment plan as listed above, goals of care, and symptom management. Case was discussed with nursing staff,
specialists, and care coordinators/case management. All labs and imaging personally reviewed by me. Remainder the time spent in detailed review of previous records, lab data, imaging, and other medical provider documentation.
Portions of this chart may have been created with voice recognition software. Occasional wrong word or 'sound alike' substitutions may have occurred due to the inherent limitations of voice recognition software.
Anticipated Discharge: > 48 hours
Subjective/Interval History
-
Date of Service: February 27, 2025
Breathing is better. Not much appetite occasional nausea. No abdominal pain. Slept okay.
Had a bowel movement today-according to TORRES wilkerson.
Complains of left shoulder and arm pain. Worse with movement. Remote history of rotator cuff pain. No falls or trauma.
Objective Data
-
Labs:
Laboratory Results
02/27/25 02/27/25 02/27/25
00:49 03:11 08:28
WBC 7.2
Hgb 8.6 L
Hct 25.3 L
Plt Count 113 L D
APTT 53.5 H Pending
Sodium 124 L
Potassium 4.3
Chloride 93 L
Carbon Dioxide 26
BUN 29 H
Creatinine 1.1 H
Glucose 264 H
Calcium 7.9 L
Total Bilirubin 0.6
AST 64 H
ALT 31
Alkaline Phosphatase 76
Vital Signs:
Vital Signs
Temp Pulse Resp BP Pulse Ox
98.1 F 106 24 146/83 96
02/27/25 07:26 02/27/25 08:13 02/27/25 08:13 02/27/25 08:13 02/27/25 07:00
I&O
02/26/25 02/27/25 02/28/25
06:59 06:59 06:59
Intake Total 564.4 / 564.4
Output Total 600 / 600 1500 / 1500
Balance -35.6 / -35.6 -1500 / -1500
Physical Exam
-
General: No Apparent Distress
HEENT: Moist Mucous Membranes
Respiratory: Crackles (Bilaterally) and Non Labored Respirations; Negative Wheezes or Accessory Resp Muscle Use
Cardiac: S1/S2, Irregular Rhythm and Tachycardic
GI: Soft
Musculoskeletal: Other (Left shoulder pain with passive and active movements. Unable to lift the left arm up on abduction more than 90 degrees.)
Neuro: AO x 3
Psych: Calm
Data Reviewed
-
Labs: Labs Reviewed by me
[2025-02-27 08:48] LABS: Reticulocyte Count 3.0 % (0.4-2.8)
[2025-02-27 08:55] LABS: APTT 96.2 Sec (23.4-35.0)
[2025-02-27 09:05] LABS: LDH 354 U/L (120-246)
--- NOTE | 2025-02-27 11:02 | W.CON.NEPH ---
Consultation
-
Date/Time Consultation Requested: 02/27/25822
Date/Time Consultation Performed: 02/27/25929
Requesting Provider: Kemar Roach
Performing Provider: Ada Ponce
Reason for Consultation: Hyponatremia
Medical History
-
Chief Complaint: SOB, CP
History of Present Illness:
79 y/o female past medical history of CHF on lasix, Valvular Heart Disease, Hypertension on Chlorthalidone, losartan, and Anxiety / Depression on Lexapro, bupropion who presents with shortness of breath and chest pain on 02/24. Patient reportedly
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 She also had new onset of Afib with RVR for which she started on Amiodarone and heparin gtt. Maintained on Lasix 40mg BID
for CHFmrEF EF 40-45%. Sodium on admit was normal however decreasing to 131 yesterday and today at 124 hence nephrology consulted. SHe reports improving sob and no cp. No dysuria. No n/v. No fever.
Past Medical History
Chronic HFpEF
Valvular Heart Disease
Essential Hypertension
Hyperlipidemia
GI Bleed
Anxiety / Depression
Spinal Stenosis
Right Hip Prosthetic Joint Infection
Obstructive Sleep Apnea
Breast Cancer s/p Lumpectomy, Chemo/XRT
Oral Cancer s/p Graft
Iron Deficiency Anemia
Idiopathic Thrombocytopenia
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
Social History
Tobacco: Former Smoker
Alcohol: Occasional
Personal:
Employment: Retired
Family History
Family History: Not Pertinent
Allergies / Home Medications
Allergy/AdvReac Type Severity Reaction Status Date / Time
codeine Allergy stomach Verified 07/27/24 12:43
pains
NSAIDS (Non-Steroidal Allergy GI BLEED Verified 07/27/24 12:43
Anti-Inflamma
peach Allergy FACIAL Verified 07/27/24 12:43
SWELLING
WITH ANY
PITTED
FRUIT
Sulfa (Sulfonamide Allergy Itching Verified 07/27/24 12:43
Antibiotics)
sulfite Allergy Itching Verified 07/27/24 12:43
�Medication �Instructions �Recorded �Confirmed �Type
esomeprazole magnesium 40 mg 40 mg PO DAILY Gastrointestinal 03/29/14 02/24/25 History
capsule,delayed release (Nexium) issue
bupropion HCl 150 mg 24 hr tablet, 150 mg PO DAILY Depression 10/31/19 02/24/25 History
extended release
fluticasone propionate 50 1 spray intranasal DAILY Congestion 03/02/20 02/24/25 History
mcg/actuation nasal
spray,suspension
diphenhydramine HCl 50 mg/30 mL 50 mg PO HS Sleep 01/22/24 02/24/25 History
oral liquid (ZzzQuil)
chlorthalidone 25 mg tablet 25 mg PO QPM Blood Pressure 08/29/24 02/24/25 History
gabapentin 600 mg tablet 600 mg PO BID 08/29/24 02/24/25 History
(Neurontin)
ondansetron 4 mg disintegrating 4 mg PO Q6HPRN PRN nausea 08/29/24 02/24/25 History
tablet
doxycycline hyclate 100 mg capsule 100 mg PO BID LOCKER ROOM ATTENDANT 02/24/25 02/24/25 History
escitalopram oxalate 20 mg tablet 20 mg PO DAILY 02/24/25 02/24/25 History
(Lexapro)
furosemide 20 mg tablet (Lasix) 20 mg PO DAILY 02/24/25 02/24/25 History
gabapentin 100 mg capsule 200 mg PO HS 02/24/25 02/24/25 History
ibuprofen 125 mg-acetaminophen 250 1 tab PO HS 02/24/25 02/24/25 History
mg tablet (Advil Dual Action)
losartan 50 mg tablet 50 mg PO DAILY 02/24/25 02/24/25 History
vitamins A,C,S-rvsg-ztsndy 2,148 1 tab PO BID 02/24/25 02/24/25 History
mcg-113 mg-45 mg-17.4 mg tablet
(PreserVision AREDS)
Physical Exam
Vital Signs
Vital Signs
Temp Pulse Resp BP Pulse Ox
98.1 F 106 24 146/83 96
02/27/25 07:26 02/27/25 08:13 02/27/25 08:13 02/27/25 08:13 02/27/25 07:00
Lab Results
WBC 7.2 10^3/uL (4.8-10.8) 02/27/25 03:11
RBC 2.68 10^6/uL (4.20-5.40) L 02/27/25 03:11
Plt Count 113 10^3/uL (130-400) L D 02/27/25 03:11
Sodium 124 mmol/L (135-145) L 02/27/25 03:11
Potassium 4.3 mmol/L (3.5-5.1) 02/27/25 03:11
Chloride 93 mmol/L (98-107) L 02/27/25 03:11
Carbon Dioxide 26 mmol/L (22-30) 02/27/25 03:11
BUN 29 mg/dl (7-17) H 02/27/25 03:11
Creatinine 1.1 mg/dL (0.6-1.0) H 02/27/25 03:11
eGFR 50.48 02/27/25 03:11
Glucose 264 mg/dl (70-99) H 02/27/25 03:11
Calcium 7.9 mg/dl (8.4-10.2) L 02/27/25 03:11
Trt-T-Zuqqetlfuoc Pept 3100 pg/ml 02/24/25 16:34
Albumin 3.3 g/dl (3.5-5.0) L 02/27/25 03:11
Assessment/Plan
-
IMP:
Acute Hypoxic Respiratory Insufficiency secondary to Acute on Chronic HFpEF
Chest pain
New onset of atrial fibrillation with RVR
Acute kidney injury
Elevated LFTs
Essential Hypertension
Left shoulder pain
Anxiety / Depression
Spinal Stenosis
History of right Hip Prosthetic Joint Infection
Acute on chronic Anemia
GERD / Hx GI Bleed secondary to angioectasia
Obstructive Sleep Apnea
Hx Breast Cancer s/p Lumpectomy, Chemo/XRT
Hx Oral Cancer s/p Graft
Plan:
A/w new Afib, CHF
hyponatremia-possible hypervolemic , U osmo 264 ADH mediated
will give dose of samsca
note she is on SSRI-unlikely is the cause
mild PINO-stable cr 1.1, bland UA , contrast exposure on 02/25
hb decreasing to 8.6 and plt wwuwhxogev-pigeflj-HXP high -mgt per primary
labs in am
[2025-02-27] MEDS: SAMSCA 7.5 MG PO (13:08)
[2025-02-27] MEDS: ROBITUSSIN 200 MG PO (13:22)
[2025-02-27] MEDS: ULTRAM 50 MG PO (13:23)
--- NOTE | 2025-02-27 13:42 | W.PN.CARDCBS ---
Today's Communication / Plan
-
QT has prolonged somewhat
Will stop amiodarone infusion and initiate initiate oral amiodarone 200 mg twice daily
K is OK today, Mg was 1.7 02/25 so will give oral Mg today and reassess in AM
ECG again in AM and daily for the next several days
Now that blood pressure is improved and off of IV pressors, will add metoprolol for additional rate control
Currently on heparin anticoagulation, will stop heparin and initiate Eliquis 5 mg twice daily
Continue IV diuresis
Impression / Plan
-
Primary Pulverizer Tender: Dr. Gill
Assessment:
Presentation with CP, SOB
Acute on chronic HFpEF
CP
Elevated troponin
Paroxysmal atrial fibrillation with RVR, new diagnosis
Hypotension
paraesophageal hernia repair 10/30/24
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
History of GIB 2012
COPD
History of ITP
hypertension
hyperlipidemia
obstructive sleep apnea
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
Anemia
Prolonged QTc
Mild LFT elevation
DNR code status
ECHO 10/29/24: EF 62%, stage I diastolic dysfunction, aortic sclerosis, mild AR, mild to moderate TR, PAP 43 mmHg
Lexiscan nuclear stress test 12/24/2024: Normal myocardial perfusion, EF 54%
Plan:
Patient presented with chest discomfort and shortness of breath and found to be in acute heart failure and atrial fibrillation with RVR
On presentation BP was marginal and patient was started on norepinephrine for pressor support
Echo here with newly reduced left ventricular systolic function with EF 40-45% (obtained while in atrial fibrillation with rapid ventricular rates)
Converted to sinus rhythm on IV amio (ECG 02/26 shows SR at 71 bpm) but then resumed with atrial fibrillation and heart rate of approximately 100 to 120 bpm
ECG 02/26/25 with prolonged QTc
Will stop amiodarone infusion
Will initiate oral amiodarone 200 mg twice daily
Now that blood pressure is improved and off of IV pressors, will add metoprolol for additional rate control
K is OK today, Mg was 1.7 02/25 so will give oral Mg today and reassess in AM
ECG again in AM and daily for the next several days
Currently on heparin anticoagulation, will stop heparin and initiate Eliquis 5 mg twice daily
Remains volume overloaded
Continue IV diuresis
Initiation and uptitration of guideline directed medical therapy for heart failure with mildly reduced ejection fraction has been difficult given hypotension recently requiring IV pressors. Blood pressure has improved. Will start by adding
Toprol-XL which will also help with her heart rate and follow blood pressures closely. Furthermore echocardiogram showing reduced LV systolic function was obtained during atrial fibrillation with rapid ventricular rates. If we can obtain and
maintain sinus rhythm we should check repeat echocardiogram.
Continues to report left shoulder and arm pain however unlikely to be cardiac in nature based on the description
On admission there was low-level troponin elevation which continues to downtrend and no acute ischemic changes on ECG. It certainly is possible she could have underlying coronary artery disease exacerbated by rapid rates.
Will continue to focus on rate control as well as rhythm control of atrial fibrillation, add beta-fernanda, continue aspirin, during the hospital stay we can make any further assessments regarding need for further ischemic evaluation, however there
is no global wall motion abnormality on ECG and Lexiscan nuclear stress test from December 24, 2024 noted normal perfusion.
Discussed with patient, all questions answered.
Discussed with nursing as well.
Total time spent today was 51 minutes in preparing to see the patient, seeing the patient and coordination of care. This included review of recent laboratory evaluations, cardiact testing, imaging studies, primary care rtecords, specialty
consultations, hospital records, as well as personally interviewing and examining the patient, which included discussion of their tests, review/ordering medications, and communicating with other healthcare professionals and also treatment planning
as well as counseling.
Total time does not include separately billed tests performed on this date of service.
Progress Note - Pulverizer Tender
Subjective
Date of Service: February 27, 2025
She tells me that she feels 'OK' today, no chest pain. No shortness of breath at rest but she does feel winded with activity. No sensation of heart racing at present.
Objective
Labs:
02/27/25 03:11
Labs
Hgb 8.6 g/dL (12.0-16.0) L 02/27/25 03:11
Hct 25.3 % (37.0-47.0) L 02/27/25 03:11
Plt Count 113 10^3/uL (130-400) L D 02/27/25 03:11
APTT 96.2 Sec (23.4-35.0) H 02/27/25 08:28
Sodium 124 mmol/L (135-145) L 02/27/25 03:11
Potassium 4.3 mmol/L (3.5-5.1) 02/27/25 03:11
BUN 29 mg/dl (7-17) H 02/27/25 03:11
Creatinine 1.1 mg/dL (0.6-1.0) H 02/27/25 03:11
Glucose 264 mg/dl (70-99) H 02/27/25 03:11
Troponins
02/24/25 02/24/25 02/25/25
16:34 19:30 01:08
Troponin I < 0.012 0.020 D 0.024
02/25/25 02/25/25 02/25/25
05:28 18:07 23:44
Troponin I 0.054 H* D 0.180 H* 0.181 H*
02/26/25 02/26/25 02/26/25
04:41 10:17 17:35
Troponin I 0.157 H* 0.102 H* D 0.084 H*
Vital Signs and I&O:
Vital Signs
Temp Pulse Resp BP Pulse Ox
98.1 F 89 20 97/55 91
02/27/25 07:26 02/27/25 12:00 02/27/25 12:00 02/27/25 10:00 02/27/25 12:00
Vital Signs
Temp Pulse Resp BP Pulse Ox
98.1 F 89 20 97/55 91
02/27/25 07:26 02/27/25 12:00 02/27/25 12:00 02/27/25 10:00 02/27/25 12:00
Intake & Output
02/25/25 02/26/25 02/27/25 02/28/25
06:59 06:59 06:59 06:59
Intake Total 460 / 460 564.4 / 564.4
Output Total 1750 / 1750 600 / 600 1500 / 1500 850 / 850
Balance -1290 / -1290 -35.6 / -35.6 -1500 / -1500 -850 / -850
Physical Exam
Physical Exam
Well-appearing, sitting upright in chair.
Irregularly irregular normal S1 and S2, no S3 no S4 there is a grade 1/6 apical holosystolic murmur and a grade 2/6 systolic murmur at the lower left sternal border. No rubs
Lungs with expiratory wheezes at both bases
Abdomen soft nontender nondistended with normoactive bowel sounds
Extremities show trace pretibial edema bilaterally
[2025-02-27] MEDS: MAGIC OR MIRACLE MOUTHWASH 15 ML PO (14:12)
[2025-02-27] MEDS: OCEAN, SALINE MIST 2 SPRAYS NASAL (14:12)
--- NOTE | 2025-02-27 15:00 | PTCARENOTE ---
Patient AAOx3, forgetful. Converted to NSR with PACs at 1400. Amiodarone gtt off at 1730 for HR of 59. To start oral amiodarone tonight. Heparin gtt due to be DCd tonight with eliquis. PPatient in chair most of day, chair and bed alarm activated as
patient impulsive at times and history of falls on blood thinner. Patient educated many times about blood thinners and afib and current medications. Pain better controlled today in left shoulder with tramadol. VSS. 0.5L NC, 95%, patient desats to
86% off of O2. Patient with some nose bleeds today, see mar for treatments. Daughter at bedside. Will continue to closely monitor.
[2025-02-27] MEDS: MAGNESIUM OXIDE 400 MG PO (15:58)
[2025-02-27] MEDS: TOPROL XL 25 MG PO (15:58)
[2025-02-27 16:27] LABS: Hematocrit 28.2 % (37.0-47.0); Hemoglobin 9.4 g/dL (12.0-16.0)
[2025-02-27 16:35] LABS: APTT 43.2 Sec (23.4-35.0)
[2025-02-27] MEDS: TIGAN 200 MG IM ×2 (17:23→22:44)
[2025-02-27] MEDS: AFRIN NASAL SPRAY 1 SPRAYS NASAL (20:14)
[2025-02-27] MEDS: ELIQUIS 5 MG PO (20:15)
[2025-02-27] MEDS: PACERONE 200 MG PO (20:15)
[2025-02-27] MEDS: FLUSH (NSS) 2 FLUSH IV ×2 (20:16→22:45)
[2025-02-27] MEDS: MORPHINE SULFATE 2 MG IV (22:45)
[2025-02-27] MEDS: NEURONTIN 200 MG PO (22:45)
--- NOTE | 2025-02-27 22:45 | PTCARENOTE ---
Pt with dry heaving. Small amount thin clear secretions brought up. Pt not due for Tigan for another 40 mins. After discussion with Sarah MARQUEZ on floor ok to give Tigan early. Pt received Tigan with good relief. Will continue to monitor.
[2025-02-28] VITALS (16 sets, daily range): BP systolic 76–133; BP diastolic 33–96; PULSE 59–64; O2SAT 96; BMI 25.4
[2025-02-28] MEDS: MAGIC OR MIRACLE MOUTHWASH 15 ML PO ×2 (01:31→20:45)
[2025-02-28] MEDS: ULTRAM 50 MG PO (01:32)
[2025-02-28 04:12] LABS: Hematocrit 28.7 % (37.0-47.0); Hemoglobin 9.6 g/dL (12.0-16.0); Mean Corp Hgb Conc. 33.4 g/dL (33.0-37.0); Mean Corpuscular Volume 92.3 fL (81.0-99.0); Platelet Count 192 10^3/uL (130-400); Red Cell Dist. Width 13.4 % (11.5-14.5)
[2025-02-28 04:26] LABS: Blood Urea Nitrogen 32 mg/dl (7-17); Calcium 8.7 mg/dl (8.4-10.2); Carbon Dioxide 27 mmol/L (22-30); Chloride 97 mmol/L (98-107); Estimated Creatinine Clearance 30 ml/min; Glucose 111 mg/dl (70-99); Magnesium 1.9 mg/dl (1.6-2.3); Potassium 4.0 mmol/L (3.5-5.1); Sodium 132 mmol/L (135-145); eGFR 41.31
--- NOTE | 2025-02-28 04:52 | PTCARENOTE ---
Pt with no void since beginning of shift. Does not feel the need to void. Bladder scanned for 176mls. Pt currently resting comfortably. Call atkinson remains within reach. Will continue to monitor.
--- NOTE | 2025-02-28 08:30 | VATNOTE ---
Patient NSR on telemetry since yesterday, tolerating PO antiarrhythmics and anticoagulants. Requested order for peripheral IV insertion and discontinuation of PICC from Dr Aldana
[2025-02-28] MEDS: AFRIN NASAL SPRAY 2 SPRAYS NASAL (08:35)
[2025-02-28] MEDS: TIGAN 200 MG IM ×3 (08:35→20:44)
[2025-02-28] MEDS: LASIX 40 MG IV (10:30)
[2025-02-28] MEDS: MUCINEX 600 MG PO ×2 (10:32→19:50)
[2025-02-28] MEDS: NEURONTIN 600 MG PO ×2 (10:52→19:48)
[2025-02-28] MEDS: PROTONIX 40 MG PO (10:52)
[2025-02-28] MEDS: TOPROL XL 25 MG PO (10:52)
[2025-02-28] MEDS: WELLBUTRIN XL (24 hour extended release) 150 MG PO (10:52)
[2025-02-28] MEDS: MAGNESIUM OXIDE 400 MG PO (10:52)
[2025-02-28] MEDS: ELIQUIS 5 MG PO ×2 (10:52→19:51)
[2025-02-28] MEDS: PACERONE 200 MG PO ×2 (10:52→20:47)
[2025-02-28] MEDS: LEXAPRO 20 MG PO (10:53)
[2025-02-28] MEDS: MORPHINE SULFATE 2 MG IV (10:56)
--- NOTE | 2025-02-28 11:33 | PTCARENOTE ---
Assumed care of patient this morning. Pt reporting need for BM and would like to go into the bathroom. Pt steady on feet but does reports slight dizziness. Patient able to walk into bathroom, perform self care and brush teeth with supervision for
safety. Pt reports nausea and feeling 'sick to stomach,' pt medicated with PRN Tigan, see MAR. Pt would not take medications until after breakfast. Pt also appears anxious, with verbalizing a flight of ideas, going from one topic to another. Pt
remains in SR on monitor. Oxygen on 1L NC. Assessment, care and VS as charted.
--- NOTE | 2025-02-28 11:35 | W.PN.NEPH.PH ---
Today's Communication / Plan
-
follow labs on diuresis
Assessment/Plan
-
IMP:
Acute Hypoxic Respiratory Insufficiency secondary to Acute on Chronic HFpEF
Chest pain
New onset of atrial fibrillation with RVR
Acute kidney injury
Elevated LFTs
Essential Hypertension
Left shoulder pain
Anxiety / Depression
Spinal Stenosis
History of right Hip Prosthetic Joint Infection
Acute on chronic Anemia
GERD / Hx GI Bleed secondary to angioectasia
Obstructive Sleep Apnea
Hx Breast Cancer s/p Lumpectomy, Chemo/XRT
Hx Oral Cancer s/p Graft
Plan:
A/w new Afib, CHF
hyponatremia-improving with samsca and FR
note she is on SSRI-unlikely is the cause
mild PINO-possible CRS and YARED-cr slightly up at 1.3, bland UA , contrast exposure on 02/25
hb better today
cont diuresis per cards, pulm edema on xray still
labs in am
-
-
Date of Service: February 28, 2025
CC / HPI / ROS
-
Chief Complaint:
Hyponatremia, PINO
History of Present Illness:
cr slightly up at 1.3, wt no change
BP stable
sodium better at 132 s/p samsca
Review of Systems:
no cp , sob improving not baseline yet, on 1lit O2
no dysuria
Labs
-
Labs:
WBC 7.4 10^3/uL (4.8-10.8) 02/28/25 03:33
RBC 3.11 10^6/uL (4.20-5.40) L 02/28/25 03:33
Hgb 9.6 g/dL (12.0-16.0) L 02/28/25 03:33
Hct 28.7 % (37.0-47.0) L 02/28/25 03:33
Plt Count 192 10^3/uL (130-400) D 02/28/25 03:33
Sodium 132 mmol/L (135-145) L D 02/28/25 03:33
Potassium 4.0 mmol/L (3.5-5.1) 02/28/25 03:33
Chloride 97 mmol/L (98-107) L 02/28/25 03:33
Carbon Dioxide 27 mmol/L (22-30) 02/28/25 03:33
BUN 32 mg/dl (7-17) H 02/28/25 03:33
Creatinine 1.3 mg/dL (0.6-1.0) H 02/28/25 03:33
eGFR 41.31 02/28/25 03:33
Glucose 111 mg/dl (70-99) H 02/28/25 03:33
Calcium 8.7 mg/dl (8.4-10.2) 02/28/25 03:33
Iid-S-Izpgnzjrikr Pept 3100 pg/ml 02/24/25 16:34
Albumin 3.3 g/dl (3.5-5.0) L 02/27/25 03:11
Physical Exam
-
Vital Signs:
Vital Signs
Temp Pulse Resp BP Pulse Ox
98.4 F 66 20 133/68 96
02/28/25 11:00 02/28/25 10:52 02/28/25 10:00 02/28/25 10:52 02/28/25 11:17
Cardiovascular:: Regular rate and rhythm
Respiratory:: Bilateral: Rales
Lung Excursion:: Normal
Abdomen:: Nontender and Soft
Extremity Edema:: None: Bilateral: (trace)
Edward Catheter: No
--- NOTE | 2025-02-28 11:45 | W.PN.CARDCBS ---
Today's Communication / Plan
-
Stop IV Lasix and transition to oral
Maintain amiodarone
Maintain Eliquis
Impression / Plan
-
Primary Estate Agent: Dr. Gill
Assessment:
Presentation with CP, SOB
Acute on chronic HFpEF
CP
Elevated troponin
Paroxysmal atrial fibrillation with RVR, new diagnosis
Hypotension
paraesophageal hernia repair 10/30/24
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
History of GIB 2012
COPD
History of ITP
hypertension
hyperlipidemia
obstructive sleep apnea
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
Anemia
Prolonged QTc
Mild LFT elevation
DNR code status
ECHO 10/29/24: EF 62%, stage I diastolic dysfunction, aortic sclerosis, mild AR, mild to moderate TR, PAP 43 mmHg
Lexiscan nuclear stress test 12/24/2024: Normal myocardial perfusion, EF 54%
Plan:
Patient presented with chest discomfort and shortness of breath and found to be in acute heart failure and atrial fibrillation with RVR
On presentation BP was marginal and patient was started on norepinephrine for pressor support
Echo here with newly reduced left ventricular systolic function with EF 40-45% (obtained while in atrial fibrillation with rapid ventricular rates)
Converted to sinus rhythm on IV amio (ECG 02/26 shows SR at 71 bpm) but then resumed with atrial fibrillation and heart rate of approximately 100 to 120 bpm
Today bnack in SR at 60 bpm
ECG 02/28/25 with prolonged QTc art 562
IV amiodarone infusion stopped
Initiated oral amiodarone 200 mg twice daily
Potassium 4 magnesium 1.9
Continue to follow QT interval on telemetry closely but would maintain Amio 200 twice daily for now plan to continue for 2 more weeks and then 200 mg daily.
If QTc continues to prolong however we will need to stop amiodarone and consider alternative antiarrhythmic drug
On 02/27/2025, added metoprolol for additional rate control
On 02/27/2025, stop heparin and initiated Eliquis 5 mg twice daily
Volume status has improved and with diuresis creatinine now rising
Will stop IV Lasix and transition to oral Lasix 40 mg daily and follow renal function closely
Initiation and uptitration of guideline directed medical therapy for heart failure with mildly reduced ejection fraction has been difficult given hypotension recently requiring IV pressors.
Blood pressure has improved.
On 02/27/2025 added Toprol-XL and if blood pressure improves/stabilizes consider further up titration of guideline directed medical therapy for heart failure with mildly reduced ejection fraction
Note that echocardiogram showing reduced LV systolic function was obtained during atrial fibrillation with rapid ventricular rates. If we can obtain and maintain sinus rhythm we should check repeat echocardiogram.
Continues to report left shoulder and arm pain however unlikely to be cardiac in nature based on the description
On admission there was low-level troponin elevation which continues to downtrend and no acute ischemic changes on ECG. It certainly is possible she could have underlying coronary artery disease exacerbated by rapid rates.
Will continue to focus on rate control as well as rhythm control of atrial fibrillation, add beta-fernanda, continue aspirin, during the hospital stay we can make any further assessments regarding need for further ischemic evaluation, however there
is no global wall motion abnormality on ECG and Lexiscan nuclear stress test from December 24, 2024 noted normal perfusion.
Discussed with patient, all questions answered.
Discussed with nursing as well.
Total time spent today was 50 minutes in preparing to see the patient, seeing the patient and coordination of care. This included review of recent laboratory evaluations, cardiact testing, imaging studies, primary care rtecords, specialty
consultations, hospital records, as well as personally interviewing and examining the patient, which included discussion of their tests, review/ordering medications, and communicating with other healthcare professionals and also treatment planning
as well as counseling.
Total time does not include separately billed tests performed on this date of service.
Progress Note - Estate Agent
Subjective
Date of Service: February 28, 2025
She tells me she feels well no chest pain shortness of breath palpitations or dizziness
Objective
Labs:
02/28/25 03:33
02/28/25 03:33
Labs
Hgb 9.6 g/dL (12.0-16.0) L 02/28/25 03:33
Hct 28.7 % (37.0-47.0) L 02/28/25 03:33
Plt Count 192 10^3/uL (130-400) D 02/28/25 03:33
APTT 43.2 Sec (23.4-35.0) H 02/27/25 16:15
Sodium 132 mmol/L (135-145) L D 02/28/25 03:33
Potassium 4.0 mmol/L (3.5-5.1) 02/28/25 03:33
BUN 32 mg/dl (7-17) H 02/28/25 03:33
Creatinine 1.3 mg/dL (0.6-1.0) H 02/28/25 03:33
Glucose 111 mg/dl (70-99) H 02/28/25 03:33
Troponins
02/25/25 02/25/25 02/26/25
18:07 23:44 04:41
Troponin I 0.180 H* 0.181 H* 0.157 H*
02/26/25 02/26/25
10:17 17:35
Troponin I 0.102 H* D 0.084 H*
Vital Signs and I&O:
Vital Signs
Temp Pulse Resp BP Pulse Ox
98.4 F 66 20 133/68 96
02/28/25 11:00 02/28/25 10:52 02/28/25 10:00 02/28/25 10:52 02/28/25 11:17
Vital Signs
Temp Pulse Resp BP Pulse Ox
98.4 F 66 20 133/68 96
02/28/25 11:00 02/28/25 10:52 02/28/25 10:00 02/28/25 10:52 02/28/25 11:17
Intake & Output
02/26/25 02/27/25 02/28/25 03/01/25
06:59 06:59 06:59 06:59
Intake Total 564.4 / 564.4 100 / 100
Output Total 600 / 600 1500 / 1500 1250 / 1250
Balance -35.6 / -35.6 -1500 / -1500 -1150 / -1150
Physical Exam
Physical Exam
Well-appearing, sitting upright in chair.
Regular normal S1 and S2, no S3 no S4 there is a grade 1/6 apical holosystolic murmur and a grade 2/6 systolic murmur at the lower left sternal border. No rubs
Lungs with expiratory wheezes at both bases
Abdomen soft nontender nondistended with normoactive bowel sounds
Extremities show trace pretibial edema bilaterally
--- NOTE | 2025-02-28 12:36 | W.PN.HOSP.TC ---
Addendum entered and electronically signed by Kemar Aldana MD 03/08/25 14:59:
It was acute hypoxic respiratory failure sec to acute on chronic CHF.
Hypotension was felt secondary to medication but no shock.
Original Note:
Today's Communication/Plan
-
Repeat chest x-ray
Wean oxygen
Follow creatinine
Assessment / Plan
Assessment / Plan
Acute Hypoxic Respiratory Insufficiency secondary to Acute on Chronic HFpEF
- Improved shortness of breath and stable oxygenation on nasal cannula. Continued crackles. Weight has not changed much. Chest CT shows bilateral pleural effusion and evidence of pulmonary edema.
-Continue supplemental oxygen
- Repeat CXR
-Continue Lasix-switch to oral by cardiology today
-Echocardiogram shows new depression of LV function currently 40 to 45% and severe TR
- On losartan which will be resumed once blood pressure is up/creatinine improves. Will consider Coreg as well once hemodynamically stable.
Chest pain-anterior with radiation to the back and the arm. Is also pleuritic in nature.
CT shows no evidence of mediastinal pathology, aortic dissection, or PE
Troponin elevation noted-suspect nonischemic myocardial injury
Resolved chest pain with control of heart rate making it over worrisome for angina equivalent.
Continue with anticoagulation-switch to oral Eliquis today
New onset of atrial fibrillation with RVR
Initiated on IV amiodarone-reverted back to sinus rhythm again
Now on oral amiodarone and oral anticoagulation
Echo as above
Hypotension-suspect medication related-patient currently off of IV Cardizem and IV nitro drip. Continue to follow. Needed brief Levophed. Currently hemodynamically stable off of pressors.
Acute kidney injury-elevation of creatinine from 0.8-1.2 noted since admission. Creatinine today 1.3
Suspect probably multifactorial-hemodynamics, diuretics, heart failure, IV contrast for PE study
xlcdxadhsyai-vjpilobxoptg-dtjofm post Samsca yesterday-improved sodium
Elevated LFTs unclear etiology patient has clinical concern for heart failure and suspicion is hepatic congestion. Improving LFTs. CT of the chest shows lobular contour of liver raising concern for cirrhosis but no prior history of it. Continue
to treat heart failure and follow LFTs for now and if remains abnormal GI evaluation as outpatient.
Essential Hypertension
- Losartan on hold due to PINO. Blood pressure mostly in the goal currently.
-Hold chlorthalidone
Left shoulder pain-clinically well raises concern for left rotator cuff pathology-left shoulder x-ray shows severe arthritis of the glenohumeral joint as well as moderate calcific tendinitis of the left rotator cuff. Continue symptomatic treatment
Anxiety / Depression
-Continue bupropion, escitalopram
Spinal Stenosis
-Continue gabapentin
History of right Hip Prosthetic Joint Infection
- Apparently done with doxycycline
Acute on chronic Anemia
-Hgb slow drop noted. No obvious external bleeding. Had light brown bowel movement today. Await heme test stools.
- Iron studies does not suggest iron deficiency anemia
- Repeat H&H this evening. If continued drop will hold heparin and obtain CT of the abdomen pelvis without contrast for any bleeding.
GERD / Hx GI Bleed secondary to angioectasia
-Continue Protonix
Obstructive Sleep Apnea
-Patient reports unable to use home CPAP machine due to malfunction (Patient reports company sent incorrect parts).
Hx Breast Cancer s/p Lumpectomy, Chemo/XRT
Hx Oral Cancer s/p Graft
DVT proph: Lovenox
Code Status: DNR
Portions of this chart may have been created with voice recognition software. Occasional wrong word or 'sound alike' substitutions may have occurred due to the inherent limitations of voice recognition software.
Anticipated Discharge: 24 - 48 hours
Subjective/Interval History
-
Date of Service: February 28, 2025
Continue improvement with breathing. She is currently on 1 L of oxygen.
Denies any chest pain or palpitation. She is back in sinus rhythm.
No nausea or vomiting.
Objective Data
-
Labs:
Laboratory Results
02/28/25
03:33
WBC 7.4
Hgb 9.6 L
Hct 28.7 L
Plt Count 192 D
Sodium 132 L D
Potassium 4.0
Chloride 97 L
Carbon Dioxide 27
BUN 32 H
Creatinine 1.3 H
Glucose 111 H
Calcium 8.7
Vital Signs:
Vital Signs
Temp Pulse Resp BP Pulse Ox
98.4 F 66 20 133/68 95
02/28/25 11:00 02/28/25 10:52 02/28/25 10:00 02/28/25 10:52 02/28/25 12:01
I&O
02/27/25 02/28/25 03/01/25
06:59 06:59 06:59
Intake Total 100 / 100
Output Total 1500 / 1500 1250 / 1250
Balance -1500 / -1500 -1150 / -1150
Physical Exam
-
General: No Apparent Distress
Respiratory: Crackles and Non Labored Respirations; Negative Wheezes or Accessory Resp Muscle Use
Cardiac: Regular Rhythm and S1/S2; Negative Tachycardic
Neuro: AO x 3
Data Reviewed
-
Labs: Labs Reviewed by me
--- NOTE | 2025-02-28 16:21 | CM ---
Following up on Patient. Progress notes state that she will get a repeat Chest x-ray, Wean oxygen, Follow creatinine. Referrals have been made so will see when patient is ready.
PLAN: SNF when ready.
[2025-02-28] MEDS: AFRIN NASAL SPRAY 1 SPRAYS NASAL (19:49)
--- NOTE | 2025-02-28 20:05 | W.PN.UPDATE ---
Update Note
Progress Note Update
BP is 81/69, hr 57 symptomatic, patient is complaining of dizziness will start levophed
[2025-02-28] MEDS: NEURONTIN 200 MG PO (21:08)
[2025-03-01] VITALS (14 sets, daily range): BP systolic 91–134; BP diastolic 45–97; PULSE 63; O2SAT 96; BMI 24.6
[2025-03-01 05:59] LABS: Hematocrit 28.5 % (37.0-47.0); Hemoglobin 9.6 g/dL (12.0-16.0); Mean Corp Hgb Conc. 33.7 g/dL (33.0-37.0); Mean Corpuscular Volume 94.4 fL (81.0-99.0); Platelet Count 214 10^3/uL (130-400); Red Cell Dist. Width 13.6 % (11.5-14.5)
[2025-03-01 06:16] LABS: Blood Urea Nitrogen 47 mg/dl (7-17); Calcium 8.6 mg/dl (8.4-10.2); Carbon Dioxide 27 mmol/L (22-30); Chloride 97 mmol/L (98-107); Estimated Creatinine Clearance 20 ml/min; Glucose 100 mg/dl (70-99); Magnesium 2.2 mg/dl (1.6-2.3); Potassium 3.9 mmol/L (3.5-5.1); Sodium 132 mmol/L (135-145); eGFR 26.20
--- NOTE | 2025-03-01 08:29 | W.PN.HOSP.TC ---
Today's Communication/Plan
-
See plan
Assessment / Plan
Assessment / Plan
Physical Exam
General: No Apparent Distress
Respiratory: Rhonchi
Cardiac: Regular Rhythm and S1/S2
GI: Soft and nontender. Positive bowel sounds.
Neuro: AAO x 3
Assessment/Plan
Presented with chest discomfort and shortness of breath and found to be in acute heart failure and atrial fibrillation with RVR
Acute Hypoxic Respiratory Insufficiency secondary to Acute on Chronic HFpEF
- On presentation patient had lower blood pressures, and patient was started on norepinephrine for pressor support
- Improved shortness of breath and stable oxygenation on nasal cannula. Chest CT showed bilateral pleural effusion and evidence of pulmonary edema.
- Continue supplemental oxygen
- Hold Lasix given significant Acute Kidney Injury
- Echocardiogram shows new depression of LV function currently 40 to 45% and severe TR (while patient was in rapid A-Fib)
- On losartan which will be resumed once blood pressure is up/creatinine improves. Will consider Coreg as well once hemodynamically stable. GDMT difficult with renal function and hypotension.
Chest pain-anterior with radiation to the back and the arm. Is also pleuritic in nature.
CT shows no evidence of mediastinal pathology, aortic dissection, or PE
Troponin elevation noted-suspect nonischemic myocardial injury
Resolved chest pain with control of heart rate making it over worrisome for angina equivalent.
Continue with anticoagulation-switch to oral Eliquis today
New onset of atrial fibrillation with RVR
Initiated on IV amiodarone-reverted back to sinus rhythm again
Now on oral amiodarone and oral anticoagulation with Eliquis 5 mg twice daily
Monitor QTc
Echo as above
Hypotension-suspect medication related-patient currently off of IV Cardizem and IV nitro drip. Continue to follow. Needed brief Levophed. Currently hemodynamically stable off of pressors.
Acute kidney injury-elevation of creatinine from 0.8-1.2 noted since admission. Creatinine today 1.9. No further Lasix.
Suspect probably multifactorial-hemodynamics/hypotension, diuretics, heart failure, IV contrast for PE study
hvvfrbjnvjeh-ckqreopyevkw-evnrib post Samsca earlier this hospitalization-improved sodium
Elevated LFTs unclear etiology patient has clinical concern for heart failure and suspicion is hepatic congestion. Improving LFTs. CT of the chest showed lobular contour of liver raising concern for cirrhosis but no prior history of it. Continue
to treat heart failure and follow LFTs for now and if remains abnormal GI evaluation as outpatient.
Essential Hypertension
- Losartan on hold due to PINO. Blood pressure mostly in the goal currently.
-Hold chlorthalidone
Left shoulder pain-clinically well raises concern for left rotator cuff pathology-left shoulder x-ray shows severe arthritis of the glenohumeral joint as well as moderate calcific tendinitis of the left rotator cuff. Continue symptomatic treatment
Anxiety / Depression
-Continue bupropion, escitalopram
Spinal Stenosis
-Continue gabapentin
History of right Hip Prosthetic Joint Infection
- Apparently done with doxycycline
Acute on chronic Anemia
-Hgb slow drop noted. No obvious external bleeding. Stable now.
- Iron studies does not suggest iron deficiency anemia
GERD / Hx GI Bleed secondary to angioectasia
-Continue Protonix
Obstructive Sleep Apnea
-Patient reports unable to use home CPAP machine due to malfunction (Patient reports company sent incorrect parts).
Hx Breast Cancer s/p Lumpectomy, Chemo/XRT
Hx Oral Cancer s/p Graft
Neuropathy
-Following my discussion on March 01, 2025 with clinical pharmacist, it was decided to reduce to a maximum of 600 mg/day (300 mg BID)
DVT Prophylaxis: Lovenox
Code Status: DNR
On March 01, 2025, I spoke with patient's daughter, and I answered all of her questions and concerns to satisfaction.
Anticipated Discharge: > 48 hours
Subjective/Interval History
-
Date of Service: March 01, 2025
Patient was seen and examined. She denied any new symptoms.
Objective Data
-
Labs:
Laboratory Results
03/01/25
05:35
WBC 8.1
Hgb 9.6 L
Hct 28.5 L
Plt Count 214
Sodium 132 L
Potassium 3.9
Chloride 97 L
Carbon Dioxide 27
BUN 47 H
Creatinine 1.9 H
Glucose 100 H
Calcium 8.6
Vital Signs:
Vital Signs
Temp Pulse Resp BP Pulse Ox
98.6 F 58 18 128/45 94
02/28/25 23:15 03/01/25 04:00 03/01/25 04:00 03/01/25 04:00 03/01/25 00:00
I&O
02/28/25 03/01/25 03/02/25
06:59 06:59 06:59
Intake Total 100 / 100 720 / 720
Output Total 1250 / 1250
Balance -1150 / -1150 720 / 720
[2025-03-01] MEDS: LEXAPRO 20 MG PO (08:45)
[2025-03-01] MEDS: WELLBUTRIN XL (24 hour extended release) 150 MG PO (08:45)
[2025-03-01] MEDS: MAGNESIUM OXIDE 400 MG PO (08:45)
[2025-03-01] MEDS: PROTONIX 40 MG PO (08:45)
[2025-03-01] MEDS: ELIQUIS 5 MG PO ×2 (08:45→20:05)
[2025-03-01] MEDS: LASIX 40 MG PO (08:46)
[2025-03-01] MEDS: NEURONTIN 600 MG PO (08:46)
[2025-03-01] MEDS: TOPROL XL 25 MG PO (08:46)
[2025-03-01] MEDS: AFRIN NASAL SPRAY 2 SPRAYS NASAL (08:46)
[2025-03-01] MEDS: MUCINEX 600 MG PO (08:46)
[2025-03-01] MEDS: PACERONE 200 MG PO (08:46)
[2025-03-01] MEDS: TYLENOL 650 MG PO (08:50)
--- NOTE | 2025-03-01 10:52 | W.PN.NEPH.PH ---
Addendum entered and electronically signed by Tyson Beach MD 03/01/25 13:58:
Clarification: Pt brought up dialysis when we discussed worsening of Cr and kidney function. She then asked several questions regarding dialysis--access, schedule, feeling better on dialysis, temp v permanent. All questions were answered.
Original Note:
Today's Communication / Plan
-
follow BMP
Assessment/Plan
-
IMP:
Acute Hypoxic Respiratory Insufficiency secondary to Acute on Chronic HFpEF
Chest pain
New onset of atrial fibrillation with RVR
Acute kidney injury
Elevated LFTs
Essential Hypertension
Left shoulder pain
Anxiety / Depression
Spinal Stenosis
History of right Hip Prosthetic Joint Infection
Acute on chronic Anemia
GERD / Hx GI Bleed secondary to angioectasia
Obstructive Sleep Apnea
Hx Breast Cancer s/p Lumpectomy, Chemo/XRT
Hx Oral Cancer s/p Graft
Plan:
A/w new Afib, CHF
follow BMP
no samsca today
PINO likely related to contrast, then hypotension/Afib
no ARB
po lasix continues
d/w patient the possibility of dialysis, she understands
-
-
Date of Service: March 01, 2025
CC / HPI / ROS
-
Chief Complaint:
Hyponatremia, PINO
History of Present Illness:
PINO/Cr up to 1.9
Hgb stable 8.9
BP stable
sodium better at 132 s/p samsca 02/27
not on pressors
Review of Systems:
no cp, sob improving not baseline yet, on 1lit O2
no dysuria
Labs
-
Labs:
WBC 8.1 10^3/uL (4.8-10.8) 03/01/25 05:35
RBC 3.02 10^6/uL (4.20-5.40) L 03/01/25 05:35
Hgb 9.6 g/dL (12.0-16.0) L 03/01/25 05:35
Hct 28.5 % (37.0-47.0) L 03/01/25 05:35
Plt Count 214 10^3/uL (130-400) 03/01/25 05:35
Sodium 132 mmol/L (135-145) L 03/01/25 05:35
Potassium 3.9 mmol/L (3.5-5.1) 03/01/25 05:35
Chloride 97 mmol/L (98-107) L 03/01/25 05:35
Carbon Dioxide 27 mmol/L (22-30) 03/01/25 05:35
BUN 47 mg/dl (7-17) H 03/01/25 05:35
Creatinine 1.9 mg/dL (0.6-1.0) H 03/01/25 05:35
eGFR 26.20 03/01/25 05:35
Glucose 100 mg/dl (70-99) H 03/01/25 05:35
Calcium 8.6 mg/dl (8.4-10.2) 03/01/25 05:35
Upu-N-Ewgmhlumbac Pept 3100 pg/ml 02/24/25 16:34
Albumin 3.3 g/dl (3.5-5.0) L 02/27/25 03:11
Physical Exam
-
Vital Signs:
Vital Signs
Temp Pulse Resp BP Pulse Ox
98.6 F 62 18 125/93 94
02/28/25 23:15 03/01/25 08:46 03/01/25 04:00 03/01/25 08:46 03/01/25 00:00
Cardiovascular:: Regular rate and rhythm
Respiratory:: Bilateral: Coarse
Lung Excursion:: Normal
Abdomen:: Nontender and Soft
Bowel Sounds:: Normal
Extremity Edema:: None: Bilateral:
[2025-03-01] MEDS: ULTRAM 50 MG PO ×2 (11:41→20:17)
--- NOTE | 2025-03-01 11:48 | W.PN.CARDCBS ---
Today's Communication / Plan
-
No further Lasix
Monitor renal function
Reduce amiodarone and follow telemetry. Repeat EKG tomorrow morning.
Continue Eliquis anticoagulation however if creatinine continues to rise may need to dose reduce
Impression / Plan
-
Primary Rubber Mill Tender: Dr. Gill
Assessment:
Presentation with CP, SOB
Acute on chronic HFpEF
CP
Elevated troponin
Paroxysmal atrial fibrillation with RVR, new diagnosis
Hypotension
paraesophageal hernia repair 10/30/24
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
History of GIB 2012
COPD
History of ITP
hypertension
hyperlipidemia
obstructive sleep apnea
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
Anemia
Prolonged QTc
Mild LFT elevation
DNR code status
ECHO 10/29/24: EF 62%, stage I diastolic dysfunction, aortic sclerosis, mild AR, mild to moderate TR, PAP 43 mmHg
Lexiscan nuclear stress test 12/24/2024: Normal myocardial perfusion, EF 54%
Plan:
Patient presented with chest discomfort and shortness of breath and found to be in acute heart failure and atrial fibrillation with RVR
On presentation BP was marginal and patient was started on norepinephrine for pressor support
Echo here with newly reduced left ventricular systolic function with EF 40-45% (obtained while in atrial fibrillation with rapid ventricular rates)
Converted to sinus rhythm on IV amio (ECG 02/26 shows SR at 71 bpm) but then resumed with atrial fibrillation and heart rate of approximately 100 to 120 bpm
Remains in sinus rhythm.
EKG today with prolonged QTc, 540 ms.
Will reduce amiodarone to 200 mg once daily with no further doses of amiodarone today
Repeat twelve-lead EKG tomorrow
Keep K greater than 4, mag greater than 2
Continue Eliquis 5 mg twice daily.
Volume status has improved and with diuresis creatinine now rising, creatinine today 1.9
No further Lasix.
Monitor renal function. Appreciate nephrology input
Initiation and uptitration of guideline directed medical therapy for heart failure with mildly reduced ejection fraction has been difficult given hypotension recently requiring IV pressors.
Blood pressure has improved.
On 02/27/2025 added Toprol-XL and if blood pressure improves/stabilizes consider further up titration of guideline directed medical therapy for heart failure with mildly reduced ejection fraction
Note that echocardiogram showing reduced LV systolic function was obtained during atrial fibrillation with rapid ventricular rates.
Repeat limited 2D echocardiogram for EF in sinus rhythm
Continues to report left shoulder and arm pain however unlikely to be cardiac in nature based on the description
On admission there was low-level troponin elevation which continues to downtrend and no acute ischemic changes on ECG. It certainly is possible she could have underlying coronary artery disease exacerbated by rapid rates. Lexiscan nuclear stress
test from December 24, 2024 noted normal perfusion.
Progress Note - Rubber Mill Tender
Subjective
Date of Service: March 01, 2025
Patient was seen and examined. Offers no complaints. Denies chest pain or pressure.
Objective
Labs:
03/01/25 05:35
03/01/25 05:35
Labs
Hgb 9.6 g/dL (12.0-16.0) L 03/01/25 05:35
Hct 28.5 % (37.0-47.0) L 03/01/25 05:35
Plt Count 214 10^3/uL (130-400) 03/01/25 05:35
APTT 43.2 Sec (23.4-35.0) H 02/27/25 16:15
Sodium 132 mmol/L (135-145) L 03/01/25 05:35
Potassium 3.9 mmol/L (3.5-5.1) 03/01/25 05:35
BUN 47 mg/dl (7-17) H 03/01/25 05:35
Creatinine 1.9 mg/dL (0.6-1.0) H 03/01/25 05:35
Glucose 100 mg/dl (70-99) H 03/01/25 05:35
Troponins
02/26/25
17:35
Troponin I 0.084 H*
Vital Signs and I&O:
Vital Signs
Temp Pulse Resp BP Pulse Ox
98.6 F 58 15 116/53 96
02/28/25 23:15 03/01/25 10:00 03/01/25 10:00 03/01/25 10:00 03/01/25 10:00
Vital Signs
Temp Pulse Resp BP Pulse Ox
98.6 F 58 15 116/53 96
02/28/25 23:15 03/01/25 10:00 03/01/25 10:00 03/01/25 10:00 03/01/25 10:00
Intake & Output
02/27/25 02/28/25 03/01/25 03/02/25
06:59 06:59 06:59 06:59
Intake Total 100 / 100 720 / 720
Output Total 1500 / 1500 1250 / 1250
Balance -1500 / -1500 -1150 / -1150 720 / 720
Physical Exam
Physical Exam
Awake alert and oriented, NAD
Regular normal S1 and S2, no S3 no S4 there is a grade 1/6 apical holosystolic murmur and a grade 2/6 systolic murmur at the lower left sternal border.
Bronchovesicular breath sounds with rhonchi right upper chest. No wheezes or crackles.
Abdomen soft nontender nondistended with normoactive bowel sounds
No lower extremity edema
--- NOTE | 2025-03-01 13:38 | PTCARENOTE ---
Patient AAOx3, very forgetful. VSS, NSB on monitor. Trialed off of O2 again but sats dropped to 85%, requiring 1L NC with sats at 95%. Bed alarm on, patient impulsive at times with history of falls. Educated again on fall risk, eliquis, reasons for
not taking zofran and new medications. Update provided to daughter. Will closely monitor.
[2025-03-01] MEDS: TIGAN 200 MG IM ×2 (14:00→20:06)
--- NOTE | 2025-03-01 16:14 | CM ---
Following up on Patient. Hospitalist Notes state that off Lasix, monitor renal function, off drips, and on Eliquis that was priced by Case Management already.
THELMA Mena saw PT/OT work with the patient today, they are still recommending SNF, but when spoke to the daughter, Leora, she said the patient will want to go home as she did mention this to THELMA Mena before.
THELMA Mena updated [facility] of [facility].
PLAN: Home with PT with [facility]
[2025-03-01] MEDS: NEURONTIN 300 MG PO (20:05)
[2025-03-01] MEDS: AFRIN NASAL SPRAY 30 SPRAYS NASAL (20:05)
[2025-03-01] MEDS: MORPHINE SULFATE 2 MG IV (23:28)
[2025-03-02] VITALS (12 sets, daily range): BP systolic 91–145; BP diastolic 40–121; BMI 25.0
[2025-03-02] MEDS: SYNTHROID 12.5 MCG PO (04:18)
[2025-03-02 05:16] LABS: Blood Urea Nitrogen 66 mg/dl (7-17); Calcium 8.5 mg/dl (8.4-10.2); Carbon Dioxide 26 mmol/L (22-30); Chloride 95 mmol/L (98-107); Estimated Creatinine Clearance 16 ml/min; Glucose 110 mg/dl (70-99); Potassium 4.7 mmol/L (3.5-5.1); Sodium 129 mmol/L (135-145); eGFR 19.79
--- NOTE | 2025-03-02 08:02 | W.PN.HOSP.TC ---
Today's Communication/Plan
-
PINO -- worsening Creatinine -- continue to monitor
Eliquis dose reduced given renal function and age
Assessment / Plan
Assessment / Plan
Physical Exam
General: No Apparent Distress
Respiratory: Rhonchi
Cardiac: Regular Rhythm and S1/S2
GI: Soft and nontender. Positive bowel sounds.
Neuro: AAO x 3
Assessment/Plan
Presented with chest discomfort and shortness of breath and found to be in acute heart failure and atrial fibrillation with RVR
Acute Hypoxic Respiratory Insufficiency secondary to Acute on Chronic HFpEF
- On presentation patient had lower blood pressures, and patient was started on norepinephrine for pressor support
- Improved shortness of breath and stable oxygenation on nasal cannula. Chest CT showed bilateral pleural effusion and evidence of pulmonary edema.
- Continue supplemental oxygen
- Hold Lasix given significant Acute Kidney Injury
- Echocardiogram showed new depression of LV function currently 40 to 45% and severe TR (while patient was in rapid A-Fib)
- On losartan which will be resumed once blood pressure is up/creatinine improves. Continue beta fernanda. GDMT difficult with renal function and hypotension.
Chest pain-anterior with radiation to the back and the arm. Is also pleuritic in nature.
CT shows no evidence of mediastinal pathology, aortic dissection, or PE
Troponin elevation noted-suspect nonischemic myocardial injury
Resolved chest pain with control of heart rate making it over worrisome for angina equivalent.
Continue with anticoagulation
New onset of atrial fibrillation with RVR
Initiated on IV amiodarone-reverted back to sinus rhythm again
Now on oral Amiodarone, which was decreased to 200 mg daily given prolonged QT interval on 03/01/25
Oral anticoagulation with Eliquis 2.5 mg twice daily -- I communicated on 03/02/25 with clinical pharmacist Callie Paulino, and given that patient's serum creatinine continues to worsen and considering age and renal dysfunction: Apixaban was reduced to
2.5 mg BID (from 5 mg twice daily)
Monitor QTc
Echo as above
Hypotension-suspect medication related-patient currently off of IV Cardizem and IV nitro drip. Continue to follow. Needed brief Levophed. Currently hemodynamically stable off of pressors.
Acute kidney injury-elevation of creatinine from 0.8-1.2 noted since admission. Creatinine today 2.4. No further Lasix since 03/02/25.
Suspect probably multifactorial-hemodynamics/hypotension, diuretics, heart failure, IV contrast for PE study
goqicjqvjqtr-xgywyorgmiyj-aewqzg post Samsca earlier this hospitalization-improved sodium
Nephrology following
Elevated LFTs unclear etiology patient has clinical concern for heart failure and suspicion is hepatic congestion. Improving LFTs. CT of the chest showed lobular contour of liver raising concern for cirrhosis but no prior history of it. Continue
to treat heart failure and follow LFTs for now and if remains abnormal GI evaluation as outpatient.
Essential Hypertension
- Losartan on hold due to PINO. Blood pressure mostly in the goal currently.
-Hold chlorthalidone
Left shoulder pain-clinically well raises concern for left rotator cuff pathology-left shoulder x-ray shows severe arthritis of the glenohumeral joint as well as moderate calcific tendinitis of the left rotator cuff. Continue symptomatic treatment
Subclinical Hypothyroidism
-Continue newly started Levothyroxine 12.5 mcg PO daily
Anxiety / Depression
-Continue bupropion, escitalopram
Spinal Stenosis
-Continue gabapentin -- which was reduced given renal function
History of right Hip Prosthetic Joint Infection
- Apparently done with doxycycline
Acute on chronic Anemia
-Hgb slow drop noted. No obvious external bleeding. Stable now.
- Iron studies does not suggest iron deficiency anemia
GERD / Hx GI Bleed secondary to angioectasia
-Continue Protonix
Obstructive Sleep Apnea
-Patient reports unable to use home CPAP machine due to malfunction (Patient reports company sent incorrect parts).
Hx Breast Cancer s/p Lumpectomy, Chemo/XRT
Hx Oral Cancer s/p Graft
Neuropathy
-Following my discussion on March 01, 2025 with clinical pharmacist, it was decided to reduce to a maximum of 600 mg/day (300 mg BID)
DVT Prophylaxis: Lovenox
Code Status: DNR
On March 01, 2025, I spoke with patient's daughter, and I answered all of her questions and concerns to satisfaction.
Anticipated Discharge: > 48 hours
Subjective/Interval History
-
Date of Service: March 02, 2025
Patient was seen and examined. She denied any new symptoms or complaints.
Objective Data
-
Labs:
Laboratory Results
03/02/25
04:34
Sodium 129 L
Potassium 4.7
Chloride 95 L
Carbon Dioxide 26
BUN 66 H
Creatinine 2.4 H
Glucose 110 H
Calcium 8.5
Vital Signs:
Vital Signs
Temp Pulse Resp BP Pulse Ox
98.0 F 53 17 145/97 93
03/02/25 04:46 03/02/25 04:01 03/02/25 04:01 03/02/25 04:01 03/02/25 04:01
I&O
03/01/25 03/02/25 03/03/25
06:59 06:59 06:59
Intake Total 720 / 720 800 / 800
Balance 720 / 720 800 / 800
[2025-03-02] MEDS: PACERONE 200 MG PO (09:20)
[2025-03-02] MEDS: ELIQUIS 5 MG PO (09:20)
[2025-03-02] MEDS: LEXAPRO 20 MG PO (09:20)
[2025-03-02] MEDS: NEURONTIN 300 MG PO ×2 (09:20→21:14)
[2025-03-02] MEDS: MAGNESIUM OXIDE 400 MG PO (09:20)
[2025-03-02] MEDS: WELLBUTRIN XL (24 hour extended release) 150 MG PO (09:21)
[2025-03-02] MEDS: PROTONIX 40 MG PO (09:21)
[2025-03-02] MEDS: AFRIN NASAL SPRAY 1 SPRAYS NASAL (09:21)
[2025-03-02] MEDS: TOPROL XL 25 MG PO (09:21)
--- NOTE | 2025-03-02 10:53 | W.PN.CARDCBS ---
Today's Communication / Plan
-
Diuretics on hold and creatinine has worsened to 2.4
Continue amiodarone IN attempt to keep in sinus rhythm
Might consider decreasing Eliquis dose if renal insufficiency persists
Impression / Plan
-
Primary Olericulture Professor: Dr. Gill
Assessment:
Presentation with CP, SOB
Acute on chronic HFpEF
Stage IIIb renal insufficiency
Non-[place] myocardial injury with peak troponin of 0.181
Paroxysmal atrial fibrillation with RVR, spontaneously converted to sinus rhythm
Hypotension
paraesophageal hernia repair 10/30/24
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
History of GIB 2012
COPD
History of ITP
hypertension
hyperlipidemia
obstructive sleep apnea
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
Anemia
Prolonged QTc
Mild LFT elevation
DNR code status
ECHO 10/29/24: EF 62%, stage I diastolic dysfunction, aortic sclerosis, mild AR, mild to moderate TR, PAP 43 mmHg
Lexiscan nuclear stress test 12/24/2024: Normal myocardial perfusion, EF 54%
Echocardiogram 02/25/2025: Ejection fraction 40 to 45%, mild to moderate concentric LVH, aortic sclerosis, mild MR, severe TR PA systolic of 40 mmHg
Plan:
Creatinine continues to worsen to 2.4 and Lasix is on hold
She remains on oxygen at 1 L
She remains in sinus rhythm
Continue on amiodarone which was decreased to 200 mg daily given prolonged QT interval on 03/01
Continue Eliquis. Might need to consider decreasing dose if renal INsufficiency persist
Initiation and uptitration of guideline directed medical therapy for heart failure with mildly reduced ejection fraction of 40 to 45% has been difficult given hypotension recently requiring IV pressors.
Continue Toprol
No ANEGLA/ARB/Aldactone with renal insufficiency
Might consider eventual Farxiga/Jardiance and will check with case management
Might consider repeat echo at some point as ejection fraction was determined in rapid A-fib
Progress Note - Olericulture Professor
Subjective
Date of Service: March 02, 2025
No complaints
Objective
Labs:
03/01/25 05:35
03/02/25 04:34
Labs
Hgb 9.6 g/dL (12.0-16.0) L 03/01/25 05:35
Hct 28.5 % (37.0-47.0) L 03/01/25 05:35
Plt Count 214 10^3/uL (130-400) 03/01/25 05:35
APTT 43.2 Sec (23.4-35.0) H 02/27/25 16:15
Sodium 129 mmol/L (135-145) L 03/02/25 04:34
Potassium 4.7 mmol/L (3.5-5.1) 03/02/25 04:34
BUN 66 mg/dl (7-17) H 03/02/25 04:34
Creatinine 2.4 mg/dL (0.6-1.0) H 03/02/25 04:34
Glucose 110 mg/dl (70-99) H 03/02/25 04:34
Vital Signs and I&O:
Vital Signs
Temp Pulse Resp BP Pulse Ox
98.0 F 58 18 124/53 95
03/02/25 04:46 03/02/25 10:00 03/02/25 10:00 03/02/25 09:20 03/02/25 08:00
Vital Signs
Temp Pulse Resp BP Pulse Ox
98.0 F 58 18 124/53 95
03/02/25 04:46 03/02/25 10:00 03/02/25 10:00 03/02/25 09:20 03/02/25 08:00
Intake & Output
02/28/25 03/01/25 03/02/2525
06:59 06:59 06:59 06:59
Intake Total 100 / 100 720 / 720 800 / 800
Output Total 1250 / 1250
Balance -1150 / -1150 720 / 720 800 / 800
Physical Exam
Physical Exam
General: Well developed, well nourished in NAD.
Neck: Supple, no JVD, HJR, carotids +2 B/L, no bruits bilaterally.
Heart: Non displaced PMI, RRR, no murmurs, No S3, S4, no rubs.
Lungs: Rhonchi at the bases bilaterally
Extremities: No clubbing, cyanosis or edema bilaterally.
Neuro: Grossly nonfocal, awake, alert and oriented x3.
--- NOTE | 2025-03-02 11:20 | W.PN.NEPH.PH ---
Today's Communication / Plan
-
check urine
Assessment/Plan
-
IMP:
Acute Hypoxic Respiratory Insufficiency secondary to Acute on Chronic HFpEF
Chest pain
New onset of atrial fibrillation with RVR
Acute kidney injury
Elevated LFTs
Essential Hypertension
Left shoulder pain
Anxiety / Depression
Spinal Stenosis
History of right Hip Prosthetic Joint Infection
Acute on chronic Anemia
GERD / Hx GI Bleed secondary to angioectasia
Obstructive Sleep Apnea
Hx Breast Cancer s/p Lumpectomy, Chemo/XRT
Hx Oral Cancer s/p Graft
Plan:
follow BMP
no samsca today
PINO likely related to contrast, then hypotension/Afib
no ARB
po lasix held
d/w patient and daughter on phone the possibility of dialysis. Will follow BMP closely
check urine studies
-
-
Date of Service: March 02, 2025
CC / HPI / ROS
-
Chief Complaint:
Hyponatremia, PINO
History of Present Illness:
PINO/Cr up to 2.4
Hgb stable
BP stable
sodium lower 129
Review of Systems:
no cp, no SOB
no dysuria
Labs
-
Labs:
WBC 8.1 10^3/uL (4.8-10.8) 03/01/25 05:35
RBC 3.02 10^6/uL (4.20-5.40) L 03/01/25 05:35
Hgb 9.6 g/dL (12.0-16.0) L 03/01/25 05:35
Hct 28.5 % (37.0-47.0) L 03/01/25 05:35
Plt Count 214 10^3/uL (130-400) 03/01/25 05:35
Sodium 129 mmol/L (135-145) L 03/02/25 04:34
Potassium 4.7 mmol/L (3.5-5.1) 03/02/25 04:34
Chloride 95 mmol/L (98-107) L 03/02/25 04:34
Carbon Dioxide 26 mmol/L (22-30) 03/02/25 04:34
BUN 66 mg/dl (7-17) H 03/02/25 04:34
Creatinine 2.4 mg/dL (0.6-1.0) H 03/02/25 04:34
eGFR 19.79 03/02/25 04:34
Glucose 110 mg/dl (70-99) H 03/02/25 04:34
Calcium 8.5 mg/dl (8.4-10.2) 03/02/25 04:34
Oee-Q-Wfjkpywhtlo Pept 3100 pg/ml 02/24/25 16:34
Albumin 3.3 g/dl (3.5-5.0) L 02/27/25 03:11
Physical Exam
-
Vital Signs:
Vital Signs
Temp Pulse Resp BP Pulse Ox
98.0 F 58 18 124/53 95
03/02/25 04:46 03/02/25 10:00 03/02/25 10:00 03/02/25 09:20 03/02/25 08:00
Cardiovascular:: Regular rate and rhythm
Respiratory:: Bilateral: Coarse
Lung Excursion:: Normal
Abdomen:: Nontender and Soft
Bowel Sounds:: Normal
Extremity Edema:: None: Bilateral:
--- NOTE | 2025-03-02 11:57 | PTCARENOTE ---
Patient AAOx3, very forgetful. Still unable to wean from 1L NC, patient given IS. States she is sad. Pastoral care called and will visit patient. VSS. NSR on monitor. Continuing to educate on medications and care plan, bed alarm on for safety. Will
continue to closely monitor.
--- NOTE | 2025-03-02 14:15 | CM ---
Following up on Patient. Hospitalist Notes states that creatine level is worsening so diuretics is on hold, amiodarone is still on, and may lower Eliquis dose. Again, patient and family do not want SNF.
PLAN: Home with [facility]
[2025-03-02] MEDS: ULTRAM 50 MG PO ×2 (14:44→23:00)
[2025-03-02 15:00] LABS: Urine Character Clear (Clear)
[2025-03-02 16:26] LABS: Urine Squamous Cell >30 /LPF (Few)
[2025-03-02 16:27] LABS: Urine Red Blood Cell 0-2 /HPF (0-2); Urine White Cell 50-60 /HPF (0-5)
[2025-03-02] MEDS: TIGAN 200 MG IM (17:56)
[2025-03-02] MEDS: MAGIC OR MIRACLE MOUTHWASH 15 ML PO (17:58)
[2025-03-02] MEDS: ELIQUIS 2.5 MG PO (21:14)
[2025-03-02] MEDS: OCEAN, SALINE MIST 2 SPRAYS NASAL (21:20)
[2025-03-03] VITALS (11 sets, daily range): BP systolic 118–147; BP diastolic 49–112; BMI 25.4
[2025-03-03] MEDS: SYNTHROID 12.5 MCG PO (06:23)
[2025-03-03 07:19] LABS: Hematocrit 29.5 % (37.0-47.0); Hemoglobin 10.0 g/dL (12.0-16.0); Mean Corp Hgb Conc. 33.9 g/dL (33.0-37.0); Mean Corpuscular Volume 91.9 fL (81.0-99.0); Platelet Count 279 10^3/uL (130-400); Red Cell Dist. Width 13.4 % (11.5-14.5)
[2025-03-03 07:29] LABS: Blood Urea Nitrogen 66 mg/dl (7-17); Calcium 8.8 mg/dl (8.4-10.2); Carbon Dioxide 27 mmol/L (22-30); Chloride 93 mmol/L (98-107); Estimated Creatinine Clearance 20 ml/min; Glucose 109 mg/dl (70-99); Potassium 4.1 mmol/L (3.5-5.1); Sodium 129 mmol/L (135-145); eGFR 26.20
--- NOTE | 2025-03-03 07:36 | PTCARENOTE ---
Patient removed her IV. Pt stated she 'itched it out' as her whole body felt itchy. ALMA Gibson made aware. Hygiene completed and moisturized placed on arms/legs/back/etc. Patient stated she wasn't as itchy anymore after applying the moisturizer.
New IV placed by VAT. Pt resting in bed with call atkinson in reach and bed alarm on.
--- NOTE | 2025-03-03 08:40 | W.PN.CARDCBS ---
Addendum entered and electronically signed by Abdiel Lopez DO 03/03/25 12:12:
.
QTc 579, will hold amiodarone for now.
Original Note:
Today's Communication / Plan
-
Her wt is overall stable.
Creatinine improving to 1.9 from 2.4 with holding lasix. may not require further diuresis
Remains on 1 L O2. Continue attempts to wean O2.
She remains in sinus rhythm
Continue on amiodarone which was decreased to 200 mg daily given prolonged QT interval on 03/01
Check EKG
Continue Eliquis.
Decrease dose given renal insufficiency and monitor cr. if cr normalizes could increase back to 5 mg BID
Hemoglobin stable at 10.
Cont GDMT for EF 40-45% which has been limited by hypotension and renal failure.
Continue Toprol, pt off pressors
Continue to hold ANGELA/ARB/Aldactone with renal insufficiency
Consider eventual Farxiga/Jardiance and will check with case management
Impression / Plan
-
.
Primary Gang Punch Operator: Dr. Gill
Impression:
Presentation with CP, SOB
Acute on chronic HFpEF
Stage IIIb renal insufficiency
Non-[place] myocardial injury with peak troponin of 0.181
Paroxysmal atrial fibrillation with RVR, spontaneously converted to sinus rhythm
Prolonged QTc
Mild LFT elevation
Hypotension, improved
paraesophageal hernia repair 10/30/24
GI bleed from angioectasia and large paraesophageal hernia treated with monopolar probe 08/2024 with Hx GIB 2012
COPD with hx of AIMEE
History of ITP
Hypertension
hyperlipidemia
Hx Right hip replacement resulting in subsequent prosthetic infection status post I&D and revision 07/2024
Anemia
DNR code status
ECHO 10/29/24: EF 62%, stage I diastolic dysfunction, aortic sclerosis, mild AR, mild to moderate TR, PAP 43 mmHg
Lexiscan nuclear stress test 12/24/2024: Normal myocardial perfusion, EF 54%
Echocardiogram 02/25/2025: Ejection fraction 40 to 45%, mild to moderate concentric LVH, aortic sclerosis, mild MR, severe TR PA systolic of 40 mmHg
Plan:
Her wt is overall stable.
Creatinine improving to 1.9 from 2.4 with holding lasix. may not require further diuresis
Remains on 1 L O2. Continue attempts to wean O2.
She remains in sinus rhythm
Continue on amiodarone which was decreased to 200 mg daily given prolonged QT interval on 03/01
Check EKG
Continue Eliquis.
Decrease dose given renal insufficiency and monitor cr. if cr normalizes could increase back to 5 mg BID
Hemoglobin stable at 10.
Cont GDMT for EF 40-45% which has been limited by hypotension and renal failure.
Continue Toprol, pt off pressors
Continue to hold ANGELA/ARB/Aldactone with renal insufficiency
Consider eventual Farxiga/Jardiance and will check with case management
Check repeat echo now that HRs are improved.
Discussed with nursing.
Progress Note - Gang Punch Operator
Subjective
Date of Service: March 03, 2025
Pt seen and examined. No complaints. No chest pain or shortness of breath.
Objective
Labs:
03/03/25 06:37
03/03/25 06:37
Labs
Hgb 10.0 g/dL (12.0-16.0) L 03/03/25 06:37
Hct 29.5 % (37.0-47.0) L 03/03/25 06:37
Plt Count 279 10^3/uL (130-400) D 03/03/25 06:37
APTT 43.2 Sec (23.4-35.0) H 02/27/25 16:15
Sodium 129 mmol/L (135-145) L 03/03/25 06:37
Potassium 4.1 mmol/L (3.5-5.1) 03/03/25 06:37
BUN 66 mg/dl (7-17) H 03/03/25 06:37
Creatinine 1.9 mg/dL (0.6-1.0) H 03/03/25 06:37
Glucose 109 mg/dl (70-99) H 03/03/25 06:37
Vital Signs and I&O:
Vital Signs
Temp Pulse Resp BP Pulse Ox
97.7 F 55 17 147/68 92
03/03/25 03:00 03/03/25 06:05 03/03/25 06:05 03/03/25 06:05 03/03/25 06:00
Vital Signs
Temp Pulse Resp BP Pulse Ox
97.7 F 55 17 147/68 92
03/03/25 03:00 03/03/25 06:05 03/03/25 06:05 03/03/25 06:05 03/03/25 06:00
Intake & Output
03/01/25 03/02/25 03/03/25 03/04/25
06:59 06:59 06:59 06:59
Intake Total 720 / 720 800 / 800 480 / 480
Output Total 525 / 525
Balance 720 / 720 800 / 800 -45 / -45
Physical Exam
Physical Exam
General: No acute distress, AAOX3
Neck: Negative JVD
Heart: Regular, Negative S3 positive S1/S2, Negative S4, No murmur
Lungs: CTA b/l, negative wheezes/rales/rhonchi
Abd: Positive BS, NT/ND, neg rebound/rigidity/guarding
Ext: Negative cyanosis/clubbing/edema
Neuro: nonfocal
[2025-03-03] MEDS: TOPROL XL 25 MG PO (08:46)
[2025-03-03] MEDS: NEURONTIN 300 MG PO ×2 (08:46→19:03)
[2025-03-03] MEDS: PACERONE 200 MG PO (08:46)
[2025-03-03] MEDS: MAGNESIUM OXIDE 400 MG PO (08:47)
[2025-03-03] MEDS: ELIQUIS 2.5 MG PO ×2 (08:47→19:03)
[2025-03-03] MEDS: WELLBUTRIN XL (24 hour extended release) 150 MG PO (08:47)
[2025-03-03] MEDS: PROTONIX 40 MG PO (08:47)
[2025-03-03] MEDS: LEXAPRO 20 MG PO (08:47)
--- NOTE | 2025-03-03 12:18 | W.PN.HOSP.TC ---
Today's Communication/Plan
-
Amiodarone and Lexapro stopped due to prolonged QTc
Transfer to telemetry
Assessment / Plan
Assessment / Plan
Physical Exam
General: No Apparent Distress
Respiratory: Rhonchi
Cardiac: Regular Rhythm and S1/S2
GI: Soft and nontender. Positive bowel sounds.
Neuro: AAO x 3
Assessment/Plan
Presented with chest discomfort and shortness of breath and found to be in acute heart failure and atrial fibrillation with RVR
Acute Hypoxic Respiratory Insufficiency secondary to Acute on Chronic HFpEF
- On presentation patient had lower blood pressures, and patient was started on norepinephrine for pressor support
- Improved shortness of breath and stable oxygenation on nasal cannula. Chest CT showed bilateral pleural effusion and evidence of pulmonary edema.
- Continue supplemental oxygen
- Hold Lasix given significant Acute Kidney Injury
- Echocardiogram showed new depression of LV function currently 40 to 45% and severe TR (while patient was in rapid A-Fib)
- On losartan which will be resumed once blood pressure is up/creatinine improves. Continue beta fernanda. GDMT difficult with renal function and hypotension.
Chest pain-anterior with radiation to the back and the arm. Is also pleuritic in nature.
CT shows no evidence of mediastinal pathology, aortic dissection, or PE
Troponin elevation noted-suspect nonischemic myocardial injury
Resolved chest pain with control of heart rate making it over worrisome for angina equivalent.
Continue with anticoagulation
New onset of Atrial Fibrillation with RVR
Initiated on IV amiodarone-reverted back to sinus rhythm again
Amiodarone is now on hold given QTc prolongation well into the 500s range (previously was decreased to 200 mg daily given prolonged QT interval on 03/01/25)
Oral anticoagulation with Eliquis 2.5 mg twice daily -- I communicated on 03/02/25 with clinical pharmacist Callie Paulino, and given that patient's serum creatinine continues to worsen and considering age and renal dysfunction: Apixaban was reduced to
2.5 mg BID on 03/02/25 (from 5 mg twice daily)
Monitor QTc
Echo as above
Prolonged QTc 579 on 03/03/25
-Amiodarone and Escitalopram on hold due to QTc prolongation
Hypotension
-suspect medication related-patient currently off of IV Cardizem and IV nitro drip. Continue to follow. Needed brief Levophed. Currently hemodynamically stable off of pressors.
Acute kidney injury
-elevation of creatinine from 0.8-1.2 noted since admission. Creatinine peaked at 2.4 on 03/02/25, today back down to 1.9. No further Lasix since 03/02/25.
Suspect probably multifactorial-hemodynamics/hypotension, diuretics, heart failure, IV contrast for PE study
Hyponatremia-status post Samsca earlier this hospitalization-improved sodium
Nephrology following
Elevated LFTs unclear etiology patient has clinical concern for heart failure and suspicion is hepatic congestion. Improving LFTs. CT of the chest showed lobular contour of liver raising concern for cirrhosis but no prior history of it. Continue
to treat heart failure and follow LFTs for now and if remains abnormal GI evaluation as outpatient.
Essential Hypertension
- Losartan on hold due to PINO. Blood pressure mostly in the goal currently.
-Hold chlorthalidone
Left shoulder pain-clinically well raises concern for left rotator cuff pathology-left shoulder x-ray shows severe arthritis of the glenohumeral joint as well as moderate calcific tendinitis of the left rotator cuff. Continue symptomatic treatment
Subclinical Hypothyroidism
-Continue newly started Levothyroxine 12.5 mcg PO daily
Anxiety / Depression
-Continue bupropion, escitalopram
Spinal Stenosis
-Continue gabapentin -- which was reduced given renal function
History of right Hip Prosthetic Joint Infection
- Apparently done with doxycycline
Acute on chronic Anemia
-Hgb slow drop noted. No obvious external bleeding. Stable now.
- Iron studies does not suggest iron deficiency anemia
GERD / Hx GI Bleed secondary to angioectasia
-Continue Protonix
Obstructive Sleep Apnea
-Patient reports unable to use home CPAP machine due to malfunction (Patient reports company sent incorrect parts).
Hx Breast Cancer s/p Lumpectomy, Chemo/XRT
Hx Oral Cancer s/p Graft
Neuropathy
-Following my discussion on March 01, 2025 with clinical pharmacist, it was decided to reduce to a maximum of 600 mg/day (300 mg BID)
DVT Prophylaxis: Lovenox
Code Status: DNR
On March 01, 2025, I spoke with patient's daughter, and I answered all of her questions and concerns to satisfaction.
Anticipated Discharge: 24 - 48 hours
Subjective/Interval History
-
Date of Service: March 03, 2025
Patient was seen and examined. She denied any new symptoms or complaints.
Objective Data
-
Labs:
Laboratory Results
03/03/25
06:37
WBC 8.3
Hgb 10.0 L
Hct 29.5 L
Plt Count 279 D
Sodium 129 L
Potassium 4.1
Chloride 93 L
Carbon Dioxide 27
BUN 66 H
Creatinine 1.9 H
Glucose 109 H
Calcium 8.8
Vital Signs:
Vital Signs
Temp Pulse Resp BP Pulse Ox
97.8 F 55 17 147/68 95
03/03/25 07:55 03/03/25 06:05 03/03/25 06:05 03/03/25 06:05 03/03/25 08:26
I&O
03/02/25 03/03/25 03/04/25
06:59 06:59 06:59
Intake Total 800 / 800 480 / 480
Output Total 525 / 525
Balance 800 / 800 -45 / -45
--- NOTE | 2025-03-03 12:30 | W.PN.NEPH.PH ---
Today's Communication / Plan
-
follow labs
Assessment/Plan
-
IMP:
Acute Hypoxic Respiratory Insufficiency secondary to Acute on Chronic HFpEF
Chest pain
New onset of atrial fibrillation with RVR
Acute kidney injury
Elevated LFTs
Essential Hypertension
Left shoulder pain
Anxiety / Depression
Spinal Stenosis
History of right Hip Prosthetic Joint Infection
Acute on chronic Anemia
GERD / Hx GI Bleed secondary to angioectasia
Obstructive Sleep Apnea
Hx Breast Cancer s/p Lumpectomy, Chemo/XRT
Hx Oral Cancer s/p Graft
Plan:
PINO-cr improving to 1.9
PINO likely related to contrast, then hypotension/Afib, U na still <5
UA with bacteruria and pyuria-likely asymptomatic
no ARB and avoid nephrotoxins
cont to hold po lasix
stable hyponatremia
no need of HD
-
-
Date of Service: March 03, 2025
CC / HPI / ROS
-
Chief Complaint:
Hyponatremia, PINO
History of Present Illness:
PINO/Cr down to 1.9
Hgb stable
BP stable
sodium lower 129-stable
wt is up
Review of Systems:
no cp, no SOB at rest
no urinary issues
Labs
-
Labs:
WBC 8.3 10^3/uL (4.8-10.8) 03/03/25 06:37
RBC 3.21 10^6/uL (4.20-5.40) L 03/03/25 06:37
Hgb 10.0 g/dL (12.0-16.0) L 03/03/25 06:37
Hct 29.5 % (37.0-47.0) L 03/03/25 06:37
Plt Count 279 10^3/uL (130-400) D 03/03/25 06:37
Sodium 129 mmol/L (135-145) L 03/03/25 06:37
Potassium 4.1 mmol/L (3.5-5.1) 03/03/25 06:37
Chloride 93 mmol/L (98-107) L 03/03/25 06:37
Carbon Dioxide 27 mmol/L (22-30) 03/03/25 06:37
BUN 66 mg/dl (7-17) H 03/03/25 06:37
Creatinine 1.9 mg/dL (0.6-1.0) H 03/03/25 06:37
eGFR 26.20 03/03/25 06:37
Glucose 109 mg/dl (70-99) H 03/03/25 06:37
Calcium 8.8 mg/dl (8.4-10.2) 03/03/25 06:37
Hzx-Z-Pgppcjbfwya Pept 3100 pg/ml 02/24/25 16:34
Albumin 3.3 g/dl (3.5-5.0) L 02/27/25 03:11
Physical Exam
-
Vital Signs:
Vital Signs
Temp Pulse Resp BP Pulse Ox
97.8 F 55 17 147/68 95
03/03/25 07:55 03/03/25 06:05 03/03/25 06:05 03/03/25 06:05 03/03/25 08:26
Cardiovascular:: Regular rate and rhythm
Respiratory:: Bilateral: Coarse
Lung Excursion:: Normal
Abdomen:: Nontender and Soft
Bowel Sounds:: Normal
Extremity Edema:: None: Bilateral:
Edward Catheter: No
[2025-03-03] MEDS: MAGIC OR MIRACLE MOUTHWASH 15 ML PO (12:45)
[2025-03-03] MEDS: LIDOCAINE 4% PATCH 2 PATCH TOPICAL (16:47)
[2025-03-03] MEDS: MIRALAX 17 GRAMS PO (16:48)
[2025-03-03] MEDS: TIGAN 200 MG IM (19:03)
[2025-03-03] MEDS: REMOVE LIDOCAINE PATCH REMOVE (20:06)
[2025-03-03] MEDS: REMOVE LIDOCAINE PATCH 2 PATCH REMOVE (20:54)
--- NOTE | 2025-03-03 21:56 | PTCARENOTE ---
Pt tele being transferred to 4th floor. aaox3, pleasant. SR/SB. VSS. OOB to BR x1RW. No assessment changes. Report given to RN.
--- NOTE | 2025-03-03 22:30 | PTCARENOTE ---
Received patient from IMU via wheelchair. Patient stood and pivoted from wheelchair to bed x1 assist. AAOx3, no current complaints of pain. Oriented patient to room and call atkinson placed within reach.
[2025-03-04] VITALS (8 sets, daily range): BP systolic 97–155; BP diastolic 55–64; PULSE 59–60; BMI 25.0
[2025-03-04] MEDS: ROBITUSSIN 200 MG PO ×2 (01:50→23:02)
[2025-03-04] MEDS: SYNTHROID 12.5 MCG PO (06:01)
[2025-03-04 09:05] LABS: Blood Urea Nitrogen 46 mg/dl (7-17); Calcium 8.7 mg/dl (8.4-10.2); Carbon Dioxide 30 mmol/L (22-30); Chloride 96 mmol/L (98-107); Estimated Creatinine Clearance 32 ml/min; Glucose 110 mg/dl (70-99); Potassium 3.8 mmol/L (3.5-5.1); Sodium 131 mmol/L (135-145); eGFR 45.48
--- NOTE | 2025-03-04 09:39 | W.PN.HOSP.TC ---
Today's Communication/Plan
-
Patient will have transport tomorrow to pick her up
Kidney function improved
Discharge tomorrow
Assessment / Plan
Assessment / Plan
Physical Exam
General: No Apparent Distress
Respiratory: Rhonchi
Cardiac: Regular Rhythm and S1/S2
GI: Soft and nontender. Positive bowel sounds.
Neuro: AAO x 3
Assessment/Plan
Presented with chest discomfort and shortness of breath and found to be in acute heart failure and atrial fibrillation with RVR
Acute Hypoxic Respiratory Insufficiency secondary to Acute on Chronic HFpEF
- On presentation patient had lower blood pressures, and patient was started on norepinephrine for pressor support
- Improved shortness of breath and stable oxygenation on nasal cannula. Chest CT showed bilateral pleural effusion and evidence of pulmonary edema.
- Continue supplemental oxygen
- Hold Lasix given significant Acute Kidney Injury -- but now that renal function is improving, can discharge on PO Lasix 40 daily
- Echocardiogram showed new depression of LV function currently 40 to 45% and severe TR (while patient was in rapid A-Fib)
- Hold Losartan as per cardio in setting of hypotension, first resume Lasix. Continue beta fernanda. GDMT difficult with renal function and hypotension. No SGLT2i due to cost.
Chest pain-anterior with radiation to the back and the arm. Is also pleuritic in nature.
CT shows no evidence of mediastinal pathology, aortic dissection, or PE
Troponin elevation noted-suspect nonischemic myocardial injury
Resolved chest pain with control of heart rate making it over worrisome for angina equivalent.
Continue with anticoagulation
New onset of Atrial Fibrillation with RVR
Initiated on IV amiodarone-reverted back to sinus rhythm again
Amiodarone is now on hold given QTc prolongation well into the 500s range (previously was decreased to 200 mg daily given prolonged QT interval on 03/01/25)
Oral anticoagulation with Eliquis 2.5 mg twice daily -- I communicated on 03/02/25 with clinical pharmacist Callie Paulino, and given that patient's serum creatinine continues to worsen and considering age and renal dysfunction: Apixaban was reduced to
2.5 mg BID on 03/02/25 (from 5 mg twice daily) -- now can increase back to 5 mg BID given improvement in renal function
Continue beta fernanda
Monitor QTc
Echo as above
Prolonged QTc 579 on 03/03/25
-Amiodarone and Escitalopram were on hold due to QTc prolongation, QTc then improved
-On discharge, plan to discharge to home on amiodarone 200 mg daily and check ECG at next office visit.
Hypotension
-suspect medication related-patient currently off of IV Cardizem and IV nitro drip. Continue to follow. Needed brief Levophed. Currently hemodynamically stable off of pressors.
Acute kidney injury
-elevation of creatinine from 0.8-1.2 noted since admission. Creatinine peaked at 2.4 on 03/02/25, today down to 1.2. No further Lasix since 03/02/25.
Suspect probably multifactorial-hemodynamics/hypotension, diuretics, heart failure, IV contrast for PE study
Hyponatremia-status post [facility] earlier this hospitalization-improved sodium
Nephrology following
Elevated LFTs unclear etiology patient has clinical concern for heart failure and suspicion is hepatic congestion. Improving LFTs. CT of the chest showed lobular contour of liver raising concern for cirrhosis but no prior history of it. Continue
to treat heart failure and follow LFTs for now and if remains abnormal GI evaluation as outpatient.
Essential Hypertension
- Losartan on hold due to PINO. Blood pressure mostly in the goal currently.
-Hold chlorthalidone
Left shoulder pain-clinically well raises concern for left rotator cuff pathology-left shoulder x-ray shows severe arthritis of the glenohumeral joint as well as moderate calcific tendinitis of the left rotator cuff. Continue symptomatic treatment
Subclinical Hypothyroidism
-Continue newly started Levothyroxine 12.5 mcg PO daily
Anxiety / Depression
-Continue bupropion, escitalopram
Spinal Stenosis
-Continue gabapentin -- which was reduced given renal function
History of right Hip Prosthetic Joint Infection
- Apparently done with doxycycline
Acute on chronic Anemia
-Hgb slow drop noted. No obvious external bleeding. Stable now.
- Iron studies does not suggest iron deficiency anemia
GERD / Hx GI Bleed secondary to angioectasia
-Continue Protonix
Obstructive Sleep Apnea
-Patient reports unable to use home CPAP machine due to malfunction (Patient reports company sent incorrect parts).
Hx Breast Cancer s/p Lumpectomy, Chemo/XRT
Hx Oral Cancer s/p Graft
Neuropathy
-Following my discussion on March 01, 2025 with clinical pharmacist, it was decided to reduce to a maximum of 600 mg/day (300 mg BID)
DVT Prophylaxis: Lovenox
Code Status: DNR
On March 01, 2025, I spoke with patient's daughter, and I answered all of her questions and concerns to satisfaction.
Anticipated Discharge: Within 24 hours
Subjective/Interval History
-
Date of Service: March 04, 2025
Patient was seen and examined. She was doing well and denied any new symptoms or complaints.
Objective Data
-
Labs:
Laboratory Results
03/04/25
08:34
Sodium 131 L
Potassium 3.8
Chloride 96 L
Carbon Dioxide 30
BUN 46 H
Creatinine 1.2 H
Glucose 110 H
Calcium 8.7
Vital Signs:
Vital Signs
Temp Pulse Resp BP Pulse Ox
98.1 F 59 18 155/64 98
03/04/25 07:39 03/04/25 07:39 03/04/25 07:39 03/04/25 07:39 03/04/25 07:39
I&O
03/03/25 03/04/25 03/05/25
06:59 06:59 06:59
Intake Total 480 / 480 1078 / 1078
Output Total 525 / 525 500 / 500
Balance -45 / -45 578 / 578
[2025-03-04] MEDS: LIDOCAINE 4% PATCH 2 PATCH TOPICAL (10:15)
[2025-03-04] MEDS: ELIQUIS 2.5 MG PO ×2 (10:16→21:26)
[2025-03-04] MEDS: MIRALAX 17 GRAMS PO (10:16)
[2025-03-04] MEDS: PROTONIX 40 MG PO (10:16)
[2025-03-04] MEDS: TOPROL XL 25 MG PO (10:17)
[2025-03-04] MEDS: WELLBUTRIN XL (24 hour extended release) 150 MG PO (10:17)
[2025-03-04] MEDS: MAGNESIUM OXIDE 400 MG PO (10:17)
[2025-03-04] MEDS: NEURONTIN 300 MG PO ×2 (10:19→21:26)
--- NOTE | 2025-03-04 12:19 | W.PN.CARDCBS ---
Addendum entered and electronically signed by Margarito Jovel MD 03/04/25 16:50:
I saw and examined the patient.
The Gas Golf Cart Repairer's note was reviewed and I agree with the note.
Comment:
GEN: No distress, awake, Ox3
HEENT: supple, anicteric, mmm
LUNGS: CTA, no wheezes/rales
CV: Reg, S1/S2, / syst LSB, no gallop
ABD: soft, BS+, NT/ND
EXT: No edema
NEURO: Gross non-focal
SKIN: No rash
Plan:
Overall doing well. Stable for discharge from cardiology standpoint. Creatinine improving down to 1.2. Will discharge on Lasix 40 mg p.o. daily.
Continue Toprol 25 mg daily, Eliquis 2.5 mg twice daily, and amiodarone 200 mg daily.
Hold losartan with hypotension.
No SGLT2 inhibitor due to cost.
Will arrange follow-up.
Original Note:
Today's Communication / Plan
-
Cardiology will send Rx for higher dose Lasix, amiodarone and Eliquis
Cardiology follow-up being arranged
Impression / Plan
-
PCP: Makenna Diaz
Primary Electromechanical Engineer: Dr. Gill
Impression:
Presentation with CP, SOB 02/24/25
Acute on chronic HFpEF
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
Elevated Troponin
Afib with RVR on admission 02/24/25, spontaneously converted to SR 02/26/2025
Newly diagnosed paroxysmal atrial fibrillation
New to chronic Eliquis OAC
Due to chronic amiodarone therapy
Prolonged QTc, as long as 579 ms by ECG 03/03/2025
Improved to 463 ms by ECG 03/04/2025
Mild LFT elevation
Hypotension, improved
paraesophageal hernia repair 10/30/24
GI bleed from angioectasia and large paraesophageal hernia treated with monopolar probe 08/2024 with Hx GIB 2012
COPD with hx of AIMEE
History of ITP
Hypertension
hyperlipidemia
Hx Right hip replacement resulting in subsequent prosthetic infection status post I&D and revision 07/2024
Anemia
DNR code status
Lexiscan nuclear stress test 12/24/2024: Normal myocardial perfusion, EF 54%
ECHO 10/29/24: EF 62%, stage I diastolic dysfunction, aortic sclerosis, mild AR, mild to moderate TR, PAP 43 mmHg
Echo 02/25/2025: Ejection fraction 40 to 45%, mild to moderate concentric LVH, aortic sclerosis, mild MR, severe TR PA systolic of 40 mmHg
Plan:
-Patient was admitted with chest pain and SOB and was managed for acute HF. She also had newly diagnosed A-fib that spontaneously converted to SR so we added amiodarone, QT prolonged with loading, but improved by ECG 03/04/2025.
-Weight peaked at 150 lbs this admission and is 148 lbs on 03/04/2025, VS reviewed by me. Weight was as low as 144 lbs at last discharge on 11/03/2024, but patient reports this was also in the setting of paraesophageal hernia repair.
-Patient was taking chlorthalidone 25 mg daily plus Lasix 20 mg daily prior to admission. When patient was last seen in the office on 11/25/24 she was asked to stop taking chlorthalidone at that time and to start on Lasix 20 mg daily. Discharge
medication list and instructions reviewed by me on 03/04/2025 with discontinuation of chlorthalidone and additional instructions written out for patient to stop taking chlorthalidone at home. Also, outpatient dose of Lasix has been increased to 40
mg PO daily
-EF had been 62% on 10/29/2024, but repeat echo this admission shows EF is down at 40 to 45%, but this was in the setting of A-fib. Plan is for patient to maintain SR and complete 3 months of GDMT prior to rechecking echo.
-Patient is new to Toprol-XL 25 mg daily
-Outpatient dose of losartan 50 mg daily has been on hold since 02/27/2025. BP is overall controlled so would not discharge to home on losartan, we can reassess patient in the office and restart losartan if BP improved and renal function stable
-Cre as high as 2.4 on 03/02/2025, but improved to 1.2 on 03/04/2025
-Co-pay for Brianxiga will be $120 a month, will hold off for now due to cost
-Patient with newly diagnosed A-fib this admission that spontaneously converted to SR. Telemetry reviewed by me on 03/04/2025 and patient remains in SR.
-Patient was loaded with amiodarone and QTc as long as 579 ms on ECG 03/03/2025, but improved to 463 ms on ECG 03/04/2025. Will discharge to home on amiodarone 200 mg daily and check ECG at next office visit.
-Patient is new to Eliquis 2.5 mg BID (age 79, Cre 1.2, wt 67.16 kg). Cre has been as high as 2.4 this admission, but improved to 1.2 on 03/04/2025. Increase Eliquis dose to 5 mg BID starting 03/04/2025 PM, will send updated Rx to patient's pharmacy.
-Troponin peaked at 0.181 this admission. EF is down to 40 to 45% without WMA. Will manage as a nonischemic myocardial injury troponin elevation in the setting of acute HF and rapid A-fib.
-Cardiology f/u being arranged. Patient is being d/c'd to home with [facility] and a hospital bed. Patient is hoping she can be discharged to home without supplemental oxygen
-Patient is stable for discharge to home from a cardiac standpoint 03/04/2025
Progress Note - Electromechanical Engineer
Subjective
Date of Service: March 04, 2025
Overall feels improved, she wants to go home today
Objective
Labs:
03/03/25 06:37
03/04/25 08:34
Labs
Hgb 10.0 g/dL (12.0-16.0) L 03/03/25 06:37
Hct 29.5 % (37.0-47.0) L 03/03/25 06:37
Plt Count 279 10^3/uL (130-400) D 03/03/25 06:37
APTT 43.2 Sec (23.4-35.0) H 02/27/25 16:15
Sodium 131 mmol/L (135-145) L 03/04/25 08:34
Potassium 3.8 mmol/L (3.5-5.1) 03/04/25 08:34
BUN 46 mg/dl (7-17) H 03/04/25 08:34
Creatinine 1.2 mg/dL (0.6-1.0) H 03/04/25 08:34
Glucose 110 mg/dl (70-99) H 03/04/25 08:34
Vital Signs and I&O:
Vital Signs
Temp Pulse Resp BP Pulse Ox
97.9 F 75 18 113/56 97
03/04/25 11:40 03/04/25 11:40 03/04/25 11:40 03/04/25 11:40 03/04/25 11:40
Vital Signs
Temp Pulse Resp BP Pulse Ox
97.9 F 75 18 113/56 97
03/04/25 11:40 03/04/25 11:40 03/04/25 11:40 03/04/25 11:40 03/04/25 11:40
Intake & Output
03/02/25 03/03/25 03/04/25 03/05/25
06:59 06:59 06:59 06:59
Intake Total 800 / 800 480 / 480 1078 / 1078
Output Total 525 / 525 500 / 500
Balance 800 / 800 -45 / -45 578 / 578
Physical Exam
Physical Exam
GEN: NAD
LUNGS: 2 L NC.
CV: SR on telemetry
--- NOTE | 2025-03-04 15:57 | CM ---
Spoke with patient she declined SNF.
OT evaluation indicated home with 24 hour care of SNF.
Pt wants to go home. She is alert oriented.
IMM reviewed with dgt Leora and patient.Both agreed with dc to home.
Spoke with Leora dgt explained to dgt OT evail . Dgt said family would arrange 24 hours care by tomorrow.
MD aware.
PLAN Home with family care 24 hours and Kristina BAZAN fax [phone]
--- NOTE | 2025-03-04 17:32 | W.PN.NEPH.PH ---
Today's Communication / Plan
-
ok to resume po lasix
Assessment/Plan
-
IMP:
Acute Hypoxic Respiratory Insufficiency secondary to Acute on Chronic HFpEF
Chest pain
New onset of atrial fibrillation with RVR
Acute kidney injury
Elevated LFTs
Essential Hypertension
Left shoulder pain
Anxiety / Depression
Spinal Stenosis
History of right Hip Prosthetic Joint Infection
Acute on chronic Anemia
GERD / Hx GI Bleed secondary to angioectasia
Obstructive Sleep Apnea
Hx Breast Cancer s/p Lumpectomy, Chemo/XRT
Hx Oral Cancer s/p Graft
Plan:
PINO-cr improving to 1.2
PINO likely related to contrast, then hypotension/Afib, U na <5
UA with bacteruria and pyuria-likely asymptomatic
no ARB and avoid nephrotoxins
cont to hold po lasix, likely resume soon
stable hyponatremia
-
-
Date of Service: March 04, 2025
CC / HPI / ROS
-
Chief Complaint:
Hyponatremia, PINO
History of Present Illness:
PINO/Cr down to 1.2
Hgb stable
BP stable
sodium better at 131
wt is up
Review of Systems:
no cp, no SOB at rest
no urinary issues
Labs
-
Labs:
WBC 8.3 10^3/uL (4.8-10.8) 03/03/25 06:37
RBC 3.21 10^6/uL (4.20-5.40) L 03/03/25 06:37
Hgb 10.0 g/dL (12.0-16.0) L 03/03/25 06:37
Hct 29.5 % (37.0-47.0) L 03/03/25 06:37
Plt Count 279 10^3/uL (130-400) D 03/03/25 06:37
Sodium 131 mmol/L (135-145) L 03/04/25 08:34
Potassium 3.8 mmol/L (3.5-5.1) 03/04/25 08:34
Chloride 96 mmol/L (98-107) L 03/04/25 08:34
Carbon Dioxide 30 mmol/L (22-30) 03/04/25 08:34
BUN 46 mg/dl (7-17) H 03/04/25 08:34
Creatinine 1.2 mg/dL (0.6-1.0) H 03/04/25 08:34
eGFR 45.48 03/04/25 08:34
Glucose 110 mg/dl (70-99) H 03/04/25 08:34
Calcium 8.7 mg/dl (8.4-10.2) 03/04/25 08:34
Ptc-U-Qjzmjrwdqpk Pept 3100 pg/ml 02/24/25 16:34
Albumin 3.3 g/dl (3.5-5.0) L 02/27/25 03:11
Physical Exam
-
Vital Signs:
Vital Signs
Temp Pulse Resp BP Pulse Ox
97.6 F 59 18 149/62 97
03/04/25 15:19 03/04/25 15:19 03/04/25 15:19 03/04/25 15:19 03/04/25 15:19
Cardiovascular:: Regular rate and rhythm
Respiratory:: Bilateral: Coarse
Lung Excursion:: Normal
Abdomen:: Nontender and Soft
Bowel Sounds:: Normal
Extremity Edema:: None: Bilateral:
Edward Catheter: No
[2025-03-04] MEDS: REMOVE LIDOCAINE PATCH 2 PATCH REMOVE (21:26)
[2025-03-04] MEDS: MAGIC OR MIRACLE MOUTHWASH 15 ML PO (21:31)
[2025-03-04] MEDS: ULTRAM 50 MG PO (21:35)
[2025-03-05 03:23] VITALS: BP 121/79
[2025-03-05] MEDS: SYNTHROID 12.5 MCG PO (05:07)
[2025-03-05 06:00] VITALS: BMI 24.7
[2025-03-05 06:45] VITALS: BP 143/60
[2025-03-05 07:16] LABS: Hematocrit 28.4 % (37.0-47.0); Hemoglobin 9.1 g/dL (12.0-16.0); Mean Corp Hgb Conc. 32.0 g/dL (33.0-37.0); Mean Corpuscular Volume 93.4 fL (81.0-99.0); Platelet Count 273 10^3/uL (130-400); Red Cell Dist. Width 13.5 % (11.5-14.5)
--- NOTE | 2025-03-05 08:12 | W.PN.HOSP.TC ---
Today's Communication/Plan
-
Discharge today
Assessment / Plan
Assessment / Plan
Physical Exam
General: No Apparent Distress
Respiratory: Rhonchi
Cardiac: Regular Rhythm and S1/S2
GI: Soft and nontender. Positive bowel sounds.
Neuro: AAO x 3
Assessment/Plan
#Presented with chest discomfort and shortness of breath and found to be in acute heart failure and atrial fibrillation with RVR
#Acute Hypoxic Respiratory Insufficiency secondary to Acute on Chronic HFpEF
- On presentation patient had lower blood pressures, and patient was started on norepinephrine for pressor support
- Improved shortness of breath and stable oxygenation on nasal cannula. Chest CT showed bilateral pleural effusion and evidence of pulmonary edema.
- Continue supplemental oxygen
- Held Lasix given significant Acute Kidney Injury -- but now that renal function is improving, can resume/discharge on PO Lasix 40 daily
- Echocardiogram showed new depression of LV function currently 40 to 45% and severe TR (while patient was in rapid A-Fib)
- Per cardiology, hold Losartan on discharge. GDMT difficult with renal function and hypotension.
- On the day of discharge on 03/05/25, I communicated with Marry Alvarez, cardiology PA-C, and Marry communicated with Dr. Jovel (delivery route driver) and they (cardiology) recommended that, given prolonged QTc in EKG well
into the 500s, decrease amiodarone to 100 mg daily and stop the Toprol for now and cardiology would reevaluate during upcoming office appointment 03/23/25 -- this was confirmed via [employer] communication
- No SGLT2i due to cost.
#Chest pain-anterior with radiation to the back and the arm -- pleuritic -- RESOLVED
CT shows no evidence of mediastinal pathology, aortic dissection, or PE
Troponin elevation noted-suspect nonischemic myocardial injury
Resolved chest pain with control of heart rate making it over worrisome for angina equivalent.
Continue with anticoagulation
#New onset of Atrial Fibrillation with RVR
Initiated on IV amiodarone-reverted back to sinus rhythm again
Amiodarone was previously on hold given QTc prolongation well into the 500s range (previously was decreased to 200 mg daily given prolonged QT interval on 03/01/25)
On the day of discharge on 03/05/25, I communicated with Marry Alvarez, cardiology PADanae, and Marry communicated with Dr. Jovel (delivery route driver) and they (cardiology) recommended that, given prolonged QTc in EKG well into the 500s, decrease
amiodarone to 100 mg daily and stop the Toprol for now and cardiology would reevaluate during upcoming office appointment 03/23/25 -- this was confirmed via [employer] communication.
Oral anticoagulation with Eliquis 2.5 mg twice daily -- I communicated on 03/02/25 with clinical pharmacist Callie Paulino, and given that patient's serum creatinine continues to worsen and considering age and renal dysfunction: Apixaban was reduced to
2.5 mg BID on 03/02/25 (from 5 mg twice daily) -- now can increase back to 5 mg BID given improvement in renal function
Monitor QTc
Echo as above
#Prolonged QTc 579 on 03/03/25
-Amiodarone and Escitalopram were on hold due to QTc prolongation, QTc then improved, but prolonged again on 03/05/25, med changes as above
-Stopped Tramadol given QTc prolongation
#Hypotension - RESOLVED
-suspect medication related-patient currently off of IV Cardizem and IV nitro drip. Continue to follow. Needed brief Levophed. Currently hemodynamically stable off of pressors.
#Acute kidney injury -- Suspect probably multifactorial-hemodynamics/hypotension, diuretics, heart failure, IV contrast for PE study -- IMPROVED
-elevation of creatinine from 0.8-1.2 noted since admission. Creatinine peaked at 2.4 on 03/02/25, today down to 1.2. No further Lasix since 03/02/25.
-Recheck CMP outpatient in 1 week
#Hyponatremia-status post [facility] earlier this hospitalization-improved sodium
Nephrology following
Recheck CMP outpatient
#Elevated LFTs unclear etiology - IMPROVED - patient has clinical concern for heart failure and suspicion is hepatic congestion. Improving LFTs. CT of the chest showed lobular contour of liver raising concern for cirrhosis but no prior history of
it. Continue to treat heart failure and follow LFTs for now and if remains abnormal GI evaluation as outpatient.
#Essential Hypertension
- Losartan on hold due to PINO. Blood pressure mostly in the goal currently.
- STOP home chlorthalidone as per cardiology
#Left shoulder pain-clinically well raises concern for left rotator cuff pathology-left shoulder x-ray shows severe arthritis of the glenohumeral joint as well as moderate calcific tendinitis of the left rotator cuff. Continue symptomatic treatment
#Subclinical Hypothyroidism
-Continue newly started Levothyroxine 12.5 mcg PO daily
-Recheck TFTs in 3 weeks
#Anxiety / Depression
-Continue bupropion, escitalopram
#Spinal Stenosis
-Continue gabapentin -- which was reduced given renal function
-Should take no more than 600 mg total daily per day
#History of right Hip Prosthetic Joint Infection
- Apparently done with doxycycline
#Acute on chronic Anemia
-Hgb slow drop noted. No obvious external bleeding. Stable now.
- Iron studies does not suggest iron deficiency anemia
#GERD/History of GI Bleed secondary to angioectasia
-Continue Protonix
#Obstructive Sleep Apnea
-Patient reports unable to use home CPAP machine due to malfunction (Patient reports company sent incorrect parts).
#History of Breast Cancer s/p Lumpectomy, Chemo/XRT
#History of Oral Cancer s/p Graft
#Neuropathy
-Following my discussion on March 01, 2025 with clinical pharmacist, it was decided to reduce to a maximum of 600 mg/day (300 mg BID)
DVT Prophylaxis: Lovenox
Code Status: DNR
On March 01, 2025, I spoke with patient's daughter, and I answered all of her questions and concerns to satisfaction.
More than 30 minutes spent in discharge including
Final examination of the patient
Summarizing hospital stay
Instructions for continuing care to all relevant caregivers
Preparation of discharge records, prescriptions, and referral forms
Total time spent (in minutes): 42
Anticipated Discharge: Today
Subjective/Interval History
-
Date of Service: March 05, 2025
Patient was seen and examined. She reported feeling well and denied any new symptoms or complaints.
Objective Data
-
Labs:
Laboratory Results
03/05/25
06:11
WBC 8.1
Hgb 9.1 L
Hct 28.4 L
Plt Count 273
Vital Signs:
Vital Signs
Temp Pulse Resp BP Pulse Ox
98.2 F 69 18 121/79 96
03/05/25 03:23 03/05/25 03:23 03/05/25 03:23 03/05/25 03:23 03/05/25 03:23
I&O
03/04/25 03/05/25 03/06/25
06:59 06:59 06:59
Intake Total 1078 / 1078 680 / 680
Output Total 500 / 500 400 / 400
Balance 578 / 578 280 / 280
[2025-03-05] MEDS: TOPROL XL 25 MG PO (09:20)
[2025-03-05] MEDS: NEURONTIN 300 MG PO (09:20)
[2025-03-05] MEDS: PROTONIX 40 MG PO (09:20)
[2025-03-05] MEDS: WELLBUTRIN XL (24 hour extended release) 150 MG PO (09:21)
[2025-03-05] MEDS: LASIX 40 MG PO (09:21)
[2025-03-05] MEDS: ELIQUIS 2.5 MG PO (09:21)
[2025-03-05] MEDS: MAGNESIUM OXIDE 400 MG PO (09:22)
[2025-03-05] MEDS: LIDOCAINE 4% PATCH 2 PATCH TOPICAL (09:22)
[2025-03-05] MEDS: MIRALAX PO (09:26)
[2025-03-05 11:30] VITALS: BP 151/65
--- NOTE | 2025-03-05 12:21 | W.PN.NEPH.PH ---
Today's Communication / Plan
-
follow BMP
Assessment/Plan
-
IMP:
Acute Hypoxic Respiratory Insufficiency secondary to Acute on Chronic HFpEF
Chest pain
New onset of atrial fibrillation with RVR
Acute kidney injury
Elevated LFTs
Essential Hypertension
Left shoulder pain
Anxiety / Depression
Spinal Stenosis
History of right Hip Prosthetic Joint Infection
Acute on chronic Anemia
GERD / Hx GI Bleed secondary to angioectasia
Obstructive Sleep Apnea
Hx Breast Cancer s/p Lumpectomy, Chemo/XRT
Hx Oral Cancer s/p Graft
Plan:
follow BMP
back on lasix
can restart losartan
-
-
Date of Service: March 05, 2025
CC / HPI / ROS
-
Chief Complaint:
Hyponatremia, PINO
History of Present Illness:
PINO/Cr down to 1.2 stable yesterday
Hgb stable
BP stable
sodium better at 131 yesterday
Review of Systems:
no cp, no SOB at rest
no urinary issues
Labs
-
Labs:
WBC 8.1 10^3/uL (4.8-10.8) 03/05/25 06:11
RBC 3.04 10^6/uL (4.20-5.40) L 03/05/25 06:11
Hgb 9.1 g/dL (12.0-16.0) L 03/05/25 06:11
Hct 28.4 % (37.0-47.0) L 03/05/25 06:11
Plt Count 273 10^3/uL (130-400) 03/05/25 06:11
Sodium 131 mmol/L (135-145) L 03/04/25 08:34
Potassium 3.8 mmol/L (3.5-5.1) 03/04/25 08:34
Chloride 96 mmol/L (98-107) L 03/04/25 08:34
Carbon Dioxide 30 mmol/L (22-30) 03/04/25 08:34
BUN 46 mg/dl (7-17) H 03/04/25 08:34
Creatinine 1.2 mg/dL (0.6-1.0) H 03/04/25 08:34
eGFR 45.48 03/04/25 08:34
Glucose 110 mg/dl (70-99) H 03/04/25 08:34
Calcium 8.7 mg/dl (8.4-10.2) 03/04/25 08:34
Vne-H-Bgkvexwcdyc Pept 3100 pg/ml 02/24/25 16:34
Albumin 3.3 g/dl (3.5-5.0) L 02/27/25 03:11
Physical Exam
-
Vital Signs:
Vital Signs
Temp Pulse Resp BP Pulse Ox
98.4 F 60 20 151/65 95
03/05/25 11:30 03/05/25 11:30 03/05/25 11:30 03/05/25 11:30 03/05/25 11:30
Cardiovascular:: Regular rate and rhythm
Respiratory:: Bilateral: Coarse
Lung Excursion:: Normal
Abdomen:: Nontender and Soft
Bowel Sounds:: Normal
Extremity Edema:: None: Bilateral:
--- NOTE | 2025-03-05 14:22 | CM ---
Patient states that she is going home today, IMM completed yesterday and patient is for discharge home with / help; and [facility] to follow. Neighbor is to transport home. CM will continue to follow for discharge planning needs.
Plan; home with [facility] and home support with family
[2025-03-05 15:37] VITALS: BP 130/58
--- NOTE | 2025-03-05 15:53 | W.DCSUMMARY ---
Discharge Summary
Discharge Data
Date of Admission: 02/24/25
Date of Discharge: 03/05/25
Total time spent discharging patient (in min): 42
-
Pending Results: No
Hospital Course
79 y/o female with past medical history of Congestive Heart Failure, Valvular Heart Disease, Hypertension and Anxiety/Depression, who presented with shortness of breath and chest pain. Patient reported increased dyspnea on exertion over the past
week prior to presentation, particularly over the few days prior to presentation. Patient's shortness of breath became significantly worse in the ~24 hours right before presentation; she also mentioned she had pressure and tightness in her chest.
Upon arrival to the emergency department, patient was noted to be hypoxic and placed on supplemental oxygen. Patient's symptoms and signs were thought to be from acute heart failure and she was started on intravenous Lasix. Cardiology was consulted.
Patient was admitted to the IVU unit with new atrial fibrillation at 130-150 beats per minute, she was started on Cardizem Drip and Heparin Drip. Cardizem Drip caused patient to become hypotensive, so therefore she was switched to intravenous
Amiodarone. CT imaging of the chest revealed no pulmonary embolism but bilateral pleural effusions and signs of possible congestive heart failure. Initial echocardiogram showed ejection fraction of 40 to 45% with mild global hypokinesis, normal
right ventricular size and function, severe tricuspid regurgitation with PA pressure of approximately 40. As patient's echocardiogram had a mildly reduced ejection fraction with no clear wall motion abnormalities, urgent cardiac cath was held at the
time. Patient was started on Levophed for blood pressure support in the setting of systolic blood pressure in the 60s mmHg, and patient transferred to IMU. Patient went back into sinus rhythm. Patient developed acute kidney injury, which was suspect
to probably from multifactorial etiology: hemodynamics, diuretics, heart failure and intravenous contrast for CT Chest PE study. Patient's Lasix was held given her acute kidney injury. In the setting of significant hyponatremia and acute kidney
injury, nephrology was consulted, and patient was given Samsca. Patient's QTc became prolonged and Amiodarone was switched from intravenous infusion, and patient was then started on Amiodarone 200 mg twice daily. Given patient's blood pressure
improved and she was able to be weaned off vasopressor medication, she was started on beta fernanda. Patient's Amiodarone was later held given QTc of 579 -- for this same reason, Lexapro was also stopped. On the day of discharge (on 03/05/25), I
communicated with Marry Alvarez, cardiology GABY, and Marry communicated with Dr. Jovel (hydrometallurgical engineer attending) and they (Marry and Dr. Jovel) recommended that, given prolonged QTc in EKG, okay to continue patient on lower dose
Amiodarone of 100 mg daily (as well as stop Metoprolol) on discharge. Patient had home oxygen assessment evaluation performed and she was saturating oxygen well on room air. Patient's acute kidney injury had significantly improved and she was okay
for discharge with oral Lasix. She was doing well, she wanted to go home, and she was stable for discharge. On the day of discharge, I called patient's daughter Leora and I went over the discharge instructions in detail with her, and I answered all
of her questions and concerns to satisfaction.
Discharge Plan
-
Patient Disposition: Home with Home Care
Discharge Diagnosis/Procedures: Acute heart failure with mildly reduced ejection fraction, newly diagnosed paroxysmal atrial fibrillation with spontaneous conversion to sinus rhythm, cardiomyopathy with ejection fraction 45%
#Presented with chest discomfort and shortness of breath and found to be in acute heart failure and atrial fibrillation with RVR
#Acute Hypoxic Respiratory Insufficiency secondary to Acute on Chronic HFpEF
#Prolonged QTc on EKG
#Hypotension - RESOLVED
#Acute Kidney Injury - RESOLVED
#Hyponatremia
Mild pulmonary edema
Hazy opacity at the left lung base, with partial obscuration of left hemidiaphragm (on chest x-ray, as per radiologist's report)
Severe calcific atherosclerotic plaque in the thoracic aorta on hospital imaging
Small Bilateral Pleural Effusions
Concern for Cirrhosis on Hospital CT Imaging
Elevated Hepatic Transaminases
Old Cervical Spine Fractures? -- on hospital CT Imaging
Shoulder Arthritis
Subclinical Hypothyroidism
Hypertension
Condition: Good
Diet: 2 Gram Sodium and Restrict fluids to 64 oz
Activity: As tolerated
Driving Restrictions: As prior to admission
Bathing Restrictions: None
Blood Work: CBC, CMP and Magnesium in 3 to 4 days; thyroid function tests in 3 to 4 weeks
Other Services: VN
Specialty Instructions: Weigh Daily- Call MD for wt gain/loss 3 lbs overnight/5 lbs in 1 week
Activity Restrictions/Additional Instructions:
You may have cirrhosis on hospital imaging that was done -- this needs to be further evaluated with your primary care provider and enamel shader.
Instructions: *[facility] Heart Failure Instructions
Referrals:
[facility] [Outside]
Referral Note:
Makenna Diaz CRNP [Family Provider, Family Practice]
Michael Gill MD [Active, Cardiology] - 03/23/25 9:00 am
Referral Note: You have an appointment to see Dr. Gill's physician food trades assistants, Archana, at the [facility] on 03/23/2025 at 9 AM. Please call [phone] if you need to reschedule.
Rosemary Florian MD [Active, Gastroenterology] - in two to four weeks
Referral Note: Concern for new cirrhosis on hospital CT imaging
Additional Discharge Medication Instructions: - Stop taking chlorthalidone
- Increase Lasix (furosemide) to 40 mg (two 20 mg tablets or one 40 mg tablet) once a day
- Start taking amiodarone 100 mg once a day to help maintain regular heart rhythm
- Start taking Eliquis 5 mg twice daily to reduce risk of blood clot and stroke associated with atrial fibrillation
- Stop taking losartan for now, but it may be restarted in the future
- Lexapro stopped due to QTc prolongation
- Levothyroxine is a new medication for subclinical hypothyroidism
- Your Gabapentin has been reduced to 300 mg BID (600 mg total daily) given your renal function and to reduce the chances of side effects from too much Gabapentin
Prescriptions:
New
furosemide 40 mg Tablet
40 mg PO DAILY Qty: 30 11RF
magnesium oxide 400 mg (241.3 mg magnesium) Tablet
400 mg PO DAILY Qty: 30 11RF
polyethylene glycol 3350 17 gram Powder In Packet
17 g PO DAILY Qty: 30 0RF
gabapentin 300 mg Capsule
300 mg PO BID Qty: 60 0RF
levothyroxine 25 mcg Tablet
12.5 mcg PO DAILY @ 0600 Qty: 30 1RF
amiodarone 100 mg tablet
100 mg PO DAILY Qty: 30 1RF
apixaban 5 mg tablet
5 mg PO BID Qty: 60 2RF
Continued
esomeprazole magnesium [Nexium] 40 MG capsule,delayed release(DR/EC)
40 mg PO DAILY
bupropion HCl 150 MG tablet extended release 24 hr
150 mg PO DAILY
fluticasone propionate 1 SPRAY spray,suspension
1 spray intranasal DAILY
ZzzQuil 50 mg/30 mL Liquid
50 mg PO HS
doxycycline hyclate 100 mg Capsule
100 mg PO BID
Patient Comments:
Pt said she completed regimen
PreserVision AREDS 2,148 mcg-113 mg-45 mg-17.4mg Tablet
1 tab PO BID
Discontinued
gabapentin [Neurontin] 600 MG tablet
600 mg PO BID
chlorthalidone 25 MG tablet
25 mg PO QPM
ondansetron 4 mg Tablet,Disintegrating
4 mg PO Q6HPRN PRN (Reason: nausea)
losartan 50 mg Tablet
50 mg PO DAILY
furosemide [Lasix] 20 mg Tablet
20 mg PO DAILY
gabapentin 100 mg Capsule
200 mg PO HS
escitalopram oxalate [Lexapro] 20 mg Tablet
20 mg PO DAILY
ibuprofen-acetaminophen [Advil Dual Action] 125-250 mg Tablet
1 tab PO HS
Discharge Orders:
Discharge Patient (As Directed); Ordered 03/05/25
Ordered By: Luke Griffiths
Care Plan Goals
Care Plan Goals:
Problem: Readiness for enhanced knowledge related to diagnosis and treatment plan
Goal: Understand your diagnosis and treatment plan needs, including medications if applicable.
Instructions: Know your diagnosis, underlying causes and treatment plan options, including medications if applicable. Consult with your health care team to learn about your diagnosis and treatment plan, including medications if applicable.
Discharge Date and Time
Discharge Date/Time: 03/05/25 16:15
Print Language: MONEGASQUE
--- NOTE | 2025-03-08 11:19 | W.HF.CON ---
Heart Failure
- LV Function
Left ventricular function study result: LV Ejection fraction 41-49%
Ejection Fraction Percentage: 40-45
- ARNI
Patient already on ARNI: No
Heart Failure ARNI Not Indicated: LV Ejection Fraction >/= 40%
- ACEI/ARB
Patient already on ACEI/ARB: No
Heart Failure ACEI/ARB Not Indicated: LV Ejection Fraction > 40%
- Beta Esther
Patient already on Evidence Based Beta Esther: No
Heart Failure Evidence Based Beta Esther Not Indicated: LV Ejection Fraction > 40%
- Mineralocorticord Receptor Antagonist
Patient already on MRA: No
Heart Failure MRA Not Indicated: LV Ejection Fraction > 40%
- SGLT-2 Inhibitor
Patient already on SGLT-2 Inhibitor: No
Heart Failure SGLT-2 Inhibitor Contraindication: Patient Refusal
- Afib Anticoagulation
Patient already on Anticoagulation for Afib: Yes
- NYHA CHF Classification
NYHA CHF Classification Level: Class III - Symptoms w/ min exertion, interferes w/ nml daily activity
- ACC/AHA Stage
ACC/AHA Stage: Stage C: Symptomatic Heart Failure
== END 2025-03-05 16:15 | disposition home health service (06) | DRG 291 ==
LOC: 4 EAST ACU 20:09
PROVIDERS: Internal Medicine; Internal Medicine Cardiovascular Disease; Nurse Practitioner Family; Nurse Practitioner Gerontology; Physician Assistant; Physician Assistant Medical; Registered Nurse; Specialist; ADMITTING PHYSICIAN Internal Medicine; ATTENDING PHYSICIAN Hospitalist; CONSULT PHYSICIAN Internal Medicine; EMERGENCY PHYSICIAN Emergency Medicine; FAMILY PHYSICIAN Nurse Practitioner Family; OTHER PHYSICIAN Internal Medicine Cardiovascular Disease
DX: I11.0 Hypertensive heart disease with heart failure (principal); I50.33 Acute on chronic diastolic (congestive) heart failure; J96.01 Acute respiratory failure with hypoxia; E87.1 Hypo-osmolality and hyponatremia; T84.51XA Infection and inflammatory reaction due to internal right hip prosthesis, initial encounter; N17.9 Acute kidney failure, unspecified; I5A Non-ischemic myocardial injury (non-traumatic); E78.5 Hyperlipidemia, unspecified; G47.33 Obstructive sleep apnea (adult) (pediatric); I48.0 Paroxysmal atrial fibrillation; F41.9 Anxiety disorder, unspecified; F32.A Depression, unspecified; K21.9 Gastro-esophageal reflux disease without esophagitis; M19.012 Primary osteoarthritis, left shoulder; D50.9 Iron deficiency anemia, unspecified; I95.9 Hypotension, unspecified; M48.00 Spinal stenosis, site unspecified; J44.9 Chronic obstructive pulmonary disease, unspecified; I70.0 Atherosclerosis of aorta; I25.10 Atherosclerotic heart disease of native coronary artery without angina pectoris; I07.1 Rheumatic tricuspid insufficiency; E03.8 Other specified hypothyroidism; W19.XXXA Unspecified fall, initial encounter; Y93.89 Activity, other specified; Y92.9 Unspecified place or not applicable; Y83.1 Surgical operation with implant of artificial internal device as the cause of abnormal reaction of the patient, or of later complication, without mention of misadventure at the time of the procedure; Z66 Do not resuscitate; Z87.891 Personal history of nicotine dependence; Z85.3 Personal history of malignant neoplasm of breast; Z90.49 Acquired absence of other specified parts of digestive tract; Z79.899 Other long term (current) drug therapy; Z92.21 Personal history of antineoplastic chemotherapy; Z92.3 Personal history of irradiation; Z85.819 Personal history of malignant neoplasm of unspecified site of lip, oral cavity, and pharynx; Z88.6 Allergy status to analgesic agent; Z88.5 Allergy status to narcotic agent; Z88.2 Allergy status to sulfonamides; Z91.018 Allergy to other foods; Z87.19 Personal history of other diseases of the digestive system; Z82.49 Family history of ischemic heart disease and other diseases of the circulatory system; Z79.2 Long term (current) use of antibiotics; Z86.2 Personal history of diseases of the blood and blood-forming organs and certain disorders involving the immune mechanism
CPT/HCPCS: 70450; 71045; 71275; 72125; 73030; 80048; 80053; 80061; 81003; 81015; 82248; 82570; 82728; 83010; 83540; 83550; 83615; 83735; 83880; 83930; 83935; 84300; 84439; 84443; 84484; 85014; 85018; 85025; 85027; 85045; 85379; 85730; 93005; 93306; 93308; 94761; 96374; 96375; 97116; 97163; 97167; 97530; 97535; 99291; Q9967

== ENCOUNTER → 2025-03-26 11:05 | Outpatient (REF) | payer MEDICARE, BC, SELFPAY | LOC: HWRAD 11:05 | PROVIDERS: ATTENDING PHYSICIAN Nurse Practitioner Family | DX: M53.3 Sacrococcygeal disorders, not elsewhere classified (principal) | CPT/HCPCS: 72220 ==

== ENCOUNTER → 2025-03-31 09:33 | Outpatient (REF) | payer MEDICARE, BC, SELFPAY | LOC: EMG 09:33 | PROVIDERS: ATTENDING PHYSICIAN Nurse Practitioner Family | DX: Z09 Encounter for follow-up examination after completed treatment for conditions other than malignant neoplasm (principal); G89.29 Other chronic pain; M25.511 Pain in right shoulder; M25.512 Pain in left shoulder; R20.0 Anesthesia of skin; G56.03 Carpal tunnel syndrome, bilateral upper limbs | CPT/HCPCS: 95886; 95910 ==

== ENCOUNTER → 2025-04-02 10:44 | Outpatient (REF) | payer MEDICARE, BC, SELFPAY ==
[2025-04-02 12:26] LABS: Hematocrit 36.2 % (37.0-47.0); Hemoglobin 11.2 g/dL (12.0-16.0); Mean Corp Hgb Conc. 30.9 g/dL (33.0-37.0); Mean Corpuscular Volume 98.1 fL (81.0-99.0); Nucleated Red Blood Cells % 0 %; Platelet Count 216 10^3/uL (130-400); Red Cell Dist. Width 16.1 % (11.5-14.5)
[2025-04-02 13:34] LABS: ALT (SGPT) 25 U/L (0-35); AST (SGOT) 60 U/L (14-36); Albumin 4.1 g/dl (3.5-5.0); Alkaline Phosphatase 164 U/L (38-126); Blood Urea Nitrogen 17 mg/dl (7-17); Calcium 9.1 mg/dl (8.4-10.2); Carbon Dioxide 28 mmol/L (22-30); Chloride 99 mmol/L (98-107); Glucose 84 mg/dl (70-99); Potassium 4.3 mmol/L (3.5-5.1); Sodium 133 mmol/L (135-145); Total Protein 9.7 g/dl (6.3-8.2); eGFR > 60.00
[2025-04-02 14:01] LABS: TSH 13.30 uIU/ml (0.47-4.68)
== END ==
LOC: HWLAB 10:44
PROVIDERS: ATTENDING PHYSICIAN Nurse Practitioner Family
DX: R05.3 Chronic cough (principal); F41.9 Anxiety disorder, unspecified; F33.2 Major depressive disorder, recurrent severe without psychotic features
CPT/HCPCS: 36415; 71046; 80053; 83880; 84439; 84443; 85025

== ENCOUNTER → 2025-04-16 10:08 | Outpatient (REF) | payer MEDICARE, BC, SELFPAY ==
[2025-04-16 11:56] LABS: ALT (SGPT) 24 U/L (0-35); AST (SGOT) 53 U/L (14-36); Albumin 4.2 g/dl (3.5-5.0); Alkaline Phosphatase 124 U/L (38-126); Blood Urea Nitrogen 48 mg/dl (7-17); Calcium 9.3 mg/dl (8.4-10.2); Carbon Dioxide 34 mmol/L (22-30); Chloride 92 mmol/L (98-107); Glucose 90 mg/dl (70-99); Potassium 3.2 mmol/L (3.5-5.1); Sodium 130 mmol/L (135-145); Total Protein 9.7 g/dl (6.3-8.2); eGFR 41.06
== END ==
LOC: REG 10:08
PROVIDERS: ATTENDING PHYSICIAN Nurse Practitioner Family; REFERRING PHYSICIAN Internal Medicine Cardiovascular Disease
DX: R94.31 Abnormal electrocardiogram [ECG] [EKG] (principal); R05.3 Chronic cough; F41.9 Anxiety disorder, unspecified; F33.2 Major depressive disorder, recurrent severe without psychotic features; G56.02 Carpal tunnel syndrome, left upper limb; I50.9 Heart failure, unspecified; N17.9 Acute kidney failure, unspecified; E03.9 Hypothyroidism, unspecified; K21.9 Gastro-esophageal reflux disease without esophagitis
CPT/HCPCS: 36415; 80053

== ENCOUNTER → 2025-04-20 10:27 | Outpatient (REF) | payer MEDICARE, BC, SELFPAY ==
[2025-04-20 11:33] LABS: ALT (SGPT) 24 U/L (0-35); AST (SGOT) 51 U/L (14-36); Albumin 4.1 g/dl (3.5-5.0); Alkaline Phosphatase 105 U/L (38-126); Blood Urea Nitrogen 27 mg/dl (7-17); Calcium 9.0 mg/dl (8.4-10.2); Chloride 96 mmol/L (98-107); Glucose 134 mg/dl (70-99); Potassium 3.5 mmol/L (3.5-5.1); Sodium 136 mmol/L (135-145); Total Protein 9.1 g/dl (6.3-8.2); eGFR 56.25
[2025-04-20 12:00] LABS: Carbon Dioxide 33 mmol/L (22-30)
== END ==
LOC: REG 10:27
PROVIDERS: ATTENDING PHYSICIAN Nurse Practitioner Family
DX: E87.6 Hypokalemia (principal); E87.1 Hypo-osmolality and hyponatremia
CPT/HCPCS: 36415; 80053

== ENCOUNTER → 2025-04-26 09:47 | Outpatient (REF) | payer MEDICARE, BC, SELFPAY ==
[2025-04-26 12:08] LABS: ALT (SGPT) 25 U/L (0-35); AST (SGOT) 51 U/L (14-36); Albumin 4.4 g/dl (3.5-5.0); Alkaline Phosphatase 104 U/L (38-126); Blood Urea Nitrogen 29 mg/dl (7-17); Calcium 9.1 mg/dl (8.4-10.2); Chloride 96 mmol/L (98-107); Glucose 86 mg/dl (70-99); Potassium 3.6 mmol/L (3.5-5.1); Sodium 137 mmol/L (135-145); Total Protein 9.6 g/dl (6.3-8.2); eGFR 50.17
[2025-04-26 13:58] LABS: Carbon Dioxide 34 mmol/L (22-30)
== END ==
LOC: REG 09:47
PROVIDERS: ATTENDING PHYSICIAN Nurse Practitioner Family
DX: I50.32 Chronic diastolic (congestive) heart failure (principal); R06.02 Shortness of breath; F33.1 Major depressive disorder, recurrent, moderate
CPT/HCPCS: 36415; 80053

== ENCOUNTER 2025-05-21 06:20 | Day surgery (SDC) | payer MEDICARE, BC, SELFPAY ==
[2025-05-21 10:16] VITALS: BMI 26.7
[2025-05-21 10:17] VITALS: BMI 26.7
[2025-05-21 10:18] VITALS: BP 135/69
[2025-05-21] MEDS: TYLENOL 1000 MG PO (10:33)
[2025-05-21] MEDS: NORMOSOL-R/PLASMALYTE-A 1000 IV (10:33)
--- NOTE | 2025-05-21 14:00 | HP.FOC2 ---
Focused History & Physical
Chief Complaint
HPI:
Chief Complaint: Umbilical hernia
HPI / Indication for Planned Procedure: Patient is an 80-year-old female with symptomatic umbilical hernia presenting for scheduled operative correction.
Relevant Past Medical History: Other (Anxiety, hypertension, history of breast cancer, ITP, iron deficiency anemia, depression, osteoarthritis, tricuspid regurg, pulmonary hypertension, AIMEE, chronic diastolic congestive heart failure, B12
deficiency, P A-fib)
Relevant Social History: Negative
Relevant Family History: Negative
Relevant Past Surgical History: Positive for (Tonsils, rotator cuff, carpal tunnel, cholecystectomy, breast lumpectomy, cardiac catheterizations, paraesophageal hernia repair)
Review of Systems
Review of Pertinent Systems: All Systems Negative
Medication
See Medication form for detailed medications: Yes
Medication List (including Herbals & OTC):
esomeprazole magnesium 40 mg capsule,delayed release (Nexium) 40 mg PO DAILY Gastrointestinal issue 03/29/14
bupropion HCl 150 mg 24 hr tablet, extended release 150 mg PO DAILY Depression 10/31/19
fluticasone propionate 50 mcg/actuation nasal spray,suspension 1 spray intranasal DAILY Congestion 03/02/20
diphenhydramine HCl 50 mg/30 mL oral liquid (ZzzQuil) 50 mg PO HS Sleep 01/22/24
doxycycline hyclate 100 mg capsule 100 mg PO BID PHOTOGRAPHIC EQUIPMENT INSPECTOR 02/24/25
furosemide 40 mg tablet 40 mg PO DAILY Heart Failure #30 tabs 03/04/25
magnesium oxide 400 mg (241.3 mg magnesium) tablet 400 mg PO DAILY Electrolyte Repletion #30 tabs 03/04/25
amiodarone 100 mg tablet 100 mg PO DAILY #30 tabs 03/05/25
apixaban 5 mg tablet 5 mg PO BID #60 tabs 03/05/25
gabapentin 300 mg capsule 300 mg PO BID #60 caps 03/05/25
levothyroxine 25 mcg tablet 25 mcg PO DAILY @ 0600 05/17/25
metolazone 2.5 mg tablet 2.5 mg PO TU 05/17/25
paroxetine HCl 10 mg tablet (Paxil) 10 mg PO DAILY 05/17/25
polyethylene glycol 3350 17 gram oral powder packet 17 g PO PRN PRN Constipation 05/17/25
Medications Reviewed: Yes
Allergies and Reactions
Patient has Allergies: Yes
Noted Allergies and Reactions:
Allergy/AdvReac Type Severity Reaction Status Date / Time
codeine Allergy stomach Verified 05/21/25 10:08
pains
NSAIDS (Non-Steroidal Allergy GI BLEED Verified 05/21/25 10:08
Anti-Inflamma
peach Allergy FACIAL Verified 05/21/25 10:08
SWELLING
WITH ANY
PITTED
FRUIT
Sulfa (Sulfonamide Allergy Itching Verified 05/21/25 10:08
Antibiotics)
sulfite Allergy Itching Verified 05/21/25 10:08
Pertinent Physical Exam
All Other Systems: Negative
Head/Neck: Normal
Lungs: Normal
Heart: Normal
Abdomen: Other (Reducible umbilical hernia)
Extremities: Normal
Neurological: Normal
Diagnosis / Assessment
80-year-old female presenting for scheduled operative correction symptomatic umbilical hernia
Plan / Procedure
Open umbilical hernia repair with mesh
Anesthesia/Sedation to be done by Anesthesia Provider: Yes
--- NOTE | 2025-05-21 15:05 | W.IMMPOSTOP ---
Addendum entered and electronically signed by Gilson Rodas MD 05/21/25 15:28:
#[id number]
Original Note:
Surgical Immed Post Op Note
-
Primary Surgeon: Gilson Rodas MD
Assisting Surgeon: None
Pre-op Diagnosis: Umbilical hernia
Post-op Diagnosis: Umbilical hernia; 2.5 cm
Procedure Performed: Open umbilical hernia repair with mesh; Ventralex ST 6.4 cm round
Anesthesia Type: MAC +1% lidocaine with epinephrine/0.25% Marcaine
Specimen / Cultures: None
Estimated Blood Loss: 4 mL
Complications: None immediate
Operative Findings: 2.5 cm umbilical hernia defect. Underlay preperitoneal mesh repair, Ventralex ST 6.4 cm round. Fascial defect closed with 0 Maxon.
[2025-05-21 15:08] VITALS: BP 124/51
[2025-05-21 15:15] VITALS: BP 108/50
[2025-05-21 15:32] VITALS: BP 133/52
[2025-05-21 15:45] VITALS: BP 138/70
== END 2025-05-21 16:00 | disposition home or self-care (01) ==
LOC: SDS 06:20
PROVIDERS: ATTENDING PHYSICIAN Surgery
DX: K42.9 Umbilical hernia without obstruction or gangrene (principal)
CPT/HCPCS: 49591; C1781